=== PATIENT | female | born 1975 | race Two or more races ===

== ENCOUNTER → 2022-09-21 15:51 | Outpatient (BNVA) | payer OTHER, SELFPAY | PROVIDERS: PCP Student in an Organized Health Care Education/Training Program; Visit Provider Physician Assistant ==

== ENCOUNTER 2022-10-07 10:10 | Outpatient (AMB) | payer OTHER, SELFPAY ==
[2022-10-07 17:35] VITALS: BMI 38.4
--- NOTE | 2022-10-07 17:35 | A.OFFVIS_ITS ---
Intake VS Expanded 10/07/22 17:35 Height 4 ft 11 in Weight 190 lb BMI 38.4 Body Fat 78.4 Body Fat Percentage 41.3 Free Fat Mass 111.4 Water Mass 12 BMR 1,543 Intake Visit Reasons: TV SOFTBALL UMPIRE SWL BMI 38.4 Allergies SHELL FISH Allergy (Severe, Uncoded 10/07/22 17:37) Anaphylaxis Medication List - Last Reconciled 10/07/22 by Bal Ricci MD amlodipine 10 mg PO DAILY levothyroxine 50 mcg PO DAILY rosuvastatin 40 mg PO DAILY HPI TV SOFTBALL UMPIRE SWL BMI 38.4 HPI Details Start time: 1pm, End time: 2pm I spent 50 minutes speaking with the patient on the phone plus an additional 10 minutes reviewing and updating records for a total of 60 minutes HPI Comments History of Present Illness Details Previous weight loss efforts: intermittent fasting, OTC medications Wakes up: 7am, Sleeps: 11pm Breakfast: skips Lunch: 12pm (sandwich) Dinner: 7pm (meat and vegetables) Snacks: 11am (chips), 4pm (chips), 10pm (sweets) Exercise: none, has a Gym membership Fluids: Coffees 3-4 cups/day with cream and sugar, tea: none, juice: none, Soda: Regular coke, ETOH: recovering alcoholic, none now PFSH Medical History (Updated 10/07/22 @ 17:42 by Bal Ricci MD) DJD (degenerative joint disease) Hyperlipidemia Hypertension Hypothyroidism Surgical History (Updated 10/07/22 @ 17:42 by Bal Ricci MD) History of cervical discectomy Hx of section Social History (Updated 09/21/22 @ 16:14 by Laura Canela CMA) Alcohol intake: never Tobacco use type: Cigarette Cigarette Packs Per Day: 1 Assessment & Plan Assessment & Plan (1) Obesity: Code(s): E66.9 - Obesity, unspecified Plan: 1. Plan for lap sleeve gastrectomy. If diaphragmatic or ventral hernias are present at time of surgery, these will be repaired laparoscopically as well. Risks and complications were discussed in detail including possible conversion to an open procedure, anastomotic leak, bleeding requiring transfusion, small bowel obstruction, , DVT and pulmonary embolism, cardiac, or pulmonary complications, as terminal block assembler complications such as anastomotic ulcer, insufficient weight loss and vitamin deficiencies. I emphasized the importance of close follow-up, adherence to instructions and good communication. 2. Nutritional counseling. Start with 2 plant-based organic Orgain protein (buy at [employer], [employer], [employer], [employer]) shakes (HALF scoop each in 8oz low fat unsweetened almond milk each) at 8am-10am and 11am-1pm, 1 protein bar (Zone Perfect protein bars, buy at [employer], [employer], [employer], or [employer]) at 2pm-4pm, dinner at 5pm (8 forks of protein and 8 forks of salad/vegetables) and one more protein bar after dinner at 7pm-11pm. If hungry, you may have another HALF Zone Perfect protein bar at 10pm-11pm. Meal to include lean meat (beef, fish, pork, turkey, chicken), or japanese yogurt, or egg whites, or beans with a salad with olive oil and fruits (berries, pears, apples, kiwi). Avoid salt, breads, potatoes, rice, pasta, desserts. 3. Each shake would be drunk slowly, like coffee in a period of 2 hours. 4. Cut each bar in 4 pieces and eat each piece in 30min to make each bar last 2 hours. 5. I emphasized the importance of measuring accurately the food portion and measure it when serving the food in plate 6. The meal portions include 8 full-size forks of meat and 8 full-size forks of salad. You always eat the meat portion but you can replace up to 4 forks for salad/vegetables with rice, potatoes or pasta, or a fruit if you like. The less you do it the better weight loss will be. 7. One full-size fork is what it can be scooped on the fork without falling aside and not what can be bit with the fork. Use regular forks like those you find in a typical restaurant. 8. Please send me weight measurements as soon as possible and then once a week. Always include your diet and exercise plan. 9. Start treadmill with an incline of 2.0 and speed of 3.0. Increase incline by 1 every 3 min to a max incline of 8.0, stay 3min at 8.0 and then return to 2.0 and repeat same steps until calorie goal is met. Goal is to burn 2000 calories per week on exercise, which means either 300 calories daily, or 400 calories 5 days per week, or 500 calories 4 days per week, or 650 calories 3 days per week. 10. Alternatively purchase a stationary bike, elliptical or treadmill at home that can track calories. Let me know if you do so I can give you an exercise plan. 11. It is important of avoiding and for at least 18 months postoperatively and has been discussed at the infosession. 12. Goal is to lose at least 1.5-2lbs per week 13. Goal to lose 10% of your weight before surgery, which is about 19lbs. Ultimate weight goal: 171lbs before surgery 14. Please follow the diet plan exactly without any change. If you don't like something about the plan or you feel hungry you need to communicate with me so I can help you revise the plan. You should not change the plan yourself. (2) BMI 38.0-38.9,adult: Code(s): Z68.38 - Body mass index [BMI] 38.0-38.9, adult (3) Hypertension: Code(s): I10 - Essential (primary) hypertension (4) Hyperlipidemia: Code(s): E78.5 - Hyperlipidemia, unspecified (5) Hypothyroidism: Code(s): E03.9 - Hypothyroidism, unspecified Telehealth Telehealth Location of provider rendering services: practice address Location of patient: address on file Patient Identification confirmed using: Name, : Yes Telehealth method: voice only Patient verbally consented to treatment: Yes Patient verbally consented to billing insurance company: Yes Patient informed of any privacy concerns related to visit: Yes Minutes spent on Phone/Video with Pt.: 60 Coding Level of Care Code Tele New Pt Level 5 (93758) Diagnoses Obesity E66.9 BMI 38.0-38.9,adult Z68.38 Hypertension I10 Hyperlipidemia E78.5 Hypothyroidism E03.9 Time Spent (min) 60
== END 2022-10-07 17:57 | disposition home or self-care (01) ==
LOC: HO.HBS 10:10
PROVIDERS: PCP Student in an Organized Health Care Education/Training Program; Visit Provider Surgery
DX: E66.9 Obesity, unspecified (principal); Z68.38 Body mass index [BMI] 38.0-38.9, adult
CPT/HCPCS: 99443

== ENCOUNTER → 2022-10-07 10:10 | Outpatient (BNVA) | payer OTHER, SELFPAY | PROVIDERS: PCP Student in an Organized Health Care Education/Training Program; Visit Provider Surgery ==

== ENCOUNTER 2022-10-16 10:51 | Outpatient (REF) | payer OTHER, SELFPAY ==
--- NOTE | ~2022-10-16 | XR_ITS ---
EXAMINATION: XR CHEST 2 VIEWS CLINICAL INFORMATION: Obesity. COMPARISON: None. TECHNIQUE: Frontal and lateral views of the chest were obtained. FINDINGS: The heart, great vessels, pulmonary vasculature and mediastinum are normal. The lungs show no focal infiltrate, effusion or pneumothorax. There is no acute osseous abnormality. There is a mild thoracic levoscoliosis. There is multi-level thoracic and upper lumbar spondylosis. XR/XR chest 2V IMPRESSION: No active cardiopulmonary disease.
--- NOTE | 2022-10-16 10:59 | ECG_ITS ---
Test Reason : e66.9 Blood Pressure : / mmHG Vent. Rate : 077 BPM Atrial Rate : 077 BPM P-R Int : 154 ms QRS Dur : 080 ms QT Int : 378 ms P-R-T Axes : 064 017 025 degrees QTc Int : 427 ms Normal sinus rhythm Normal ECG No previous ECGs available Referred By: Bal Ricci Electronically Signed By:SARAH MURCIA
[2022-10-16 11:11] LABS: MANUAL DIFF FLAG NO
[2022-10-16 12:27] LABS: Basophils Percent Auto 0.6 % (0-2); Eosinophils Absolute Auto 0.1 X10*3/uL (0.0-0.4); Eosinophils Percent Auto 0.7 % (0-4); Hematocrit 42.9 % (37.0-47.0); Hemoglobin 14.1 g/dl (12.0-16.0); Imm Gran Abs Auto 0.03 X10*3/uL (0.00-0.03); Imm Gran Pct Auto 0.4 % (0.0-0.4); Lymphocytes Percent Auto 28.4 % (20-40); Mean Corpuscular HGB Conc 32.9 g/dl (31.0-35.0); Mean Corpuscular Hemoglobin 25.7 pg (27.0-33.0); Mean Corpuscular Volume 78.3 fL (80.0-98.0); Mean Platelet Volume 10.1 fL (9.4-12.3); Monocytes Absolute Auto 0.6 X10*3/uL (0.1-1.2); Monocytes Percent Auto 7.6 % (2-11); Neutrophils Absolute Auto 4.5 x10*3/uL (2.0-8.3); Neutrophils Percent Auto 62.3 % (45-73); Platelet Count 423 X10*3/uL (160-400); Red Blood Count 5.48 X10*6/uL (4.20-5.50); White Blood Count 7.2 X10*3/uL (4.8-10.8)
[2022-10-16 12:59] LABS: Estimated Average Glucose 100 mg/dL; Hemoglobin A1c % 5.1 % (<6.0)
[2022-10-16 13:16] LABS: Alanine Aminotransferase 14 U/L (0-31); Albumin Level 3.3 g/dL (3.5-5.0); Alkaline Phosphatase 67 U/L (39-117); Anion Gap 10 (12-20); Aspartate Amino Transferase 12 U/L (5-31); Bilirubin Total 0.3 mg/dL (0.0-1.0); Blood Urea Nitrogen 11 mg/dL (9-16); C Reactive Protein < 0.10 mg/dL (< or = 0.50); Calcium 9.1 mg/dL (8.4-10.2); Carbon Dioxide 27 mmol/L (22-29); Chloride 106 mmol/L (96-108); Cholesterol 361 mg/dL (<200); Estimated Glomerular Filt Rate > 60; Glucose Random 79 mg/dL (60-115); HDL Cholesterol 47 mg/dL (>40); Iron 73 mcg/dL (30-160); LDL Cholesterol Calculated 283 mg/dL (<100); Percent Iron Saturation 33 % (15-50); Potassium 4.1 mmol/L (3.3-5.1); Sodium 139 mmol/L (135-145); Total Iron Binding Capacity 221 mcg/dL (228-428); Total Protein 6.1 g/dL (6.5-8.0); Triglycerides 155 mg/dL (<150); Unsaturated Iron Binding 148 ug/dL
[2022-10-16 13:32] LABS: Ferritin 61 ng/mL (10-250); Insulin 5 uU/mL (2-29); TSH reflex Free T4 3.41 uIU/mL (0.32-4.0); Vitamin D 25-OH Total 13.3 ng/mL (>30)
[2022-10-16 13:44] LABS: Folate 8.9 ng/mL (> or = 4.0); Vitamin B12 582 pg/mL (200-900)
[2022-10-18 12:39] LABS: Calcium (PTHI) 8.7 mg/dL (8.6-10.2); PTHI 28 pg/mL (16-77)
[2022-10-20 12:34] LABS: Zinc 52 mcg/dL (60-130)
[2022-10-21 16:23] LABS: Vitamin B1 14 nmol/L (8-30)
[2022-10-22 02:03] LABS: Vitamin A 35 mcg/dL (38-98)
== END 2022-10-16 10:52 | disposition home or self-care (01) ==
LOC: HO.XRAY 10:51
PROVIDERS: PCP Student in an Organized Health Care Education/Training Program; Visit Provider Surgery
DX: E66.9 Obesity, unspecified (principal); I10 Essential (primary) hypertension; E78.5 Hyperlipidemia, unspecified; E03.9 Hypothyroidism, unspecified; Z68.38 Body mass index [BMI] 38.0-38.9, adult
CPT/HCPCS: 36415; 71046; 80053; 80061; 82306; 82607; 82728; 82746; 83036; 83525; 83540; 83970; 84425; 84443; 84590; 84630; 85025; 86140; 93005

== ENCOUNTER 2022-10-21 10:11 | Outpatient (AMB) | payer OTHER, SELFPAY ==
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
== END 2022-10-21 11:10 | disposition home or self-care (01) ==
LOC: HO.HBST 10:11
PROVIDERS: PCP Student in an Organized Health Care Education/Training Program; Visit Provider Counselor Mental Health
DX: F41.8 Other specified anxiety disorders (principal); F50.9 Eating disorder, unspecified
CPT/HCPCS: 90791

== ENCOUNTER → 2022-10-21 10:11 | Outpatient (BNVA) | payer OTHER, SELFPAY | PROVIDERS: PCP Student in an Organized Health Care Education/Training Program; Visit Provider Counselor Mental Health ==

== ENCOUNTER 2022-10-30 08:03 | Outpatient (AMB) | payer OTHER, SELFPAY ==
--- NOTE | 2022-10-30 11:16 | MHC.OFFVISWM ---
Intake VS Expanded 10/30/22 11:35 Height 4 ft 11 in Weight 189 lb 2 oz BMI 38.2 Body Fat 96.1 Body Fat Percentage 50.8 Free Fat Mass 93 Visceral Mass 20 Water Mass 63.7 BMR 1,262 Intake Visit Reasons: TV Follow Up SWL - 1ST Allergies SHELL FISH Allergy (Severe, Uncoded 10/07/22 17:37) Anaphylaxis HPI TV Follow Up SWL - 1ST HPI Details Start time: 10.11am, End time: 11.41am ?I spent 25 minutes speaking with the patient on the phone plus an additional 5 minutes reviewing and updating records for a total of 30 minutes HPI Comments History of Present Illness Details Overall weight loss: 0.8lbs or 0.42% TBWL Is doing 4 Orgain protein shakes (1/2 scoop in almond milk), 3 Zone Perfect protein bars and one meal (8 forks of protein and 8 forks of salad or vegetables). Misunderstood the plan and had more shakes and bars Exercise: ordered a treadmill [facility] Medical History (Updated 10/26/22 @ 19:47 by Bal Ricci MD) DJD (degenerative joint disease) Hypothyroidism Hyperlipidemia Hypertension Surgical History (Updated 10/07/22 @ 17:42 by Bal Ricci MD) History of cervical discectomy Hx of section Social History (Updated 09/21/22 @ 16:14 by Laura Canela CMA) Alcohol intake: never Tobacco use type: Cigarette Cigarette Packs Per Day: 1 Assessment & Plan Assessment & Plan (1) Obesity: Code(s): E66.9 - Obesity, unspecified Plan: 1. Nutritional counseling. Start with 2 plant-based organic Orgain protein (buy at [employer], [employer], [employer], [facility]) shakes (HALF scoop each in 8oz low fat unsweetened almond milk each) start: 8am and finish: 10am and start: 11am and finish: 1pm, 1 protein bar (Zone Perfect protein bars, buy at [employer], [employer], [facility], or [employer]) at start: 2pm and finish at 4pm, dinner at 5pm (8 forks of protein and 8 forks of salad/vegetables) and one more protein bar after dinner start: 7pm and finish at 11pm. If hungry, you may have another HALF Zone Perfect protein bar start: 10pm and finish: 11pm. Meal to include lean meat (beef, fish, pork, turkey, chicken), or citizen of [place] yogurt, or egg whites, or beans with a salad with olive oil and fruits (berries, pears, apples, kiwi). Avoid salt, breads, potatoes, rice, pasta, desserts. 2. Each shake would be drunk slowly, like coffee in a period of 2 hours. 3. Cut each bar in 4 pieces and eat each piece in 30min to make each bar last 2 hours. 4. I emphasized the importance of measuring accurately the food portion and measure it when serving the food in plate 5. The meal portions include 8 full-size forks of meat and 8 full-size forks of salad. You always eat the meat portion but you can replace up to 4 forks for salad/vegetables with rice, potatoes or pasta, or a fruit if you like. The less you do it the better weight loss will be. 6. One full-size fork is what it can be scooped on the fork without falling aside and not what can be bit with the fork. Use regular forks like those you find in a typical restaurant. 7. Please send me weight measurements as soon as possible and then once a week. Always include your diet and exercise plan. 8. Please let me know if your treadmill inclines. If it does, start treadmill with an incline of 2.0 and speed of 3.0. Increase incline by 1 every 3 min to a max incline of 8.0, stay 3min at 8.0 and then return to 2.0 and repeat same steps until calorie goal is met. Goal is to burn 2000 calories per week on exercise, which means either 300 calories daily, or 400 calories 5 days per week, or 500 calories 4 days per week, or 650 calories 3 days per week. 9. Alternatively purchase a stationary bike, elliptical or treadmill at home that can track calories. Let me know if you do so I can give you an exercise plan. 10. It is important of avoiding and for at least 18 months postoperatively and has been discussed at the infosession. 11. Goal is to lose at least 1.5-2lbs per week 12. Goal to lose 10% of your weight before surgery, which is about 19lbs. Ultimate weight goal: 171lbs before surgery 13. Please follow the diet plan exactly without any change. If you don't like something about the plan or you feel hungry you need to communicate with me so I can help you revise the plan. You should not change the plan yourself. (2) BMI 38.0-38.9,adult: Code(s): Z68.38 - Body mass index [BMI] 38.0-38.9, adult Telehealth Telehealth Location of provider rendering services: practice address Location of patient: address on file Patient Identification confirmed using: Name, : Yes Telehealth method: voice only Patient verbally consented to treatment: Yes Patient verbally consented to billing insurance company: Yes Patient informed of any privacy concerns related to visit: Yes Minutes spent on Phone/Video with Pt.: 30 Coding Level of Care Code Tele Est Pt Level 4 (11199) Diagnoses Obesity E66.9 BMI 38.0-38.9,adult Z68.38 Time Spent (min) 30
[2022-10-30 11:35] VITALS: BMI 38.2
== END 2022-10-30 11:42 | disposition home or self-care (01) ==
LOC: HO.HBS 08:03
PROVIDERS: PCP Student in an Organized Health Care Education/Training Program; Visit Provider Surgery
DX: E66.9 Obesity, unspecified (principal); Z68.38 Body mass index [BMI] 38.0-38.9, adult
CPT/HCPCS: 99443

== ENCOUNTER → 2022-10-30 08:03 | Outpatient (BNVA) | payer OTHER, SELFPAY | PROVIDERS: PCP Student in an Organized Health Care Education/Training Program; Visit Provider Surgery ==

== ENCOUNTER 2022-11-04 13:00 | Outpatient (AMB) | payer OTHER, SELFPAY ==
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
== END 2022-11-04 14:00 | disposition home or self-care (01) ==
LOC: HO.HBST 13:26
PROVIDERS: PCP Student in an Organized Health Care Education/Training Program; Visit Provider Counselor Mental Health
DX: F41.8 Other specified anxiety disorders (principal); F50.9 Eating disorder, unspecified
CPT/HCPCS: 90834

== ENCOUNTER → 2022-11-04 13:00 | Outpatient (BNVA) | payer OTHER, SELFPAY | PROVIDERS: PCP Student in an Organized Health Care Education/Training Program; Visit Provider Counselor Mental Health ==

== ENCOUNTER 2022-11-06 | Outpatient (REF) | payer OTHER, SELFPAY | END 2022-11-06 00:01 | disposition home or self-care (01) | LOC: CF | PROVIDERS: PCP Student in an Organized Health Care Education/Training Program; Visit Provider Dietitian, Registered | DX: E66.9 Obesity, unspecified (principal); I10 Essential (primary) hypertension; E78.5 Hyperlipidemia, unspecified; Z71.3 Dietary counseling and surveillance; Z68.38 Body mass index [BMI] 38.0-38.9, adult | CPT/HCPCS: 97802 ==

== ENCOUNTER 2022-11-20 13:26 | Outpatient (REF) | payer OTHER, SELFPAY | END 2022-11-20 13:27 | disposition home or self-care (01) | LOC: HO.US 13:26 | PROVIDERS: PCP Student in an Organized Health Care Education/Training Program; Visit Provider Surgery | DX: Z13.89 Encounter for screening for other disorder (principal) ==

== ENCOUNTER 2022-12-03 14:04 | Outpatient (REF) | payer OTHER, SELFPAY ==
[2022-12-05 13:22] LABS: H Pylori Breath Test Negative (Negative)
== END 2022-12-03 14:05 | disposition home or self-care (01) ==
LOC: HO.LNP 14:04
PROVIDERS: PCP Student in an Organized Health Care Education/Training Program; Visit Provider Surgery
DX: E66.9 Obesity, unspecified (principal); Z68.38 Body mass index [BMI] 38.0-38.9, adult
CPT/HCPCS: 83013

== ENCOUNTER → 2022-12-04 08:12 | Outpatient (BNVA) | payer OTHER, SELFPAY | PROVIDERS: PCP Student in an Organized Health Care Education/Training Program; Visit Provider Surgery ==

== ENCOUNTER 2022-12-10 08:32 | Outpatient (AMB) | payer OTHER, SELFPAY ==
--- OUTSIDE RECORDS SUMMARY | 2022-12-10 08:34 | XMS_ITS | Continuity of Care Document ---
Author Name Unknown Organization [facility] Address [address] [place] [address]- Care Team Providers Care Mainframe Developer Name Role Phone Jaylon Xiao MD Primary Care Physician Encounter [facility] Date(s): 09/18/21 - 09/18/[address] [address]- Encounter Diagnosis HTN (hypertension)(Final) - 09/18/21 Dyslipidemia, goal LDL below 100(Final) - 09/18/21 Abnormal fasting glucose(Final) - 09/18/21 Heavy tobacco smoker(Final) - 09/18/21 Anterior chest wall pain(Final) - 09/18/21 Discharge Disposition: A-D/C Home Attending Physician: Chance Bishop MD Admitting Physician: Chance Bishop MD Referring Physician: Not on Staff, Referring MD Allergies, Adverse Reactions, Alerts Substance Reaction Severity Status shellfish Active Medications albuterol CFC free 90 mcg/inh inhalation aerosol 1 puffs, Inhalation, 4 times a day, PRN for wheezing, # 25 Gm, 0 Refills, Maintenance, Aerosol Start Date: 12/14/10 Status: Ordered amLODIPine 5 mg oral tablet 1 tablet = 5 mg, By Mouth, Daily in AM, # 30 tablet, 1 Refills, Maintenance, 09/18/21 15:49:00 EDT,Tablet, [facility]/pharmacy #[id number], Partial fill upon patient request if the prescription is for a scheduleII opioid drug., 150, cm, 09/18/21 15:22:00 EDT, He... Start Date: 09/18/21 Stop Date: 11/17/21 Status: Ordered amLODIPine 5 mg oral tablet 5 mg, Tablet, By Mouth, Once, STAT, 09/18/21 14:36:00 EDT, Stop date 09/18/21 14:36:00 EDT Start Date: 09/18/21 Stop Date: 09/18/21 Status: Completed Ativan 0.5 mg oral tablet 1 tablet = 0.5 mg, By Mouth, 3 times a day, PRN for anxiety, # 12 tablet, 0 Refills, Maintenance, Tablet Start Date: 10/13/12 Status: Ordered Bactrim DS Tablet 1, tablet, By Mouth, 2 times a day, Maintenance, 10/06/16 15:55:43 Start Date: 10/06/16 Stop Date: 10/09/16 Status: Ordered Effexor XR 150 mg oral capsule, extended release 1 capsule = 150 mg, By Mouth, Daily, # 30 capsule, 11 Refills, Maintenance, CR Capsule Start Date: 08/04/11 Stop Date: 07/29/12 Status: Ordered Flexeril 10 mg oral tablet 1 tablet = 10 mg, By Mouth, 3 times a day, PRN for spasm, # 30 tablet, 0 Refills, Maintenance, Tablet Start Date: 04/14/12 Status: Ordered Implanon = 68 mg, Subcutaneous Infusion, Once, 0 Refills, Maintenance Start Date: 04/14/12 Status: Ordered rosuvastatin 10 mg oral capsule 1 capsule = 10 mg, By Mouth, Daily at bedtime, # 30 capsule, 1 Refills, Maintenance, 09/18/21 15:49:00 EDT, Capsule, [facility]/pharmacy #[id number], Partial fill upon patient request if the prescription is for aschedule II opioid drug., 150, cm, 09/18/21 15:22:0... Start Date: 09/18/21 Stop Date: 11/17/21 Status: Ordered Zofran 4 mg oral tablet 1 tablet = 4 mg, By Mouth, Every 8 hours, PRN Nausea & Vomiting, # 9 tablet, 0 Refills, Maintenance, 10/26/17 15:49:12 EDT, Tablet Start Date: 10/26/17 Stop Date: 10/29/17 Status: Ordered Problem List Condition Effective Dates Status Health Status Inform ant Obese class II(Confirmed) Active Proteinuria(Confirmed) Active Results Radiology Reports * Exam Date Time Procedure Performing Provider Status 09/18/21 12:37 PM Chest 2 Views Frontal and Lat ForJas holland; Auth (Verified) Notes: (Chest 2 Views Frontal and Lat) Reason For Exam: Chest Pain;Other: RESULT: Chest 2 Views Frontal and Lat Chest 2 Views Frontal and Lat HX OF PRESENT ILLNESS: pt reports HTN at workplace with midsternal intermittent, , non-radiating, reproducible, dull and sharp chest pain x 1 week. Pt reports it happens when I stop smoking. Pt also reports right arm side numbness; Reason: Chest Pain COMPARISON: 12/11/2020 FINDINGS: LINES AND TUBES: None. LUNGS AND PLEURA: Clear lungs. Normal pulmonary vascularity. No pleural effusion. No pneumothorax. HEART, MEDIASTINUM AND KISHAN: Heart is normal in size. Normal mediastinal and hilar contour. BONES AND SOFT TISSUES: No acute abnormality. Prior cervical disc arthroplasty. IMPRESSION: No evidence of acute abnormality. WSN: [id number] Ordering Physician: Chance Bishop Dictated By: Shankar Drew MD Dictated Date/Time: 09/18/21 12:47 p Reviewed By: Shankar Drew MD Signed By: Shankar Drew MD Signed Date/Time: 09/18/21 12:47 pm Transcribed By: ALYSSA Transcribed Date/Time: 09/18/21 12:46 pm Vital Signs Most recent to oldest [Reference Range]: 1 2 3 4 Height 150 cm (09/18/21 3:22 PM) 150 cm (09/18/21 1:30 PM) 150 cm (09/18/21 1:30 PM) Weight 85.4 kg (09/18/21 3:22 PM) 85.4 kg (09/18/21 1:30 PM) 85.4 kg (09/18/21 1:30 PM) Oxygen Saturation [94-100 %] 100 % (09/18/21 3:22 PM) 100 % (09/18/21 1:30 PM) 100 % (09/18/21 12:04 PM) Pulse Rate [55-90 bpm] 86 bpm (09/18/21 3:22 PM) 74 bpm (09/18/21 1:30 PM) 86 bpm (09/18/21 12:04 PM) Body Mass Index [18.5-24.99] 37.96 *>HHI* (09/18/21 3:22 PM) 37.96 *>HHI* (09/18/21 1:30 PM) 37.96 *>HHI* (09/18/21 1:30 PM) Blood Pressure [90-138/55-84 mm Hg] 123/90mm Hg (09/18/21 3:53 PM) 155/95mm Hg *H* (09/18/21 3:22 PM) 153/114mm Hg *H* (09/18/21 1:30 PM) 155/106mm Hg *H* (09/18/21 1:30 PM) Respiratory Rate [16-30 br/min] 18 br/min (09/18/21 3:22 PM) 16 br/min (09/18/21 1:30 PM) 18 br/min (09/18/21 12:04 PM) Temperature [96.8-100.4 DegF] 98 DegF (09/18/21 12:04 PM) Mode of Delivery (Oxygen) Room air (09/18/21 3:22 PM) Room air (09/18/21 1:30 PM) Room air (09/18/21 12:04 PM) Blood pressure sites Arm, right (09/18/21 3:22 PM) Arm, left (09/18/21 1:30 PM) Arm, right (09/18/21 1:30 PM) Dry Weight 85.4 kg (09/18/21 3:22 PM) 85.4 kg (09/18/21 1:30 PM) 85.4 kg (09/18/21 1:30 PM) Social History Social History Type Response Smoking Status Current every day cele amaro entered on: 10/01/16 Sex
--- OUTSIDE RECORDS SUMMARY | 2022-12-10 08:34 | XMS_ITS | Continuity of Care Document ---
Author Name Unknown Organization [facility] ter Address [address] [place] [address]- Care Team Providers Care Cartridge Feeder Name Role Phone Amanuel Curtis MD Primary Care Physician Encounter [facility] [place] Date(s): 12/11/20 - 12/11/[address] [address]- Discharge Disposition: A-D/C Home Attending Physician: Beto Barnhart MD Admitting Physician: Beto Barnhart MD Referring Physician: Not on Staff, Referring MD Allergies, Adverse Reactions, Alerts Substance Reaction Severity Status ibuprofen Active shellfish Active Medications albuterol CFC free 90 mcg/inh inhalation aerosol 1 puffs, Inhalation, 4 times a day, PRN for wheezing, # 25 Gm, 0 Refills, Maintenance, Aerosol Start Date: 12/14/10 Status: Ordered Ativan 0.5 mg oral tablet 1 tablet [...] Refills, Maintenance Start Date: 04/14/12 Status: Ordered Zofran 4 mg oral tablet 1 tablet = 4 mg, By Mouth, Every 8 hours, PRN Nausea & Vomiting, # 9 tablet, 0 Refills, Maintenance, 10/26/17 15:49:12 EDT, Tablet Start Date: 10/26/17 Stop Date: 10/29/17 Status: Ordered Problem List Condition Effective Dates Status Health Status Inform ant Proteinuria(Confirmed) Active Results Radiology Reports * Exam Date Time Procedure Performing Provider Status 12/11/20 9:27 PM Chest 2 Views Frontal and Lat Chance Martinez; Auth (Verified) Notes: (Chest 2 Views Frontal and Lat) Reason For Exam: Chest Pain;Other: RESULT: Chest 2 Views Frontal and Lat Chest 2 Views Frontal and Lat Hx of Present Illness: cp [place] all over worse at back of head; Reason: Other:; Chest Pain; Clinical Question(s): Other: COMPARISON: X-ray 11/23/2013. FINDINGS: LINES AND TUBES: None. LUNGS AND PLEURA: Clear lungs. Normal pulmonary vascularity. No pleural effusion. No pneumothorax. HEART, MEDIASTINUM AND KISHAN: Heart is normal in size. Normal upper mediastinal and hilar contour. BONES AND SOFT TISSUES: No acute abnormality. Lower cervical fusion hardware incidentally noted. IMPRESSION: No acute abnormality. WSN: [id number] Ordering Physician: John Figueroa Dictated By: Shankar Neumann MD Dictated Date/Time: 12/11/20 9:43 pm Reviewed By: Shankar Neumann MD Signed By: Shankar Neumann MD Signed Date/Time: 12/11/20 9:43 pm Transcribed By: LAYSSA Transcribed Date/Time: 12/11/20 9:43 pm Vital Signs Most recent to oldest [Reference Range]: 1 2 3 Height 150 cm (12/11/20 10:41 PM) 150 cm (12/11/20 8:02 PM) 150 cm (12/11/20 7:04 PM) Oxygen Saturation [94-100 %] 99 % (12/11/20 10:41 PM) 98 % (12/11/20 8:02 PM) 100 % (12/11/20 4:27 PM) Pulse Rate [55-90 bpm] 80 bpm (12/11/20 10:41 PM) 76 bpm (12/11/20 8:02 PM) 87 bpm (12/11/20 4:27 PM) Blood Pressure [90-138/55-84 mm Hg] 136/76mm Hg (12/11/20 10:41 PM) 133/84mm Hg (12/11/20 8:02 PM) 162/105mm Hg *H* (12/11/20 4:27 PM) Respiratory Rate [16-30 br/min] 16 br/min (12/11/20 10:41 PM) 18 br/min (12/11/20 8:02 PM) 18 br/min (12/11/20 4:27 PM) Temperature [96.8-100.4 DegF] 98.2 DegF (12/11/20 8:02 PM) 98.5 DegF (12/11/20 4:27 PM) Mode of Delivery (Oxygen) Room air (12/11/20 10:41 PM) Room air (12/11/20 8:02 PM) Room air (12/11/20 4:27 PM) Blood pressure sites Arm, right (12/11/20 10:41 PM) Arm, right (12/11/20 8:02 PM) Arm, right (12/11/20 4:27 PM) Temperature Route Oral (12/11/20 8:02 PM) Oral (12/11/20 4:27 PM) Dry Weight 89 kg (12/11/20 10:41 PM) 89 kg (12/11/20 8:02 PM) 89 kg (12/11/20 7:04 PM) Social History Social History Type Response Smoking Status Current every day cele amaro entered on: 10/01/16 Sex Female
--- OUTSIDE RECORDS SUMMARY | 2022-12-10 08:34 | XMS_ITS | Continuity of Care Document ---
Author Name Unknown Organization [facility] ter Address [address] [place] [address]- Care Team Providers Care Phthalic Acid Purifier Name Role Phone Amanuel Curtis MD Primary Care Physician ( [phone] [place] [facility]09[place] - 06/09/[address] [address]- Discharge Disposition: A-D/C Walkout Attending Physician: Not on Staff, Attending MD Admitting Physician: Not on Staff, Admitting MD Referring Physician: Not on Staff, Referring [...] Status Health Status Inform ant Proteinuria(Confirmed) Active Vital Signs Most recent to oldest [Reference Range]: 1 2 3 Oxygen Saturation [94-100 %] 99 % (06/09/21 9:22 PM) 100 % (06/09/21 7:09 PM) 100 % (06/09/21:22 PM) Pulse Rate [55-90 bpm] 67 bpm (06/09/21 9:22 PM) 76 bpm (06/09/21 7:09 PM) 68 bpm (06/09/21 5:22 PM) Blood Pressure [90-138/55-84 mm Hg] 131/96mm Hg (06/09/21 9:22 PM) 118/73mm Hg (06/09/21 7:09 PM) 135/86mm Hg (06/09/21 5:22 PM) Respiratory Rate [16-30 br/min] 18 br/min (06/09/21 9:22 PM) 18 br/min (06/09/21 7:09 PM) 20 br/min (06/09/21 10:55 AM) Temperature [96.8-100.4 DegF] 99.5 DegF (06/09/21 9:22 PM) 98.1 DegF (06/09/21 7:09 PM) 98.7 DegF (06/09/21:22 PM) Mode of Delivery (Oxygen) Room air (06/09/21 9:22 PM) Room air (06/09/21 5:22 PM) Room air (06/09/21 3:18 PM) Blood pressure sites Arm, right (06/09/21 9:22 PM) Arm, right (06/09/21 7:09 PM) Arm, right (06/09/21 5:22 PM) Temperature Route Oral (06/09/21 9:22 PM) Oral (06/09/21 7:09 PM) Oral (06/09/21 5:22 PM) Dry Weight 84 kg (06/09/21 11:01 AM) 84 kg (06/09/21 10:55 AM) Dry Weight Obtained Via Patient/family s tated (06/09/21 10:55 AM) Social History Social History Type Response Smoking Status Current every day cele amaro entered on: 10/01/16 Sex
--- OUTSIDE RECORDS SUMMARY | 2022-12-10 08:34 | XMS_ITS | Continuity of Care Document ---
Author Name Unknown Organization [facility] ter Address [address] [place] [id number]- Care Team Providers Care Shoe Caser Name Role Phone Amanuel Curtis MD Primary Care Physician Encounter [facility] [place] Date(s): 06/12/20 - 06/12/[address] [address]- Discharge Disposition: A-D/C Home Attending Physician: Sivakumar Tyler DO Admitting Physician: Sivakumar Tyler DO Referring Physician: Not on Staff, Referring MD [...] recent to oldest [Reference Range]: 1 2 Height 150 cm (06/12/20 6:26 PM) Weight 88.5 kg (06/12/20:26 PM) Oxygen Saturation [94-100 %] 98 % (06/12/20 9:30 PM) 98 % (06/12/20:26 PM) Pulse Rate [55-90 bpm] 81 bpm (06/12/20 9:30 PM) 83 bpm (06/12/20:26 PM) Body Mass Index [18.5-24.99] 39.33 *>HHI* (06/12/20 6:26 PM) Blood Pressure [90-138/55-84 mm Hg] 138/ 61mm Hg (06/12/20 9:30 PM) 146/76mm Hg *H* (06/12/20 6:26 PM) Respiratory Rate [16-30 br/min] 16 br/mi n (06/12/20 9:30 PM) 16 br/min (06/12/20 6:26 PM) Temperature [96.8-100.4 DegF] 98 DegF (06/12/20 9:30 PM) 98.4 DegF (06/12/20:26 PM) Mode of Delivery (Oxygen) Room air (06/12/20 9:30 PM) Room air (06/12/20 6:26 PM) Blood pressure sites Arm, right (06/12/20 6:26 PM) Temperature Route Oral (06/12/20 9:30 PM) Oral (06/12/20 6:26 PM) Dry Weight 88.5 kg (06/12/20 6:26 PM) Weight Obtained Via Patient/family state d (06/12/20 6:26 PM) Dry Weight Obtained Via Patient/family s tated (06/12/20 6:26 PM) Social History Social History Type Response Smoking Status Current every day cele amaro entered on: 10/01/16 Sex Female
--- NOTE | 2022-12-10 12:33 | A.OFFVIS_ITS ---
Intake VS Expanded 12/10/22 12:47 Height 4 ft 11 in Weight 180 lb 2 oz BMI 36.4 Body Fat % 48 Body Fat Mass 86.4 Fat Free Mass 93.8 Visceral Fat Rating 19 Body Water % 35.7 Body Water Mass 64.3 Basal Metabolic Rate/Score 1,280 Intake Visit Reasons: TV Follow Up SWL *R/S'D* Allergies SHELL FISH Allergy (Severe, Uncoded 10/07/22 17:37) Anaphylaxis HPI TV Follow Up SWL *R/S'D* HPI Details Start time: 12.25pm, End time: 12.55pm ?I spent 25 minutes speaking with the patient on the phone plus an additional 5 minutes reviewing and updating records for a total of 30 minutes HPI Comments History of Present Illness Details Overall weight loss: 9.8lbs, or 5.16% TBWL Is doing 2 Orgain protein (1/2 scoop in 8oz almond milk) shakes, 2 Zone Perfect protein bars and one meal (8 forks of protein and 8 forks of salad) Exercise: is doing the treadmill for 5 days per week for up to 300 calories (speed: 2.0-2.5 mph) [facility]LY [facility] Medical History (Updated 12/10/22 @ 12:51 by Bal Ricci MD) DJD (degenerative joint disease) Hypothyroidism Hyperlipidemia Hypertension Surgical History (Updated 10/07/22 @ 17:42 by Bal Ricci MD) History of cervical discectomy Hx of section Social History (Updated 09/21/22 @ 16:14 by Laura Canela CMA) Alcohol intake: never Tobacco use type: Cigarette Cigarette Packs Per Day: 1 Assessment & Plan Assessment & Plan (1) Obesity: Code(s): E66.9 - Obesity, unspecified Plan: 1. Continue same nutritional plan of 2 Orgain protein (1/2 scoop in 8oz almond milk) shakes, 2 Zone Perfect protein bars and one meal (8 forks of protein and 8 forks of salad). 2. Please measure accurately the number of forkfuls. It will make a difference for you 3. Exercise: continue the treadmill for either 5 days per week for 400 calories or daily for 300 calories. Increase the speed to 3mph 4. Send measurements weekly on the same day (2) BMI 36.0-36.9,adult: Code(s): Z68.36 - Body mass index [BMI] 36.0-36.9, adult Medications: New docusate sodium (Colace) 100 mg PO DAILY 30 caps 2RF K59.00 - Constipation, unspecified Telehealth Telehealth Location of provider rendering services: practice address Location of patient: address on file Patient Identification confirmed using: Name, : Yes Telehealth method: voice only Patient verbally consented to treatment: Yes Patient verbally consented to billing insurance company: Yes Patient informed of any privacy concerns related to visit: Yes Minutes spent on Phone/Video with Pt.: 30 Coding Level of Care Code Tele Est Pt Level 4 (854[address]) Diagnoses Obesity E66.9 BMI 36.0-36.9,adult Z68.36 Time Spent (min) 30
[2022-12-10 12:47] VITALS: BMI 36.4
== END 2022-12-10 12:56 | disposition home or self-care (01) ==
PROVIDERS: PCP Student in an Organized Health Care Education/Training Program; Visit Provider Surgery
DX: E66.9 Obesity, unspecified (principal); Z68.36 Body mass index [BMI] 36.0-36.9, adult
CPT/HCPCS: 99443

== ENCOUNTER → 2022-12-10 08:32 | Outpatient (BNVA) | payer OTHER, SELFPAY | PROVIDERS: PCP Student in an Organized Health Care Education/Training Program; Visit Provider Surgery ==

== ENCOUNTER 2022-12-18 08:03 | Outpatient (REF) | payer OTHER, SELFPAY ==
--- NOTE | ~2022-12-18 | US_ITS ---
EXAMINATION: US COMPLETE ABDOMEN WITH LIVER ELASTOGRAPHY CLINICAL INFORMATION: Obesity. COMPARISON: None available. TECHNIQUE: Real-time imaging of the abdominal viscera. Noninvasive ultrasound liver fibrosis assessment is performed using Isra ElastPQ point quantification shear wave elastography (2D-SWE) with a C5-2 MHz transducer. Multiple elastography samples are obtained. FINDINGS: PANCREAS: Normal. The visualized pancreatic head and body are normal in appearance. The remainder of the pancreas is obscured from visualization by the overlying bowel gas. ABDOMINAL AORTA: The proximal, middle, and distal aortic segments are normal in caliber. INFERIOR VENA CAVA: Visualized portions are normal. LIVER: The liver demonstrates normal size, contour and increased echogenicity. No focal lesion or intrahepatic biliary duct dilatation. The right lobe measures 14.3 cm in length. The left lobe measures 11.2 cm in length. Portal flow is towards the liver (hepatopetal). Shear wave liver elastography median stiffness is 1.27 m/s (reference: normal median stiffness is 1.3 m/s or less). IQR/median stiffness to assess sampling precision is 0.08 (reference: good quality data set is IQR/median stiffness of 0.15 or less). GALLBLADDER: Normal. The gallbladder is physiologically distended without evidence of stones, sludge, polyps, wall thickening or pericholecystic fluid. COMMON BILE DUCT: Normal in caliber measuring 0.3 cm in diameter. RIGHT KIDNEY: Normal. No hydronephrosis. No renal calculi or focal parenchymal lesions. The kidney measures 11.6 cm in maximum dimension. LEFT KIDNEY: Normal. No hydronephrosis. No renal calculi or focal parenchymal lesions. The kidney measures 13.0 cm in maximum dimension. SPLEEN: Normal. The spleen measures 7.9 cm in maximum dimension. FREE FLUID: None. US/US abdomen comp w elastography IMPRESSION: 1. There is generalized increase in hepatic echotexture, consistent with fatty infiltration or hepatocellular disease. Please correlate clinically. No focal hepatic mass or intrahepatic biliary dilatation is seen. 2. Liver elastography: Measurements are consistent with a high probability of normal liver stiffness. REFERENCE: Society of Radiologists in Ultrasound Liver Stiffness Thresholds (2020): LIVER STIFFNESS THRESHOLDS: *Liver Stiffness equal or less than 1.3 m/s: High probability of being normal. *Liver Stiffness less than 1.7 m/s: In the absence of other known clinical signs, rules out compensated advanced chronic liver disease. *Liver Stiffness 1.7-2.1 m/s: Suggestive of compensated advanced chronic liver disease but need further test for confirmation. *Liver Stiffness over 2.1 m/s: Rules in compensated advanced chronic liver disease. *Liver Stiffness over 2.4 m/s: Suggestive of clinically significant portal hypertension. QUALITY OF DATA SET: *IQR/Median value equal or less than 0.15 implies a quality data set. *IQR/Median value over 0.15 implies a poor quality data set. SIGNIFICANT CHANGE FROM PRIOR EXAM: Significant change if liver stiffness measurement is 10% or greater from prior exam. OTHER CONSIDERATIONS: The stage of liver fibrosis may be overestimated in the setting of acute hepatitis, liver inflammation, elevated liver function tests, hepatic vascular congestion, obstructive cholestasis, non-fasting state, and infiltrative diseases such as amyloidosis and lymphoma. In some patients with NAFLD, the liver stiffness thresholds for compensated advanced chronic liver disease may be lower. In causes other than viral hepatitis and NAFLD, liver stiffness thresholds are not well established.
--- NOTE | ~2022-12-18 | FL_ITS ---
EXAMINATION: XR FLUOROSCOPY UPPER GI WITH AIR CLINICAL INFORMATION: Preop evaluation prior to bariatric surgery COMPARISON: None TECHNIQUE: Fluoroscopic air contrast upper GI examination was performed utilizing standard techniques with thin and thick barium and effervescent granules. Numerous spot images were obtained. FINDINGS: Patient is status post cervical discectomy at C4-C5. Dual and single contrast images of the esophagus demonstrate normal caliber, contour, and mucosal pattern. No evidence of stricture, mass, or ulcerations identified. Esophageal peristalsis was normal. A very small sliding hiatal hernia is present. No significant gastroesophageal reflux was seen during the course of the examination and on reflux views. Dual contrast and single contrast images of the stomach demonstrated normal contour and mucosal pattern without evidence of mass, ulceration, or other abnormality. Contrast freely passed into the gastric antrum and duodenal bulb without delay. Single and air-contrast images of the duodenal bulb demonstrate no abnormality. The duodenal sweep has a normal appearance, course, and mucosal fold appearance. The imaged proximal jejunum has a normal fold pattern and caliber. FLUOROSCOPY TIME: 2 minutes 53 seconds Number of Spot Images: 8 Number of Cine: 7 DOSE AREA PRODUCT: 1650 uGy-m2 (microgray-meter squared) FL/FL upper GI w air IMPRESSION: 1. Small hiatal hernia, otherwise unremarkable exam 2. Status post surgical discectomy at C4-C5 This procedure was performed by Param Bustillo PA-C, and supervised by Dr. Thakkar
== END 2022-12-18 08:04 | disposition home or self-care (01) ==
LOC: HO.US 08:03
PROVIDERS: PCP Student in an Organized Health Care Education/Training Program; Visit Provider Surgery
DX: E66.9 Obesity, unspecified (principal); Z68.38 Body mass index [BMI] 38.0-38.9, adult; E03.9 Hypothyroidism, unspecified; I10 Essential (primary) hypertension; E78.5 Hyperlipidemia, unspecified
CPT/HCPCS: 74246; 76705; 76981

== ENCOUNTER → 2022-12-18 08:05 | Outpatient (BNV) | payer OTHER, SELFPAY | PROVIDERS: PCP Student in an Organized Health Care Education/Training Program; Visit Provider Radiology Diagnostic Radiology | DX: Z01.818 Encounter for other preprocedural examination (principal) | CPT/HCPCS: 74246 ==

== ENCOUNTER 2023-01-04 08:12 | Outpatient (AMB) | payer OTHER, SELFPAY ==
--- NOTE | 2023-01-04 12:10 | MHC.OFFVISWM ---
Intake VS Expanded 01/04/23 12:24 Height 4 ft 11 in Weight 175 lb 2 oz BMI 35.4 Body Fat % 46.4 Body Fat Mass 81.2 Fat Free Mass 93.8 Visceral Fat Rating 18 Body Water % 36.8 Body Water Mass 64.4 Basal Metabolic Rate/Score 1,288 Intake Visit Reasons: TV Follow Up SWL Allergies SHELL FISH Allergy (Severe, Uncoded 10/07/22 17:37) Anaphylaxis HPI TV Follow Up SWL HPI Details Start time: 12.02pm, End time: 12.29pm ?I spent 22 minutes speaking with the patient on the phone plus an additional 5 minutes reviewing and updating records for a total of 27 minutes HPI Comments History of Present Illness Details Overall weight loss: 14.8lbs, or 7.79% TBWL Is doing 2 Orgain protein shakes (1/2 scoop in 8oz almond milk), 2-3 Zone Perfect protein bars and one meal (8 forks of protein and 8 forks of salad or vegetables) Exercise: gym x5/wk doing the elliptical for 60-100 calories and treadmill for 350 calories PFSH Medical History (Updated 01/04/23 @ 12:27 by Bal Ricci MD) DJD (degenerative joint disease) Hypothyroidism Hyperlipidemia Hypertension Surgical History (Updated 10/07/22 @ 17:42 by Bal Ricci MD) History of cervical discectomy Hx of section (Updated 09/21/22 @ 16:14 by Laura Canela CMA) Alcohol intake: never Tobacco use type: Cigarette Cigarette Packs Per Day: 1 Assessment & Plan Assessment & Plan (1) Obesity: Code(s): E66.9 - Obesity, unspecified Plan: 1. Plan for lap sleeve gastrectomy including upper GI endoscopy. All tests has been completed and reviewed and the patient is cleared for the surgery. ?If diaphragmatic or ventral hernias are present at time of surgery, these will be repaired laparoscopically as well. Risks and complications were discussed in detail including possible conversion to an open procedure, anastomotic leak, bleeding requiring transfusion, small bowel obstruction, , DVT and pulmonary embolism, cardiac, or pulmonary complications, as long-term complications such as anastomotic ulcer, insufficient weight loss and vitamin deficiencies. I emphasized the importance of close follow-up, adherence to instructions and good communication. So far she has proven to be an excellent communicator and very compliant with all our directions accomplishing a great weight loss. I believe that she is an excellent candidate and she is ready. 2. Continue same nutritional plan of 2 Orgain protein shakes (1/2 scoop in 8oz almond milk), 2 Zone Perfect protein bars and one meal (8 forks of protein and 8 forks of salad or vegetables) 3. Please avoid the 3rd bar 4. Exercise: continue gym x5/wk doing the elliptical for 60-100 calories and treadmill for 350 calories. 5. Continue to send me weight measurements weekly on Wednesdays (2) BMI 35.0-35.9,adult: Code(s): Z68.35 - Body mass index [BMI] 35.0-35.9, adult Telehealth Telehealth Location of provider rendering services: practice address Location of patient: address on file Patient Identification confirmed using: Name, : Yes Telehealth method: voice only Patient verbally consented to treatment: Yes Patient verbally consented to billing insurance company: Yes Patient informed of any privacy concerns related to visit: Yes Minutes spent on Phone/Video with Pt.: 27 Coding Level of Care Code Tele Est Pt Level 3 (34736) Diagnoses Obesity E66.9 BMI 35.0-35.9,adult Z68.35 Time Spent (min) 27
[2023-01-04 12:24] VITALS: BMI 35.4
== END 2023-01-04 12:29 | disposition home or self-care (01) ==
LOC: HO.HBS 08:12
PROVIDERS: PCP Student in an Organized Health Care Education/Training Program; Visit Provider Surgery
DX: E66.9 Obesity, unspecified (principal); Z68.35 Body mass index [BMI] 35.0-35.9, adult
CPT/HCPCS: 99443

== ENCOUNTER → 2023-01-04 08:12 | Outpatient (BNVA) | payer OTHER, SELFPAY | PROVIDERS: PCP Student in an Organized Health Care Education/Training Program; Visit Provider Surgery ==

== ENCOUNTER 2023-01-07 15:40 | Outpatient (AMB) | payer OTHER, SELFPAY ==
--- NOTE | 2023-01-07 15:35 | MHC.AMNUTRGE ---
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 reviewed is worried about the immediate post op guidelines (hydration, no food) I want to be able to follow the instructions . She does have a lof concerns which were addressed today Previous weight loss methods attempted nutrisystem, atkins - lost and regained went back to old habits, diet pills OTC Dietary counseling reduction Diagnosis Nutrition problem #1 overweight/obesity As related to (etiology) #1 excess energy intake and physical inactivity As evidenced by (sign/symptom) #1 high BMI Monitoring/Goals Nutrition problem monitoring total energy intake, level of knowledge/skill, total PRO intake, total CHO intake, weight and oral fluids Outcome progress progressing Learning/Education Readiness to learn good Stages of change action Educational materials provided Yes Most Recent Diabetes Results: No Data to Display COUNT INCLUDES THE [facility] Medical History (Updated 01/04/23 @ 12:27 by Bal Ricci MD) DJD (degenerative joint disease) Hypothyroidism Hyperlipidemia Hypertension Surgical History (Updated 10/07/22 @ 17:42 by Bal Ricci MD) History of cervical discectomy Hx of section Social History (Updated 09/21/22 @ 16:14 by Laura Canela CMA) Alcohol intake: never Tobacco use type: Cigarette Cigarette Packs Per Day: 1 Assessment & Plan Assessment & Plan (1) Obesity (BMI 30-39.9): Code(s): E66.9 - Obesity, unspecified Plan Patient is cleared from a nutrition standpoint for bariatric surgery. Patient Instructions: All questions/concerns were answered. Patient is cleared from a nutrition standpoint for bariatric surgery. Educational requirements have been completed. Reviewed vitamin supplementation and commitment to protein shake for several months post surgery. Encouraged communication with office as needed Telehealth Telehealth Location of provider rendering services: practice address Location of patient: address on file Patient Identification confirmed using: Name, : Yes Telehealth method: video Patient verbally consented to treatment: Yes Patient verbally consented to billing insurance company: Yes Patient informed of any privacy concerns related to visit: Yes Minutes spent on Phone/Video with Pt.: 30 Coding Level of Care Code Nutr Indiv Subseq ([id number]) Diagnoses Obesity (BMI 30-39.9) E66.9 Time Spent (min) 30
== END 2023-01-07 16:04 | disposition home or self-care (01) ==
LOC: HO.HBS 15:40
PROVIDERS: PCP Student in an Organized Health Care Education/Training Program; Visit Provider Dietitian, Registered
DX: E66.9 Obesity, unspecified (principal)

== ENCOUNTER → 2023-01-07 15:40 | Outpatient (BNVA) | payer OTHER, SELFPAY | PROVIDERS: PCP Student in an Organized Health Care Education/Training Program; Visit Provider Dietitian, Registered | DX: E66.9 Obesity, unspecified (principal) | CPT/HCPCS: 97803 ==

== ENCOUNTER 2023-01-13 12:30 | Outpatient (AMB) | payer OTHER, SELFPAY ==
--- NOTE | 2023-01-13 12:42 | A.OFFWM_ITS ---
Intake Intake Visit Reasons: VIDEO F/U Allergies SHELL FISH Allergy (Severe, Uncoded 10/07/22 17:37) Anaphylaxis PFSH Medical History (Updated 01/04/23 @ 12:27 by Bal Ricci MD) DJD (degenerative joint disease) Hypothyroidism Hyperlipidemia Hypertension Surgical History (Updated 10/07/22 @ 17:42 by Bal Ricci MD) History of cervical discectomy Hx of section Social History (Updated 09/21/22 @ 16:14 by Laura Canela DIRECTOR OF PRECLINICAL RESEARCH) Alcohol intake: never Tobacco use type: Cigarette Cigarette Packs Per Day: 1 Behavioral Health Assessment Weight Management Therapy Therapy Notes Details Pt presents for a f/up for support. Pt reports she has been dealing with mixed feelings about surgery as she has lost weight and is already feeling well. She has fear and wanted to address her feelings today. INTERVENTIONS: -Active listening, processed current fee lings and underlying thoughts and negative self-talk behind these feelings. -Completed a mindfulness exercise and pr ovided with strategies to normalize and cope with feelings. -Provided with strategies for smoke cess ations she continues smoking 4-7 cigarettes at day. RESPONSE: Active, engaged. Pt responded well to interventions. PLAN: Pt will start counseling outside. She doesn't need a f/up with me and she has been already cleared. Presenting Concerns Referral Source [facility] Provider. PT sees Dr. Shelton Reason for referral Completion of behavioral health assessment as part of process for weight-loss surgery. Precipitating Event Medical issues and current challenges due to physical status. PT doesn't feel able to enjoy life as others anymore due to her weight. Assessment & Plan Assessment & Plan (1) Depression with anxiety: Code(s): F41.8 - Other specified anxiety disorders (2) Eating disorder: Code(s): F50.9 - Eating disorder, unspecified Plan Cleared from the standpoint for bariatric surgery. . PT will start her own counseling, advised to maintain communication with providers and use available resources such as workshops, peer support grup, therapy group and facebook support group for post-op. Telehealth Telehealth Location of provider rendering services: other Location of patient: [place] Patient Identification confirmed using: Name, : Yes Telehealth method: video Patient verbally consented to treatment: Yes Patient verbally consented to billing insurance company: Yes Patient informed of any privacy concerns related to visit: No Minutes spent on Phone/Video with Pt.: 45 Coding Level of Care Code Established Pt Tele Psytx 45 mins ([id number]) Patient Type Established Diagnoses Depression with anxiety F41.8 Eating disorder F50.9 Time Spent (min) 45
== END 2023-01-13 13:15 | disposition home or self-care (01) ==
LOC: HO.HBST 13:25
PROVIDERS: PCP Student in an Organized Health Care Education/Training Program; Visit Provider Counselor Mental Health
DX: F41.8 Other specified anxiety disorders (principal); F50.9 Eating disorder, unspecified
CPT/HCPCS: 90834

== ENCOUNTER → 2023-01-13 12:30 | Outpatient (BNVA) | payer OTHER, SELFPAY | PROVIDERS: PCP Student in an Organized Health Care Education/Training Program; Visit Provider Counselor Mental Health ==

== ENCOUNTER 2023-07-27 10:44 | Outpatient (REF) | payer MEDICARE, SELFPAY ==
[2023-07-27 12:00] LABS: Hematocrit 39.2 % (37.0-47.0); Hemoglobin 12.9 g/dl (12.0-16.0); Mean Corpuscular HGB Conc 32.9 g/dl (31.0-35.0); Mean Corpuscular Hemoglobin 26.3 pg (27.0-33.0); Mean Platelet Volume 9.7 fL (9.4-12.3); Platelet Count 379 X10*3/uL (160-400); Red Cell Distribution Width 14.5 % (11.0-16.0); White Blood Count 5.5 X10*3/uL (4.8-10.8)
[2023-07-27 12:39] LABS: Erythrocyte Sedimentation Rate 23 MM/HR (0-20)
[2023-07-27 12:43] LABS: Estimated Average Glucose 105 mg/dL; Hemoglobin A1c % 5.3 % (<6.0)
[2023-07-27 12:52] LABS: Alanine Aminotransferase 13 U/L (0-31); Alkaline Phosphatase 63 U/L (39-117); Anion Gap 9 (12-20); Aspartate Amino Transferase 14 U/L (5-31); Bilirubin Total 0.3 mg/dL (0.0-1.0); Blood Urea Nitrogen 10 mg/dL (9-16); C Reactive Protein < 0.10 mg/dL (< or = 0.50); Calcium 8.3 mg/dL (8.4-10.2); Carbon Dioxide 29 mmol/L (22-29); Chloride 108 mmol/L (96-108); Cholesterol 303 mg/dL (<200); Estimated Glomerular Filt Rate > 60; Glucose Random 78 mg/dL (60-115); HDL Cholesterol 53 mg/dL (>40); LDL Cholesterol Calculated 217 mg/dL (<100); Potassium 4.1 mmol/L (3.3-5.1); Sodium 142 mmol/L (135-145); Total Protein 5.8 g/dL (6.5-8.0); Triglycerides 165 mg/dL (<150)
[2023-07-27 12:54] LABS: Rheumatoid Factor < 13.0 IU/mL (<15.0)
[2023-07-27 12:55] LABS: Syphilis Screen Nonreactive (Nonreactive)
[2023-07-27 13:08] LABS: Free T4 (Free Thyroxine) 0.78 ng/dL (0.71-1.85); Thyroid Stimulating Hormone 4.38 uIU/mL (0.32-4.0)
[2023-07-27 13:29] LABS: CT PCR NOT DETECTED (Not Detect.); NG PCR NOT DETECTED (Not Detect.)
[2023-07-28 04:09] LABS: HBS Num1 21.19 mIU/mL (0-7.99); HBc Num1 0.18 S/CO (0.00-0.79); HBsAGNum1 0.23 S/CO (0.00-0.99); HIV AB/AG Nonreactive (Nonreactive); HIV Num 1 0.08 S/CO (0.00-0.99); Hepatitis B Core Antibody Nonreactive (Nonreactive); Hepatitis B Surface Antigen Negative (Negative); ~HepC Num1 0.07 S/CO (0.00-0.79); ~Hepatitis B Surface Antibody REACTIVE (Nonreactive); ~Hepatitis C Antibody Nonreactive (Nonreactive)
[2023-07-29 15:27] LABS: Cyclic Citrullinated Peptide <16 UNITS
== END 2023-07-27 10:45 | disposition home or self-care (01) ==
LOC: HO.HHCL 10:44
PROVIDERS: Visit Provider Student in an Organized Health Care Education/Training Program
DX: Z00.00 Encounter for general adult medical examination without abnormal findings (principal); M25.50 Pain in unspecified joint; E03.9 Hypothyroidism, unspecified; Z13.1 Encounter for screening for diabetes mellitus
CPT/HCPCS: 0353U; 36415; 80053; 80061; 82306; 83036; 84439; 84443; 85027; 85652; 86140; 86200; 86431; 86704; 86706; 86780; 86803; 87340; 87389

== ENCOUNTER 2023-08-05 11:39 | Outpatient (REF) | payer MEDICARE, SELFPAY ==
--- NOTE | ~2023-08-05 | XR_ITS ---
EXAMINATION: XR CHEST 2 VIEW CLINICAL INFORMATION: Precordial chest pain COMPARISON: 10/16/2022 TECHNIQUE: PA and lateral views of the chest obtained. FINDINGS: The lungs are clear. There are no pleural effusions. The cardiomediastinal silhouette is normal. XR/XR chest 2V IMPRESSION: No acute cardiopulmonary disease.
== END 2023-08-05 11:40 | disposition home or self-care (01) ==
LOC: HO.HHCX 11:39
PROVIDERS: Visit Provider Internal Medicine
DX: Z13.89 Encounter for screening for other disorder (principal)
CPT/HCPCS: 71046

== ENCOUNTER 2023-08-05 12:07 | Outpatient (REF) | payer MEDICARE, SELFPAY ==
[2023-08-05 13:35] LABS: MANUAL DIFF FLAG NO
[2023-08-05 14:15] LABS: Basophils Percent Auto 0.7 % (0-2); Eosinophils Percent Auto 0.7 % (0-4); Hemoglobin 13.7 g/dl (12.0-16.0); Imm Gran Abs Auto 0.04 X10*3/uL (0.00-0.03); Imm Gran Pct Auto 0.7 % (0.0-0.4); Lymphocytes Absolute Auto 2.3 X10*3/uL (1.2-4.9); Lymphocytes Percent Auto 38.9 % (20-40); Mean Corpuscular HGB Conc 33.4 g/dl (31.0-35.0); Mean Corpuscular Hemoglobin 26.7 pg (27.0-33.0); Mean Corpuscular Volume 79.9 fL (80.0-98.0); Mean Platelet Volume 9.8 fL (9.4-12.3); Monocytes Absolute Auto 0.4 X10*3/uL (0.1-1.2); Monocytes Percent Auto 6.9 % (2-11); Neutrophils Percent Auto 52.1 % (45-73); Platelet Count 388 X10*3/uL (160-400); Red Blood Count 5.13 X10*6/uL (4.20-5.50); Red Cell Distribution Width 14.5 % (11.0-16.0); White Blood Count 5.8 X10*3/uL (4.8-10.8)
[2023-08-05 14:45] LABS: Free T4 (Free Thyroxine) 0.82 ng/dL (0.71-1.85); TSH reflex Free T4 6.35 uIU/mL (0.32-4.0)
[2023-08-05 14:46] LABS: Erythrocyte Sedimentation Rate 19 MM/HR (0-20)
[2023-08-06 11:13] LABS: Thyroglobulin Antibodies <1 IU/mL (< or = 1)
[2023-08-06 13:43] LABS: Triiodothyronine T3 Total 129 ng/dL (76-181)
== END 2023-08-05 12:08 | disposition home or self-care (01) ==
LOC: HO.HHCL 12:07
PROVIDERS: Visit Provider Internal Medicine
DX: R07.2 Precordial pain (principal); R79.89 Other specified abnormal findings of blood chemistry
CPT/HCPCS: 36415; 71046; 84439; 84443; 84480; 85025; 85652; 86800

== ENCOUNTER 2023-08-17 08:56 | Outpatient (REF) | payer OTHER, SELFPAY ==
--- NOTE | ~2023-08-17 | MM_ITS ---
EXAMINATION: MM SCREENING DIGITAL BREAST TOMOSYNTHESIS, BILATERAL CLINICAL INFORMATION: Screening. Asymptomatic. COMPARISON: Mammography: This study is compared with prior exams dating back to 2019. TECHNIQUE: Digital breast tomosynthesis is performed in both the craniocaudal and mediolateral oblique views along with computer-aided detection (CAD). Synthesized 2D images are generated from the tomosynthesis. FINDINGS: There are scattered areas of fibroglandular density (ACR BI-RADS breast composition Category b). There are no significant masses, abnormal calcifications, or other abnormalities. Benign calcifications are present in the superior aspect of right breast. These been evaluated in the past magnification. MM/MM tomosynthesis screening BI IMPRESSION: No mammographic evidence of malignancy. ASSESSMENT: BI-RADS BI-RADS 2 - Benign Findings RECOMMENDATION: Routine annual mammography screening. 1 year F/U This examination should not preclude the clinical evaluation of a suspicious palpable abnormality. This patient's information was entered into a reminder system with a target due date for their next mammogram.
[2023-08-17 17:27] LABS: Creatinine Urine 94.35 mg/dL; Microalbumin Urine > 2000.0 mg/L
== END 2023-08-17 08:57 | disposition home or self-care (01) ==
LOC: HO.MAMMO 08:56
PROVIDERS: PCP Student in an Organized Health Care Education/Training Program; Visit Provider Student in an Organized Health Care Education/Training Program
DX: Z12.31 Encounter for screening mammogram for malignant neoplasm of breast (principal); Z00.00 Encounter for general adult medical examination without abnormal findings
CPT/HCPCS: 77063; 77067; 82043; 82570

== ENCOUNTER → 2023-08-17 09:00 | Outpatient (BNV) | payer OTHER, SELFPAY | PROVIDERS: PCP Student in an Organized Health Care Education/Training Program; Visit Provider Radiology Diagnostic Radiology | DX: Z12.31 Encounter for screening mammogram for malignant neoplasm of breast (principal) | CPT/HCPCS: 77063; 77067 ==

== ENCOUNTER 2023-08-25 12:49 | Outpatient (REF) | payer OTHER, SELFPAY ==
--- NOTE | ~2023-08-25 | US_ITS ---
EXAMINATION: US PELVIS COMPLETE CLINICAL INFORMATION: Leiomyoma following COMPARISON: None TECHNIQUE: Transabdominal and transvaginal imaging was performed. FINDINGS: The uterus is mildly enlarged measuring 11.2 x 3.8 x 5.8 cm. Uterus is retroflexed. A regular homogeneous endometrium is identified measuring 0.3 cm. A 2.9 x 2.2 x 3.3 cm transmural myoma in the fundus of the uterus. Nabothian cysts in the cervix. Ovaries were not identified sonographically. No adnexal masses. There is no pelvic free fluid. US/US pelvic and transvaginal IMPRESSION: 1. A 3.3 cm transmural myoma in the fundus of the uterus. 2. Ovaries were not identified sonographically. No adnexal mass.
== END 2023-08-25 12:50 | disposition home or self-care (01) ==
LOC: HO.US 12:49
PROVIDERS: PCP Student in an Organized Health Care Education/Training Program; Visit Provider Student in an Organized Health Care Education/Training Program
DX: D21.9 Benign neoplasm of connective and other soft tissue, unspecified (principal)
CPT/HCPCS: 76830; 76856

== ENCOUNTER 2023-10-05 18:00 | Outpatient (REF) | payer OTHER, SELFPAY ==
--- NOTE | ~2023-10-05 | MR_ITS ---
MRI OF THE BRAIN WITHOUT IV CONTRAST INDICATION: Numbness, tingling, and weakness in the right side of the body. COMPARISON: None available. TECHNIQUE: Multiplanar multisequence MR imaging of the brain was obtained without IV contrast. FINDINGS: There is no hydrocephalus, extra-axial surface collection, or herniation. T2 signal changes scattered throughout the supratentorial white matter, likely mild chronic microangiopathy. 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 Major flow voids at the skull base are preserved. There is no acute infarct on diffusion-weighted imaging. There is no intracranial hemorrhage on the gradient recalled echo acquisition. The midline structures are normal. The cerebellar tonsils are normally positioned. The cerebellum and brainstem are normal. The craniocervical junction is normal. Osseous marrow signal intensity is homogenous. The visualized soft tissues are unremarkable. Partially imaged surgical hardware at C4. Small left mastoid effusion. There are MR/MR head/brain wo con IMPRESSION: - No acute intracranial findings. No acute infarcts. - T2 signal changes scattered throughout the supratentorial white matter, likely mild chronic microangiopathy. Sequela of demyelinating disease felt to be less likely based on the distribution. - There is a chronic-appearing cortical/subcortical infarct within the left frontal lobe. Electronically signed by: Oscar Jordan MD 10/22/2023 04:11 PM EDT
== END 2023-10-05 18:01 | disposition home or self-care (01) ==
LOC: HO.MRI 18:00
PROVIDERS: PCP Student in an Organized Health Care Education/Training Program; Visit Provider Student in an Organized Health Care Education/Training Program
DX: R20.0 Anesthesia of skin (principal); R20.2 Paresthesia of skin
CPT/HCPCS: 70551

== ENCOUNTER 2023-11-01 11:04 | Outpatient (REF) | payer OTHER, SELFPAY ==
[2023-11-01 13:38] LABS: Appearance Urine Clear; Color Urine Yellow; Glucose Urine UA Negative (Negative); Leukocyte Esterase Urine Negative (Negative); Nitrite Urine Negative (Negative); UMIC TRIGGER UACC YES; Urine Blood Negative (Negative); Urine Ketones Negative (Negative); Urine Protein 100 (2+) mg/dL (Neg-Trace)
[2023-11-01 13:40] LABS: Bacteria Urine None Seen (None Seen); Hyaline Casts Urine 0-2 /LPF (0-2); RBC Urine 0-2 /HPF (0-2); Squamous Epithelial Cell Urine 0-2 /HPF (0-2); WBC Urine 0-5 /HPF (0-5)
[2023-11-01 14:08] LABS: Alanine Aminotransferase 19 U/L (0-31); Albumin Level 3.2 g/dL (3.5-5.0); Alkaline Phosphatase 63 U/L (39-117); Anion Gap 8 (12-20); Aspartate Amino Transferase 14 U/L (5-31); Bilirubin Total 0.4 mg/dL (0.0-1.0); Blood Urea Nitrogen 10 mg/dL (9-16); Calcium 8.9 mg/dL (8.4-10.2); Carbon Dioxide 29 mmol/L (22-29); Chloride 109 mmol/L (96-108); Cholesterol 266 mg/dL (<200); Estimated Glomerular Filt Rate > 60; Glucose Random 89 mg/dL (60-115); HDL Cholesterol 49 mg/dL (>40); LDL Cholesterol Calculated 195 mg/dL (<100); Potassium 4.2 mmol/L (3.3-5.1); Sodium 142 mmol/L (135-145); Total Protein 6.1 g/dL (6.5-8.0); Triglycerides 114 mg/dL (<150)
[2023-11-01 14:21] LABS: Creatinine Urine 31.53 mg/dL; Protein/Creatinine Ratio, Ur 3.36 (<0.2); Total Protein Urine Random 106 mg/dL (<12)
[2023-11-01 14:28] LABS: Free T4 (Free Thyroxine) 0.81 ng/dL (0.71-1.85); Thyroid Stimulating Hormone 4.93 uIU/mL (0.32-4.0)
== END 2023-11-01 11:05 | disposition home or self-care (01) ==
LOC: HO.HHCL 11:04
PROVIDERS: Visit Provider Student in an Organized Health Care Education/Training Program
DX: Z00.00 Encounter for general adult medical examination without abnormal findings (principal); R80.9 Proteinuria, unspecified
CPT/HCPCS: 36415; 80053; 80061; 81001; 82570; 84156; 84439; 84443

== ENCOUNTER → 2023-11-04 10:03 | Outpatient (AMB) | payer OTHER, SELFPAY ==
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
== END ==
LOC: HO.HOP 10:03
PROVIDERS: PCP Student in an Organized Health Care Education/Training Program; Visit Provider Counselor Mental Health
DX: F43.10 Post-traumatic stress disorder, unspecified (principal); F19.21 Other psychoactive substance dependence, in remission
CPT/HCPCS: 90791

== ENCOUNTER → 2023-11-04 10:03 | Outpatient (BNVA) | payer OTHER, SELFPAY | PROVIDERS: PCP Student in an Organized Health Care Education/Training Program; Visit Provider Counselor Mental Health ==

== ENCOUNTER 2023-11-18 12:37 | Outpatient (REF) | payer OTHER, SELFPAY ==
--- NOTE | 2023-11-18 | EMG_ITS ---
Chief complaint: Right arm pain/numbness/pain for the last 2 years Reason for referral: Evaluate for radiculopathy Referred by: Dr. Kourtney Epstein Procedure done: Right upper extremity NCS/EMG Precautions and/or limitations: None The limb temperature was monitored continuously and remained between 32-36 degrees C during the performance of the NCS. Nerve Conduction Studies Anti Sensory Summary Table ?Stim Site NR Onset (ms) Norm Onset (ms) Peak (ms) Norm Peak (ms) O-P Amp (?V) Norm O-P Amp Site1 Site2 Delta-0 (ms) Dist (cm) Gilles (m/s) Norm Gilles (m/s) Right Median Anti Sensory (2nd Digit) Wrist ? 2.1 2.9 <3.6 18.5 >10 Wrist 2nd Digit 2.1 14.0 67 Right Radial Anti Sensory (Thumb) Forearm ? 1.4 2.0 <3.1 22.8 Forearm Thumb 1.4 0.0 Right Ulnar Anti Sensory (5th Digit) Wrist ? 0.9 2.9 <3.7 18.1 >15.0 Wrist 5th Digit 0.9 14.0 156 Motor Summary Table ?Stim Site NR Onset (ms) Norm Onset (ms) O-P Amp (mV) Norm O-P Amp iAmp (mV) Amp (1st) (%) Site1 Site2 Delta-0 (ms) Dist (cm) Gilles (m/s) Norm Gilles (m/s) Right Median Motor (Abd Poll Brev) Wrist ? 2.7 <3.9 10.3 >4.5 11.3 100.0 Elbow Wrist 3.1 16.0 52 >45 Elbow ? 5.8 11.1 12.5 107.8 Right Ulnar Motor (Abd Dig Minimi) Wrist ? 2.4 <3.0 7.6 >5 8.4 100.0 B Elbow Wrist 2.7 17.5 65 >45 B Elbow ? 5.1 6.7 7.5 88.2 A Elbow B Elbow 1.5 10.0 67 >45 A Elbow ? 6.6 6.7 7.6 88.2 EMG ?Side Muscle Nerve Root Ins Act Fibs Psw Amp Dur Poly Recrt Int Pat Comment Right 1stDorInt Ulnar C8-T1 Nml Nml Nml Nml Nml 0 Nml Complete Right FlexCarRad Median C6-7 Nml Nml Nml Nml Nml 0 Nml Complete Right Biceps Musculocut C5-6 Nml Nml Nml Nml Nml 0 Nml Complete Right Triceps Radial C6-7-8 Nml Nml Nml Nml Nml 0 Nml Complete Right Deltoid Axillary C5-6 Nml Nml Nml Nml Nml 0 Nml Complete FINDINGS: All motor and sensory nerves tested showed normal latencies, amplitudes and conduction velocities. Concentric needle EMG was performed in selected muscles of the right upper extremity. Study did not reveal signs of electric abnormalities as shown in the table above. IMPRESSION: 1. This is a normal study. 2. There is no electrodiagnostic evidence for median neuropathy, ulnar neuropathy, brachial plexopathy, or cervical radiculopathy. Thank you for your kind referral. Pauline Pang MD, BRITTANY Board Certified, [place] Board of Physical Medicine and Rehabilitation (ABPMR) Board Certified, [place] Board of Electrodiagnostic Medicine (ABEM) [facility] [id number] [facility]
== END 2023-11-18 12:38 | disposition home or self-care (01) ==
LOC: HO.NEURO 12:37
PROVIDERS: PCP Student in an Organized Health Care Education/Training Program; Visit Provider Student in an Organized Health Care Education/Training Program
DX: R20.0 Anesthesia of skin (principal)
CPT/HCPCS: 95886; 95909

== ENCOUNTER → 2023-11-18 12:54 | Outpatient (BNV) | payer OTHER, SELFPAY | PROVIDERS: PCP Student in an Organized Health Care Education/Training Program; Visit Provider Physical Medicine & Rehabilitation | DX: R20.0 Anesthesia of skin (principal); M79.601 Pain in right arm | CPT/HCPCS: 95886; 95909 ==

== ENCOUNTER 2023-11-29 12:47 | Outpatient (REF) | payer OTHER, SELFPAY ==
[2023-11-29 14:44] LABS: INTERNATIONAL NORM RATIO 0.9 (0.9-1.1); Prothrombin Time 10.8 SEC (10.9-12.4)
[2023-11-29 14:46] LABS: Appearance Urine Clear; Color Urine Yellow; Glucose Urine UA Negative (Negative); Leukocyte Esterase Urine Negative (Negative); Nitrite Urine Negative (Negative); UMIC TRIGGER UA YES; Urine Blood Negative (Negative); Urine Ketones Negative (Negative); Urine Protein 300 (3+) mg/dL (Neg-Trace)
[2023-11-29 14:47] LABS: Partial Thromboplastin Time 29.3 SEC (26.0-36.8)
[2023-11-29 14:49] LABS: Bacteria Urine 1+ (None Seen); Hyaline Casts Urine 0-2 /LPF (0-2); RBC Urine 0-2 /HPF (0-2); WBC Urine 0-5 /HPF (0-5)
[2023-11-29 16:12] LABS: Creatinine Urine 81.34 mg/dL; Total Protein Urine Random 226 mg/dL (<12)
[2023-11-30 10:38] LABS: Complement C3 159 mg/dL (83-193); Triiodothyronine T3 Free 3.5 pg/mL (2.3-4.2)
[2023-11-30 21:03] LABS: Anti DNA DS Antibody <1 IU/mL; Myeloperoxidase Antibody <1.0 AI; Proteinase 3 PR3 Antibodies <1.0 AI
[2023-12-01 11:28] LABS: Anti Nuclear Antibody Screen NEGATIVE (NEGATIVE)
[2023-12-01 14:23] LABS: Neutrophil Cyto Ab Screen NEGATIVE (NEGATIVE)
[2023-12-02 05:50] LABS: Prot Elec - Albumin 2.9 g/dL (3.8-4.8); Prot Elec - Alpha1 0.2 g/dL (0.2-0.3); Prot Elec - Alpha2 0.7 g/dL (0.5-0.9); Prot Elec - Beta 1 0.3 g/dL (0.4-0.6); Prot Elec - Beta 2 0.4 g/dL (0.2-0.5); Prot Elec - Gamma 0.6 g/dL (0.8-1.7); Prot Elec - Total Protein 5.2 g/dL (6.1-8.1)
[2023-12-02 19:03] LABS: IgA 215 mg/dL (47-310); IgG 700 mg/dL (600-1640); IgM 147 mg/dL (50-300)
[2023-12-07 21:15] LABS: Phospholipase A2 IgG ELISA <4 RU/mL; Phospholipase A2 IgG IFA NEGATIVE (NEGATIVE)
== END 2023-11-29 12:48 | disposition home or self-care (01) ==
LOC: HO.LAB 12:47
PROVIDERS: Internal Medicine; PCP Student in an Organized Health Care Education/Training Program; Visit Provider Internal Medicine Hypertension Specialist
DX: I10 Essential (primary) hypertension (principal); N04.9 Nephrotic syndrome with unspecified morphologic changes; R07.2 Precordial pain; R79.89 Other specified abnormal findings of blood chemistry
CPT/HCPCS: 36415; 81001; 82570; 82784; 83520; 84156; 84165; 84481; 85610; 85730; 86021; 86036; 86038; 86160; 86225; 86255; 86334

== ENCOUNTER 2023-11-29 12:47 | Outpatient (AMB) | payer OTHER, SELFPAY ==
[2023-11-29 13:06] VITALS: BP 110/62; PULSE 78; O2SAT 98; BMI 34.9
--- NOTE | 2023-11-29 13:06 | HO.NEPHOV_ITS ---
Vital Signs 11/29/23 13:06 Height 4 ft 11 in Weight 173 lb BMI 34.9 BP 110/62 Blood Pressure Location Lt brachial Position Sitting Pulse 78 Pulse Source Pulse Oximeter Pulse Oximetry (%) 98 Oxygen Delivery Method Room Air Intake Visit Reasons: Primary Hypertension/ LVM Roll Icer Required: No Accompanied by: Self / Same As Patient Allergies SHELL FISH Allergy (Severe, Uncoded 07/08/23 15:39) Anaphylaxis Medication List - Last Reconciled 11/29/23 by Gutierrez Lozano MD aspirin 81 mg PO QAM clonidine HCl 0.1 mg PO DAILY PRN epinephrine 0.3 mg IM Q10M PRN ergocalciferol (vitamin D2) 1,250 mcg PO QWEEK levothyroxine 37.5 mcg PO DAILY losartan 25 mg PO DAILY rosuvastatin 20 mg PO BEDTIME varenicline 0.5 mg PO DAILY HPI Comments Details: Madison is a pleasant 48-year-old woman who has been 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 She has a history of dyslipidemia and she is on statins. She also complains of leg edema. He is not on any diuretics. No history of hypertension. She is on losartan 25 mg due to the proteinuria. Madison is a history of CVA exact etiology was not known. She is on aspirin. Madison tells me that she had a kidney biopsy when she was a teenager and she was told that she had Nil disease. She did not undergo any specific treatment. 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 She has a history of chronic alcohol abuse and currently she has been sober. 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 FOR[facility]LY [facility] Medical History (Updated 11/29/23 @ 13:27 by Gutierrez Lozano MD) Nicotine dependence, cigarettes, uncomplicated DJD (degenerative joint disease) Hypothyroidism Hyperlipidemia Hypertension Surgical History History of History of cervical discectomy Social History Alcohol intake: never Tobacco use type: Cigarette Cigarette Packs Per Day: 1 Review of Systems Const Denies fever(s) and Denies weight loss Card Denies chest pain Resp Denies cough and Denies hemoptysis GI Denies abdominal pain, Denies diarrhea and Denies nausea Musc Denies back pain Neuro Denies focal weakness Physical Exam Vital Signs: Last Vital Signs Pulse 78 11/29/23 13:06 BP 110/62 11/29/23 13:06 Pulse Ox 98 11/29/23 13:06 Oxygen Delivery Method Room Air 11/29/23 13:06 BMI result Body Mass Index 34.9 Const General: comfortable; No acute distress Orientation/consciousness: patient oriented x3 Eyes General: appearance normal, both eyes and all related structures Visual Felix: normal visual felix by confrontation Neck Neck: Yes supple and Yes no JVD Resp Effort & Inspection: normal respiratory effort and respiratory effort not decreased Auscultation: rhonchi Cardio Palpation: no palpable S3 and no palpable S4 Heart sounds: no rubs GI Inspection: Yes normal to inspection Palpation (GI): Soft to palpation Percussion: Yes normal to percussion Auscultation: normal bowel sounds General: Yes no CVA tenderness Back/Spine/Pelvis Back: no CVA tenderness Skin General skin exam: no petechiae and no purpura Neuro General: patient oriented x3 and no focal motor deficits Extrem General: No clubbing and Yes edema (1+) Results Reviewed Nephrology Results: Hgb 13.7 g/dl (12.0-16.0) 08/05/23 WBC 5.8 X10*3/uL (4.8-10.8) 08/05/23 Plt Count 388 X10*3/uL (160-400) 08/05/23 Sodium 142 mmol/L (135-145) 11/01/23 Potassium 4.2 mmol/L (3.3-5.1) 11/01/23 Chloride 109 mmol/L (96-108) H 11/01/23 Carbon Dioxide 29 mmol/L (22-29) 11/01/23 BUN 10 mg/dL (9-16) 11/01/23 Creatinine 0.52 mg/dL (0.5-1.4) 11/01/23 Calcium 8.9 mg/dL (8.4-10.2) 11/01/23 Urine Protein 100 (2+) mg/dL (Neg-Trace) H 11/01/23 Urine Creatinine 31.53 mg/dL 11/01/23 Protein/Creatinin Ratio 3.36 (<0.2) H 11/01/23 Assessment & Plan Assessment & Plan (1) Nephrotic syndrome: Code(s): N04.9 - Nephrotic syndrome with unspecified morphologic changes Category: Medical (2) Hypertension: Code(s): I10 - Essential (primary) hypertension Category: Medical (3) Hyperlipidemia: Code(s): E78.5 - Hyperlipidemia, unspecified Category: Medical (4) Hypothyroidism: Code(s): E03.9 - Hypothyroidism, unspecified Category: Medical Plan Madison has nephrotic syndrome. She has more than 3 g of proteinuria, hypoalbuminemia, edema and dyslipidemia. She has a history of heroin use in the past. History of kidney biopsy in her teens and she probably had minimal change disease Differential diagnosis at this point would certainly include minimal change disease, FSGS, membranous nephropathy versus others. Renal function is normal at this time. She needs extensive serological workup followed by a kidney biopsy for a definitive diagnosis. I have discussed this with her and she is in agreement wi th the plan. Workup as outlined below I will arrange with a kidney biopsy and she returned to the office in the next few weeks. In the meantime encouraged her to stay on low-sodium diet Continue with losartan for renal protection. Continue to avoid nephrotoxic agents. After the biopsy she would require anticoagulation especially given the history of CVA. Orders: Orders Anti DNA DS Antibody Today I10 - Essential (primary) hypertension, N04.9 - Nephrotic syndrome with unspecified morphologic changes Neutrophil Cytoplasma Ab Today I10 - Essential (primary) hypertension, N04.9 - Nephrotic syndrome with unspecified morphologic changes Myeloperoxidase Antibody Today I10 - Essential (primary) hypertension, N04.9 - Nephrotic syndrome with unspecified morphologic changes Complement C4 Today I10 - Essential (primary) hypertension, N04.9 - Nephrotic syndrome with unspecified morphologic changes Immunofixation Pnl, Serum Today I10 - Essential (primary) hypertension, N04.9 - Nephrotic syndrome with unspecified morphologic changes Creatinine Urine Today I10 - Essential (primary) hypertension, N04.9 - Nephrotic syndrome with unspecified morphologic changes Total Protein Urine Random Today I10 - Essential (primary) hypertension, N04.9 - Nephrotic syndrome with unspecified morphologic changes UA and rflx microscopic Today I10 - Essential (primary) hypertension, N04.9 - Nephrotic syndrome with unspecified morphologic changes US renal BI Today I10 - Essential (primary) hypertension, N04.9 - Nephrotic syndrome with unspecified morphologic changes GROVER Reflex Titer and Pattern Today I10 - Essential (primary) hypertension, N04.9 - Nephrotic syndrome with unspecified morphologic changes Proteinase 3 PR3 Antibodies Today I10 - Essential (primary) hypertension, N04.9 - Nephrotic syndrome with unspecified morphologic changes Complement C3 Today I10 - Essential (primary) hypertension, N04.9 - Nephrotic syndrome with unspecified morphologic changes Protein Electrophoresis, Serum Today I10 - Essential (primary) hypertension, N04.9 - Nephrotic syndrome with unspecified morphologic changes Phospholipase A2 Receptor Pnl Today I10 - Essential (primary) hypertension, N04.9 - Nephrotic syndrome with unspecified morphologic changes Prothrombin Time INR Today I10 - Essential (primary) hypertension, N04.9 - Nephrotic syndrome with unspecified morphologic changes Partial Thromboplastin Time Today I10 - Essential (primary) hypertension, N04.9 - Nephrotic syndrome with unspecified morphologic changes CT biopsy renal RT Today I10 - Essential (primary) hypertension, N04.9 - Nephrotic syndrome with unspecified morphologic changes Coding Level of Care Code New Pt Level 5 (11732) Diagnoses Nephrotic syndrome N04.9 Hypertension I10 Hyperlipidemia E78.5 Hypothyroidism E03.9
== END 2023-11-29 13:34 | disposition home or self-care (01) ==
PROVIDERS: PCP Student in an Organized Health Care Education/Training Program; Visit Provider Internal Medicine Hypertension Specialist
DX: N04.9 Nephrotic syndrome with unspecified morphologic changes (principal); I10 Essential (primary) hypertension; E78.5 Hyperlipidemia, unspecified; E03.9 Hypothyroidism, unspecified
CPT/HCPCS: 99205

== ENCOUNTER 2023-12-01 15:24 | Outpatient (REF) | payer OTHER, SELFPAY ==
--- NOTE | ~2023-12-01 | US_ITS ---
EXAMINATION: US RETROPERITONEAL LIMITED (RENAL ONLY) CLINICAL INFORMATION: Hypertension, nephrotic syndrome. COMPARISON: Abdominal ultrasound 12/18/2022. TECHNIQUE: Real-time imaging of the kidneys. FINDINGS: RIGHT KIDNEY: 11.7 x 5.9 x 5.3 cm (SAG x AP x TRV). The kidney is normal in size, contour, and echogenicity. Renal cortical thickness is normal. No calculi or focal parenchymal lesions. No hydronephrosis. Triangular echogenic defect in the lateral cortex of the upper to mid pole, most suggestive of a normal anatomic variant of a junctional parenchymal defect, for which no imaging follow-up is recommended. LEFT KIDNEY: 12.7 x 5.6 x 5.4 cm (SAG x AP x TRV). The kidney is normal in size, contour, and echogenicity. Renal cortical thickness is normal. No renal calculi or hydronephrosis. Benign appearing cyst in the midpole measuring 1.3 cm, for which no imaging follow-up is recommended. US/US renal BI IMPRESSION: No acute sonographic abnormalities. Electronically signed by: Dominique Price MD 12/01/2023 07:22 PM EDT
== END 2023-12-01 15:25 | disposition home or self-care (01) ==
LOC: HO.US 15:24
PROVIDERS: PCP Student in an Organized Health Care Education/Training Program; Visit Provider Internal Medicine Hypertension Specialist
DX: N04.9 Nephrotic syndrome with unspecified morphologic changes (principal); I10 Essential (primary) hypertension
CPT/HCPCS: 76775

== ENCOUNTER → 2023-12-08 09:55 | Outpatient (REF) | payer OTHER, SELFPAY ==
--- NOTE | 2023-12-08 09:58 | CA_ITS ---
Transthoracic Echocardiogram Patient (Last, First, Middle): Madison Navarro A Gender: Female Date of : 1975 Age: 48 Procedure Date: 12/08/2023 Procedure Type: Transthoracic Echocardiogram Location: OP Height: 149.86 cm Weight: 79.38 kg BSA: 1.74 m2 Heart Rate: bpm BP: 126 / 80 mmHg Entry Level Lab Technician: ATUL Referring MD: Kourtney Epstein MD Symptoms: ABNORMAL BRAIN MRI CHRONIC INFARCTION Study Quality: Adequate ECG Rhythm: Sinus Conclusions: - The left ventricular systolic function is normal. The calculated ejection fraction is 59% by biplane method. - Possible basal inferior akinesis. - There is mild calcification of the aortic valve. - There is mild mitral annular calcification. - There is no evidence of interatrial shunt by agitated saline. Findings Left Ventricle Normal left ventricular cavity size. There is normal left ventricular wall thickness. The left ventricular systolic function is normal. The calculated ejection fraction is 59% by biplane method. There is no evidence of regional wall motion abnormalities. Diastolic function is normal for age. Possible basal inferior akinesis. LV peak GLS -18.3%; within limits. Right Ventricle Normal right ventricular cavity size and systolic function. Atria The left atrium is mildly dilated. There is no evidence of interatrial shunt by agitated saline. The right atrium is normal in size. (rest and valsalva). Aortic Valve There is mild calcification of the aortic valve. There is no aortic valve stenosis. There is no aortic valve regurgitation. Mitral Valve There is mild mitral annular calcification. There is no mitral valve regurgitation. There is no mitral valve stenosis. Pulmonic Valve The pulmonic valve is likely normal. Tricuspid Valve Normal tricuspid valve structure. There is no tricuspid valve regurgitation. There is no evidence of pulmonary hypertension. Great Vessels The asc aorta is normal in size. Venous The inferior vena cava is normal in size and collapses greater than 50% with inspiration. Pericardium/Pleural Trivial to small pericardial effusion noted. Prior Study Comparison No prior study available for comparison. Measurements 2D Linear Measurements IVSd: 0.92 0.6-0.9/0.6-1.0 cm LVIDd: 4.26 3.9-5.3/4.2-5.9 cm LVIDd Index: 2.45 2.4-3.2/2.2-3.1 cm/m2 LVIDs: 2.82 2.0-3.6 cm LVPWd: 0.71 0.7-1.1 cm LA Diam: 3.20 2.7-3.8/3.0-4.0 cm LAIDs Index: 1.84 1.5-2.3 cm/m2 LV Mass: 131.57 67-162/88-224 g LV Mass Index: 75.61 43-95/49-115 g/m2 LVOT Diam: 1.90 3.0+(-)1.3 cm 2D Systolic Function EF 4C: 60.60 >55% EF 2C: 56.50 >55% EF BiP: 58.90 >55% Mitral Valve MV Pk E: 1.18 MV PK A: 0.96 MV Decel Time: 159.00 E/A: 1.20 E'Lateral: 12.50 E'Medial: 8.38 E/E' Med: 14.10 E/E' Lat: 9.40 PHT: 47.00 MVA PHT: 4.68 Decel Calvert: 7.42 Aortic Valve AoV Pk Gilles: 1.73 AoV Mn Gilles: 1.22 AoV VTI: 0.39 AoV Pk Grad: 12.00 Aov Mn Grad: 7.00 ASHLY Cont.VTI: 1.86 LVOT LVOT Pk Gilles: 1.06 LVOT Mn Gilles: 0.73 LVOT VTI: 0.25 LVOT Pk Grad: 4.00 LVOT Mn Grad: 3.00 LVOT Diam: 1.90 LVOT Area: 2.84 Diastolic Function MV Pk E: 1.18 MV Pk A: 0.96 E/A: 1.20 E'Medial: 8.38 E/E' Med: 14.10 E' Laterial: 12.50 E/E' Lat: 9.40 Right Ventricle TAPSE (mm): 21.30 TVS' Gilles: 12.40 Tricuspid Valve RA Press: 3.00 Great Vessels Aorta Sinus of Valsalva: 2.75 2.0-3.[address] Ridge: 1.90 1.7-3.4 cm Ao Asc: 3.10 2.1-3.4 cm Updated in Other Vendor System with Status of Final Tarik Handy MD electronically signed on 12/09/2023 12:12:25 PM with status of Final
== END ==
LOC: HO.CARD 09:55
PROVIDERS: PCP Student in an Organized Health Care Education/Training Program; Visit Provider Student in an Organized Health Care Education/Training Program
DX: R90.89 Other abnormal findings on diagnostic imaging of central nervous system (principal)
CPT/HCPCS: 93306; 93356

== ENCOUNTER → 2023-12-08 09:58 | Outpatient (BNV) | payer OTHER, SELFPAY | PROVIDERS: PCP Student in an Organized Health Care Education/Training Program; Visit Provider Internal Medicine | DX: I35.8 Other nonrheumatic aortic valve disorders (principal); I34.81 Nonrheumatic mitral (valve) annulus calcification | CPT/HCPCS: 93306 ==

== ENCOUNTER 2023-12-09 12:18 | Outpatient (AMB) | payer OTHER, SELFPAY ==
--- NOTE | 2023-12-09 12:00 | A.OFFWM_ITS ---
Intake Intake Visit Reasons: VIDEO OP Therapy Allergies SHELL FISH Allergy (Severe, Uncoded 07/08/23 15:39) Anaphylaxis PFSH Medical History (Updated 12/10/23 @ 10:19 by Stacy Mays PA-C) Nephrotic syndrome History of CVA (cerebrovascular accident) Nicotine dependence, cigarettes, uncomplicated DJD (degenerative joint disease) Hypothyroidism Hyperlipidemia Hypertension Surgical History (Updated 12/10/23 @ 10:22 by Stacy Mays PA-C) History of History of cervical discectomy Family History (Updated 12/10/23 @ 10:20 by Stacy Mays PA-C) Mother Lung cancer, Onset Age: 67 Social History (Updated 12/10/23 @ 10:29 by Stacy Mays PA-C) Alcohol intake: never Tobacco use type: Cigarette Years Smoked: (onset 25yo, 1ppd x 23yrs, now 1/2-3/4ppd - 20+PYH) Behavioral Health Assessment Weight Management Therapy Therapy Notes Details Subjective: PT reports she has been dealing with multiple health issues. Now new concerns involve renal issues and numbness/tingling sensation in arm, swelling in leg. Doing well at work and with school, some challenges at home and tension w/ . Objective: PT presents for a F/up visit via Telehealth. Discussed functioning and processed ongoing worries due to new medical issues she's dealing with. We completed annual Tx plan. Providd feeback re: Sx management and addressing concerns with partner. Assessment/Response: * Mental status: stressed but functioning well. Active, open, cooperative, alert, oriented X3. * Risk reported/identified: None Treatment Plan Date: 12/09/2023 Prescribed Frequency of Treatment: Every 2-4 Weeks. Modality: Individual Therapy Problem 1: Recovery from Substance Abuse The client is seeking support to maintain sobriety after 7 years of recovery from substance abuse and wishes to quit smoking. Treatment Goal 1 Maintain sobriety and receive support in quitting smoking. Objective: Strengthen coping mechanisms to resist cravings and triggers for substance us while Developing a structured plan for smoking cessation Treatment Strategy / Interventions: * Utilize Mindfulness-Based Stress Reduction for Substance Use Disorders (MBSR- VIK) to enhance awareness of triggers and develop mindfulness strategies to manage cravings. * Engage in Strengths-Based Cognitive Behavioral Therapy (SB-CBT) to identify personal strengths that can be leveraged to maintain sobriety and resist substance use. * Apply Solution-Focused Brief Therapy (SFBT) techniques to set clear, achievab le targets for reducing and eventually quitting smoking. * Incorporate Supportive Therapy (SpTh2) to provide ongoing encouragement and reinforcement for progress towards smoking cessation. Problem 2: Managing Symptoms of PTSD The client experiences sleeping disturbances and struggles with managing triggers related to PTSD. Treatment Goal 2 Improve the quality of sleep and effectively manage PTSD triggers. Objective: Enhance skills to calm the mind before sleep and respond adaptively to PTSD triggers. Treatment Strategy / Interventions: * Implement Mindfulness-Based Cognitive Therapy (MBCT) to practice mindfulness techniques aimed at calming the mind and preparing for restful sleep. * Use Cognitive Behavioral Therapy (CBT) to reframe and challenge unhelpful thoughts associated with PTSD triggers, reducing their impact. Problem 3: Stress management due to ongoing medical issues, finances and family dynamics. The patient reports increased stress and anxiety the past months after son had legal issues, financial issues were higher leading her to get a second job, and now due to ongoing medical issues. Treatment Goal 3 Learn and implement different strategies to manage stress effectively, resolve reported issues and improve overall functioning. Objective: Build resilience and develop effective strategies to manage sources of stress and better resolve problems. Treatment Strategy / Interventions: * Implement Solution-Focused Brief Therapy (SFBT) to identify and enhance existing coping strategies that work well for managing stress. * Utilize Strengths-Based Cognitive Behavioral Therapy (SB-CBT) to reinforce the client?s strengths in dealing with adversity and stressful situations. * Integrate Mindfulness-Based Cognitive Therapy (MBCT) to cultivate mindfulness practices that help maintain focus and effectiveness at work during stressful times.; Each of these interventions is designed to leverage the therapeutic modalities familiar to the client, aiming to provide comprehensive support and effective strategies for dealing with their specific challenges. This structured approach will help ensure that the client can achieve measurable progress towards their goals. I declare that these services are medically necessary and appropriate to the recipient's diagnosis and needs. Assessment & Plan Assessment & Plan (1) Post-traumatic stress disorder, unspecified: Code(s): F43.10 - Post-traumatic stress disorder, unspecified (2) Drug addiction in remission: Code(s): F19.21 - Other psychoactive substance dependence, in remission Plan Next jaylen in 4 weeks per client's request/ Next jaylen: 01/04/24 at 12pm, Telehealth. Coding Level of Care Code Established Pt Tele Psytx >53 mins (94182) Patient Type Established Diagnoses Post-traumatic stress disorder, unspecified F43.10 Drug addiction in remission F19.21 Time Spent (min) 60
== END 2023-12-09 13:00 | disposition home or self-care (01) ==
LOC: HO.HOP 12:18
PROVIDERS: PCP Student in an Organized Health Care Education/Training Program; Visit Provider Counselor Mental Health
DX: F43.10 Post-traumatic stress disorder, unspecified (principal); F19.21 Other psychoactive substance dependence, in remission
CPT/HCPCS: 90837

== ENCOUNTER → 2023-12-09 12:18 | Outpatient (BNVA) | payer OTHER, SELFPAY | PROVIDERS: PCP Student in an Organized Health Care Education/Training Program; Visit Provider Counselor Mental Health ==

== ENCOUNTER 2023-12-10 09:57 | Outpatient (REF) | payer OTHER, SELFPAY | END 2023-12-10 09:58 | disposition home or self-care (01) | LOC: HO.CT 09:57 | PROVIDERS: PCP Student in an Organized Health Care Education/Training Program; Visit Provider Physician Assistant Medical | DX: Z12.2 Encounter for screening for malignant neoplasm of respiratory organs (principal); F17.210 Nicotine dependence, cigarettes, uncomplicated | CPT/HCPCS: 71271; G0296 ==

== ENCOUNTER 2023-12-10 10:06 | Outpatient (AMB) | payer OTHER, SELFPAY ==
--- NOTE | 2023-12-10 08:00 | A.OFFVIS_ITS ---
Intake Visit Reasons: Current Smoker Allergies SHELL FISH Allergy (Severe, Uncoded 07/08/23 15:39) Anaphylaxis HPI HPI Current Smoker: Details: Initial visit for this 48yo smoker with a 20+PYH. Patient started smoking at age 25 for 23 years at 1ppd. currently at 1/2-3/4ppd. . Denies marijuana use. Denies second hand smoke exposure. Denies exposure to chemicals or substances like asbestos. . Reports family history of lung cancer. Mom at age 67. Denies personal history of cancers. Denies chest CT in last year. . Denies recent travel outside the [place]. Denies recent respiratory illness or recent hospitalization for respiratory issues. Denies testing positive for COVID. Admits receiving COVID Vaccine. x4. . Reports being worked up by nephrology currently - scheduled for kidney biopsy next week. Denies fever, chills, new/worsening cough, hemoptysis, hoarseness or dysphagia. Denies significant chest pain, significant dyspnea or unintentional weight loss. Patient Lung Cancer Screening Questionnaire reviewed with patient by provider. . Shared Decision Making Completed. Patient meets criteria. Discussed in detail with patient, the risk vs benefit of LDCT screening. Patient consents to proceed with scan. Discussed smoking cessation. FORMERLY [facility] Medical History (Updated 12/10/23 @ 10:19 by Stacy Mays PA-C) Nephrotic syndrome History of CVA (cerebrovascular accident) Nicotine dependence, cigarettes, uncomplicated DJD (degenerative joint disease) Hypothyroidism Hyperlipidemia Hypertension Surgical History (Updated 12/10/23 @ 10:22 by Stacy Mays PA-C) History of History of cervical discectomy Family History (Updated 12/10/23 @ 10:20 by Stacy Mays PA-C) Mother Lung cancer, Onset Age: 67 Social History (Updated 12/10/23 @ 10:29 by Stacy Mays PA-C) Alcohol intake: never Tobacco use type: Cigarette Years Smoked: (onset 25yo, 1ppd x 23yrs, now 1/2-3/4ppd - 20+PYH) Assessment & Plan Assessment & Plan (1) Nicotine dependence, cigarettes, uncomplicated: Comment: (onset 25yo, 1ppd x 23yrs, now 1/2-3/4ppd - 20+PYH) Code(s): F17.210 - Nicotine dependence, cigarettes, uncomplicated Category: Medical Plan: - SDM visit completed today in office. - Patient meets criteria for LDCT for lung cancer screening purposes and is asymptomatic. - Smoking cessation counseling offered. Patients can always call [phone]. - Will arrange for a LDCT scan of the chest for screening purposes at [facility]. - Risks, benefits, and alternatives were discussed in detail and the patient agrees to proceed. - Risks discussed include but are not limited to: radiation exposure, anxiety during testing and while awaiting results, false negatives, false positives and possibility of additional intervention such as further imaging or surgical procedures for benign disease. - Benefits are obviously detection of lung cancer at an early stage which can lead to improved outcomes. - Discussed the importance of screening program compliance with adherence to yearly LDCT scan as scheduled - or sooner interval scans for personalized screening regimen. - Discussed follow up plan. Our office will send a letter discussing results and if needed set up phone call and office visit based on CT findings. - Patient educated on results categorization and the management decisions for suspicious findings potentially found on the screening LDCT scan. Any patient with a Lung RADS score of 3 or 4 will be reviewed by a multidisciplinary team at [facility] to form a plan of action in regards to scan findings. - If further work up is warranted for a suspicious lung finding this will be followed by the Lung Cancer Screening program in conjunction with the Thoracic Surgery Department at [facility]. - A copy of the office note and LDCT will be sent to the patient's PCP - as well as documentation on any associated further plans of care. - Incidental findings on LDCT are the PCP's responsibility. These findings are indicated with an S finding on the LDCT Assessment. A note discussing the findings will be sent to the PCP who is then responsible for further management. - All questions answered.? Coding Level of Care Code Lung Cancer Screening [id number] Diagnoses Nicotine dependence, cigarettes, uncomplicated F17.210
== END 2023-12-10 11:22 | disposition home or self-care (01) ==
LOC: HO.HPS 10:07
PROVIDERS: PCP Student in an Organized Health Care Education/Training Program; Visit Provider Physician Assistant Medical
DX: F17.210 Nicotine dependence, cigarettes, uncomplicated (principal)
CPT/HCPCS: G0296

== ENCOUNTER 2023-12-14 09:10 | Day surgery (SDC) | payer OTHER, SELFPAY ==
[2023-12-14] VITALS (9 sets, daily range): BP systolic 113–138; BP diastolic 73–86; PULSE 67–76; RESP 14–20; TEMP 36.2–36.4; O2SAT 99–100; BMI 34.9
--- NOTE | ~2023-12-14 | CT_ITS ---
Nephrotic range proteinuria. PROCEDURES: 1. Limited preprocedure CT of the abdomen. Permanent images saved in PACS. 2. CT-guided nontargeted biopsy of the left kidney. 3. Limited postprocedure CT of the abdomen. Permanent images saved in PACS. CLINICIANS: Param Bustillo PA-C MEDICATIONS: -Versed 1.5 mg, Fentanyl 75 mcg, and lidocaine 1% 10 mL SQ -Antibiotics: None -For additional details, please see nursing flowsheet. COMPLICATIONS: None ESTIMATED BLOOD LOSS: < 5 ml CONTRAST: None SPECIMENS: 3 x 18 g cores were placed in saline MODERATE SEDATION TIME: 25 min PROCEDURE NOTE: The procedure, risks, benefits, and alternatives were carefully explained to the patient and written informed consent was obtained. The patient was placed prone on the CT table. A timeout was performed. A limited CT of the abdomen was performed to localize the left kidney and choose appropriate needle entry and trajectory. The patient was prepped and draped in usual sterile fashion. The skin and deeper soft tissues were anesthetized with lidocaine. Under CT guidance, a 17 gauge trocar needle was advanced to the left kidney. An 18 gauge biopsy device was inserted through the trocar needle advanced into the left lower pole of the kidney. A total of 3, 18 gauge cores were performed. The specimens were placed in saline. A Gelfoam slurry was then administered through the trocar needle and into the left perinephric space. The needle was removed. A dry dressing was applied and secured with Tegaderm. There were no immediate complications. The patient was stable after the procedure and was transferred to the post anesthesia care unit. The procedure was done under moderate sedation with a dedicated nurse for monitoring of vital signs. CT/CT biopsy renal RT Impression: CT-guided nontargeted left renal biopsy This procedure was performed by Param Bustillo PA-C and supervised by Dr. Silver. Electronically signed by: Chente Domniguez MD 12/28/2023 04:08 PM [facility]
--- NOTE | 2023-12-14 10:45 | MHC.SHP ---
Pre-Procedural Eval Section A - 24 Hr Update-Section A only Date of Service: 12/14/23 Section B - Complete if H&P > 30 days Chief Complaint: RT RENAL, Hypertension Nephrotic syndrome Details of Present Illness: 48 y/o female with nephrotic range proteinuria. Relevant Family History (Specify if Yes): No Relevant Social History: Tobacco Use Present Medications: see Short Stay Collaborative assessment Medical History: Significant History History of Previous Operations: Relevant previous surgery/procedure and date(s) Allergies: Allergies Allergy/AdvReac Type Severity Reaction Status Date / Time SHELL FISH Allergy Severe Anaphylaxis Uncoded 07/08/23 15:39 Review of Systems Sugical H&P ROS: Negative: Constitution, Cardiovascular, Respiratory, Gastrointestinal and Integumentary Exam Surgical H&P Exam: Normal: Heart, Normal: Lungs, Normal: Skin and Normal: Neurological Plan 48 y/o female with nephrotic range proteinuria. Renal biopsy Time Spent With Patient Time: Total time managing care of this patient today ____ minutes.
[2023-12-14 10:56] LABS: MANUAL DIFF FLAG NO
[2023-12-14 11:02] LABS: Basophils Percent Auto 0.6 % (0-2); Eosinophils Absolute Auto 0.1 X10*3/uL (0.0-0.4); Eosinophils Percent Auto 0.9 % (0-4); Hematocrit 40.4 % (37.0-47.0); Hemoglobin 13.1 g/dl (12.0-16.0); Imm Gran Abs Auto 0.02 X10*3/uL (0.00-0.03); Imm Gran Pct Auto 0.3 % (0.0-0.4); Lymphocytes Absolute Auto 1.8 X10*3/uL (1.2-4.9); Lymphocytes Percent Auto 27.7 % (20-40); Mean Corpuscular HGB Conc 32.4 g/dl (31.0-35.0); Mean Corpuscular Hemoglobin 25.7 pg (27.0-33.0); Mean Corpuscular Volume 79.4 fL (80.0-98.0); Mean Platelet Volume 9.4 fL (9.4-12.3); Monocytes Absolute Auto 0.5 X10*3/uL (0.1-1.2); Monocytes Percent Auto 7.8 % (2-11); Neutrophils Percent Auto 62.7 % (45-73); Platelet Count 378 X10*3/uL (160-400); Red Blood Count 5.09 X10*6/uL (4.20-5.50); Red Cell Distribution Width 14.6 % (11.0-16.0); White Blood Count 6.4 X10*3/uL (4.8-10.8)
== END 2023-12-14 14:40 | disposition home or self-care (01) ==
PROVIDERS: Physician Assistant Surgical; Radiology Vascular & Interventional Radiology; PCP Student in an Organized Health Care Education/Training Program; Visit Provider Internal Medicine Hypertension Specialist
DX: N04.9 Nephrotic syndrome with unspecified morphologic changes (principal); I10 Essential (primary) hypertension; R60.0 Localized edema; E78.5 Hyperlipidemia, unspecified; E03.9 Hypothyroidism, unspecified; M19.90 Unspecified osteoarthritis, unspecified site; Z86.73 Personal history of transient ischemic attack (TIA), and cerebral infarction without residual deficits; F10.21 Alcohol dependence, in remission; F11.11 Opioid abuse, in remission; Z79.82 Long term (current) use of aspirin; Z79.899 Other long term (current) drug therapy; F17.210 Nicotine dependence, cigarettes, uncomplicated; Z98.890 Other specified postprocedural states
CPT/HCPCS: 36415; 50200; 77012; 85025; 86850; 86900; 86901; 88300; 88305; 88313; 88346; 88348; 88350; 99152; 99153; J2003; J2250; J2310; J3010

== ENCOUNTER → 2023-12-14 10:18 | Outpatient (BNV) | payer OTHER, SELFPAY | PROVIDERS: PCP Student in an Organized Health Care Education/Training Program; Visit Provider Physician Assistant Surgical | DX: N04.9 Nephrotic syndrome with unspecified morphologic changes (principal) | CPT/HCPCS: 50200; 77012 ==

== ENCOUNTER 2024-01-03 15:39 | Outpatient (AMB) | payer OTHER, SELFPAY ==
[2024-01-03 15:40] VITALS: BP 146/82; PULSE 88; O2SAT 98; BMI 36.4
--- NOTE | 2024-01-03 15:40 | HO.NEPHOV ---
Vital Signs 01/03/24 15:40 01/03/24 15:58 Height 4 ft 11 in Weight 180 lb BMI 36.4 BP 146/82 H 122/70 Blood Pressure Location Lt brachial Lt brachial Position Sitting Sitting Pulse 88 Pulse Source Pulse Oximeter Pulse Oximetry (%) 98 Oxygen Delivery Method Room Air Intake Visit Reasons: Primary Hypertension/ Conf Latex Ribbon Machine Operator Required: No Accompanied by: Spouse Allergies SHELL FISH Allergy (Severe, Uncoded 07/08/23 15:39) Anaphylaxis Medication List - Last Reconciled 01/03/24 by Gutierrez Lozano MD aspirin 81 mg PO QAM clonidine HCl 0.1 mg PO DAILY PRN epinephrine 0.3 mg IM Q10M PRN ergocalciferol (vitamin D2) 1,250 mcg PO QWEEK levothyroxine 37.5 mcg PO DAILY losartan 25 mg PO DAILY rosuvastatin 20 mg PO BEDTIME varenicline 0.5 mg PO DAILY HPI Comments Details: Madison is a pleasant 48-year-old woman who has been 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 She has a history of dyslipidemia and she is on statins. She also complains of leg edema. He is not on any diuretics. No history of hypertension. She is on losartan 25 mg due to the proteinuria. Madison is a history of CVA exact etiology was not known. She is on aspirin. Madison tells me that she had a kidney biopsy when she was a teenager and she was told that she had Nil disease. She did not undergo any specific treatment. 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 She has a history of chronic alcohol abuse and currently she has been sober. 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 01/03/2024. She underwent kidney biopsy. Tolerated procedure well. No complications. No specific complaints. Accompanied by . [facility] Medical History (Updated 01/03/24 @ 16:30 by Gutierrez Lozano MD) Nephrotic syndrome History of CVA (cerebrovascular accident) Nicotine dependence, cigarettes, uncomplicated DJD (degenerative joint disease) Hypothyroidism Hyperlipidemia Hypertension Surgical History History of History of cervical discectomy Family History Mother Lung cancer, Onset Age: 67 Social History Alcohol intake: never Tobacco use type: Cigarette Years Smoked: (onset 25yo, 1ppd x 23yrs, now 1/2-3/4ppd - 20+PYH) Physical Exam Vital Signs: Last Vital Signs Pulse 88 01/03/24 15:40 BP 122/70 01/03/24 15:58 Pulse Ox 98 01/03/24 15:40 Oxygen Delivery Method Room Air 01/03/24 15:40 BMI result Body Mass Index 36.4 Comfortable Neck supple no JVD. Lungs entry equal no rales. Heart S1-S2 heard no gallop or rub. Abdomen soft nontender. Neuro alert awake oriented. No asterixis. Extremities 1+ edema. 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 Discussed the pros and cons of steroid therapy. We will start with a prednisone 60 mg daily. Add omeprazole 20 mg q.d.. She is currently on aspirin. Recheck urine protein excretion next 4 weeks along with a renal panel. Orders: Orders Lipid Panel 4 Weeks N04.9 - Nephrotic syndrome with unspecified morphologic changes UA and rflx microscopic 4 Weeks N04.9 - Nephrotic syndrome with unspecified morphologic changes Creatinine Urine 4 Weeks N04.9 - Nephrotic syndrome with unspecified morphologic changes Basic Metabolic Panel 4 Weeks N04.9 - Nephrotic syndrome with unspecified morphologic changes Total Protein Urine Random 4 Weeks N04.9 - Nephrotic syndrome with unspecified morphologic changes Complete Blood Count no Diff 4 Weeks N04.9 - Nephrotic syndrome with unspecified morphologic changes Medications: New omeprazole 20 mg PO DAILY 90 caps 1RF prednisone 60 mg (3 x 20 mg) PO DAILY 270 tabs 1RF Nephrotic syndrome Coding Level of Care Code Est Pt Level 4 (39750) Complex EM visit Add On G2211 Diagnoses Nephrotic syndrome N04.9
[2024-01-03 15:58] VITALS: BP 122/70
== END 2024-01-03 16:06 | disposition home or self-care (01) ==
PROVIDERS: PCP Student in an Organized Health Care Education/Training Program; Visit Provider Internal Medicine Hypertension Specialist
DX: N04.9 Nephrotic syndrome with unspecified morphologic changes (principal)
CPT/HCPCS: 99214

== ENCOUNTER → 2024-01-03 15:39 | Outpatient (BNVA) | payer OTHER, SELFPAY | PROVIDERS: PCP Student in an Organized Health Care Education/Training Program; Visit Provider Internal Medicine Hypertension Specialist ==

== ENCOUNTER 2024-01-11 09:45 | Outpatient (REF) | payer OTHER, SELFPAY ==
[2024-01-11 11:17] LABS: Appearance Urine Clear; Color Urine Yellow; Glucose Urine UA Negative (Negative); Leukocyte Esterase Urine Negative (Negative); Nitrite Urine Negative (Negative); Specific Gravity - Urine >= 1.030 (1.005-1.025); UMIC TRIGGER UA YES; Urine Blood Negative (Negative); Urine Ketones Negative (Negative); Urine Protein 300 (3+) mg/dL (Neg-Trace)
[2024-01-11 11:34] LABS: Hematocrit 38.4 % (37.0-47.0); Hemoglobin 12.6 g/dl (12.0-16.0); Mean Corpuscular HGB Conc 32.8 g/dl (31.0-35.0); Mean Corpuscular Hemoglobin 26.4 pg (27.0-33.0); Mean Corpuscular Volume 80.5 fL (80.0-98.0); Mean Platelet Volume 9.6 fL (9.4-12.3); Platelet Count 379 X10*3/uL (160-400); Red Blood Count 4.77 X10*6/uL (4.20-5.50); Red Cell Distribution Width 15.5 % (11.0-16.0); White Blood Count 11.3 X10*3/uL (4.8-10.8)
[2024-01-11 11:46] LABS: Bacteria Urine 1+ (None Seen); Hyaline Casts Urine 0-2 /LPF (0-2); RBC Urine 0-2 /HPF (0-2); WBC Urine 0-5 /HPF (0-5)
[2024-01-11 11:54] LABS: Creatinine Urine 180.87 mg/dL
[2024-01-11 12:08] LABS: Total Protein Urine Random 416 mg/dL (<12)
[2024-01-11 12:09] LABS: Alanine Aminotransferase 30 U/L (0-31); Albumin Level 3.1 g/dL (3.5-5.0); Alkaline Phosphatase 59 U/L (39-117); Anion Gap 11 (12-20); Aspartate Amino Transferase 20 U/L (5-31); Bilirubin Total 0.2 mg/dL (0.0-1.0); Blood Urea Nitrogen 12 mg/dL (9-16); Calcium 8.5 mg/dL (8.4-10.2); Carbon Dioxide 27 mmol/L (22-29); Chloride 107 mmol/L (96-108); Cholesterol 246 mg/dL (<200); Estimated Glomerular Filt Rate > 60; Glucose Random 103 mg/dL (60-115); HDL Cholesterol 72 mg/dL (>40); LDL Cholesterol Calculated 148 mg/dL (<100); Potassium 3.5 mmol/L (3.3-5.1); Sodium 141 mmol/L (135-145); Total Protein 5.8 g/dL (6.5-8.0); Triglycerides 133 mg/dL (<150)
[2024-01-11 12:17] LABS: Thyroid Stimulating Hormone 8.21 uIU/mL (0.32-4.0)
== END 2024-01-11 09:46 | disposition home or self-care (01) ==
LOC: HO.HHCL 09:45
PROVIDERS: Internal Medicine Hypertension Specialist; Visit Provider Student in an Organized Health Care Education/Training Program
DX: N04.9 Nephrotic syndrome with unspecified morphologic changes (principal); E03.8 Other specified hypothyroidism; E78.5 Hyperlipidemia, unspecified
CPT/HCPCS: 36415; 80053; 80061; 81001; 82570; 84156; 84443; 85027

== ENCOUNTER 2024-01-24 17:25 | Outpatient (REF) | payer OTHER, SELFPAY | END 2024-01-24 17:26 | disposition home or self-care (01) | LOC: HO.HHCLNP 17:25 | PROVIDERS: Visit Provider Emergency Medicine | DX: R10.9 Unspecified abdominal pain (principal) | CPT/HCPCS: 87086 ==

== ENCOUNTER 2024-02-01 09:51 | Outpatient (AMB) | payer OTHER, SELFPAY ==
--- NOTE | 2024-02-01 09:54 | HO.NEPHOV_ITS ---
Vital Signs 02/01/24 09:55 Height 4 ft 11 in Weight 185 lb BMI 37.4 BP 120/72 Blood Pressure Location Rt brachial Position Sitting Pulse 81 Pulse Source Pulse Oximeter Pulse Oximetry (%) 99 Oxygen Delivery Method Room Air Intake Visit Reasons: Nephrotic syndrome/ CONF Automation Operator Required: No Accompanied by: Spouse Allergies SHELL FISH Allergy (Severe, Uncoded 07/08/23 15:39) Anaphylaxis Medication List - Last Reconciled 02/01/24 by Gutierrez Lozano MD aspirin 81 mg PO QAM epinephrine 0.3 mg IM Q10M PRN ergocalciferol (vitamin D2) 1,250 mcg PO QWEEK levothyroxine 50 mcg PO DAILY losartan 25 mg PO DAILY omeprazole 20 mg PO DAILY prednisone 60 mg (3 x 20 mg) PO DAILY rosuvastatin 40 mg PO DAILY varenicline 0.5 mg PO DAILY HPI Comments Details: Madison is a pleasant 48-year-old woman who has been 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 She has a history of dyslipidemia and she is on statins. She also complains of leg edema. He is not on any diuretics. No history of hypertension. She is on losartan 25 mg due to the proteinuria. Madison is a history of CVA exact etiology was not known. She is on aspirin. Madison tells me that she had a kidney biopsy when she was a teenager and she was told that she had Nil disease. She did not undergo any specific treatment. 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 She has a history of chronic alcohol abuse and currently she has been sober. 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 01/03/2024. She underwent kidney biopsy. Tolerated procedure well. No complications. No specific complaints. Accompanied by . 02/01/2024. She has been on prednisone 60 mg a day for the last 4 weeks. She has gained 5 lb. Complains of mild swelling in the legs. Occasional cramping. [facility] Medical History (Updated 01/03/24 @ 16:30 by Gutierrez Lozano MD) Nephrotic syndrome History of CVA (cerebrovascular accident) Nicotine dependence, cigarettes, uncomplicated DJD (degenerative joint disease) Hypothyroidism Hyperlipidemia Hypertension Surgical History History of History of cervical discectomy Family History Mother Lung cancer, Onset Age: 67 Social History Alcohol intake: never Tobacco use type: Cigarette Years Smoked: (onset 25yo, 1ppd x 23yrs, now 1/2-3/4ppd - 20+PYH) Physical Exam Vital Signs: Last Vital Signs Pulse 81 02/01/24 09:55 BP 120/72 02/01/24 09:55 Pulse Ox 99 02/01/24 09:55 Oxygen Delivery Method Room Air 02/01/24 09:55 BMI result Body Mass Index 37.4 Comfortable Neck supple no JVD. Lungs entry equal no rales. Heart S1-S2 heard no gallop or rub. Abdomen soft nontender. Neuro alert awake oriented. No asterixis. Extremities trace edema. Results Reviewed Results Reviewed: Urine protein creatinine ratio was 2.7 which has decreased to 2.3 Nephrology Results: Hgb 12.6 g/dl (12.0-16.0) 01/11/24 WBC 11.3 X10*3/uL (4.8-10.8) H 01/11/24 Plt Count 379 X10*3/uL (160-400) 01/11/24 Sodium 141 mmol/L (135-145) 01/11/24 Potassium 3.5 mmol/L (3.3-5.1) 01/11/24 Chloride 107 mmol/L (96-108) 01/11/24 Carbon Dioxide 27 mmol/L (22-29) 01/11/24 BUN 12 mg/dL (9-16) 01/11/24 Creatinine 0.64 mg/dL (0.5-1.4) 01/11/24 Calcium 8.5 mg/dL (8.4-10.2) 01/11/24 Urine Protein 300 (3+) mg/dL (Neg-Trace) H 01/11/24 Urine Creatinine 180.87 mg/dL 01/11/24 Assessment & Plan Assessment & Plan (1) Nephrotic syndrome: Comment: Due to primary FSGS Code(s): N04.9 - Nephrotic syndrome with unspecified morphologic changes Category: Medical Plan: Based on the kidney biopsy: Start treatment with prednisone. Discussed the pros and cons of steroid therapy. Keep prednisone 60 mg daily. And omeprazole 20 mg q.d.. She is currently on aspirin. Minimal decrease in urinary protein excretion. Renal function stable. Increase losartan from 20 mg up to 50 mg a day. Add Lasix 20 mg a day in view of the edema encouraged to stay on low-sodium diet if needed she can drop it down to 10 mg a day or even skip a dose based on the edema. Add magnesium oxide 200 mg a day Recheck urine protein excretion next 2 weeks along with a renal panel. Orders: Orders Basic Metabolic Panel 2 Weeks N04.9 - Nephrotic syndrome with unspecified morphologic changes Total Protein Urine Random 2 Weeks N04.9 - Nephrotic syndrome with unspecified morphologic changes UA and rflx microscopic 2 Weeks N04.9 - Nephrotic syndrome with unspecified morphologic changes Creatinine Urine 2 Weeks N04.9 - Nephrotic syndrome with unspecified morphologic changes Medications: New furosemide (Lasix) 20 mg PO DAILY 30 tabs 1RF magnesium oxide 200 mg PO DAILY 90 tabs 0RF Changed From losartan 25 mg PO DAILY To losartan 50 mg PO DAILY Coding Level of Care Code Est Pt Level 4 (22927) Diagnoses Nephrotic syndrome N04.9
[2024-02-01 09:55] VITALS: BP 120/72; PULSE 81; O2SAT 99; BMI 37.4
== END 2024-02-01 10:17 | disposition home or self-care (01) ==
PROVIDERS: PCP Student in an Organized Health Care Education/Training Program; Visit Provider Internal Medicine Hypertension Specialist
DX: N04.9 Nephrotic syndrome with unspecified morphologic changes (principal)
CPT/HCPCS: 99214

== ENCOUNTER 2024-02-11 09:55 | Outpatient (REF) | payer OTHER, SELFPAY ==
[2024-02-11 11:13] LABS: Appearance Urine Clear; Color Urine Dark Yellow; Glucose Urine UA Negative (Negative); Leukocyte Esterase Urine Negative (Negative); Nitrite Urine Negative (Negative); PH 5.5 (5.0-9.0); Specific Gravity - Urine >= 1.030 (1.005-1.025); Urine Blood Negative (Negative); Urine Ketones Negative (Negative); Urine Protein >=1000 (4+) mg/dL (Neg-Trace)
[2024-02-11 11:49] LABS: Anion Gap 11 (12-20); Blood Urea Nitrogen 16 mg/dL (9-16); Calcium 8.5 mg/dL (8.4-10.2); Carbon Dioxide 28 mmol/L (22-29); Chloride 111 mmol/L (96-108); Estimated Glomerular Filt Rate > 60; Glucose Random 120 mg/dL (60-115); Potassium 3.9 mmol/L (3.3-5.1); Sodium 146 mmol/L (135-145)
[2024-02-11 11:57] LABS: Creatinine Urine 208.98 mg/dL
[2024-02-11 13:03] LABS: Total Protein Urine Random 817 mg/dL (<12)
== END 2024-02-11 09:56 | disposition home or self-care (01) ==
LOC: HO.HHCL 09:55
PROVIDERS: Visit Provider Internal Medicine Hypertension Specialist
DX: N04.9 Nephrotic syndrome with unspecified morphologic changes (principal)
CPT/HCPCS: 36415; 80048; 81003; 82570; 84156

== ENCOUNTER 2024-02-14 10:47 | Outpatient (AMB) | payer OTHER, SELFPAY ==
[2024-02-14 10:55] VITALS: BP 132/78; PULSE 89; O2SAT 99; BMI 38.2
--- NOTE | 2024-02-14 10:55 | HO.NEPHOV_ITS ---
Vital Signs 02/14/24 10:55 Height 4 ft 11 in Weight 189 lb BMI 38.2 BP 132/78 Blood Pressure Location Rt brachial Position Sitting Pulse 89 Pulse Source Pulse Oximeter Pulse Oximetry (%) 99 Oxygen Delivery Method Room Air Intake Visit Reasons: Nephrotic syndrome/CONF Inspector Canned Food Reconditioning Required: No Accompanied by: Self / Same As Patient Allergies SHELL FISH Allergy (Severe, Uncoded 07/08/23 15:39) Anaphylaxis Medication List - Last Reconciled 02/14/24 by Gutierrez Lozano MD aspirin 81 mg PO QAM epinephrine 0.3 mg IM Q10M PRN ergocalciferol (vitamin D2) 1,250 mcg PO QWEEK hydrochlorothiazide 25 mg PO DAILY levothyroxine 50 mcg PO DAILY losartan 50 mg PO DAILY magnesium oxide 200 mg PO DAILY omeprazole 20 mg PO DAILY prednisone 60 mg (3 x 20 mg) PO DAILY rosuvastatin 40 mg PO DAILY varenicline 0.5 mg PO DAILY HPI Comments Details: Madison is a pleasant 48-year-old woman who has been 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 She has a history of dyslipidemia and she is on statins. She also complains of leg edema. He is not on any diuretics. No history of hypertension. She is on losartan 25 mg due to the proteinuria. Madison is a history of CVA exact etiology was not known. She is on aspirin. Madison tells me that she had a kidney biopsy when she was a teenager and she was told that she had Nil disease. She did not undergo any specific treatment. 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 She has a history of chronic alcohol abuse and currently she has been sober. 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 01/03/2024. She underwent kidney biopsy. Tolerated procedure well. No complications. No specific complaints. Accompanied by . 02/01/2024. She has been on prednisone 60 mg a day for the last 4 weeks. She has gained 5 lb. Complains of mild swelling in the legs. Occasional cramping. 02/14/24 c/o right flank pain No urinary symptoms PFSH Medical History (Updated 01/03/24 @ 16:30 by Gutierrez Lozano MD) Nephrotic syndrome History of CVA (cerebrovascular accident) Nicotine dependence, cigarettes, uncomplicated DJD (degenerative joint disease) Hypothyroidism Hyperlipidemia Hypertension Surgical History History of History of cervical discectomy Family History Mother Lung cancer, Onset Age: 67 Social History Alcohol intake: never Tobacco use type: Cigarette Years Smoked: (onset 25yo, 1ppd x 23yrs, now 1/2-3/4ppd - 20+PYH) Physical Exam Vital Signs: Last Vital Signs Pulse 89 02/14/24 10:55 BP 132/78 02/14/24 10:55 Pulse Ox 99 02/14/24 10:55 Oxygen Delivery Method Room Air 02/14/24 10:55 BMI result Body Mass Index 38.2 Comfortable Neck supple no JVD. Lungs entry equal no rales. Heart S1-S2 heard no gallop or rub. Abdomen soft nontender. Neuro alert awake oriented. No asterixis. Extremities trace edema. 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 Discussed the pros and cons of steroid therapy. Keep prednisone 60 mg daily. And omeprazole 20 mg q.d.. She is currently on aspirin. urinary protein excretion still remains elevated at 3.9. Renal function stable. Change Lasix to HCTZ 25 mg QD due to mild hypernatremia Recheck urine protein excretion next 4 weeks May need to add a second agent Renal USG for flank pain Orders: Orders Creatinine Urine 3 Months N04.9 - Nephrotic syndrome with unspecified morphologic changes US renal BI Today I10 - Essential (primary) hypertension Total Protein Urine Random 3 Months N04.9 - Nephrotic syndrome with unspecified morphologic changes Medications: New hydrochlorothiazide 25 mg PO DAILY 30 tabs 1RF Discontinued furosemide (Lasix) Discontinued Reason: Doctor's Order 20 mg PO DAILY 30 tabs 1RF Coding Level of Care Code Est Pt Level 4 (08766) Diagnoses Nephrotic syndrome N04.9
== END 2024-02-14 11:16 | disposition home or self-care (01) ==
PROVIDERS: PCP Student in an Organized Health Care Education/Training Program; Visit Provider Internal Medicine Hypertension Specialist
DX: N04.9 Nephrotic syndrome with unspecified morphologic changes (principal)
CPT/HCPCS: 99214

== ENCOUNTER 2024-02-17 10:48 | Outpatient (REF) | payer OTHER, SELFPAY ==
--- NOTE | ~2024-02-17 | US_ITS ---
EXAMINATION: US KIDNEY BILATERAL HISTORY: I10 - flank pain per Doctor's notes TECHNIQUE: Real-time grayscale ultrasound imaging of the kidneys was performed and images were reviewed. COMPARISON: Comparison is made with the prior examination dated 12/01/2023. FINDINGS: Right kidney: The right kidney measures 13.3 x 5.6 x 5.5 cm. There is a probable hypertrophied column of Pradeep as well as a junctional parenchymal defect at the upper pole. Renal cortical thickness is otherwise normal. There are no masses. There is no hydronephrosis or renal calculi. Left Kidney: The left kidney measures 13.1 x 5.6 x 4.6 cm. Renal parenchymal echotexture and thickness are normal. There is a 1.2 x 1.8 x 1.1 cm cyst in the interpolar region. There is no hydronephrosis or renal calculi. US/US renal BI IMPRESSION: 1.2 x 1.8 x 1.1 cm left renal cyst. No hydronephrosis. Electronically signed by: Kendall Wise MD 02/17/2024 11:41 AM [facility]
== END 2024-02-17 10:49 | disposition home or self-care (01) ==
LOC: HO.US 10:48
PROVIDERS: PCP Student in an Organized Health Care Education/Training Program; Visit Provider Internal Medicine Hypertension Specialist
DX: I10 Essential (primary) hypertension (principal)
CPT/HCPCS: 76775

== ENCOUNTER → 2024-02-17 10:50 | Outpatient (BNV) | payer OTHER, SELFPAY | PROVIDERS: PCP Student in an Organized Health Care Education/Training Program; Visit Provider Radiology Diagnostic Radiology | DX: R10.9 Unspecified abdominal pain (principal); I10 Essential (primary) hypertension | CPT/HCPCS: 76775 ==

== ENCOUNTER 2024-03-01 09:48 | Outpatient (REF) | payer OTHER, SELFPAY ==
[2024-03-01 12:14] LABS: Appearance Urine Clear; Color Urine Yellow; Glucose Urine UA Negative (Negative); Leukocyte Esterase Urine Negative (Negative); Nitrite Urine Negative (Negative); PH 6.5 (5.0-9.0); Specific Gravity - Urine 1.015 (1.005-1.025); UMIC TRIGGER UA YES; Urine Blood Negative (Negative); Urine Ketones Negative (Negative); Urine Protein 300 (3+) mg/dL (Neg-Trace)
[2024-03-01 12:17] LABS: Anion Gap 12 (12-20); Blood Urea Nitrogen 19 mg/dL (9-16); Calcium 8.5 mg/dL (8.4-10.2); Carbon Dioxide 28 mmol/L (22-29); Chloride 106 mmol/L (96-108); Estimated Glomerular Filt Rate > 60; Glucose Random 98 mg/dL (60-115); Potassium 3.7 mmol/L (3.3-5.1); Sodium 142 mmol/L (135-145)
[2024-03-01 12:18] LABS: Bacteria Urine None Seen (None Seen); Hyaline Casts Urine 0-2 /LPF (0-2); RBC Urine 0-2 /HPF (0-2); Squamous Epithelial Cell Urine 0-2 /HPF (0-2); WBC Urine 0-5 /HPF (0-5)
[2024-03-01 12:46] LABS: Creatinine Urine 40.92 mg/dL
[2024-03-01 12:57] LABS: Total Protein Urine Random 272 mg/dL (<12)
== END 2024-03-01 09:49 | disposition home or self-care (01) ==
LOC: HO.HHCL 09:48
PROVIDERS: Visit Provider Internal Medicine Hypertension Specialist
DX: N04.9 Nephrotic syndrome with unspecified morphologic changes (principal)
CPT/HCPCS: 36415; 80048; 81001; 81003; 82570; 84156

== ENCOUNTER 2024-03-06 12:48 | Outpatient (AMB) | payer OTHER, MEDICAID, SELFPAY ==
[2024-03-06 13:01] VITALS: BP 114/68; PULSE 92; O2SAT 98; BMI 39.4
--- NOTE | 2024-03-06 13:01 | HO.NEPHOV_ITS ---
Vital Signs 03/06/24 13:01 Height 4 ft 11 in Weight 195 lb BMI 39.4 BP 114/68 Blood Pressure Location Lt brachial Position Sitting Pulse 92 Pulse Source Pulse Oximeter Pulse Oximetry (%) 98 Oxygen Delivery Method Room Air Intake Visit Reasons: 3-4 weeks/ Conf Quality Compliance Manager Required: No Accompanied by: Spouse Allergies SHELL FISH Allergy (Severe, Uncoded 07/08/23 15:39) Anaphylaxis Medication List - Last Reconciled 03/06/24 by Gutierrez Lozano MD aspirin 81 mg PO QAM epinephrine 0.3 mg IM Q10M PRN ergocalciferol (vitamin D2) 1,250 mcg PO QWEEK levothyroxine 50 mcg PO DAILY losartan 50 mg PO DAILY magnesium oxide 200 mg PO DAILY omeprazole 20 mg PO DAILY prednisone 20 mg PO DAILY rosuvastatin 40 mg PO DAILY varenicline 0.5 mg PO DAILY HPI Comments Details: Madison is a pleasant 48-year-old woman who has been 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 She has a history of dyslipidemia and she is on statins. She also complains of leg edema. He is not on any diuretics. No history of hypertension. She is on losartan 25 mg due to the proteinuria. Madison is a history of CVA exact etiology was not known. She is on aspirin. Madison tells me that she had a kidney biopsy when she was a teenager and she was told that she had Nil disease. She did not undergo any specific treatment. 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 She has a history of chronic alcohol abuse and currently she has been sober. 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 01/03/2024. She underwent kidney biopsy. Tolerated procedure well. No complications. No specific complaints. Accompanied by . 02/01/2024. She has been on prednisone 60 mg a day for the last 4 weeks. She has gained 5 lb. Complains of mild swelling in the legs. Occasional cramping. 02/14/24 c/o right flank pain No urinary symptoms 03/06/2024. Still has generalized body swelling. She is not on low-salt diet. No gross hematuria [facility] Medical History (Updated 01/03/24 @ 16:30 by Gutierrez Lozano MD) Nephrotic syndrome History of CVA (cerebrovascular accident) Nicotine dependence, cigarettes, uncomplicated DJD (degenerative joint disease) Hypothyroidism Hyperlipidemia Hypertension Surgical History History of History of cervical discectomy Family History Mother Lung cancer, Onset Age: 67 Social History Alcohol intake: never Tobacco use type: Cigarette Years Smoked: (onset 25yo, 1ppd x 23yrs, now 1/2-3/4ppd - 20+PYH) Physical Exam Vital Signs: Last Vital Signs Pulse 92 03/06/24 13:01 BP 114/68 03/06/24 13:01 Pulse Ox 98 03/06/24 13:01 Oxygen Delivery Method Room Air 03/06/24 13:01 BMI result Body Mass Index 39.4 Comfortable Neck supple no JVD. Lungs entry equal no rales. Heart S1-S2 heard no gallop or rub. Abdomen soft nontender. Neuro alert awake oriented. No asterixis. Extremities trace edema. Results Reviewed Results Reviewed: Feb Right kidney: The right kidney measures 13.3 x 5.6 x 5.5 cm. There is a probable hypertrophied column of Pradeep as well as a junctional parenchymal defect at the upper pole. Renal cortical thickness is otherwise normal. There are no masses. There is no hydronephrosis or renal calculi. Left Kidney: The left kidney measures 13.1 x 5.6 x 4.6 cm. Renal parenchymal echotexture and thickness are normal. There is a 1.2 x 1.8 x 1.1 cm cyst in the interpolar region. There is no hydronephrosis or renal calculi. US/US renal BI IMPRESSION: 1.2 x 1.8 x 1.1 cm left renal cyst. No hydronephrosis. Nephrology Results: Hgb 12.6 g/dl (12.0-16.0) 01/11/24 WBC 11.3 X10*3/uL (4.8-10.8) H 01/11/24 Plt Count 379 X10*3/uL (160-400) 01/11/24 Sodium 142 mmol/L (135-145) 03/01/24 Potassium 3.7 mmol/L (3.3-5.1) 03/01/24 Chloride 106 mmol/L (96-108) 03/01/24 Carbon Dioxide 28 mmol/L (22-29) 03/01/24 BUN 19 mg/dL (9-16) H 03/01/24 Creatinine 0.68 mg/dL (0.5-1.4) 03/01/24 Calcium 8.5 mg/dL (8.4-10.2) 03/01/24 Urine Protein 300 (3+) mg/dL (Neg-Trace) H 03/01/24 Urine Creatinine 40.92 mg/dL 03/01/24 Renal US 02/17/24 Assessment & Plan Assessment & Plan (1) Nephrotic syndrome: Comment: Due to primary FSGS Code(s): N04.9 - Nephrotic syndrome with unspecified morphologic changes Category: Medical Plan: Based on the kidney biopsy: Started treatment with prednisone. Discussed the pros and cons of steroid therapy. She was on prednisone 60 mg daily for 8 weeks since 01/03/2024. And omeprazole 20 mg q.d.. She is currently on aspirin. urinary protein excretion still remains elevated at 7.0 Renal function stable. She did not respond to prednisone. I will taper prednisone down to 20 mg over the next several days. Start cyclosporine 100 mg b.i.d. and titrate the dose. Check levels in 1 week. Side effects of cyclosporine was discussed. Due to serious interactions rosuvastatin has been placed on hold Encouraged her to stay on a low-sodium diet. It has been discontinue hydrochlorothiazide and restart Lasix 20 mg a day. Orders: Orders Cyclosporine 1 Week N04.9 - Nephrotic syndrome with unspecified morphologic changes Basic Metabolic Panel 4 Weeks N04.9 - Nephrotic syndrome with unspecified morphologic changes Total Protein Urine Random 4 Weeks N04.9 - Nephrotic syndrome with unspecified morphologic changes UA and rflx microscopic 4 Weeks N04.9 - Nephrotic syndrome with unspecified morphologic changes Creatinine Urine 4 Weeks N04.9 - Nephrotic syndrome with unspecified m orphologic changes Medications: New furosemide 20 mg PO DAILY 30 tabs 1RF cyclosporine 100 mg PO BID 60 caps 1RF Changed From prednisone 60 mg (3 x 20 mg) PO DAILY 270 tabs 1RF Nephrotic syndrome To prednisone 20 mg PO DAILY Coding Level of Care Code Est Pt Level 4 (59794) Diagnoses Nephrotic syndrome N04.9
--- OUTSIDE RECORDS SUMMARY | 2024-03-06 17:30 | XMS_ITS | Clinical Summary ---
Author Organization [facility] Address [address] [place] [address] 7 [place] [address] Care Team Providers [employer] Name Role Phone Kourtney Saxena MD Primary Care Pro vider Allergies Active Allergy Reactions Criticality Noted Date Comments Shellfish-Derived Products Anaphylaxis High 03/24/19 23 Medications EPINEPHrine (Epipen) 0.3 MG/0.3ML injection syringe Inject 0.3 mL (0.3 mg) as directed 1 (one) time if needed for anaphylaxis for up to 2 doses. Inject into upper leg. Call 911 after use. 1 each 1 07/02/19 24 Active cloNIDine (Catapres) 0.1 MG tablet TAKE 1 TABLET BY MOUTH EVERY DAY NEEDED FOR ANXIETY 30 tablet 2 09/23/19 24 Active rosuvastatin (Crestor) 40 MG tablet Take 1 tablet (40 mg) by mouth Once per day. 90 tablet 01/11/20 24 025 Active levothyroxine (Synthroid) 50 MCG tablet Take 1 tablet (50 mcg) by mouth before breakfast. Please stop 37.5 mcg dose and start 50 mcg daily dose 90 tablet 01/11/20 24 025 Active varenicline (Chantix) 1 MG tablet TAKE 1/2 TABLET BY MOUTH EVERY DAY FOR 3 DAYS THEN INCREASE TO TWICE DAILY FOR 4 DAYS THEN TAKE 1 TABLET BY MOUTH TWICE DAILY 60 tablet 2 01/20/20 24 Active acetaminophen (Tylenol) 500 MG tablet Take 2 tablets (1,000 mg) by mouth every 6 (six) hours if needed for moderate pain or fever. 30 tablet 01/24/20 24 Active Aspirin Low Dose 81 MG EC tablet TAKE 1 TABLET BY MOUTH EVERY MORNING 90 tablet 01/28/20 24 Active ergocalciferol (Vitamin D2) 1.25 MG (44476 UT) capsule TAKE 1 CAPSULE BY MOUTH ONCE WEEKLY ON WEDNESDAY MORNING 4 capsule 2 02/14/19 25 Active losartan (Cozaar) 25 MG tablet TAKE 1 TABLET BY MOUTH EVERY MORNING 90 tablet 02/28/19 25 Active ergocalciferol (Vitamin D2) 1.25 MG (72491 UT) capsuleIndicat ions:Vitamin D Deficiency Take 1 capsule (1.25 mg) by mouth 1 (one) time per week. 4 capsule 5 08/17/19 24 025 Discontinued losartan (Cozaar) 25 MG tablet Take 1 tablet (25 mg) by mouth Once per day. 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 Tobacco use disorder 07/03/2023 Polyarthralgia 07/03/2023 Intramural leiomyoma of uterus 07/03/2023 Abnormal brain MRI 07/03/2023 Other specified hypothyroidism 07/02/2023 Hyperlipidemia 07/02/2023 Depression with anxiety 07/02/2023 Polysubstance use disorder 07/02/2023 Primary osteoarthritis of right knee 12/24/2022 Overview (09/23/2023): Last Assessment & Plan: intra-articular steroid injection today as detailed in procedure note Class 2 obesity 01/29/2022 Cervical radiculopathy 07/12/2020 Overview (09/23/2023): 01/23/19 underwent C4-C5 anterior cervical discectomy, decompression of spinal cord, placement of C4-C5 Mobi C artificial disc microscopic decompression Paresthesia of hand, bilateral 02/28/2019 Overview (09/23/2023): underwent C4-C5 anterior cervical discectomy, decompression of spinal cord, placement of C4-C5 Mobi C artificial disc microscopic decompression. Lymphedema of both lower extremities 09/08/2018 Simple cyst of kidney 06/29/2017 Overview (09/23/2023): Abdominal ultrasound 06/29/17 Asthma 08/15/2012 Resolved Problems Problem Noted Date Diagnosed Date Resolved Date Precordial pain 08/05/2023 08/17/2023 Assessment & Plan (08/05/2023 12:43 PM EDT): Has atypical CP that could be related to anxiety (triggered by chiantix?) or GERD. However given recent abn TSH, I will repeat labs, CXR to ro thyroiditis. Breathing techniques discussed with patient. Order labs today, if normal, she may need to hold chiantix. Hypertension 07/02/2023 07/03/2023 Encounters Date Type Department Care Team Description 02/24/2024 Refill [facility] MED & PEDS [address] [place], [place] [phone] Kourtney Saxena MD 02/17/2024 Orders Only [facility] External Provider, [facility] 02/15/2024 Refill [facility] MEDICINE [address] [place] [phone] Kourtney Saxena MD 02/07/2024 Travel 01/28/2024 Refill [facility] MED[facility] [address] [place] [address] Kourtney Saxena MD 01/25/2024 Telephone [facility] [address] [place] [address] [phone] Kitty Jackson, RN NTTS 01/24/2024 10:00 AM EST Office Visit [facility] [address] [place] [address] [phone] Jaylon Martin MD Postmenopausal bleeding (Primary Dx); Flank pain; Hypertension, unspecified type 01/19/2024 Refill [facility] [address] [place] [address] Kourtney Saxena MD 01/11/2024 Orders Only [facility] [place] [address] Kourtney Saxena MD Hypothyroidism, unspecified type (Primary Dx); Hyperlipidemia, unspecified hyperlipidemia type 01/11/2024 Orders Only GENER[facility] EXTERNAL DATA DEPARTMENT Provider, Generic External Data 01/04/2024 10:30 AM EST Clinical Support [facility] [address] [place] [address] Ange Izaguirre RN Hypertension, unspecified type 01/04/2024 Travel 12/28/2023 Travel 12/16/2023 Telephone [facility] [place] [address] Kourtney Saxena MD Appointment Request 12/14/2023 Orders Only GENERIC EXTERNAL DATA DEPARTMENT Provider, Generic External Data 12/10/2023 Orders Only [facility] External Provider, [facility] from Last 3 Months Immunizations Name Administration Dates Next Due Influenza Injectable Quadriv alant Preservative Free IIV4 MDCK 12/08/2018 Influenza, IIV3, injectable 11/16/2013 Influenza, seasonal, injectable, preservative fr ee 10/21/2023 Moderna Covid-19 Vaccine 6+ Bivalent 01/26/2022 Pfizer Covid-19 Vaccine 12+ 11/01/2023, Pneumococcal Conjugate PCV 20 07/02/2023 Pneumococcal Polysaccharide PPSV23 04/27/2014 Tdap 11/24/2022,09/20/2012 Zoster, Recombinant 09/23/2023 Family History Medical History Relation Name Comments Pancreatic cancer Maternal Grandfather Glaucoma Maternal Grandmother Osteoporosis Maternal Grandmother Lung cancer Mother Relation Name Status Comments Father Maternal Grandfather Maternal Grandmother Mother Social History Tobacco Use Types Packs/Day Years Used Date Smoking Tobacco: Every Day Cigarettes 1 24.1 Started: 2000 Smokeless Tobacco: Current Tobacco Cessation:Ready to Q uit: Not Asked; Counseling Given: Not Answered Alcohol Use Standard Drinks/Week Comments Not Asked 0 (1 standard drink = 0.6 oz pur e alcohol) heavy ETOH drinking 02/2016 Depression Answer Date Recorded Patient Health Questionnaire-9 Score 4 07/02/2023 Patient Health Questionnaire-9 Score 4 07/02/2023 Last PHQ-9: Questionnaire Data Not on file 0 07/02/2023 Housing Stability Answer Date Recorded What is your housing situation today? I have pankaj brantley 08/17/[address] you li ve. Do you have problems with any of the following? None of the above 08/17/2023 Food Insecurity Answer Date Recorded Within the past 12 months, y ou worried that your food would run out before you got money to buy more: Never True 08/17/2023 Within the past 12 months,th e food you bought just didn't last and you didn't have enough money to get more: Never True 10/2023 Transportation Answer Date Recorded In the past 12 months, has l ack of transportation kept you from medical appts, meetings, work or from getting things needed for daily living? No 08/17/2023 Utilities Answer Date Recorded In the past 12 months, has t he electric, gas, oil or water company threatened to shut off services in your home? No 08/17/2023 Depression Answer Date Recorded Patient Health Questionnaire-2 Score 0 07/02/2023 Internet Access Answer Date Recorded Internet Access Q1 Yes 10/11/2023 Internet Access Q2 Not on file 10/11/2023 Comments Unknown Sex and Gender Information Value Date Recorded Sex Assigned at Female 12/08/2021 10:37 AM EDT Legal Sex Female 10:37 AM EDT Gender Identity Female 12/08/2021 10:37 AM EDT Sexual Orientation Straight 12/08/2021 10 :37 AM EDT Last Filed Vital Signs Vital Sign Reading Time Taken Comments Blood Pressure 160/98 01/24/2024 10:06 AM EST Pulse 82 01/24/2024 10:06 AM EST Temperature 35.7 ??C (96.2 ??F) 01/24/2024 1 0:06 AM EST Respiratory Rate 17 01/24/2024 10:0 6 AM EST Oxygen Saturation 100% 01/24/2024 10: 06 AM EST Inhaled Oxygen Concentration - - Weight 84.7 kg (186 lb 12.8 oz) 024 10:06 AM EST Height 150.1 cm (4' 11.11 ) 11/01/2023 1:47 PM E DT Body Mass Index 37.59 11/01/2023 1:47 PM EDT Plan of Treatment Upcoming Encounters Date Type Department Care Team (Late st Contact Info) Description 03/15/2024 11:00 AM EST Office Visit [facility] [address] [facility] [place] [address] Hattie Gomez Health Maintenance Due Date Last Done Comments CT Colonography 1973 Colonoscopy 1973 Colorectal Cancer Screening 1973 Dental Prophylaxis 1973 FIT DNA/Cologuard 1973 FIT 1973 FOBT 1973 Sigmoidoscopy 1973 Alcohol/Substance Use Screening 1985 Family Planning (PISQ) 1988 Hepatitis B Vaccines (1 of 3 - 19+ 3-dose series) 1992 Pap Smear 1994 Cervical Cancer Screening 07/20/2003 HPV/Cotest 07/20/2003 Dental Oral Exam 08/20/2022 02/19/2022 Zoster Vaccines (2 of 2) 11/18/2023 09/23/2023 Depression Screening 07/01/2024 07/02/2023, 07/02/19 SDOH Screening 08/16/2024 08/17/2023 Dental X-Ray: Bitewings 11/15/2024 11/15/2023, 02/19 Lung Cancer Screening 12/09/2024 12/10/2023 Tobacco Screening 01/23/2025 01/24/2024 Dental X-Ray: Full Mouth 02/20/2025 02/19/2022 Mammogram 08/16/2025 08/17/2023 Lipid Panel 01/10/2029 01/11/2024, 10/10, 07/27/2023 DTaP/Tdap/Td Vaccines (3 - Td or Tdap) 11/24/2032 11/24/2022, 09/20/2012 RSV Patients and Patients Aged 60 years or older (1 - 1-dose 75+ series) 2048 Pneumococcal Vaccine: Pediatrics (0 to 5 Years) and At-Risk Patients (6 to 64 Years) Completed 07/02/2023, 04/27/2014 HIV Screening Completed 07/27/2023 Hepatitis C Screening Completed 07/27/2023 Influenza Vaccine Completed 10/21/2023, , 11/16/2013 COVID-19 Vaccine Completed 11/01/2023, , 01/26/2022, Additional history exists HIB Vaccines Aged Out No longer eligi ble based on patient's age to complete this topic HPV Vaccines Aged Out No longer eligi ble based on patient's age to complete this topic Hepatitis A Vaccines Aged Out No long er eligible based on patient's age to complete this topic IPV Vaccines Aged Out No longer eligi ble based on patient's age to complete this topic Meningococcal Vaccine Aged Out No maribeth lorri eligible based on patient's age to complete this topic RSV under 20 months Aged Out No longe r eligible based on patient's age to complete this topic Rotavirus Vaccines Aged Out No longer eligible based on patient's age to complete this topic Procedures Procedure Name Priority Date/Time Associated Diagnosis Comments US RENAL BI Routine 02/17/2024 11:16 AM EST POCT , URINE Routine 01/24/2024 10:54 AM EST Flank pain POCT URINALYSIS DIPSTICK Routine 01/24/2024 10:54 AM EST Flank pain CULTURE, URINE, ROUTINE Routine 01/24/2024 10:54 AM EST Flank pain LIPID PANEL, STANDARD Routine 01/11/2024 9:50 AM EST URINE PROTEIN, TOTAL, RANDOM (W/O CREATININE) Routine 01/11/2024 9:50 AM EST CREATININE, RANDOM URINE Routine 01/11/2024 9:50 AM EST URINALYSIS, COMPLETE Routine 01/11/2024 9:50 AM EST CBC Routine 01/11/2024 9:50 AM EST URINALYSIS WITH REFLEX TO MICROSCOPIC Routine 01/11/2024 9:50 AM EST COMPREHENSIVE METABOLIC PANEL Routine 01/11/2024 9:50 AM EST Hyperlipidemia, unspecified hyperlipidemia type TSH Routine 01/11/2024 9:50 AM EST Other specified hypothyroidism OTHER REF TEST - MISC Routine 12/14/2023 11:25 AM EST GROSS EXAM WITHOUT SLIDES Routine 12/14/2023 11:25 AM EST TYPE AND SCREEN Routine 12/14/2023 10:35 AM EST CBC WITH AUTO DIFFERENTIAL Routine 12/14/2023 10:[address] GUIDED PERCUTANEOUS BIOPSY RENAL RIGHT Routine 12/14/2023 10:35 AM EST LDCT LUNG SCREENING Routine 12/10/2023 1 0:40 AM EDT BITEWINGS - 4 RADIOGRAPHIC IMAGES Routine 11/15/2023 11:00 AM EDT BI MAMMOGRAM SCREENING TOMOSYNTHESIS BILATERAL Routine 08/17/2023 9:18 AM EDT Breast cancer screening by mammogram HEPATITIS C AB W/REFL TO HCV RNA, QN, PCR Routine 07/27/2023 10:47 AM EDT Annual physical exam HIV 1/2 ANTIGEN/ANTIBODY, FOURTH GENERATION W/RFL Routine 07/27/2023 10:47 AM EDT Annual physical exam DIAGNOSTIC - DIAGNOSTIC IMAGING - INTRAORAL - COMPREHENSIVE SERIES OF RADIOGRAPHIC IMAGES Routine 02/19/2022 11:00 AM EST Chronic periodontitis Encounter for dental examination COMPREHENSIVE ORAL EVALUATION - NEW OR ESTABLISHED PATIENT Routine 02/19/2022 11:00 AM EST Chronic periodontitis Encounter for dental examination from Last 3 Months or Most Recently Relevant to Health Maintenance Results * US RENAL BI (02/17/2024 11:16 AM EST) Anatomical Region Laterality Modality Abdomen Ultrasound 02/17/2024 11:1 6 AM EST Narrative 02/17/2024 11:44 AM EST ? [facility] ?[address] ?[place] [address] ? Ultrasound Report ? Signed ? Patient: Nadeem Karch,[place] A ?MR# ?? : [id number] ? : 1975 ?Acct:[id number] ? Age/Sex: 48 / F ?ADM Date: 02/17/24 ? Loc: HO.US ? Attending Dr: Gutierrez Lozano MD ? Ordering Physician: Gutierrez Lozano MD ?? Date of Service: 02/17/24 ?? Procedure(s): US renal BI ?? Accession Number(s): [id number] ? cc: Gutierrez Lozano MD; Kourtney Saxena MD ? EXAMINATION: ??US KIDNEY BILATERAL ? HISTORY: I10 - flank pain per Doctor's notes ? TECHNIQUE: Real-time grayscale ultrasound imaging of the kidneys was ?? performed and images were reviewed. ? COMPARISON: Comparison is made with the prior examination dated ?? 12/01/2023. ? FINDINGS: ? Right kidney: ??The right kidney measures 13.3 x 5.6 x 5.5 cm. ??There is ?? a probable hypertrophied column of Pradeep as well as a junctional ?? parenchymal defect at the upper pole. Renal cortical thickness is ?? otherwise normal. ??There are no masses. ??There is no hydronephrosis or ?? renal calculi. ? Left Kidney: ??The left kidney measures 13.1 x 5.6 x 4.6 cm. ??Renal ?? parenchymal echotexture and thickness are normal. ??There is a 1.2 x 1.8 ?? x 1.1 cm cyst in the interpolar region. ??There is no hydronephrosis or ?? renal calculi. ? US/US renal BI ?? IMPRESSION: ? 1.2 x 1.8 x 1.1 cm left renal cyst. No hydronephrosis. ? Electronically signed by: ??Kendall Wise MD ??02/17/2024 11:41 AM EST ?? RP ? Dictated By: ?Kendall Wise MD ? Signed By: ?<Electronically signed by Kendall Wise MD in OV> ?02/17/24 1141 ? DD/ 1116 ? TD/TT: 02/17/24 1123 ? Oyster Cultivator: ? Procedure Note Donhaoter, Image - 02/17/[address] [address] Ultrasound Report Signed Patient: [place] Navarro AMR# : [id number] : 1975Acct:[id number] Age/Sex: 48 / FADM Date: 02/17/24 Loc: HO.US Attending Dr: Gutierrez Lozano MD Ordering Physician: Gutierrez Lozano MD Date of Service: 02/17/24 Procedure(s): US renal BI Accession Number(s): [id number] cc: Gutierrez Lozano MD; Kourtney Saxena MD EXAMINATION: US KIDNEY BILATERAL HISTORY: I10 - flank pain per Doctor's notes TECHNIQUE: Real-time grayscale ultrasound imaging of the kidneys was performed and images were reviewed. COMPARISON: Comparison is made with the prior examination dated 12/01/2023. FINDINGS: Right kidney: The right kidney measures 13.3 x 5.6 x 5.5 cm. There is a probable hypertrophied column of Pradeep as well as a junctional parenchymal defect at the upper pole. Renal cortical thickness is otherwise normal. There are no masses. There is no hydronephrosis or renal calculi. Left Kidney: The left kidney measures 13.1 x 5.6 x 4.6 cm. Renal parenchymal echotexture and thickness are normal. There is a 1.2 x 1.8 x 1.1 cm cyst in the interpolar region. There is no hydronephrosis or renal calculi. US/US renal BI IMPRESSION: 1.2 x 1.8 x 1.1 cm left renal cyst. No hydronephrosis. Electronically signed by: Kendall Wise MD 02/17/2024 11:41 AM EST Dictated By: Kendall Wise MD Signed By: <Electronically signed by Kendall Wise MD in OV> 02/17/24 1141 DD/ 1116 TD/TT: 02/17/24 1123 Oyster Cultivator: [facility] External Provider IMG US PROCEDURES Final Result * POCT , urine manually resulted (01/24/2024 10:54 AM EST) Preg Test, Ur Negative Negative, Indeterminate, None Detected, Invalid, Specimen unsatisfactory for evaluation, Weakly Positive Urine 01/24/2024 10:5 4 AM EST us Jaylon [place] MD POINT OF CARE TEST ENTER/EDIT OR DERABLES Final Result * (ABNORMAL) POCT urinalysis dipstick manually resulted (01/24/2024 10:54 AM EST) Color, UA Yellow Clarity, UA Clear Glucose, UA Negative Bilirubin, UA Few 15 Comment:Small Ketones, UA Negative Spec Grav, UA 1.030 Comment:>= 1.030 Blood, UA Positive(A) Negative, None Detected Comment:Moderate pH, UA 6.5 Protein, UA Few 15 Comment:>-300 mg/dL Urobilinogen, UA 1.0 Leukocytes, UA Negative Negative, Rare, Trace Nitrite, UA Negative Negative, None Detected Urine 01/24/2024 10:5 4 AM EST us Jaylon [place] MD POINT OF CARE TEST ENTER/EDIT OR DERABLES Final Result * Culture, Urine, Routine (01/24/2024 10:54 AM EST) Urine Urine specimen obtained by clean catch procedure / Unknown 01/24/2024 10:54 AM EST 01/24/2024 6:32 PM EST Comment:[facility] Narrative [facility] - 01/26/2024 7:47 AM EST Urine Culture Report Result Urine Culture 10,000 to 50,000 cfu/ml Urine Culture Mixed bacterial summer characteristic of Urine Culture urogenital contamination. Specimen Source: Urine clean catch us Jaylon [place] MD LAB MICROBIOLOGY - GENERAL ORDER ANGÉLICA Final Result Performing Organization Address [facility] Co de Phone Number [facility] [address] [place] [phone] * (ABNORMAL) Urinalysis with Reflex to Microscopic (01/11/2024 9:50 AM EST) Color Urine Yellow [facility] Appearance Urine Clear [facility] PH 6.0 5.0 - 9.0 [facility] Glucose Urine UA Negative Negative mg/dL [facility] Urine Blood Negative Negative [facility] Specific [place] - Urine >=1.030(H) 1.005 - 1.025 [facility] Urine Protein 300 (3+)(A) Neg-Trace mg/dL [facility] Urine Ketones Negative Negative mg/dL [facility] Nitrite Urine Negative Negative [facility] Leukocyte Esterase Urine Negative Negative [facility] 01/11/2024 9:50 AM EST 01/11/2024 11:03 AM EST us Generic External Data Provider LAB URINE ORDERAB LES Final Result Performing Organization Address [facility] de Phone Number [facility] [address] [place] [phone] * (ABNORMAL) Urine Protein, Total, Random without Creatinine (01/11/2024 9:50 AM EST) [facility] Signature Protein, Total, Random Urine 416(H) <12 mg/dL [facility] 01/11/2024 9:50 AM EST 01/11/2024 11:03 AM EST us Generic External Data Provider LAB URINE ORDERAB LES Final Result Performing Organization Address [facility] Co de Phone Number [facility] [address] [place] [phone] * Creatinine, Random Urine (01/11/2024 9:50 AM EST) Creatinine, Urine 180.87 mg/dL [facility] 01/11/2024 9:50 AM EST 01/11/2024 11:03 AM EST Generic External Data Provider LAB URINE ORDERAB LES Final Result Performing Organization Address [facility] Co de Phone Number [facility] [address] [place] [phone] * (ABNORMAL) Urinalysis Complete (01/11/2024 9:50 AM EST) Pathologist [facility] Color Urine Yellow [facility] Appearance Urine Clear [facility] PH 6.0 5.0 - 9.0 [facility] Glucose Urine UA Negative Negative mg/dL [facility] Urine Blood Negative Negative [facility] Specific [place] - Urine >=1.030(H) 1.005 - 1.025 [facility] Urine Protein 300 (3+)(A) Neg-Trace mg/dL [facility] Urine Ketones Negative Negative mg/dL [facility] Nitrite Urine Negative Negative [facility] Leukocyte Esterase Urine Negative Negative [facility] RBC Urine 0-2 0 - 2 /HPF [facility] Urine WBC 0-5 0 - 5 /HPF [facility] Urine Squamous Epithelial Cell 6-10 0 - 2 /HPF [facility] Urine Bacteria 1+ None Seen [facility] Hyaline Casts, Urine 0-2 0 - 2 /LPF [facility] 01/11/2024 9:50 AM EST 01/11/2024 11:03 AM EST us Generic External Data Provider LAB URINE ORDERAB LES Final Result Performing Organization Address [facility] Co de Phone Number [facility] [address] [place] [phone] * (ABNORMAL) CBC (01/11/2024 9:50 AM EST) White Blood Count 11.3(H) 4.8 - 10.8 X10*3/uL [facility] Red Blood Count 4.77 4.20 - 5.50 X10*6/uL [facility] Hemoglobin 12.6 12.0 - 16.0 g/dl [facility] Hematocrit 38.4 37.0 - 47.0 % [facility] Mean Corpuscular Volume 80.5 80.0 - 98.0 fL [facility] Mean Corpuscular Hemoglobin 26.4(L) 27.0 - 33.0 pg [facility] Mean Corpuscular HGB Conc 32.8 31.0 - 35.0 g/dl [facility] Red Cell Distribution Width 15.5 11.0 - 16.0 % [facility] Platelet Count 379 160 - 400 X10*3/uL [facility] Mean Platelet Volume 9.6 9.4 - 12.3 fL [facility] NRBC Pct Auto 0.0 0.0 - 0.2 /100WBC [facility] NRBC Abs Auto 0.000 0.0 - 0.012 X10*3/uL [facility] 01/11/2024 9:50 AM EST 01/11/2024 11:28 AM EST us Generic External Data Provider LAB BLOOD ORDERAB LES Final Result Performing Organization Address City/State/[facility] Co de Phone Number [facility] [address] [place] [phone] * (ABNORMAL) TSH (01/11/2024 9:50 AM EST) Thyroid Stimulating Hormone 8.21(H) 0.32 - 4.0 uIU/mL [facility] Comment:Note: A sustained TS H level above 2.5 uIU/mL may warrant further investigation. TSH 3rd Generation ([facility]) Blood Venous blood specimen / Unknown 01/11/2024 9:50 AM EST 01/11/2024 11:31 AM EST us Kourtney Epstein MD LAB BLOOD ORDERAB LES Final Result Performing Organization Address City/[facility]/ZIP Co de Phone Number [facility] [address] [place] [phone] * (ABNORMAL) Lipid Panel, Standard (01/11/2024 9:50 AM EST) Triglycerides 133 <150 mg/dL [facility] Comment:Desirable Triglyceri de: less than 150 mg/dLBorderline High Triglyceride 150-199 mg/dLHigh Triglyceride: 200-499 mg/dLVery High Triglyceride: greater than or equal to 5OO mg/dL Cholesterol 246(H) <200 mg/dL [facility] Comment:Desirable Cholestero l: less than 200 mg/dLBorderline High Cholesterol: 200-239 mg/dLHigh Cholesterol: greater than 239 mg/dL LDL Cholesterol Calculated 148(H) <100 mg/dL [facility] Comment:Desirable LDL: less than 100 mg/dLNear Optimal/Above Optimal LDL: 110- 129 mg/dLBorderline High LDL: 130-159 mg/dLHigh LDL: 160-189 mg/dLVery High LDL: greater than or equal to 190 mg/dL HDL Cholesterol 72 >40 mg/dL [facility] Comment:Desirable HDL: great er than 40 mg/dL Note: This HDL assay may give artificially low results in patients with liver disease. 01/11/2024 9:50 AM EST 01/11/2024 11:31 AM EST us Generic External Data Provider LAB BLOOD ORDERAB LES Final Result Performing Organization Address City/[facility]/ZIP Co de Phone Number [facility] [address] [place] [address] [phone] * (ABNORMAL) Comprehensive Metabolic Panel (01/11/2024 9:50 AM EST) Sodium 141 135 - 145 mmol/L [facility] Potassium 3.5 3.3 - 5.1 mmol/L [facility] Chloride 107 96 - 108 mmol/L [facility] Carbon Dioxide 27 22 - 29 mmol/L [facility] Anion Gap 11(L) 12 - 20 [facility] Urea Nitrogen (BUN) 12 9 - 16 mg/dL [facility] Creatinine, Serum 0.64 0.5 - 1.4 mg/dL [facility] Estimated Glomerular Filt Rate >60 [facility] Comment:Chronic Kidney Disea se: Estimated GFR < 60 mL/min/1.47k4Lofrnu Kidney Disease: Estimated GFR < 15 mL/min/1.73m2 Glucose 103 60 - 115 mg/dL [facility] Calcium 8.5 8.4 - 10.2 mg/dL [facility] Bilirubin, Total 0.2 0.0 - 1.0 mg/dL [facility] Aspartate Amino Transferase 20 5 - 31 U/L [facility] Alanine Aminotransferase 30 0 - 31 U/L [facility] Total Protein 5.8(L) 6.5 - 8.0 g/dL [facility] Albumin Level 3.1(L) 3.5 - 5.0 g/dL [facility] Alkaline Phosphatase 59 39 - 117 U/L [facility] Blood Venous blood specimen / Unknown 01/11/2024 9:50 AM EST 01/11/2024 11:31 AM EST us Kourtney Epstein MD LAB BLOOD ORDERAB LES Final Result Performing Organization Address City/State/[facility] Co de Phone Number [facility] [address] [place] [phone] * Gross Exam without slides (12/14/2023 11:25 AM EST) 12/14/2023 11:2 5 AM EST 12/14/2023 11:38 AM EST Narrative [facility] - 12/30/2023 8:53 AM EST ----- ------- Name: Nadeem JerelMadison gusman ? Age/Sex: 48/F ? : 1975 Unit#: [id number] ?? Attend Dr: Gutierrez Lozano MD ?Re12/14/23 ?Status: DEP SDC ? Location: HO.SSS ?Disch: ? ----- ------- SPEC : [id number] ? RECD: 12/14/23 ? STATUS: ??SOUT ? REQ NUM: [id number] ? YAMINI: 12/14/23 ? SUBM DR: Param Bustillo ? ENTERED: ??12/14/23 ?SP TYPE: Surgical ? OTHR DR: Gutierrez Lozano MD ?Kourtney Saxena MD ORDERED: ??GO, EM1, Immunofl., Add. 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 - Low-level mesangial IgA deposition; no active proliferative or crescentic lesions are noted at this time. - Thin glomerular basement membranes. - Mild chronic changes. See report in its entirety in the EMR - Reports/Pathology section as a scanned report (camera icon). ??If appropriate, a copy has also been sent to the ordering provider's office. Addendum Signed (signature on file) Jerome Live MD 12/30/23852 ? ----- ------- ? Diagnosis ?? Left kidney, biopsy: ??Specimen forwarded to [facility] Dept. of Pathology for processing and ?? interpretation; results to follow. ?Clinical History Nephrotic range proteinuria ? Material Received ?? Left kidney ??- 3 x 18 g cores ? Gross Description Received on saline soaked Telfa labeled ?left renal core? are 3 thin and delicate green-pink cylindrical threads of tissue ranging from 1.2-1.5 cm in length and each measuring less than 0.1 cm in diameter, forwarded to [facility] for further testing. ??Gross description only. CEDS ? CONTINUED ON NEXT PAGE ----- ------- Name: Madison Navarro ? Age/Sex: 48/F ? : 1975 Unit#: [id number] ?? Attend Dr: Gutierrez Lozano MD ?Re12/14/23 ?Status: DEP SDC ? Location: HO.SSS ?Disch: ? ----- ------- SPEC : [id number] ? RECD: 12/14/23 ? STATUS: ??SOUT ? REQ NUM: [id number] ? YAMINI: 12/14/23-1125 ? SUBM DR: Param Bustillo ? ENTERED: ??12/14/23-0 ?SP TYPE: Surgical ? OTHR DR: Gutierrez Lozano MD ?Kourtney Saxena MD ORDERED: ??GO, EM1, Immunofl., Add. immunofl., [id number] Ref Lab T, [id number] Ref Lab T ? Copies To: ?? Gutierrez Lozano MD ?? [facility] ?? [address] ?? [place] [address] ?? [phone] ?? [email or web address] ?? Kourtney Saxena MD ?? [address] ?? [place] [address] ?? [phone] ?? Param Bustillo ?? [address] ?? [place] [address] ?? [phone] ?? [email or web address] ----- ------- Signed (signature on file) Jerome Live MD 12/15/23 0552 ? ----- ------- ? END OF REPORT ? us Generic External Data Provider LAB BLOOD ORDERAB LES Final Result Performing Organization Address [facility] de Phone Number [facility] [address], [place] [phone] * Other Reference Test - Misc (12/14/2023 11:25 AM EST) 12/14/2023 11:2 5 AM EST 12/14/2023 11:38 AM EST Narrative [facility] - 12/21/2023 9:34 AM EST Kidney b[facility] [id number] [facility] Generic External Data Provider LAB BLOOD ORDERAB LES Final Result Performing Organization Address [facility] de Phone Number [facility] [address] [place] [address] [phone] * CT Guided Percutaneous Biopsy renal Right (12/14/2023 10:35 AM EST) Anatomical Region Laterality Modality Kidney Right Computed Tomogra phy 12/14/2023 10:3 5 AM EST Narrative 12/28/2023 4:11 PM EST ? [facility] ?[address] ?[place] [address] ? CT Scan Report ? Signed ? Patient: Madison Navarro ?MR# ?? : [id number] ? : 1975 ?Acct:[id number] ? Age/Sex: 48 / F ?ADM Date: 11/05/24 ? Loc: HO.SSS ? Attending Dr: Gutierrez Lozano MD ? Ordering Physician: Gutierrez Lozano MD ?? Date of Service: 12/14/23 ?? Procedure(s): CT biopsy renal RT ?? Accession Number(s): [id number] ? cc: Gutierrez Lozano MD; Kourtney Saxena MD ? Nephrotic range proteinuria. ? PROCEDURES: ?? 1. Limited preprocedure CT of the abdomen. Permanent images saved in ?? PACS. ?? 2. CT-guided nontargeted biopsy of the left kidney. ?? 3. Limited postprocedure CT of the abdomen. Permanent images saved in ?? PACS. ? CLINICIANS: ?? Param Bustillo PA-C ? MEDICATIONS: ?? -Versed 1.5 mg, Fentanyl 75 mcg, and lidocaine 1% 10 mL SQ ?? -Antibiotics: None ?? -For additional details, please see nursing flowsheet. ? COMPLICATIONS: None ?? ESTIMATED BLOOD LOSS: < 5 ml ?? CONTRAST: None ?? SPECIMENS: 3 x 18 g cores were placed in saline ?? MODERATE SEDATION TIME: 25 min ? PROCEDURE NOTE: ?? The procedure, risks, benefits, and alternatives were carefully ?? explained to the patient and written informed consent was obtained. The ?? patient was placed prone on the CT table. A timeout was performed. A ?? limited CT of the abdomen was performed to localize the left kidney and ?? choose appropriate needle entry and trajectory. The patient was prepped ?? and draped in usual sterile fashion. ? The skin and deeper soft tissues were anesthetized with lidocaine. ?? Under CT guidance, a 17 gauge trocar needle was advanced to the left ?? kidney. An 18 gauge biopsy device was inserted through the trocar ?? needle advanced into the left lower pole of the kidney. A total of 3, ?? 18 gauge cores were performed. The specimens were placed in saline. A ?? Gelfoam slurry was then administered through the trocar needle and into ?? the left perinephric space. The needle was removed. A dry dressing was ?? applied and secured with Tegaderm. There were no immediate ?? complications. ? The patient was stable after the procedure and was transferred to the ?? post anesthesia care unit. ? The procedure was done under moderate sedation with a dedicated nurse ?? for monitoring of vital signs. ? CT/CT biopsy renal RT ?? Impression: ?? CT-guided nontargeted left renal biopsy ? This procedure was performed by Param Bustillo PA-C and supervised by ?? Nadeem. ? Electronically signed by: ??Chente Dominguez MD ??12/28/2023 04:08 PM EST RP ? Dictated By: ?Param Bustillo ? Signed By: ?<Electronically signed by Param Bustillo in OV> ? 12/28/23 1608 ?<Electronically signed by Chente Dominguez MD in OV> ?12/28/23 1611 ? DD/ 1035 ? TD/TT: 12/14/23 1120 ? Oyster Cultivator: ? Procedure Note Dontaurus, Image - 12/28/[address] [place] [address] [address] Scan Report Signed Patient: Madison Navarro AMR# : [id number] : 1975Acct:[id number] Age/Sex: 48 / FADM Date: 12/14/23 Loc: [facility] Attending Dr: Gutierrez Lozano MD Ordering Physician: Gutierrez Lozano MD Date of Service: 12/14/23 Procedure(s): CT biopsy renal RT Accession Number(s): [id number] cc: Gutierrez Lozano MD; Kourtney Saxena MD Nephrotic range proteinuria. PROCEDURES: 1. Limited preprocedure CT of the abdomen. Permanent images saved in PACS. 2. CT-guided nontargeted biopsy of the left kidney. 3. Limited postprocedure CT of the abdomen. Permanent images saved in PACS. CLINICIANS: Param Bustillo PA-C MEDICATIONS: -Versed 1.5 mg, Fentanyl 75 mcg, and lidocaine 1% 10 mL SQ -Antibiotics: None -For additional details, please see nursing flowsheet. COMPLICATIONS: None ESTIMATED BLOOD LOSS: < 5 ml CONTRAST: None SPECIMENS: 3 x 18 g cores were placed in saline MODERATE SEDATION TIME: 25 min PROCEDURE NOTE: The procedure, risks, benefits, and alternatives were carefully explained to the patient and written informed consent was obtained. The patient was placed prone on the CT table. A timeout was performed. A limited CT of the abdomen was performed to localize the left kidney and choose appropriate needle entry and trajectory. The patient was prepped and draped in usual sterile fashion. The skin and deeper soft tissues were anesthetized with lidocaine. Under CT guidance, a 17 gauge trocar needle was advanced to the left kidney. An 18 gauge biopsy device was inserted through the trocar needle advanced into the left lower pole of the kidney. A total of 3, 18 gauge cores were performed. The specimens were placed in saline. A Gelfoam slurry was then administered through the trocar needle and into the left perinephric space. The needle was removed. A dry dressing was applied and secured with Tegaderm. There were no immediate complications. The patient was stable after the procedure and was transferred to the post anesthesia care unit. The procedure was done under moderate sedation with a dedicated nurse for monitoring of vital signs. CT/CT biopsy renal RT Impression: CT-guided nontargeted left renal biopsy This procedure was performed by Param Bustillo PA-C and supervised by Dr. Silver. Electronically signed by: Chente Dominguez MD 12/28/2023 04:08 PM EST Dictated By: Param Bustillo Signed By: <Electronically signed by Param Bustillo in OV> 12/28/23 1608 <Electronically signed by Chente Dominguez MD in OV> 12/28/23 1611 DD/ 1035 TD/TT: 12/14/23 1120 Oyster Cultivator: [facility] External Provider IMG CT PROCEDURES Final Result * (ABNORMAL) CBC auto differential (12/14/2023 10:35 AM EST) White Blood Count 6.4 4.8 - 10.8 X10*3/uL [facility] Red Blood Count 5.09 4.20 - 5.50 X10*6/uL [facility] Hemoglobin 13.1 12.0 - 16.0 g/dl [facility] Hematocrit 40.4 37.0 - 47.0 % [facility] Mean Corpuscular Volume 79.4(L) 80.0 - 98.0 fL [facility] Mean Corpuscular Hemoglobin 25.7(L) 27.0 - 33.0 pg [facility] Mean Corpuscular HGB Conc 32.4 31.0 - 35.0 g/dl [facility] Red Cell Distribution Width 14.6 11.0 - 16.0 % [facility] Platelet Count 378 160 - 400 X10*3/uL [facility] Mean Platelet Volume 9.4 9.4 - 12.3 fL [facility] Neutrophils Percent Auto 62.7 45 - 73 % [facility] Imm Gran Pct Auto 0.3 0.0 - 0.4 % [facility] Lymphocytes Percent Auto 27.7 20 - 40 % [facility] Monocytes Percent Auto 7.8 2 - 11 % [facility] Eosinophils Percent Auto 0.9 0 - 4 % [facility] Basophils Percent Auto 0.6 0 - 2 % [facility] NRBC Pct Auto 0.0 0.0 - 0.2 /100WBC [facility] Neutrophils Absolute Auto 4.0 2.0 - 8.3 x10*3/uL [facility] Imm Gran Abs Auto 0.02 0.00 - 0.03 X10*3/uL [facility] Lymphocytes Absolute Auto 1.8 1.2 - 4.9 X10*3/uL [facility] Monocytes Absolute Auto 0.5 0.1 - 1.2 X10*3/uL [facility] Eosinophils Absolute Auto 0.1 0.0 - 0.4 X10*3/uL [facility] Basophils Absolute Auto 0.0 0.0 - 0.2 X10*3/uL [facility] NRBC Abs Auto 0.000 0.0 - 0.012 X10*3/uL [facility] 12/14/2023 10:3 5 AM EST 12/14/2023 10:55 AM EST us Generic External Data Provider LAB BLOOD ORDERAB LES Final Result [facility] [address] [place] [address] [phone] * Type and screen (12/14/2023 10:35 AM EST) Blood Type AP [facility] Antibody Screen NEGATIVE [facility] 12/14/2023 10:3 5 AM EST 12/14/2023 10:53 AM EST us Generic External Data Provider LAB BLOOD BANK TE ST ORDERABLES Final Result [facility] [address] [place] [address] [phone] * CT Lung Screening Low dose (12/10/2023 10:40 AM EDT) Anatomical Region Laterality Modality Lung Computed Tomogra phy 12/10/2023 10:4 0 AM EDT Narrative 01/26/2024 11:47 PM EST ? [facility] ?[address] ?[place] [address] ? CT Scan Report ? Signed ? Patient: Madison Navarro ?MR# ?? : [id number] ? : 1975 ?Acct:[id number] ? Age/Sex: 48 / F ?ADM Date: 12/10/23 ? Loc: HO.CT ? Attending Dr: Stacy Mays PA-C ? Ordering Physician: Stacy Mays PA-C ?? Date of Service: 12/10/23 ?? Procedure(s): CT lung screening ?? Accession Number(s): [id number] ? cc: Stacy Mays PA-C; Kourtney Saxena MD ? EXAMINATION: ?? CT LOW-DOSE SCREENING CHEST WITHOUT CONTRAST ? CLINICAL INFORMATION: ?? Nicotine dependence, cigarettes, uncomplicated. The patient is a ?? current smoker with a 23 pack-year history of smoking. ? COMPARISON: ?? X-ray chest August 05, 2023 ?? Renal ultrasound 12/01/2023 ? TECHNIQUE: ?? Multidetector volumetric CT imaging of the chest is performed on a ?? Siemens SOMATOM Definition scanner without contrast using low dose ?? technique. Additional 2D coronal and sagittal reformatted images and ?? axial 3D maximum intensity projection (MIP) images are generated on the ?? CT workstation. ? This CT examination was performed using dose optimization techniques as ?? appropriate, variously including the following: ?? *Automated exposure control ?? *Adjustment of mA and/or kV according to patient size (this includes ?? techniques or standardized protocols for targeted exams where dose is ?? matched to indication/reason for exam; i.e. extremities or head) ?? *Use of iterative reconstruction technique ? TOTAL EXAM DLP: ?? 42 mGy-cm. ? CTDIvol: ?? 1.40 mGy. ? FINDINGS: ? PULMONARY NODULES: Multiple small punctate nodules are seen about half ?? of which are calcified. None are larger than 2 mm (see saved choi ?? images). ??No suspicious pulmonary nodules. ? LUNGS: Lungs bilaterally symmetrically expanded. There is mild ?? emphysema and bronchial thickening without bronchiectasis.. No effusion ?? or pneumothorax. Central airways patent. ? MEDIASTINUM: No mediastinal, hilar or axillary adenopathy or free fluid ?? collection. ? CORONARY ARTERY CALCIFICATION: None visualized on this study. ? THYROID GLAND: Unremarkable to the extent seen. ? CARDIOVASCULAR STRUCTURES: Aortic and heart size normal. There is trace ?? pericardial fluid. ? CHEST WALL/AXILLA: Unremarkable. ? UPPER ABDOMEN: Included portions of the solid organs in the upper ?? abdomen unremarkable on noncontrast imaging. A benign left mid renal ?? 1.4 cm Bosniak class I renal cyst is noted which requires no additional ?? imaging or follow up. Similar findings seen on recent ultrasound. No ?? solid renal masses are seen. ? OSSEOUS STRUCTURES: No suspicious focal findings. ? CT/CT lung screening ?? IMPRESSION: ?? Unremarkable examination. ? ASSESSMENT: ?? 1. Lung-RADS Category ? 2. Lung-RADS Category S: ? RECOMMENDATION: ? Electronically signed by: ??Kuldeep Roca MD ??01/26/2024 11:44 PM EST ?? RP ? Dictated By: ?Kuldeep Roca MD ? Signed By: ?<Electronically signed by Kuldeep Roca MD in OV> ? 01/26/24 2344 ? DD/ ? TD/TT: 12/10/235 ? Oyster Cultivator: SS ? Procedure Note Donotuseinterpreter, Image - 01/26/[address] [address] [address] Scan Report Signed Patient: Madison Navarro AMR# : [id number] : 1975Acct:[id number] Age/Sex: 48 / FADM Date: 12/10/23 Loc: HO.CT Attending Dr: Stacy Mays PA-C Ordering Physician: Stacy Mays PA-C Date of Service: 12/10/23 Procedure(s): CT lung screening Accession Number(s): [id number] cc: Stacy Mays PA-C; Kourtney Saxena MD EXAMINATION: CT LOW-DOSE SCREENING CHEST WITHOUT CONTRAST CLINICAL INFORMATION: Nicotine dependence, cigarettes, uncomplicated. The patient is a current smoker with a 23 pack-year history of smoking. COMPARISON: X-ray chest August 05, 2023 Renal ultrasound 12/01/2023 TECHNIQUE: Multidetector volumetric CT imaging of the chest is performed on a Siemens SOMATOM Definition scanner without contrast using low dose technique. Additional 2D coronal and sagittal reformatted images and axial 3D maximum intensity projection (MIP) images are generated on the CT workstation. This CT examination was performed using dose optimization techniques as appropriate, variously including the following: *Automated exposure control *Adjustment of mA and/or kV according to patient size (this includes techniques or standardized protocols for targeted exams where dose is matched to indication/reason for exam; i.e. extremities or head) *Use of iterative reconstruction technique TOTAL EXAM DLP: 42 mGy-cm. CTDIvol: 1.40 mGy. FINDINGS: PULMONARY NODULES: Multiple small punctate nodules are seen about half of which are calcified. None are larger than 2 mm (see saved choi images). No suspicious pulmonary nodules. LUNGS: Lungs bilaterally symmetrically expanded. There is mild emphysema and bronchial thickening without bronchiectasis.. No effusion or pneumothorax. Central airways patent. MEDIASTINUM: No mediastinal, hilar or axillary adenopathy or free fluid collection. CORONARY ARTERY CALCIFICATION: None visualized on this study. THYROID GLAND: Unremarkable to the extent seen. CARDIOVASCULAR STRUCTURES: Aortic and heart size normal. There is trace pericardial fluid. CHEST WALL/AXILLA: Unremarkable. UPPER ABDOMEN: Included portions of the solid organs in the upper abdomen unremarkable on noncontrast imaging. A benign left mid renal 1.4 cm Bosniak class I renal cyst is noted which requires no additional imaging or follow up. Similar findings seen on recent ultrasound. No solid renal masses are seen. OSSEOUS STRUCTURES: No suspicious focal findings. CT/CT lung screening IMPRESSION: Unremarkable examination. ASSESSMENT: 1. Lung-RADS Category 2. Lung-RADS Category S: RECOMMENDATION: Electronically signed by: Kuldeep Roca MD 01/26/2024 11:44 PM [facility] Dictated By: Kuldeep Roca MD Signed By: <Electronically signed by Kuldeep Roca MD in OV> 01/26/24 2344 DD/ 1040 TD/TT: 12/10/23 1045 Oyster Cultivator: [facility] External Provider IMG CT PROCEDURES Edited Result - Final * BI Mammogram Screening Tomosynthesis Bilateral (08/17/2023 9:18 AM EDT) Anatomical Region Laterality Modality Breast Bilateral Mammography 08/17/2023 9:18 AM EDT Narrative 09/12/2023 3:49 PM EDT ? [facility] ? [address] ?[place] [address] ? Mammography Report ? Signed ? Patient: Nadeem Barney,Madison A ?MR# ?? : [id number] ? : 1975 ?Acct:[id number] ? Age/Sex: 48 / F ?ADM Date: 07/09/24 ? Loc: HO.MAMMO ? Attending Dr: Kourtney Epstein MD ? Ordering Physician: Kourtney Saxena MD ?Re ?? sults: 2Benign Findings ? Date of Service: 08/17/23 ?Follow Up: 1 Year From Orig ?? inal Mammogram ? Procedure(s): MM tomosynthesis screening BI ?? Accession Number(s): [id number] ? cc: Kourtney Saxena MD ? EXAMINATION: ?? MM SCREENING DIGITAL BREAST TOMOSYNTHESIS, BILATERAL ? CLINICAL INFORMATION: ? Screening. Asymptomatic. ? COMPARISON: ?? Mammography: This study is compared with prior exams dating back to ?? 2018. ? TECHNIQUE: ?? Digital breast tomosynthesis is performed in both the craniocaudal and ?? mediolateral oblique views along with computer-aided detection (CAD). ?? Synthesized 2D images are generated from the tomosynthesis. ? FINDINGS: ?? There are scattered areas of fibroglandular density (ACR BI-RADS breast ?? composition Category b). ? There are no significant masses, abnormal calcifications, or other ?? abnormalities. ?? Benign calcifications are present in the superior aspect of right ?? breast. These been evaluated in the past magnification. ? MM/MM tomosynthesis screening BI ?? IMPRESSION: ?? No mammographic evidence of malignancy. ? ASSESSMENT: ? BI-RADS BI-RADS 2 - Benign Findings ? RECOMMENDATION: ?? Routine annual mammography screening. ? 1 year F/U ? This examination should not preclude the clinical evaluation of a ?? suspicious palpable abnormality. ? This patient's information was entered into a reminder system with a ?? target due date for their next mammogram. ? Dictated By: ?Marnie Faulkner MD ? Signed By: ?<Electronically signed by Marnie Faulkner MD in OV> ? 09/12/23 1546 ? DD/ 7 ? TD/TT: ? Oyster Cultivator: ? Procedure Note Donotuseinterpreter, [facility] - [facility] [address] [place] [address] Mammography Report Signed Patient: Madison Navarro AMR# : [id number] : 1975Acct:[id number] Age/Sex: 48 / FADM Date: 08/17/23 Loc: HO.MAMMO Attending Dr: Kourtney Epstein MD Ordering Physician: Kourtney Saxena sults: 2Benign Findings Date of Service: 08/17/23Follow Up: 1 Year From Orig inal Mammogram Procedure(s): MM tomosynthesis screening BI Accession Number(s): [id number] cc: Kourtney Saxena MD EXAMINATION: MM SCREENING DIGITAL BREAST TOMOSYNTHESIS, BILATERAL CLINICAL INFORMATION: Screening. Asymptomatic. COMPARISON: Mammography: This study is compared with prior exams dating back to 2019. TECHNIQUE: Digital breast tomosynthesis is performed in both the craniocaudal and mediolateral oblique views along with computer-aided detection (CAD). Synthesized 2D images are generated from the tomosynthesis. FINDINGS: There are scattered areas of fibroglandular density (ACR BI-RADS breast composition Category b). There are no significant masses, abnormal calcifications, or other abnormalities. Benign calcifications are present in the superior aspect of right breast. These been evaluated in the past magnification. MM/MM tomosynthesis screening BI IMPRESSION: No mammographic evidence of malignancy. ASSESSMENT: BI-RADS BI-RADS 2 - Benign Findings RECOMMENDATION: Routine annual mammography screening. 1 year F/U This examination should not preclude the clinical evaluation of a suspicious palpable abnormality. This patient's information was entered into a reminder system with a target due date for their next mammogram. Dictated By: Marnie Faulkner MD Signed By: <Electronically signed by Marnie Faulkner MD in OV> 09/12/23 1546 DD/ 0918 TD/TT: Oyster Cultivator: Kourtney Epstein MD IMG BI PROCEDURES Final Result * Hepatitis C Antibody with Reflex to HCV, RNA, Quantitative, Real-Time PCR (07/27/2023 10:47 AM EDT) Hepatitis C Antibody Nonreactive Nonreactive [facility] Comment:Antibodies to HCV no t detected; does not exclude early acuteHCV infection. Blood Venous blood specimen / Unknown 07/27/2023 10:47 AM EDT 07/27/2023 11:28 AM EDT Kourtney Epstein MD LAB BLOOD ORDERAB LES Final Result [facility] [address] [place] [phone] * HIV-1/2 Antigen and Antibodies, Fourth Generation, with Reflexes (07/27/2023 10:47 AM EDT) HIV AB/AG Nonreactive Nonreactive [facility] Comment:HIV-1 p24 Ag and/or HIV-1/HIV-2 Ab not detected.A test result that is nonreactive does not exclude thepossibility of exposure to or infection with HIV-1 and/orHIV-2. Nonreactive results in this assay for individualswith prior exposure to HIV-1 and/or HIV-2 may be due toantigen and antibody levels that are below the limit ofdetection of this assay.[employer] HIV Ag/Ab Combo assay result andsupplemental assay results should be interpreted inconjunction with the patient's clinical presentation,history and other laboratory results. If the results areinconsistent with clinical evidence, additional testing issuggested to confirm the result. Blood Venous blood specimen / Unknown 07/27/2023 10:47 AM EDT 07/27/2023 11:28 AM EDT us Kourtney Epstein MD LAB BLOOD ORDERAB LES Final Result [facility] [address] [place] [phone] [phone] from Last 3 Months or Most Recently Relevant to Health Maintenance Insurance [facility] , [facility] [address] [place] [address] [facility] Care Teams [employer] Relationship Specialty Start Date End Date Kourtney Saxena MD [address] [place] [phone] PCP - General Internal Medicine 04/23/23
--- OUTSIDE RECORDS SUMMARY | 2024-03-06 17:30 | XMS_ITS | Encounter Summary ---
Author Organization [facility] [facility] Address [address] [place] [address] Care Team Providers Care Actuarial Mathematician Name Role Phone Kourtney Saxena MD Primary Care Pro vider Reason for Visit * Reason Comments Med Refill Encounter Details Date Type Department Care Team (Late st Contact Info) Description 12/14/2022 Refill [facility] [address] [place] [address] Love Quintanilla MD [address] [place] [address] Social History Tobacco Use Types Packs/Day Years Used Date Smoking Tobacco: Every Day Cigarettes Smokeless Tobacco: Current Comments Unknown Sex and Gender Information Value Date Recorded Sex Assigned at Female 12/08/2021 10:37 AM EDT Legal Sex Female 10:37 AM EDT Gender Identity Female 12/08/2021 10:37 AM EDT Sexual Orientation Straight 12/08/2021 10 :37 AM EDT documented as of this encounter Plan of Treatment Upcoming Encounters Date Type Department Care Team (Late st Contact Info) Description 03/15/2024 11:00 AM EST Office Visit [facility] [address] [place], [place] [phone] Hattie Gomez documented as of this encounter Visit Diagnoses Not on filedocumented in this encounter Care Teams Actuarial Mathematician Relationship Specialty Start Date End Date Kourtney Saxena MD [address] [place] [address] [phone] PCP - General Internal Medicine 04/23/23 documented as of this encounter
--- OUTSIDE RECORDS SUMMARY | 2024-03-06 17:30 | XMS_ITS | Clinical Summary ---
Author Organization [facility] it Address [address] [place] [address] Care Team Providers Care Senior Android Developer Name Role Phone Vero Archuleta DO Primary Care Provider [phone] Surgical History Surgery Date Site/Laterality Comments SECTION PROCEDURE: HISTORICAL DELIVERY Medical History Medical History Date Comments History of drug dependence/a buse ([facility]) 08/03/2013 DX:History of drug dependenc e/abuse ([facility]); COMMENT: Marijuana, cocaine, crack, heroin - clean since 02/28/16 (relapse 01/22) PTSD (post-traumatic stress disorder) 10/17/2013 DX:PTSD (post-traumatic stress disorder) Anxiety 10/17/2013 DX:Anxiety Alcohol abuse 08/15/2012 DX:Alcohol abuse ; COMMENT: Quit May 2012 Was hospitalized [facility] previous pcp , clean Dec 2015 Asthma 08/15/2012 DX:Asthma Depression 08/15/2012 DX:Depression 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[facility]) Family History Medical History Relation Name Comments Heart attack Grandparent Prostate cancer Maternal Grandfather Blindness Maternal Grandmother Glaucoma Maternal Grandmother Lung cancer Mother Other: deceded Mother Glaucoma Other cousin Breast cancer Neg Hx Cataracts Neg Hx Macular degeneration Neg Hx Strabismus Neg Hx Relation Name Status Comments Brother Alive 2,healthy Father overdose Grandparent Maternal Grandfather Maternal Grandmother Mother (Age 67) rheumatoid arth Other Sister Alive 1,healthy Social History Tobacco Use Types Packs/Day Years Used Date Smoking Tobacco: Every Day Cigarettes Smokeless Tobacco: Never Alcohol Use Standard Drinks/Week Comments No 0 (1 standard drink = 0.6 oz pur e alcohol) Sex and Gender Information Value Date Recorded Sex Assigned at Not on file Gender Identity Not on file Sexual Orientation Not on file Obstetrics History Last Filed Vital Signs Vital Sign Reading Time Taken Comments Blood Pressure 112/76 01/08/2023 10:59 AM EST R Arm Pulse 77 01/08/2023 10:59 AM EST Temperature - - Respiratory Rate - - Oxygen Saturation - - Inhaled Oxygen Concentration - - Weight 80.6 kg (177 lb 9.6 oz) 01/08/2023 10:59 AM EST Height 149.9 cm (4' 11 ) 01/08/2023 10:59 AM EST Body Mass Index 35.87 01/08/2023 10:59 AM EST Plan of Treatment Health Maintenance Due Date Last Done Comments Hepatitis A Vaccines (1 of 2 - Risk 2-dose series) 1992 Hepatitis B Vaccines (1 of 3 - 19+ 3-dose series) 1992 Cervical Cancer Screening: Pap Smear 1994 Pneumococcal Vaccine: Pediatrics (0 to 5 Years) and At-Risk Patients (6 to 64 Years) (2 of 2 - PCV) 04/28/2015 04/27/2014 Cholesterol Screening (Lipid Panel) 01/17/2022 Colorectal Cancer Screening: Colonoscopy 01/17/2022 Depression Screening 01/17/2022 HIV Screening 01/17/2022 Hepatitis C Screening 01/17/2022 Social Influencers of Health Screening 01/17/2022 DTaP,Tdap,and Td Vaccines (2 - Td or Tdap) 09/20/2022 09/20/2012 Breast Cancer Screening 10/01/2022 10/02/19 21, 09/26/2019, 09/16/2018, Additional history exists Hypertension/CHF/CAD Annual BMP Blood Test 03/09/2023 Zoster Vaccines (1 of 2) 07/20/2023 COVID-19 Vaccine ( season) 2023 12/20/2020, 03/05/2020, 02/06/2020 Influenza Vaccine (#1) 2023 12/08/2018, 2013 HIB Vaccines Aged Out No longer eligi ble based on patient's age to complete this topic HPV Vaccines Aged Out No longer eligi ble based on patient's age to complete this topic IPV Vaccines Aged Out No longer eligi ble based on patient's age to complete this topic MMR Vaccines Aged Out No longer eligi ble based on patient's age to complete this topic Meningococcal ACWY Vaccine Aged Out N o longer eligible based on patient's age to complete this topic RSV Immunization Patients Under 20 months Aged Out No longer eligible based on patient's age to complete this topic Varicella Vaccines Aged Out No longer eligible based on patient's age to complete this topic Procedures Procedure Name Priority Date/Time Associated Diagnosis Comments DIAGNOSTIC MAMMOGRAPHY INCLUDING CAD BILATERAL Routine 10/01/2020 4:12 PM EDT Mammographic microcalcification found on diagnostic imaging of breast from Last 3 Months or Most Recently Relevant to Health Maintenance Results * DIAGNOSTIC MAMMOGRAPHY INCLUDING CAD BILATERAL (10/01/2020 4:12 PM EDT) Anatomical Region Laterality Modality Mammography 09/26/2019 4:29 PM EDT Narrative 10/01/2020 4:16 PM EDT This is a summary report. The complete report is available in the patient's medical record. If you cannot access the medical record, please contact the sending organization for a detailed fax or copy. BILATERAL 2D and 3D DIGITAL DIAGNOSTIC MAMMOGRAM History: Follow-up for right breast upper outer calcifications. ??No current breast complaints. Comparison: Multiple priors dating back to 09/15/2016 Technique: Bilateral full-field digital 2D and 3D mammography was performed using standard CC and MLO projections, right breast CC, MLO and ML magnification views CAD was used to evaluate this mammogram. Findings: Density: ??There are scattered areas of fibroglandular density-B RIGHT: No suspicious masses, groups of microcalcification or areas of architectural distortion identified. ??Morphologically stable right upper outer calcifications. LEFT: No suspicious masses, groups of microcalcifications or areas of architectural distortion identified. Stable typically benign parenchymal asymmetries IMPRESSION: : 1. ??No mammographic evidence of malignancy. BI-RADS Category 2 benign findings Recommendation: Routine annual screening mammography is recommended Procedure Note Leo Mancia MD - 01/27/2022 This is a summary report. The complete report is available in thepatient's medical record. If you cannot access the medical record, pleasecontact the sending organization for a detailed fax or copy. BILATERAL 2D and 3D DIGITAL DIAGNOSTIC MAMMOGRAM History: Follow-up for right breast upper outer calcifications. Nocurrent breast complaints. Comparison: Multiple priors dating back to 09/15/2016 Technique: Bilateral full-field digital 2D and 3D mammography wasperformed using standard CC and MLO projections, right breast CC, MLO andML magnification views CAD was used to evaluate this mammogram. Findings: Density: There are scattered areas of fibroglandular density-B RIGHT: No suspicious masses, groups of microcalcification or areas ofarchitectural distortion identified. Morphologically stable right upperouter calcifications. LEFT: No suspicious masses, groups of microcalcifications or areas ofarchitectural distortion identified. Stable typically benign parenchymalasymmetries IMPRESSION: : 1. No mammographic evidence of malignancy. BI-RADS Category 2 benign findings Recommendation: Routine annual screening mammography is recommended Amanuel Curtis MD IMG BI PROCEDURES from Last 3 Months or Most Recently Relevant to Health Maintenance Care Teams Senior Android Developer Relationship Specialty Start Date End Date Vreo Archuleta DO PCP - General Internal Medicine 10/07/21
--- OUTSIDE RECORDS SUMMARY | 2024-03-06 17:30 | XMS_ITS | Encounter Summary ---
Author Organization [employer] Address [address] [place] [address] [place] [address] Care Team Providers Care Refrigeration Lead Name Role Phone Kourtney Saxena MD Primary Care Pro vider Reason for Visit * Reason Comments Med Refill Encounter Details Date Type Department Care Team (Late st Contact Info) Description 12/07/2022 Refill [facility] [address] [place] [phone] Jaylon Martin MD [address] [place] [phone] Social History Tobacco Use Types Packs/Day Years [...] Description 03/15/2024 11:00 AM EST Office Visit [facility] [address] [place] [phone] Hattie Gomez documented as of this encounter Visit Diagnoses Not on filedocumented in this encounter Care Teams Refrigeration Lead Relationship Specialty Start Date End Date Kourtney Sxaena MD [address] [place] [address] [phone] PCP - General Internal Medicine 04/23/23 documented as of this encounter
--- OUTSIDE RECORDS SUMMARY | 2024-03-06 17:30 | XMS_ITS | Encounter Summary ---
Author Organization [employer] Address [address] [place] [address] [address] [place] [address] Care Team Providers Care Apparatus Operator Name Role Phone Kourtney Saxena MD Primary Care Pro vider Encounter Details Date Type Department Care Team (Late st Contact Info) Description 05/04/2023 Orders Only [facility] [address] [place], [place] [phone] Love Quintanilla MD [address] [place] [address] Social History Tobacco Use Types Packs/Day Years [...] [facility] [address] [place], [place] [phone] Hattie Gomez documented as of this encounter Procedures Procedure Name Priority Date/Time Associated Diagnosis Comments URINALYSIS, COMPLETE, WITH REFLEX TO CULTURE Routine 11/01/2023 11:36 AM EDT ALBUMIN, RANDOM URINE W/CREATININE Routine 08/17/2023 2:30 PM EDT documented in this encounter Results * (ABNORMAL) Urinalysis, Complete, with Reflex to Culture (11/01/2023 11:36 AM EDT) Color Urine Yellow [facility] Appearance Urine Clear [facility] PH 7.0 5.0 - 9.0 [facility] Glucose Urine UA Negative Negative mg/dL [facility] Urine Blood Negative Negative [facility] Specific [place] - Urine 1.010 1.005 - 1.025 [facility] Urine Protein 100 (2+)(A) Neg-Trace mg/dL [facility] Urine Ketones Negative Negative mg/dL [facility] Nitrite Urine Negative Negative [facility] Leukocyte Esterase Urine Negative Negative [facility] RBC Urine 0-2 0 - 2 /HPF [facility] Urine WBC 0-5 0 - 5 /HPF [facility] Urine Squamous Epithelial Cell 0-2 0 - 2 /HPF [facility] Urine Bacteria None Seen None Seen [facility] Hyaline Casts, Urine 0-2 0 - 2 /LPF [facility] 11/01/2023 11:3 6 AM EDT 11/01/2023 1:21 PM EDT Narrative [facility] - 11/01/2023 1:41 PM EDT Urine, Clean Catch us Kourtney Epstein MD LAB URINE ORDERAB LES Final Result [facility] [address] [place] [phone] * (ABNORMAL) Albumin, Random Urine W/Creatinine (08/17/2023 2:30 PM EDT) Creatinine, Urine 94.35 mg/dL [facility] Microalbumin Urine >2,000.0 mg/L H [facility] Microalbum Creatinine Ratio Ur 2,119.7(H ) <30 ug/mg cr [facility] Comment:Albumin/Creatinine R atio Reference Ranges: Normal: < 30 ug/mg creatinine Microalbuminuria: 30 - 300 ug/mg creatinineClinical Albuminuria: > 300 ug/mg creatinine 08/17/2023 2:30 PM EDT 08/17/2023 4:14 PM EDT us Kourtney Epstein MD LAB URINE ORDERAB LES Final Result Performing Organization Address City/State/[facility] Co de Phone Number [facility] [address] [place] [phone] [phone] documented in this encounter Visit Diagnoses Not on filedocumented in this encounter Care Teams Apparatus Operator Relationship Specialty Start Date End Date Kourtney Saxena MD [address] [place] [address] PCP - General Internal Medicine 04/23/23 documented as of this encounter
--- OUTSIDE RECORDS SUMMARY | 2024-03-06 17:30 | XMS_ITS | Encounter Summary ---
Author Organization [employer] Address [address] [place] [address] [address] [place] [address] Care Team Providers Care Electrical Engineering Professor Name Role Phone Kourtney Saxena MD Primary Care Pro vider Reason for Visit * Reason Comments Med Refill Encounter Details Date Type Department Care Team (Late st Contact Info) Description 02/15/2024 Refill [facility] [address] [place], [place] [phone] Kourtney Saxena MD [address] [place] [address] Social History Tobacco Use Types Packs/Day Years Used Date Smoking Tobacco: Every Day Cigarettes 1 .1 Started: 2000 Smokeless Tobacco: Current Alcohol Use Standard Drinks/Week Comments Not Asked 0 (1 standard drink = 0.6 oz pur e alcohol) heavy ETOH drinking 02/2016 Depression Answer Date Recorded Patient Health Questionnaire-9 Score 4 07/02/2023 Patient Health Questionnaire-9 Score 4 07/02/2023 Last PHQ-9: Questionnaire Data Not on file 0 07/02/2023 Housing Stability Answer Date Recorded What is your housing situation today? I have pankaj sing 08/17/[address] you li [...] Description 03/15/2024 11:00 AM EST Office Visit [facility] [address] [place] [address] Hattie Gomez documented as of this encounter Visit Diagnoses Not on filedocumented in this encounter Additional Health Concerns Assessment Noted Time PHQ-9 Depression Total Score: 4 07/02/19 10:41 AM EDT documented as of this encounter Care Teams Electrical Engineering Professor Relationship Specialty Start Date End Date Kourtney Saxena MD [address] [place] [address] PCP - General Internal Medicine 04/23/23 documented as of this encounter
--- OUTSIDE RECORDS SUMMARY | 2024-03-06 17:30 | XMS_ITS | Encounter Summary ---
Author Organization [employer] Address [address] [place] [address] [address] [place] [address] Care Team Providers Care Ship Ceiler Name Role Phone Kourtney Saxena MD Primary Care Pro vider Reason for Visit * Reason Comments Med Refill Encounter Details Date Type Department Care Team ([facility] st Contact Info) Description 02/24/2024 Refill [facility] [address] [place] [address] Kourtney Saxena MD [address] [place] [address] Social History Tobacco Use Types Packs/Day Years [...] is your housing situation today? I have pankajmera brantley 08/17/[address] you [...] Description 03/15/2024 11:00 AM EST Office Visit [facility] [address] [place] [address] Hattie Gomez documented as of this encounter Visit Diagnoses Not on filedocumented in this encounter Additional Health Concerns Assessment Noted Time PHQ-9 Depression Total Score: 4 07/02/19 10:41 AM EDT documented as of this encounter Care Teams Ship Ceiler Relationship Specialty Start Date End Date Kourtney Saxena MD [address] [place] [address] PCP - General Internal Medicine 04/23/23 documented as of this encounter
--- OUTSIDE RECORDS SUMMARY | 2024-03-06 17:30 | XMS_ITS | Encounter Summary ---
Author Organization [employer] Address [address] [facility] [address] [place] [address] Care Team Providers Care Animal Shelter Supervisor Name Role Phone Kourtney Saxena MD Primary Care Pro vider Encounter Details Date Type Department Care Team (Latest Contact Info) Description 02/07/2024 Travel Social History Tobacco Use Types Packs/Day Years [...] the past 12 months, has t he [employer], gas, oil or water company threatened to [...] Description 03/15/2024 11:00 AM EST Office Visit [facility] [address] [place] [address] Hattie Gomez documented as of this encounter Visit Diagnoses Not on filedocumented in this encounter Additional Health Concerns Assessment Noted Time PHQ-9 Depression Total Score: 4 07/02/19 10:41 AM EDT documented as of this encounter Care Teams Animal Shelter Supervisor Relationship Specialty Start Date End Date Kourtney Saxena MD [address] [place] [address] PCP - General Internal Medicine 04/23/23 documented as of this encounter
--- OUTSIDE RECORDS SUMMARY | 2024-03-06 17:30 | XMS_ITS | Encounter Summary ---
Author Organization [email or web address] Address [address] [place] [address] [address] [place] [address] Care Team Providers Care Lump Room Supervisor Name Role Phone Kourtney Saxena MD Primary Care Pro vider Encounter Details Date Type Department Care Team (Late st Contact Info) Description 02/17/2024 Orders Only [facility] External Provider, [facility] Social History Tobacco Use Types Packs/Day Years Used Date Smoking Tobacco: Every Day Cigarettes 03 03.1 Started: 2000 Smokeless Tobacco: Current Alcohol Use [...] Description 03/15/2024 11:00 AM EST Office Visit [facility] [address] [place] [address] Hattie Gomez documented as of this encounter Procedures Procedure Name Priority Date/Time Associated Diagnosis Comments US RENAL BI Routine 02/17/2024 11:16 AM EST documented in this encounter Results * US RENAL BI (02/17/2024 11:16 AM EST) Anatomical Region Laterality Modality Abdomen Ultrasound 02/17/2024 11:1 6 AM EST Narrative 02/17/2024 11:44 AM EST ? [facility] ?[address] ?[place] [address] ? Ultrasound Report ? Signed ? Patient: Madison Navarro ?MR# ?? : [id number] ? : 1975 ?Acct:[id number] ? Age/Sex: 48 / F ?ADM Date: 02/16/ ? Loc: HO.US ? Attending Dr: Gutierrez Lozano MD ? Ordering Physician: Gutierrez Lozano MD ?? Date of Service: 02/17/24 ?? Procedure(s): US renal BI ?? Accession Number(s): [id number] ? cc: Gutierrez Lozano MD; Kourtney Saxena [...] ??Kendall Wise MD ??02/17/2024 11:41 AM EST ? Dictated By: ?Kendall Wise MD ? Signed By: ?<Electronically signed by Kendall Wise MD in OV> ?02/17/24 1141 ? DD/ 1116 ? TD/TT: 02/17/24 1123 ? Utilization Management Manager: ? Procedure Note Katelin Fuller - 02/17/[address] [address] Ultrasound Report Signed Patient: Madison Navarro AMR# : [id number] : 1975Acct:[id number] Age/Sex: 48 / FADM Date: 02/17/24 Loc: HO.US Attending Dr: Gutierrez Lozano MD Ordering Physician: Gutierrez Lozano MD Date of Service: 02/17/24 Procedure(s): US renal BI Accession Number(s): [id number] cc: Gutierrez Lozano MD; Kourtney Saxena MD [...] by: Kendall Wise MD 02/17/2024 11:41 AM [facility] Dictated By: Kendall Wise MD Signed By: <Electronically signed by Kendall Wise MD in OV> 02/17/24 1141 DD/ 1116 TD/TT: 02/17/24 1123 Utilization Management Manager: [facility] External Provider IMG US PROCEDURES Final Result documented in this encounter Visit Diagnoses Not on filedocumented in this encounter Additional Health Concerns Assessment Noted Time PHQ-9 Depression Total Score: 4 07/02/19 24 10:41 AM EDT documented as of this encounter Care Teams Lump Room Supervisor Relationship Specialty Start Date End Date Kourtney Saxena MD [address] [place] [phone] PCP - General Internal Medicine 04/23/23 documented as of this encounter
== END 2024-03-06 13:24 | disposition home or self-care (01) ==
PROVIDERS: PCP Student in an Organized Health Care Education/Training Program; Visit Provider Internal Medicine Hypertension Specialist
DX: N04.9 Nephrotic syndrome with unspecified morphologic changes (principal)
CPT/HCPCS: 99214

== ENCOUNTER 2024-03-22 13:05 | Outpatient (AMB) | payer OTHER, MEDICAID, SELFPAY ==
--- NOTE | 2024-03-22 13:05 | MHC.OFFVIS ---
Intake Visit Reasons: pre colonoscopy Intake Note: Madison presents in the office as a pre colonoscopy. CC: There are times where she has had accidents due to severely loose stools. She states at times she get some pains in the stomach but it is not often. There has been times where she has had a sharp pain with sweats and everything. Engraver Apprentice Decorative Required: No Allergies SHELL FISH Allergy (Severe, Uncoded 06/01/24 14:04) Anaphylaxis HPI Comments Details: 48 y.o F with PMH of hypothyroidism, hx of CVA who is here for diarrhea. Reports for almost 4-5 years has been experiencing intermittent episodes of diarrhea with fecal incontinence. No blood. No night time sx. Occurs at least once every other month. Accompanied with abd cramping on the R lower side. No fam hx of CRC or IBD. Pt smokes 0.5 PPD x 20 years. No etOH use. Never had a colo. Patient also reports intermittent difficulty swallowing, especially to solids. This is not progressive. Has not been losing weight. [facility] Medical History Nephrotic syndrome History of CVA (cerebrovascular accident) Nicotine dependence, cigarettes, uncomplicated DJD (degenerative joint disease) Hypothyroidism Hyperlipidemia Hypertension Surgical History History of History of cervical discectomy Family History Mother Lung cancer, Onset Age: 67 Social History Alcohol intake: never Tobacco use type: Cigarette Years Smoked: (onset 25yo, 1ppd x 23yrs, now 1/2-3/4ppd - 20+PYH) Review of Systems Const All systems reviewed & are unremarkable except as noted in HPI and below Physical Exam Vital Signs: No apparent distress Nonicteric Abdomen soft, nondistended Alert and oriented x3, normal gait Telehealth Telehealth [facility] Location of provider rendering services: practice address Location of patient: address on file Patient Identification confirmed using: Name, : Yes Telehealth method: video Patient verbally consented to treatment: Yes Patient verbally consented to billing insurance company: Yes Patient informed of any privacy concerns related to visit: Yes Minutes spent on Phone/Video with Pt.: 20 Assessment & Plan Assessment & Plan (1) Change in bowel habit: Code(s): R19.4 - Change in bowel habit Category: Medical (2) Chronic diarrhea: Code(s): K52.9 - Noninfective gastroenteritis and colitis, unspecified (3) Fecal incontinence: Code(s): R15.9 - Full incontinence of feces (4) Dysphagia: Code(s): R13.10 - Dysphagia, unspecified Plan Chronic diarrhea Differentials include malabsorption, IBD, celiac disease, hyperthyroidism, IBS Plan: -labs as below -EGD/colonoscopy to be scheduled -PEG prep prescribed with the patient and instructions reviewed Dysphagia This is nonprogressive, without any alarm symptoms. However needs a bidirectional endoscopy any ways for diarrhea workup. Plan: -EGD as above Follow-up after procedures Orders: Orders Complete Blood Count no Diff 03/23/24 R19.4 - Change in bowel habit Transglutaminase IgA 03/23/24 R19.4 - Change in bowel habit TSH reflex Free T4 03/23/24 R19.4 - Change in bowel habit Immunoglobulin A 03/23/24 R19.4 - Change in bowel habit Calprotectin, Fecal 03/22/24 R19.4 - Change in bowel habit Medications: New peg 3350-electrolytes 236-22.74-6.74 -5.86 gram (Golytely) as per split prep instructions, until fecal effluent is clear 240 mL PO Q10M 4,000 mL 0RF colonoscopy Coding Level of Care Code New Pt Level 4 (42637) Diagnoses Change in bowel habit R19.4 Chronic diarrhea K52.9 Fecal incontinence R15.9 Dysphagia R13.10
--- OUTSIDE RECORDS SUMMARY | 2024-03-22 14:28 | XMS_ITS | Encounter Summary ---
Author Organization [employer] Address [address] [facility] [address] [place] [address] Care Team Providers Care Hand Candy Dipper Name Role Phone Kourtney Saxena MD Primary Care Pro vider Reason for Visit * Reason Onset Date Comments wood recall 03/13/2024 Encounter Details Date Type Department Care Team ([facility] st Contact Info) Description 03/13/2024 Telephone [facility] MEDICINE [address] [place] [address] Alex CarmenRead[place], [place] may recall Social History Tobacco Use Types Packs/Day Years Used Date Smoking Tobacco: Every Day Cigarettes 1 24.1 Started: 2000 Smokeless Tobacco: Current Alcohol Use [...] AM EDT documented as of this encounter Miscellaneous Notes * Telephone Encounter - Skylar Carmen [place] - 03/13/2024 1:47 PM EST T/C- [place] Worker Left Voice Mail to return call to schedule an appointment. Recall letter sent. Appointment: Office Visit Note: consults, BP Month: May With: Tae Please schedule appointment if Patient calls Back. documented in this encounter Plan of Treatment Not on file documented as of this encounter Visit Diagnoses Not on filedocumented in this encounter Additional Health Concerns Assessment Noted Time PHQ-9 Depression Total Score: 4 07/02/19 10:41 AM EDT documented as of this encounter Care Teams Hand Candy Dipper Relationship Specialty Start Date End Date Kourtney Saxena MD [address] [place] [id number] PCP - General Internal Medicine 04/23/23 documented as of this encounter
--- OUTSIDE RECORDS SUMMARY | 2024-03-22 14:28 | XMS_ITS | Clinical Summary ---
Author Organization [facility] it[facility] Address [address] [place] [address] Care Team Providers Care Communication Lecturer Name Role Phone Vero Archuleta DO Primary Care Provider [phone] Surgical History Surgery Date Site/Laterality Comments SECTION PROCEDURE: HISTORICAL DELIVERY Medical History Medical History Date Comments History of drug dependence/a buse ([facility]/HCC) 08/03/2013 DX:History of drug dependenc e/abuse ([facility]); COMMENT: Marijuana, cocaine, crack, heroin - clean since 02/28/16 (relapse 01/22) PTSD (post-traumatic stress disorder) 10/17/2013 DX:PTSD (post-traumatic stress disorder) Anxiety 10/17/2013 DX:Anxiety Alcohol abuse 08/15/2012 DX:Alcohol abuse ; COMMENT: Quit May 2012 Was hospitalized [facility] previous pcp , clean Dec 2015 Asthma 08/15/2012 DX:Asthma Depression 08/15/2012 DX:Depression 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[facility]) Family History Medical History Relation Name Comments [...] drink = 0.6 oz pur e alcohol) Comments Unknown Sex and Gender Information Value Date Recorded Sex Assigned at Not on file Legal Sex Female 5:37 AM EST Gender Identity Not on file Sexual Orientation [...] 1992 Cervical Cancer Screening: Pap Smear 1994 Colorectal Cancer Screening: Colonoscopy 01/17/2022 Social Influencers of Health Screening 01/17/2022 Breast Cancer Screening 10/01/2022 10/02/19 19, 09/26/2019, 09/16/2018, Additional history exists Zoster Vaccines (2 of 2) 11/18/2023 09/23/2023 Depression Screening 07/01/2024 07/02/2023 Lung Cancer Screening (Low Dose CT) 12/09/2024 12/10/2023 Hypertension/CHF/CAD Annual BMP Blood Test 01/10/2025 01/11/2024 Cholesterol Screening (Lipid Panel) 01/10/2029 01/11/2024 DTaP,Tdap,and Td Vaccines (3 - Td or Tdap) 11/24/2032 11/24/2022, 09/20/2012 Pneumococcal Vaccine: 50+ Years Completed 07/02/2023, 04/27/2014 Pneumococcal Vaccine: Pediatrics (0 to 5 Years) [...] patient's age to complete this topic Meningococcal B Vacine Aged Out No lo nger eligible based on patient's age to complete [...] Recommendation: Routine annual screening mammography is recommended us Amanuel Curtis MD IMG BI PROCEDURES Final R esult from Last 3 Months or Most Recently Relevant to Health Maintenance Care Teams Communication Lecturer Relationship Specialty Start Date End Date Vreo Archuleta DO PCP - General Internal Medicine 10/07/21
--- OUTSIDE RECORDS SUMMARY | 2024-03-22 14:28 | XMS_ITS | Encounter Summary ---
Author Organization [employer] Address [address] [place] [address] [address] [address] Care Team Providers Care Retail Salesworker Name Role Phone Kourtney Saxena MD Primary Care Pro vider Reason for Visit * Reason Comments Med Refill Encounter Details Date Type Department Care Team (Late st Contact Info) Description 03/18/2024 Refill [facility] MEDICINE [address] [place], [place] [phone] Kourtney Saxena MD [address] [place] [address] Social History Tobacco Use Types Packs/Day Years [...] as of this encounter Plan of Treatment Not on file documented as of this encounter Visit Diagnoses Not on filedocumented in this encounter Additional Health Concerns Assessment Noted Time PHQ-9 Depression Total Score: 4 07/02/19 10:41 AM EDT documented as of this encounter Care Teams Retail Salesworker Relationship Specialty Start Date End Date Kourtney Saxena MD [address] [place] [phone] PCP - General Internal Medicine 04/23/23 documented as of this encounter
--- OUTSIDE RECORDS SUMMARY | 2024-03-22 14:28 | XMS_ITS | Encounter Summary ---
Author Organization [employer] Address [address] [place] [address] [address] [place] [address] Care Team Providers Care Cathode Washer Name Role Phone Kourtney Saxena MD Primary Care Pro vider Reason for Visit * Reason Comments Med Refill Encounter Details Date Type Department Care Team ([facility] st Contact Info) Description 02/24/2024 Refill [facility] [address] [place] [address] Kourtney Saxena MD [address] [place] [address] Social History Tobacco Use Types Packs/Day Years [...] documented as of this encounter Care Teams Cathode Washer Relationship Specialty Start Date End Date Kourtney Saxena MD [address] [place] [phone] PCP - General Internal Medicine 04/23/23 documented as of this encounter
--- OUTSIDE RECORDS SUMMARY | 2024-03-22 14:28 | XMS_ITS | Encounter Summary ---
Author Organization [employer] Address [address] [place] [address] [address] [place] [address] Care Team Providers Care Machine Shop Instructor Name Role Phone Kourtney Saxena MD Primary Care Pro vider Encounter Details Date Type Department Care Team (Late st Contact Info) Description 05/04/2023 Orders Only [facility] MEDICINE [address] [place], [place] [phone] Love Quintanilla MD [address] [place] [address] Social History Tobacco Use Types Packs/Day Years [...] on file documented as of this encounter Procedures Procedure Name Priority Date/Time Associated Diagnosis Comments URINALYSIS, COMPLETE, WITH REFLEX TO CULTURE Routine 11/01/2023 11:36 AM EDT ALBUMIN, RANDOM URINE W/CREATININE Routine 08/17/2023 2:30 PM EDT documented in this encounter Results * (ABNORMAL) Urinalysis, Complete, with Reflex to Culture (11/01/2023 11:36 AM EDT) [facility] Appearance Urine Clear [facility] PH 7.0 5.0 - 9.0 [facility] Glucose Urine UA Negative Negative mg/dL [facility] Urine Blood Negative Negative [facility] Specific [place] - Urine 1.010 1.005 - 1.025 [facility] Urine Protein 100 (2+)(A) Neg-Trace mg/dL [facility] Urine Ketones Negative Negative mg/dL [facility] Nitrite Urine Negative Negative [facility] Leukocyte Esterase Urine Negative Negative [facility] RBC Urine 0-2 0 - 2 /HPF [facility] Urine WBC 0-5 0 - 5 /HPF [facility] Urine Squamous Epithelial Cell 0-2 0 - 2 /HPF [facility] Urine Bacteria None Seen None Seen [facility] Hyaline Casts, Urine 0-2 0 - 2 /LPF [facility] 11/01/2023 11:3 6 AM EDT 11/01/2023 1:21 PM EDT Narrative [facility] - 11/01/2023 1:41 PM EDT Urine, Clean Catch us Kourtney Epstein MD LAB URINE ORDERAB LES Final Result [facility] [address] [place] [address] [phone] * (ABNORMAL) Albumin, Random Urine W/Creatinine (08/17/2023 2:30 PM EDT) Creatinine, Urine 94.35 mg/dL [facility] Microalbumin Urine >2,000.0 mg/L H [facility] Microalbum Creatinine Ratio Ur 2,119.7(H ) <30 ug/mg cr [facility] Comment:Albumin/Creatinine R atio Reference Ranges: Normal: < 30 ug/mg creatinine Microalbuminuria: 30 - 300 ug/mg creatinineClinical Albuminuria: > 300 ug/mg creatinine 08/17/2023 2:30 PM EDT 08/17/2023 4:14 PM EDT us Kourtney Epstein MD LAB URINE ORDERAB LES Final Result [facility] [address] [place] [phone] [phone] documented in this encounter Visit Diagnoses Not on filedocumented in this encounter Care Teams Machine Shop Instructor Relationship Specialty Start Date End Date Kourtney Saxena MD [address] [place] [phone] PCP - General Internal Medicine 04/23/23 documented as of this encounter
--- OUTSIDE RECORDS SUMMARY | 2024-03-22 14:29 | XMS_ITS | Encounter Summary ---
Author Organization [employer] Address [address] [place] [id number] Care Team Providers Care [employer]ship Name Role Phone Kourtney Saxena MD Primary Care Pro vider Reason for Visit * Reason Comments Med Refill Encounter Details Date Type Department Care Team (Late st Contact Info) Description 12/14/2022 Refill [facility] MEDICINE [address] [place] [address] Love Quintanilla MD [address] [place] [address] Social History Tobacco Use Types Packs/Day Years [...] on filedocumented in this encounter Care Teams [employer] Relationship Specialty Start Date End Date Kourtney Saxena MD [address] [place], [place] [phone] PCP - General Internal Medicine 04/23/23 documented as of this encounter
--- OUTSIDE RECORDS SUMMARY | 2024-03-22 14:29 | XMS_ITS | Clinical Summary ---
Author Organization [employer] Address [address] [place] [address] 7 [place] [address] Care Team Providers Care Rnp Name Role Phone Kourtney Saxena MD Primary [...] use. 1 each 1 07/02/19 24 Active rosuvastatin (Crestor) 40 MG tablet [...] 24 Active ergocalciferol (Vitamin D2) 1.25 MG (46277 UT) capsule TAKE 1 CAPSULE BY MOUTH ONCE WEEKLY ON WEDNESDAY MORNING 4 capsule 2 02/14/19 25 Active losartan (Cozaar) 25 MG tablet TAKE 1 TABLET BY MOUTH EVERY MORNING 90 tablet 02/28/19 25 Active cloNIDine (Catapres) 0.1 MG tablet TAKE 1 TABLET BY MOUTH EVERY DAY NEEDED FOR ANXIETY 30 tablet 2 03/20/19 25 Active cloNIDine (Catapres) 0.1 MG tablet TAKE 1 TABLET BY MOUTH EVERY DAY NEEDED FOR ANXIETY 30 tablet 2 09/23/19 24 025 Discontinued losartan (Cozaar) 25 MG [...] Encounters Date Type Department Care Team Description 03/18/2024 Refill [facility] MEDICINE [address] [place] [address] Kourtney Saxena MD 03/13/2024 Telephone [facility] MEDICINE [address] [place] [address] Skylar Carmen MA wood recall 02/24/2024 Refill [facility] CHC MED & PEDS [address] [place] [address] Kourtney Saxena MD 02/17/2024 Orders Only [facility] External Provider, [facility] 02/15/2024 Refill [facility] MEDICINE [address] [place] [address] Kourtney Saxena MD 02/07/2024 Travel 01/28/2024 Refill [facility] MEDICINE [address] [place] [address] Kourtney Saxena MD 01/25/2024 Telephone [facility] MEDICINE [address] [place] [address] Kitty Jackson, RN NTTS 01/24/2024 10:00 AM EST Office Visit [facility] WALK-IN CENTER [address] [place] [address] Jaylon Martin MD Postmenopausal bleeding (Primary Dx); Flank pain; Hypertension, unspecified type 01/19/2024 Refill [facility] MEDICINE [address] [place] [address] Kourtney Saxena MD 01/11/2024 Orders Only [facility] MEDICINE [address] [place] [address] Kourtney Saxena MD Hypothyroidism, unspecified type (Primary Dx); Hyperlipidemia, unspecified hyperlipidemia type 01/11/2024 Orders Only GENERIC EXTERNAL DATA DEPARTMENT Provider, Generic External Data 01/04/2024 10:30 AM EST Clinical Support [facility] MEDICINE [address] [place] [address] Ange Izaguirre RN Hypertension, unspecified type 01/04/2024 Travel 12/28/2023 Travel from Last 3 Months Immunizations Name Administration [...] 11/01/2023 1:47 PM EDT Plan of Treatment Health Maintenance Due Date [...] - 1-dose 75+ series) 2048 Pneumococcal Vaccine: 50+ Years Completed 07/02/2023, 04/27/2014 HIV Screening Completed 07/27/2023 [...] 01/11/2024 9:50 AM EST Other specified hypothyroidism LDCT LUNG SCREENING Routine 12/10/2023 1 0:40 [...] EST Narrative 02/17/2024 11:44 AM EST ? [facility] ?[address] ?[place] [address] ? Ultrasound Report ? Signed ? Patient: Madison Navarro ?MR# ?? : [id number] ? : 1975 ?Acct:[id number] ? Age/Sex: 48 / F ?ADM Date: 02/17/24 ? Loc: HO.US ? Attending Dr: Gutierrez Lozano MD ? Ordering Physician: Gutierrez Lozano MD ?? Date of Service: 02/17/24 ?? Procedure(s): US renal BI ?? Accession Number(s): [id number] ? cc: Gutierrez Lozano MD; Kourtney Saxena [...] DD/ 1116 ? TD/TT: 02/17/24 1123 ? Shovel Mechanic: ? Procedure Note Alina, Image - 02/17/2024 [place] [address] Ultrasound Report Signed Patient: Madison Navarro AMR# : [id number] : 1975Acct:[id number] Age/Sex: 48 / FADM Date: 02/17/24 Loc: HO.US Attending Dr: Gutierrez Lozano MD Ordering Physician: Gutierrez Lozano MD Date of Service: 02/17/24 Procedure(s): US renal BI Accession Number(s): [id number] cc: Gutierrez Lozano MD; Kourtney Saxena MD [...] 02/17/24 1141 DD/ 1116 TD/TT: 02/17/24 1123 Shovel Mechanic: [facility] External Provider IMG US PROCEDURES Final Result * POCT , urine manually resulted (01/24/2024 10:54 AM EST) Pathologist [facility] Preg Test, Ur Negative Negative, Indeterminate, None Detected, Invalid, Specimen unsatisfactory for evaluation, Weakly Positive Urine 01/24/2024 10:5 4 AM EST Jaylon Martin MD POINT OF CARE TEST [...] 10:54 AM EST 01/24/2024 6:32 PM EST Comment:UACC Narrative [facility] - 01/26/2024 7:47 AM EST Urine Culture Report Result Urine Culture 10,000 to 50,000 cfu/ml Urine Culture Mixed bacterial summer characteristic of Urine Culture urogenital contamination. Specimen Source: Urine clean catch us Jaylon Martin MD LAB MICROBIOLOGY - GENERAL ORDER ANGÉLICA Final Result [facility] [address] [place] [address] [phone] * (ABNORMAL) Urinalysis with Reflex to Microscopic (01/11/2024 9:50 AM EST) Color Urine Yellow [facility] Appearance Urine Clear [facility] PH 6.0 5.0 - 9.0 [facility] Glucose Urine UA Negative Negative mg/dL [facility] Urine Blood Negative Negative [facility] Specific [place] - Urine >=1.030(H) 1.005 - 1.025 [facility] Urine Protein 300 (3+)(A) Neg-Trace mg/dL [facility] Urine Ketones Negative Negative mg/dL [facility] Nitrite Urine Negative Negative [facility] Leukocyte Esterase Urine Negative Negative [facility] 01/11/2024 9:50 AM EST 01/11/2024 11:03 AM EST us Generic External Data Provider LAB URINE ORDERAB LES Final Result Performing Organization Address [facility] de Phone Number [facility] [address] [place] [phone] * (ABNORMAL) Urine Protein, Total, Random without Creatinine (01/11/2024 9:50 AM EST) Protein, Total, Random Urine 416(H) <12 mg/dL [facility] 01/11/2024 9:50 AM EST 01/11/2024 11:03 AM EST Generic External Data Provider LAB URINE ORDERAB LES Final Result Performing Organization Address [facility] de Phone Number [facility] [address] [place] [address] [phone] * Creatinine, Random Urine (01/11/2024 9:50 AM EST) Creatinine, Urine 180.87 mg/dL [facility] 01/11/2024 9:50 AM EST 01/11/2024 11:03 AM EST Generic External Data Provider LAB URINE ORDERAB LES Final Result Performing Organization Address [facility] de Phone Number [facility] [address] [place] [phone] * (ABNORMAL) Urinalysis Complete (01/11/2024 9:50 AM EST) Color Urine Yellow [facility] Appearance Urine Clear [facility] PH 6.0 5.0 - 9.0 [facility] Glucose Urine UA Negative Negative mg/dL [facility] Urine Blood Negative Negative [facility] Specific [place] - Urine >=1.030(H) 1.005 - 1.025 [facility] Urine Protein 300 (3+)(A) Neg-Trace mg/dL [facility] Urine Ketones Negative Negative mg/dL [facility] Nitrite Urine Negative Negative [facility] Leukocyte Esterase Urine Negative Negative [facility] RBC Urine 0-2 0 - 2 /HPF [facility] Urine WBC 0-5 0 - 5 /HPF [facility] Urine Squamous Epithelial Cell 6-10 0 - 2 /HPF [facility] Urine Bacteria 1+ None Seen [facility] Hyaline Casts, Urine 0-2 0 - 2 /LPF [facility] 01/11/2024 9:50 AM EST 01/11/2024 11:03 AM EST us Generic External Data Provider LAB URINE ORDERAB LES Final Result [facility] [address] [place] [phone] * (ABNORMAL) CBC (01/11/2024 9:50 AM EST) White Blood Count 11.3(H) 4.8 - 10.8 X10*3/uL [facility] Red Blood Count 4.77 4.20 - 5.50 X10*6/uL [facility] Hemoglobin 12.6 12.0 - 16.0 g/dl [facility] Hematocrit 38.4 37.0 - 47.0 % [facility] Mean Corpuscular Volume 80.5 80.0 - 98.0 fL [facility] Mean Corpuscular Hemoglobin 26.4(L) 27.0 - 33.0 pg [facility] Mean Corpuscular HGB Conc 32.8 31.0 - 35.0 g/dl [facility] Red Cell Distribution Width 15.5 11.0 - 16.0 % [facility] Platelet Count 379 160 - 400 X10*3/uL [facility] Mean Platelet Volume 9.6 9.4 - 12.3 fL [facility] NRBC Pct Auto 0.0 0.0 - 0.2 /100WBC [facility] NRBC Abs Auto 0.000 0.0 - 0.012 X10*3/uL [facility] 01/11/2024 9:50 AM EST 01/11/2024 11:28 AM EST us Generic External Data Provider LAB BLOOD ORDERAB LES Final Result Performing Organization Address [facility]/ZIP Co de Phone Number [facility] [address] [place] [phone] * (ABNORMAL) TSH (01/11/2024 9:50 AM EST) Thyroid Stimulating Hormone 8.21(H) 0.32 - 4.0 uIU/mL [facility] Comment:Note: A sustained TS H level above 2.5 uIU/mL may warrant further investigation. TSH 3rd Generation ([facility]) Blood Venous blood specimen / Unknown 01/11/2024 9:50 AM EST 01/11/2024 11:31 AM EST us Kourtney Epstein MD LAB BLOOD ORDERAB LES Final Result Performing Organization Address [facility]/ZIP Co de Phone Number [facility] [address] [place] [phone] * (ABNORMAL) Lipid Panel, Standard (01/11/2024 9:50 AM EST) Triglycerides 133 <150 mg/dL [facility] Comment:Desirable Triglyceri de: less than 150 mg/dLBorderline High Triglyceride 150-199 mg/dLHigh Triglyceride: 200-499 mg/dLVery High Triglyceride: greater than or equal to 5OO mg/dL Cholesterol 246(H) <200 mg/dL [facility] Comment:Desirable Cholestero l: less than 200 mg/dLBorderline High Cholesterol: 200-239 mg/dLHigh Cholesterol: greater than 239 mg/dL LDL Cholesterol Calculated 148(H) <100 mg/dL [facility] Comment:Desirable LDL: less than 100 mg/dLNear Optimal/Above Optimal LDL: 110- 129 mg/dLBorderline High LDL: 130-159 mg/dLHigh LDL: 160-189 mg/dLVery High LDL: greater than or equal to 190 mg/dL HDL Cholesterol 72 >40 mg/dL [facility] Comment:Desirable HDL: great er than 40 mg/dL Note: This HDL assay may give artificially low results in patients with liver disease. 01/11/2024 9:50 AM EST 01/11/2024 11:31 AM EST us Generic External Data Provider LAB BLOOD ORDERAB LES Final Result [facility] [address] [place] [phone] * (ABNORMAL) Comprehensive Metabolic Panel (01/11/2024 9:50 AM EST) Sodium 141 135 - 145 mmol/L [facility] Potassium 3.5 3.3 - 5.1 mmol/L [facility] Chloride 107 96 - 108 mmol/L [facility] Carbon Dioxide 27 22 - 29 mmol/L [facility] Anion Gap 11(L) 12 - 20 [facility] Urea Nitrogen (BUN) 12 9 - 16 mg/dL [facility] Creatinine, Serum 0.64 0.5 - 1.4 mg/dL [facility] Estimated Glomerular Filt Rate >60 [facility] Comment:Chronic Kidney Disea se: Estimated GFR < 60 mL/min/1.76r2Siijhy Kidney Disease: Estimated GFR < 15 mL/min/1.73m2 Glucose 103 60 - 115 mg/dL [facility] Calcium 8.5 8.4 - 10.2 mg/dL [facility] Bilirubin, Total 0.2 0.0 - 1.0 mg/dL [facility] Aspartate Amino Transferase 20 5 - 31 U/L [facility] Alanine Aminotransferase 30 0 - 31 U/L [facility] Total Protein 5.8(L) 6.5 - 8.0 g/dL [facility] Albumin Level 3.1(L) 3.5 - 5.0 g/dL [facility] Alkaline Phosphatase 59 39 - 117 U/L [facility] Blood Venous blood specimen / Unknown 01/11/2024 9:50 AM EST 01/11/2024 11:31 AM EST Kourtney Epstein MD LAB BLOOD ORDERAB LES Final Result [facility] [address] [place] [phone] * CT Lung Screening Low dose (12/10/2023 10:40 AM EDT) Anatomical Region Laterality Modality Lung Computed Tomogra phy 12/10/2023 10:4 0 AM EDT Narrative 01/26/2024 11:47 PM EST ? [facility] ?[address] ?[place] [address] ? CT Scan Report ? Signed ? Patient: Madison Navarro ?MR# ?? : [id number] ? : 1975 ?Acct:[id number] ? Age/Sex: 48 / F ?ADM Date: 12/10/23 ? Loc: HO.CT ? Attending Dr: Stacy Mays PA-C ? Ordering Physician: Stacy Mays PA-C ?? Date of Service: 12/10/23 ?? Procedure(s): CT lung screening ?? Accession Number(s): [id number] ? cc: Stacy Mays PA-C; Kourtney Saxena [...] in OV> ? 01/26/24 2344 ? DD/ 1040 ? TD/TT: 12/10/23 1045 ? Shovel Mechanic: SS ? Procedure Note Donotuseinterpreter, Image - 01/26/[address] [address] [address] Scan Report Signed Patient: Madison Navarro AMR# : [id number] : 1975Acct:[id number] Age/Sex: 48 / FADM Date: 12/10/23 Loc: HO.CT Attending Dr: Stacy Mays PA-C Ordering Physician: Stacy Mays PA-C Date of Service: 12/10/23 Procedure(s): CT lung screening Accession Number(s): [id number] cc: Stacy Mays PA-C; Kourtney Saxena MD [...] by: Kuldeep Roca MD 01/26/2024 11:44 PM [facility] Dictated By: Kuldeep Roca MD Signed By: <Electronically signed by Kuldeep Roca MD in OV> 01/26/24 2344 DD/ 1040 TD/TT: 12/10/23 1045 Shovel Mechanic: SS [facility] External Provider IMG CT PROCEDURES Edited Result - Final * BI Mammogram Screening Tomosynthesis Bilateral (08/17/2023 9:18 AM EDT) Anatomical Region Laterality Modality Breast Bilateral Mammography 08/17/2023 9:18 AM EDT Narrative 09/12/2023 3:49 PM EDT ? [facility] [address] ?[place] [address] ? Mammography Report ? Signed ? Patient: Nadeem Barney,Madison A ?MR# ?? : [id number] ? : 1975 ?Acct:[id number] ? Age/Sex: 48 / F ?ADM Date: 07/09/24 ? Loc: HO.MAMMO ? Attending Dr: Kourtney Epstein MD ? Ordering Physician: Kourtney Saxena MD ?Re ?? sults: 2Benign Findings ? Date of Service: 08/17/23 ?Follow Up: 1 Year From Orig ?? inal Mammogram ? Procedure(s): MM tomosynthesis screening BI ?? Accession Number(s): [id number] ? cc: Kourtney Saxena MD ? EXAMINATION: [...] 1546 ? DD/ 7 ? TD/TT: ? Shovel Mechanic: ? Procedure Note Donotuseinterpreter, Image - [facility]/12/[facility] [address] [place] [address] Mammography Report Signed Patient: Madison Navarro AMR# : [id number] : 1975Acct:[id number] Age/Sex: 48 / FADM Date: 08/17/23 Loc: HO.MAMMO Attending Dr: Kourtney Epstein MD Ordering Physician: Kourtney Saxena sults: 2Benign Findings Date of Service: 08/17/23Follow Up: 1 Year From Orig inal Mammogram Procedure(s): MM tomosynthesis screening BI Accession Number(s): [id number] cc: Kourtney Saxena MD EXAMINATION: MM SCREENING [...] in OV> 09/12/23 1546 DD/ 0918 TD/TT: Shovel Mechanic: Kourtney Epstein MD IMG BI PROCEDURES Final Result * Hepatitis C Antibody with Reflex to HCV, RNA, Quantitative, Real-Time PCR (07/27/2023 10:47 AM EDT) Hepatitis C Antibody Nonreactive Nonreactive [facility] Comment:Antibodies to HCV no t detected; does not exclude early acuteHCV infection. Blood Venous blood specimen / Unknown 07/27/2023 10:47 AM EDT 07/27/2023 11:28 AM EDT Kourtney Epstein MD LAB BLOOD ORDERAB LES Final Result [facility] [address] [place] [phone] * HIV-1/2 Antigen and Antibodies, Fourth Generation, with Reflexes (07/27/2023 10:47 AM EDT) HIV AB/AG Nonreactive Nonreactive [facility] Comment:HIV-1 p24 Ag and/or HIV-1/HIV-2 Ab not detected.A test result that is nonreactive does not exclude thepossibility of exposure to or infection with HIV-1 and/orHIV-2. Nonreactive results in this assay for individualswith prior exposure to HIV-1 and/or HIV-2 may be due toantigen and antibody levels that are below the limit ofdetection of this assay.The [employer] HIV Ag/Ab Combo assay result andsupplemental assay results should be interpreted inconjunction with the patient's clinical presentation,history and other laboratory results. If the results areinconsistent with clinical evidence, additional testing issuggested to confirm the result. Blood Venous blood specimen / Unknown 07/27/2023 10:47 AM EDT 07/27/2023 11:28 AM EDT Kourtney Epstein MD LAB BLOOD ORDERAB LES Final Result [facility] [address] [place] [phone] from Last 3 Months or Most Recently Relevant to Health Maintenance Insurance [facility] , [facility] [address] [place] [address] [facility] Care Teams Rnp Relationship Specialty Start Date End Date Kourtney Saxena MD [address] [place] [phone] PCP - General Internal Medicine 04/23/23
--- OUTSIDE RECORDS SUMMARY | 2024-03-22 14:29 | XMS_ITS | Encounter Summary ---
Author Organization [employer] Address [address] [place] [address] [address] [place] [address] Care Team Providers Care Flue Dust Laborer Name Role Phone Kourtney Saxena MD Primary Care Pro vider Reason for Visit * Reason Comments Med Refill Encounter Details Date Type Department Care Team ([facility] st Contact Info) Description 12/07/2022 Refill [facility] [address] [place] [phone] Jaylon Martin MD [address] [place] [phone] Social History Tobacco Use Types Packs/Day Years [...] on filedocumented in this encounter Care Teams Flue Dust Laborer Relationship Specialty Start Date End Date Kourtney Saxena MD [address] [place] [phone] PCP - General Internal Medicine 04/23/23 documented as of this encounter
== END 2024-03-22 16:22 | disposition home or self-care (01) ==
LOC: HO.HGI 13:05
PROVIDERS: PCP Student in an Organized Health Care Education/Training Program; Visit Provider Internal Medicine
DX: R19.4 Change in bowel habit (principal); K52.9 Noninfective gastroenteritis and colitis, unspecified; R15.9 Full incontinence of feces; R13.10 Dysphagia, unspecified
CPT/HCPCS: 99499

== ENCOUNTER → 2024-03-22 13:05 | Outpatient (BNVA) | payer OTHER, MEDICAID, SELFPAY | PROVIDERS: PCP Student in an Organized Health Care Education/Training Program; Visit Provider Internal Medicine ==

== ENCOUNTER 2024-03-23 15:15 | Outpatient (REF) | payer OTHER, MEDICAID, SELFPAY ==
--- OUTSIDE RECORDS SUMMARY | 2024-03-23 15:19 | XMS_ITS | Clinical Summary ---
Author Organization [employer] Address [address] [place] [address] 7 [place] [address] Care Team Providers Care Wire Coating Operator Metal Name Role Phone Kourtney Saxena MD Primary [...] 24 Active ergocalciferol (Vitamin D2) 1.25 MG (02485 UT) capsule TAKE 1 CAPSULE BY MOUTH [...] Type Department Care Team Description 03/18/2024 Refill [facility] MEDICINE [address] [place] [address] Kourtney Saxena MD 03/13/2024 Telephone [facility] MEDICINE [address] [place] [address] Skylar Carmen MA wood recall 02/24/2024 Refill [facility] CHC MED & PEDS [address] [place] [address] Kourtney Saxena MD 02/17/2024 Orders Only [facility] External Provider, [facility] 02/15/2024 Refill [facility] MEDICINE [address] [place] [address] Kourtney Saxena MD 02/07/2024 Travel 01/28/2024 Refill [facility] MEDICINE [address] [place] [address] Kourtney Saxena MD 01/25/2024 Telephone [facility] MEDICINE [address] [place] [address] Kitty Jackson, RN NTTS 01/24/2024 10:00 AM EST Office Visit [facility]ALK[facility] [address] [place] [address] Jaylon Martin MD Postmenopausal bleeding (Primary Dx); Flank pain; Hypertension, unspecified type 01/19/2024 Refill [facility] MEDICINE [address] [place] [address] Kourtney Saxena MD 01/11/2024 Orders Only [facility] MEDICINE [address] [place] [address] Kourtney Saxena MD Hypothyroidism, unspecified type (Primary Dx); Hyperlipidemia, unspecified hyperlipidemia type 01/11/2024 Orders Only GENERIC EXTERNAL DATA DEPARTMENT Provider, Generic External Data 01/04/2024 10:30 AM EST Clinical Support [facility] MEDICINE [address] [place] [address] Ange Izaguirre RN Hypertension, unspecified type 01/04/2024 [...] 07/27/2023 10:47 AM EDT Annual physical exam INTRAORAL - COMPLETE SERIES OF RADIOGRAPHIC IMAGES Routine 02/19/2022 11:00 [...] EST Narrative 02/17/2024 11:44 AM EST ? [facility] ?[address] ?[place] [address] ? Ultrasound Report ? Signed ? Patient: Madison Navarro ?MR# ?? : [id number] ? : 1975 ?Acct:[id number] ? Age/Sex: 48 / F ?ADM Date: 02/17/24 ? Loc: HO.US ? Attending Dr: Gutierrez Lozano MD ? Ordering Physician: Gutierrez Lozano MD ?? Date of Service: 02/17/24 ?? Procedure(s): US renal BI ?? Accession Number(s): [id number] ? cc: Gutierrez Lozano MD; Kourtney Saxena [...] DD/ 1116 ? TD/TT: 02/17/24 1123 ? Food And Beverage Checker: ? Procedure Note Alina, Image - 02/17/2024 [place] [address] Ultrasound Report Signed Patient: Madison Navarro AMR# : [id number] : 1975Acct:[id number] Age/Sex: 48 / FADM Date: 02/17/24 Loc: HO.US Attending Dr: Gutierrez Lozano MD Ordering Physician: Gutierrez Lozano MD Date of Service: 02/17/24 Procedure(s): US renal BI Accession Number(s): [id number] cc: Gutierrez Lozano MD; Kourtney Saxena MD [...] 02/17/24 1141 DD/ 1116 TD/TT: 02/17/24 1123 Food And Beverage Checker: [facility] External Provider IMG US PROCEDURES Final [...] EST 01/24/2024 6:32 PM EST Comment:UACC Narrative [facility] - 01/26/2024 7:47 AM EST Urine Culture Report Result Urine Culture 10,000 to 50,000 cfu/ml Urine Culture Mixed bacterial summer characteristic of Urine Culture urogenital contamination. Specimen Source: Urine clean catch us Jaylon Martin MD LAB MICROBIOLOGY - GENERAL ORDER ANGÉLICA Final Result [facility] [address] [place] [address] [phone] * (ABNORMAL) Urinalysis with Reflex to Microscopic (01/11/2024 9:50 AM EST) Color Urine Yellow [facility] Appearance Urine Clear [facility] PH 6.0 5.0 - 9.0 [facility] Glucose Urine UA Negative Negative mg/dL [facility] Urine Blood Negative Negative [facility] Specific [place] - Urine >=1.030(H) 1.005 - 1.025 [facility] Urine Protein 300 (3+)(A) Neg-Trace mg/dL [facility] Urine Ketones Negative Negative mg/dL [facility] Nitrite Urine Negative Negative [facility] Leukocyte Esterase Urine Negative Negative [facility] 01/11/2024 9:50 AM EST 01/11/2024 11:03 AM EST us Generic External Data Provider LAB URINE ORDERAB LES Final Result Performing Organization Address [facility] de Phone Number [facility] [address] [place] [phone] * (ABNORMAL) Urine Protein, Total, Random without Creatinine (01/11/2024 9:50 AM EST) Protein, Total, Random Urine 416(H) <12 mg/dL [facility] 01/11/2024 9:50 AM EST 01/11/2024 11:03 AM EST Generic External Data Provider LAB URINE ORDERAB LES Final Result Performing Organization Address [facility] de Phone Number [facility] [address] [place] [phone] * Creatinine, Random Urine (01/11/2024 9:50 AM EST) Creatinine, Urine 180.87 mg/dL [facility] 01/11/2024 9:50 AM EST 01/11/2024 11:03 AM EST Generic External Data Provider LAB URINE ORDERAB LES Final Result Performing Organization Address [facility] de Phone Number [facility] [address] [place] [phone] * (ABNORMAL) Urinalysis Complete (01/11/2024 9:50 AM EST) Color Urine Yellow [facility] Appearance Urine Clear [facility] PH 6.0 5.0 - 9.0 [facility] Glucose Urine UA Negative Negative mg/dL [facility] Urine Blood Negative Negative [facility] Specific [place] - Urine >=1.030(H) 1.005 - 1.025 [facility] Urine Protein 300 (3+)(A) Neg-Trace mg/dL [facility] Urine Ketones Negative Negative mg/dL [facility] Nitrite Urine Negative Negative [facility] Leukocyte Esterase Urine Negative Negative [facility] RBC Urine 0-2 0 - 2 /HPF [facility] Urine WBC 0-5 0 - 5 /HPF [facility] Urine Squamous Epithelial Cell 6-10 0 - 2 /HPF [facility] Urine Bacteria 1+ None Seen [facility] Hyaline Casts, Urine 0-2 0 - 2 /LPF [facility] 01/11/2024 9:50 AM EST 01/11/2024 11:03 AM EST us Generic External Data Provider LAB URINE ORDERAB LES Final Result [facility] [address] [place] [address] [phone] * (ABNORMAL) CBC (01/11/2024 9:50 AM EST) White Blood Count 11.3(H) 4.8 - 10.8 X10*3/uL [facility] Red Blood Count 4.77 4.20 - 5.50 X10*6/uL [facility] Hemoglobin 12.6 12.0 - 16.0 g/dl [facility] Hematocrit 38.4 37.0 - 47.0 % [facility] Mean Corpuscular Volume 80.5 80.0 - 98.0 fL [facility] Mean Corpuscular Hemoglobin 26.4(L) 27.0 - 33.0 pg [facility] Mean Corpuscular HGB Conc 32.8 31.0 - 35.0 g/dl [facility] Red Cell Distribution Width 15.5 11.0 - 16.0 % [facility] Platelet Count 379 160 - 400 X10*3/uL [facility] Mean Platelet Volume 9.6 9.4 - 12.3 fL [facility] NRBC Pct Auto 0.0 0.0 - 0.2 /100WBC [facility] NRBC Abs Auto 0.000 0.0 - 0.012 X10*3/uL [facility] 01/11/2024 9:50 AM EST 01/11/2024 11:28 AM EST us Generic External Data Provider LAB BLOOD ORDERAB LES Final Result Performing Organization Address [facility]/ZIP Co de Phone Number [facility] [address] [place] [phone] * (ABNORMAL) TSH (01/11/2024 9:50 AM EST) Thyroid Stimulating Hormone 8.21(H) 0.32 - 4.0 uIU/mL [facility] Comment:Note: A sustained TS H level above 2.5 uIU/mL may warrant further investigation. TSH 3rd Generation ([facility]) Blood Venous blood specimen / Unknown 01/11/2024 9:50 AM EST 01/11/2024 11:31 AM EST us Kourtney Epstein MD LAB BLOOD ORDERAB LES Final Result Performing Organization Address [facility]/ZIP Co de Phone Number [facility] [address] [place] [phone] * (ABNORMAL) Lipid Panel, Standard (01/11/2024 9:50 AM EST) Triglycerides 133 <150 mg/dL [facility] Comment:Desirable Triglyceri de: less than 150 mg/dLBorderline High Triglyceride 150-199 mg/dLHigh Triglyceride: 200-499 mg/dLVery High Triglyceride: greater than or equal to 5OO mg/dL Cholesterol 246(H) <200 mg/dL [facility] Comment:Desirable Cholestero l: less than 200 mg/dLBorderline High Cholesterol: 200-239 mg/dLHigh Cholesterol: greater than 239 mg/dL LDL Cholesterol Calculated 148(H) <100 mg/dL [facility] Comment:Desirable LDL: less than 100 mg/dLNear Optimal/Above Optimal LDL: 110- 129 mg/dLBorderline High LDL: 130-159 mg/dLHigh LDL: 160-189 mg/dLVery High LDL: greater than or equal to 190 mg/dL HDL Cholesterol 72 >40 mg/dL [facility] Comment:Desirable HDL: great er than 40 mg/dL Note: This HDL assay may give artificially low results in patients with liver disease. 01/11/2024 9:50 AM EST 01/11/2024 11:31 AM EST us Generic External Data Provider LAB BLOOD ORDERAB LES Final Result [facility] [address] [place] [phone] [phone] * (ABNORMAL) Comprehensive Metabolic Panel (01/11/2024 9:50 AM EST) Sodium 141 135 - 145 mmol/L [facility] Potassium 3.5 3.3 - 5.1 mmol/L [facility] Chloride 107 96 - 108 mmol/L [facility] Carbon Dioxide 27 22 - 29 mmol/L [facility] Anion Gap 11(L) 12 - 20 [facility] Urea Nitrogen (BUN) 12 9 - 16 mg/dL [facility] Creatinine, Serum 0.64 0.5 - 1.4 mg/dL [facility] Estimated Glomerular Filt Rate >60 [facility] Comment:Chronic Kidney Disea se: Estimated GFR < 60 mL/min/1.12s6Bencsd Kidney Disease: Estimated GFR < 15 mL/min/1.73m2 Glucose 103 60 - 115 mg/dL [facility] Calcium 8.5 8.4 - 10.2 mg/dL [facility] Bilirubin, Total 0.2 0.0 - 1.0 mg/dL [facility] Aspartate Amino Transferase 20 5 - 31 U/L [facility] Alanine Aminotransferase 30 0 - 31 U/L [facility] Total Protein 5.8(L) 6.5 - 8.0 g/dL [facility] Albumin Level 3.1(L) 3.5 - 5.0 g/dL [facility] Alkaline Phosphatase 59 39 - 117 U/L [facility] Blood Venous blood specimen / Unknown 01/11/2024 9:50 AM EST 01/11/2024 11:31 AM EST Kourtney Epstein MD LAB BLOOD ORDERAB LES Final Result [facility] [address] [place] [address] [phone] * CT Lung Screening Low dose (12/10/2023 10:40 AM EDT) Anatomical Region Laterality Modality Lung Computed Tomogra phy 12/10/2023 10:4 0 AM EDT Narrative 01/26/2024 11:47 PM EST ? [facility] ?[address] ?[place] [address] ? CT Scan Report ? Signed ? Patient: Madison Navarro ?MR# ?? : [id number] ? : 1975 ?Acct:[id number] ? Age/Sex: 48 / F ?ADM Date: 12/10/23 ? Loc: HO.CT ? Attending Dr: Stacy Mays PA-C ? Ordering Physician: Stacy Mays PA-C ?? Date of Service: 12/10/23 ?? Procedure(s): CT lung screening ?? Accession Number(s): [id number] ? cc: Stacy Mays PA-C; Kourtney Saxena [...] by Kuldeep Roca MD in OV> ? 01/26/244 ? DD/ ? TD/TT: 12/10/235 ? Food And Beverage Checker: SS ? Procedure Note Donotconnorter, Image - 01/26/[address] [address] [address] Scan Report Signed Patient: Madison Navarro AMR# : [id number] : 1975Acct:[id number] Age/Sex: 48 / FADM Date: 12/10/23 Loc: HO.CT Attending Dr: Stacy Mays PA-C Ordering Physician: Stacy Mays PA-C Date of Service: 12/10/23 Procedure(s): CT lung screening Accession Number(s): [id number] cc: Stacy Mays PA-C; Kourtney Saxena MD [...] by: Kuldeep Roca MD 01/26/2024 11:44 PM [facility] Dictated By: Kuldeep Roca MD Signed By: <Electronically signed by Kuldeep Roca MD in OV> 01/26/24 2344 DD/ 1040 TD/TT: 12/10/23 1045 Food And Beverage Checker: BRIAN [facility] External Provider IMG CT PROCEDURES Edited Result - Final * BI Mammogram Screening Tomosynthesis Bilateral (08/17/2023 9:18 AM EDT) Anatomical Region Laterality Modality Breast Bilateral Mammography 08/17/2023 9:18 AM EDT Narrative 09/12/2023 3:49 PM EDT ? [facility] [place] ? [address] ?[place] [address] ? Mammography Report ? Signed ? Patient: Madison Navarro ?MR# ?? : [id number] ? : 1975 ?Acct:[id number] ? Age/Sex: 48 / F ?ADM Date: 07/09/24 ? Loc: HO.MAMMO ? Attending Dr: Kourtney Epstein MD ? Ordering Physician: Kourtney Saxena MD ?Re ?? sults: 2Benign Findings ? Date of Service: 08/17/23 ?Follow Up: 1 Year From Orig ?? inal Mammogram ? Procedure(s): MM tomosynthesis screening BI ?? Accession Number(s): [id number] ? cc: Kourtney Saxena MD ? EXAMINATION: [...] 1546 ? DD/ 7 ? TD/TT: ? Food And Beverage Checker: ? Procedure Note Donhaoter, Image - [facility] [address] [place] [address] Mammography Report Signed Patient: Madison Navarro AMR# : [id number] : 1975Acct:[id number] Age/Sex: 48 / FADM Date: 08/17/23 Loc: HO.MAMMO Attending Dr: Kourtney Epstein MD Ordering Physician: Kourtney Saxena sults: 2Benign Findings Date of Service: 08/17/23Follow Up: 1 Year From Orig inal Mammogram Procedure(s): MM tomosynthesis screening BI Accession Number(s): [id number] cc: Kourtney Saxena MD EXAMINATION: MM SCREENING [...] in OV> 09/12/23 1546 DD/ 0918 TD/TT: Food And Beverage Checker: Result [facility] Kourtney Epstein MD IMG BI PROCEDURES Final Result * Hepatitis C Antibody with Reflex to HCV, RNA, Quantitative, Real-Time PCR (07/27/2023 10:47 AM EDT) Hepatitis C Antibody Nonreactive Nonreactive [facility] Comment:Antibodies to HCV no t detected; does not exclude early acuteHCV infection. Blood Venous blood specimen / Unknown 07/27/2023 10:47 AM EDT 07/27/2023 11:28 AM EDT Result [facility] Kourtney Epstein MD LAB BLOOD ORDERAB LES Final Result [facility] [address] [place] [phone] * HIV-1/2 Antigen and Antibodies, Fourth Generation, with Reflexes (07/27/2023 10:47 AM EDT) HIV AB/AG Nonreactive Nonreactive [facility] Comment:HIV-1 p24 Ag and/or HIV-1/HIV-2 Ab not detected.A test result that is nonreactive does not exclude thepossibility of exposure to or infection with HIV-1 and/orHIV-2. Nonreactive results in this assay for individualswith prior exposure to HIV-1 and/or HIV-2 may be due toantigen and antibody levels that are below the limit ofdetection of this assay.The [employer] HIV Ag/Ab Combo assay result andsupplemental assay results should be interpreted inconjunction with the patient's clinical presentation,history and other laboratory results. If the results areinconsistent with clinical evidence, additional testing issuggested to confirm the result. Blood Venous blood specimen / Unknown 07/27/2023 10:47 AM EDT 07/27/2023 11:28 AM EDT Result [facility] Kourtney Epstein MD LAB BLOOD ORDERAB LES Final Result [facility] [address] [place] [address] [phone] from Last 3 Months or Most Recently Relevant to Health Maintenance Insurance [facility] [address] [place] [address] [facility] Care Teams Wire Coating Operator Metal Relationship Specialty Start Date End Date Kourtney Saxena MD [address] [place] [phone] PCP - General Internal Medicine 04/23/23
--- OUTSIDE RECORDS SUMMARY | 2024-03-23 15:19 | XMS_ITS | Encounter Summary ---
Author Organization [employer] Address [address] [place] [address] [address] [place] [address] Care Team Providers Care Photographic Double Name Role Phone Kourtney Saxena MD Primary Care Pro vider Reason for Visit * Reason Comments Med Refill Encounter Details Date Type Department Care Team ([facility] st Contact Info) Description 12/07/2022 Refill [facility] [address] [place] [address] [phone] Jaylon Martin MD [address] [place] [phone] Social History Tobacco Use Types Packs/Day Years [...] on filedocumented in this encounter Care Teams Photographic Double Relationship Specialty Start Date End Date Kourtney Saxena MD [address] [place] [phone] PCP - General Internal Medicine 04/23/23 documented as of this encounter
--- OUTSIDE RECORDS SUMMARY | 2024-03-23 15:19 | XMS_ITS | Clinical Summary ---
Author Organization [facility] Address [address] [place] [address] Care Team Providers Care Office Machine Inspector Name Role Phone Vero Archuleta DO Primary Care Provider [phone] Surgical History Surgery Date Site/Laterality Comments SECTION PROCEDURE: HISTORICAL DELIVERY Medical History Medical History Date Comments History of drug dependence/a buse ([facility]/HCC) 08/03/2013 DX:History of drug dependenc e/abuse (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) Family History Medical History Relation Name Comments [...] Recently Relevant to Health Maintenance Care Teams Office Machine Inspector Relationship Specialty Start Date End Date Vero Archuleta DO PCP - General Internal Medicine 10/07/21
--- OUTSIDE RECORDS SUMMARY | 2024-03-23 15:19 | XMS_ITS | Encounter Summary ---
Author Organization [employer] Address [address] [place] [address] [place], [place] [address] Care Team Providers Care Welfare Director Name Role Phone Kourtney Saxena MD Primary Care Pro vider Reason for Visit * Reason Comments Med Refill Encounter Details Date Type Department Care Team (Late st Contact Info) Description 03/18/2024 Refill [facility] [address] [place], [place] [phone] Kourtney Saxena MD [address] [place] [address] Social History Tobacco Use Types Packs/Day Years [...] documented as of this encounter Care Teams Welfare Director Relationship Specialty Start Date End Date Kourtney Saxena MD [address] [place] [phone] PCP - General Internal Medicine 04/23/23 documented as of this encounter
--- OUTSIDE RECORDS SUMMARY | 2024-03-23 15:19 | XMS_ITS | Encounter Summary ---
Author Organization [employer] Address [address] [place] [address] Care Team Providers Care Chef Passenger Vessel Name Role Phone Kourtney Saxena MD Primary Care Pro vider Reason for Visit * Reason Comments Med Refill Encounter Details Date Type Department Care Team (Late st Contact Info) Description 12/14/2022 Refill [facility] [address] [place] [address] Love Quintanilla MD [address] [place] [address] Social History Tobacco Use Types Packs/Day Years [...] on filedocumented in this encounter Care Teams Chef Passenger Vessel Relationship Specialty Start Date End Date Kourtney Saxena MD [address] [place], [place] [phone] PCP - General Internal Medicine 04/23/23 documented as of this encounter
--- OUTSIDE RECORDS SUMMARY | 2024-03-23 15:19 | XMS_ITS | Encounter Summary ---
Author Organization [employer] Address [address] [place] [address] [address] [place] [address] Care Team Providers Care Head Of History Name Role Phone Kourtney Saxena MD Primary Care Pro vider Encounter Details Date Type Department Care Team (Late st Contact Info) Description 05/04/2023 Orders Only [facility] [address] [place], [place] [phone] Love Quintanilla MD [address] [place] [address] Social History Tobacco Use Types Packs/Day Years [...] Reflex to Culture (11/01/2023 11:36 AM EDT) [facility] Appearance Urine Clear [facility] PH 7.0 5.0 - 9.0 [facility] Glucose Urine UA Negative Negative mg/dL [facility] Urine Blood Negative Negative [facility] Specific [place] - Urine 1.010 1.005 - 1.025 [facility] Urine Protein 100 (2+)(A) Neg-Trace mg/dL [facility] Urine Ketones Negative Negative mg/dL [facility] Nitrite Urine Negative Negative [facility] Leukocyte Esterase Urine Negative Negative [facility] RBC Urine 0-2 0 - 2 /HPF [facility] Urine WBC 0-5 0 - 5 /HPF [facility] Urine Squamous Epithelial Cell 0-2 0 - 2 /HPF [facility] Urine Bacteria None Seen None Seen [facility] Hyaline Casts, Urine 0-2 0 - 2 /LPF [facility] 11/01/2023 11:3 6 AM EDT 11/01/2023 1:21 PM EDT Narrative [facility] - 11/01/2023 1:41 PM EDT Urine, Clean Catch us Kourtney Epstein MD LAB URINE ORDERAB LES Final Result [facility] [address] [place] [phone] [phone] * (ABNORMAL) Albumin, Random Urine W/Creatinine (08/17/2023 2:30 PM EDT) Creatinine, Urine 94.35 mg/dL [facility] Microalbumin Urine >2,000.0 mg/L [facility] Microalbum Creatinine Ratio Ur 2,119.7(H ) <30 ug/mg cr [facility] Comment:Albumin/Creatinine R atio Reference Ranges: Normal: < 30 ug/mg creatinine Microalbuminuria: 30 - 300 ug/mg creatinineClinical Albuminuria: > 300 ug/mg creatinine 08/17/2023 2:30 PM EDT 08/17/2023 4:14 PM EDT us Kourtney Epstein MD LAB URINE ORDERAB LES Final Result [facility] [address] [place] [phone] [phone] documented in this encounter Visit Diagnoses Not on filedocumented in this encounter Care Teams Head Of History Relationship Specialty Start Date End Date Kourtney Saxena MD [address] [place] [phone] PCP - General Internal Medicine 04/23/23 documented as of this encounter
--- OUTSIDE RECORDS SUMMARY | 2024-03-23 15:19 | XMS_ITS | Encounter Summary ---
Author Organization [employer] Address [address] [facility] [address] [place] [address] Care Team Providers Care Dental Service Technician Name Role Phone Kourtney Saxena MD Primary Care Pro vider Reason for Visit * Reason Onset Date Comments wood recall 03/13/2024 Encounter Details Date Type Department Care Team ([facility] st Contact Info) Description 03/13/2024 Telephone [facility] [address] [place] [address] [place] may recall Social History Tobacco Use [...] [place] - 03/13/2024 1:47 PM EST T/C- Gas System Operator Left Voice Mail to return call to [...] documented as of this encounter Care Teams Dental Service Technician Relationship Specialty Start Date End Date Kourtney Saxena MD [address] [place] [phone] PCP - General Internal Medicine 04/23/23 documented as of this encounter
--- OUTSIDE RECORDS SUMMARY | 2024-03-23 15:19 | XMS_ITS | Encounter Summary ---
Author Organization [employer] Address [address] [place] [address] 7 [place] [address] Care Team Providers Care Urogynecology Physician Name Role Phone Kourtney Saxena MD Primary Care Pro vider Reason for Visit * Reason Comments Med Refill Encounter Details Date Type Department Care Team ([facility] st Contact Info) Description 02/24/2024 Refill [facility] [address] [place] [address] Kourtney Saxena MD [address] [place] [address] Social History Tobacco Use Types Packs/Day Years [...] documented as of this encounter Care Teams Urogynecology Physician Relationship Specialty Start Date End Date Kourtney Saxena MD [address] [place] [phone] PCP - General Internal Medicine 04/23/23 documented as of this encounter
[2024-03-23 16:12] LABS: Appearance Urine Clear; Color Urine Yellow; Glucose Urine UA Negative (Negative); Leukocyte Esterase Urine Negative (Negative); Nitrite Urine Negative (Negative); PH >= 9.0 (5.0-9.0); Specific Gravity - Urine 1.015 (1.005-1.025); UMIC TRIGGER UA YES; Urine Blood Negative (Negative); Urine Ketones Negative (Negative); Urine Protein 300 (3+) mg/dL (Neg-Trace)
[2024-03-23 16:14] LABS: Hematocrit 46.3 % (37.0-47.0); Hemoglobin 15.1 g/dl (12.0-16.0); Mean Corpuscular HGB Conc 32.6 g/dl (31.0-35.0); Mean Corpuscular Hemoglobin 26.2 pg (27.0-33.0); Mean Corpuscular Volume 80.2 fL (80.0-98.0); Mean Platelet Volume 9.7 fL (9.4-12.3); Platelet Count 436 X10*3/uL (160-400); Red Blood Count 5.77 X10*6/uL (4.20-5.50); Red Cell Distribution Width 15.3 % (11.0-16.0); White Blood Count 11.2 X10*3/uL (4.8-10.8)
[2024-03-23 16:15] LABS: Bacteria Urine None Seen (None Seen); Hyaline Casts Urine 0-2 /LPF (0-2); RBC Urine 0-2 /HPF (0-2); Squamous Epithelial Cell Urine 0-2 /HPF (0-2); WBC Urine 0-5 /HPF (0-5)
[2024-03-23 16:35] LABS: Alanine Aminotransferase 31 U/L (0-31); Albumin Level 3.2 g/dL (3.5-5.0); Alkaline Phosphatase 54 U/L (39-117); Anion Gap 10 (12-20); Aspartate Amino Transferase 24 U/L (5-31); Bilirubin Total 0.2 mg/dL (0.0-1.0); Blood Urea Nitrogen 19 mg/dL (9-16); Calcium 9.2 mg/dL (8.4-10.2); Carbon Dioxide 30 mmol/L (22-29); Chloride 102 mmol/L (96-108); Estimated Glomerular Filt Rate > 60; Glucose Random 124 mg/dL (60-115); Potassium 4.3 mmol/L (3.3-5.1); Sodium 138 mmol/L (135-145); Total Protein 6.3 g/dL (6.5-8.0)
[2024-03-23 16:47] LABS: Free T4 (Free Thyroxine) 1.06 ng/dL (0.71-1.85)
[2024-03-23 16:52] LABS: Thyroid Stimulating Hormone 1.06 uIU/mL (0.32-4.0)
[2024-03-23 17:59] LABS: Creatinine Urine 37.91 mg/dL
[2024-03-23 18:16] LABS: TSH reflex Free T4 1.07 uIU/mL (0.32-4.0)
[2024-03-23 18:38] LABS: Total Protein Urine Random 273 mg/dL (<12)
[2024-03-24 17:08] LABS: Immunoglobulin A 196 mg/dL (47-310)
[2024-03-24 20:28] LABS: Transglutaminase IgA <1.0 U/mL
[2024-03-26 23:38] LABS: Cyclosporine <25 mcg/L (100-300)
== END 2024-03-23 15:16 | disposition home or self-care (01) ==
LOC: HO.HHCL 15:15
PROVIDERS: Internal Medicine; Student in an Organized Health Care Education/Training Program; Visit Provider Internal Medicine Hypertension Specialist
DX: N04.9 Nephrotic syndrome with unspecified morphologic changes (principal); E03.9 Hypothyroidism, unspecified; R19.4 Change in bowel habit; E78.5 Hyperlipidemia, unspecified; Z79.899 Other long term (current) drug therapy
CPT/HCPCS: 36415; 80053; 80158; 81001; 81003; 82570; 82784; 84156; 84439; 84443; 85027; 86364

== ENCOUNTER 2024-03-28 09:15 | Outpatient (REF) | payer OTHER, MEDICAID, SELFPAY ==
--- OUTSIDE RECORDS SUMMARY | 2024-03-28 11:09 | XMS_ITS | Clinical Summary ---
Author Organization [facility] ity Address [address] [place] [address] Care Team Providers Care Correctional Officer Name Role Phone Vero Archuleta DO Primary Care Provider Surgical History Surgery Date Site/Laterality Comments SECTION PROCEDURE: HISTORICAL DELIVERY Medical History Medical History Date Comments History of drug dependence/a buse ([facility]/HCC) 08/03/2013 DX:History of drug dependenc e/abuse ([facility]); COMMENT: Marijuana, cocaine, crack, heroin - clean since 02/28/16 (relapse 01/22) PTSD (post-traumatic stress disorder) 10/17/2013 DX:PTSD (post-traumatic stress disorder) Anxiety 10/17/2013 DX:Anxiety Alcohol abuse 08/15/2012 DX:Alcohol abuse ; COMMENT: Quit May 2012 Was hospitalized [facility] previous pcp , clean Dec 2015 Asthma 08/15/2012 DX:Asthma Depression 08/15/2012 DX:Depression 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
--- OUTSIDE RECORDS SUMMARY | 2024-03-28 11:09 | XMS_ITS | Encounter Summary ---
Author Organization [employer] Address [address] [place] [address] [address] [place] [address] Care Team Providers Care Clinical Education Manager Name Role Phone Kourtney Saxena MD Primary Care Pro vider Encounter Details Date Type Department Care Team (Late st Contact Info) Description 05/04/2023 Orders Only [facility] [address] [place], [place] [phone] Love Quintanilla MD [address] [place] [address] Social History Tobacco Use Types Packs/Day Years [...] Reflex to Culture (11/01/2023 11:36 AM EDT) [facility] Appearance Urine Clear [facility] PH 7.0 5.0 - 9.0 [facility] Glucose Urine UA Negative Negative mg/dL [facility] Urine Blood Negative Negative [facility] Specific [place] - Urine 1.010 1.005 - 1.025 [facility] Urine Protein 100 (2+)(A) Neg-Trace mg/dL [facility] Urine Ketones Negative Negative mg/dL [facility] Nitrite Urine Negative Negative [facility] Leukocyte Esterase Urine Negative Negative [facility] RBC Urine 0-2 0 - 2 /HPF [facility] Urine WBC 0-5 0 - 5 /HPF [facility] Urine Squamous Epithelial Cell 0-2 0 - 2 /HPF [facility] Urine Bacteria None Seen None Seen [facility] Hyaline Casts, Urine 0-2 0 - 2 /LPF [facility] 11/01/2023 11:3 6 AM EDT 11/01/2023 1:21 PM EDT Narrative [facility] - 11/01/2023 1:41 PM EDT Urine, Clean Catch us Kourtney Epstein MD LAB URINE ORDERAB LES Final Result [facility] [address] [place] [phone] * (ABNORMAL) Albumin, Random Urine W/Creatinine (08/17/2023 2:30 PM EDT) Creatinine, Urine 94.35 mg/dL [facility] Microalbumin Urine >2,000.0 mg/L [facility] Microalbum Creatinine Ratio Ur 2,119.7(H ) <30 ug/mg cr [facility] Comment:Albumin/Creatinine R atio Reference Ranges: Normal: < 30 ug/mg creatinine Microalbuminuria: 30 - 300 ug/mg creatinineClinical Albuminuria: > 300 ug/mg creatinine 08/17/2023 2:30 PM EDT 08/17/2023 4:14 PM EDT us Kourtney Epstein MD LAB URINE ORDERAB LES Final Result [facility] [address] [place] [phone] documented in this encounter Visit Diagnoses Not on filedocumented in this encounter Care Teams Clinical Education Manager Relationship Specialty Start Date End Date Kourtney Saxena MD [address] [place] [phone] PCP - General Internal Medicine 04/23/23 documented as of this encounter
--- OUTSIDE RECORDS SUMMARY | 2024-03-28 11:09 | XMS_ITS | Encounter Summary ---
Author Organization [employer] Address [address] [place] [address] [address] [place] [address] Care Team Providers Care Hair Or Beauty Salon Manager Name Role Phone Kourtney Saxena MD Primary Care Pro vider Reason for Visit * Reason Comments Med Refill Encounter Details Date Type Department Care Team ([facility] st Contact Info) Description 02/24/2024 Refill [facility] [address] [place] [address] Kourtney Saxena MD [address] [place] [address] Social History Tobacco Use Types Packs/Day Years [...] documented as of this encounter Care Teams Hair Or Beauty Salon Manager Relationship Specialty Start Date End Date Kourtney Saxena MD [address] [place] [phone] PCP - General Internal Medicine 04/23/23 documented as of this encounter
--- OUTSIDE RECORDS SUMMARY | 2024-03-28 11:09 | XMS_ITS | Encounter Summary ---
Author Organization [employer] Address [address] [facility] [address] [place] [address] Care Team Providers Care Counselor Dormitory Name Role Phone Kourtney Saxena MD Primary Care Pro vider Reason for Visit * Reason Onset Date Comments wood recall 03/13/2024 Encounter Details Date Type Department Care Team ([facility] st Contact Info) Description 03/13/2024 Telephone [facility] MED[facility] [address] [place] [address] [place] may recall Social History Tobacco Use [...] [place] - 03/13/2024 1:47 PM EST T/C- Padder Cushion Left Voice Mail to return call to [...] documented as of this encounter Care Teams Counselor Dormitory Relationship Specialty Start Date End Date Kourtney Saxena MD [address] [place] [phone] PCP - General Internal Medicine 04/23/23 documented as of this encounter
--- OUTSIDE RECORDS SUMMARY | 2024-03-28 11:09 | XMS_ITS | Encounter Summary ---
Author Organization [employer] Address [address] [facility] [address] [place] [address] Care Team Providers Care Filling Layer Up Name Role Phone Kourtney Saxena MD Primary Care Pro vider Reason for Visit * Reason Onset Date Comments Results 03/25/2024 Encounter Details Date Type Department Care Team ([facility] Contact Info) Description 03/25/2024 Telephone [facility] MEDICINE [address] [place], [place] [phone] Kitty Jackson, RN [address] [place], [place] [phone] Results Social History Tobacco Use Types Packs/Day [...] documented as of this encounter Care Teams Filling Layer Up Relationship Specialty Start Date End Date Kourtney Saxena MD [address] [place] [phone] PCP - General Internal Medicine 04/23/23 documented as of this encounter
--- OUTSIDE RECORDS SUMMARY | 2024-03-28 11:09 | XMS_ITS | Encounter Summary ---
Author Organization [employer] Address [address] [place] [address] [address] [address] Care Team Providers Care Ops Analyst Name Role Phone Kourtney Saxena MD Primary Care Pro vider Reason for Visit * Reason Comments Med Refill Encounter Details Date Type Department Care Team (Late st Contact Info) Description 03/18/2024 Refill [facility] [address] [place], [place] [phone] Kourtney Saxena MD [address] [place] [address] Social History Tobacco Use Types Packs/Day Years [...] documented as of this encounter Care Teams Ops Analyst Relationship Specialty Start Date End Date Kourtney Saxena MD [address] [place] [phone] PCP - General Internal Medicine 04/23/23 documented as of this encounter
--- OUTSIDE RECORDS SUMMARY | 2024-03-28 11:09 | XMS_ITS | Encounter Summary ---
Author Organization [employer] Address [address] [facility] 7 [place] [address] Care Team Providers Care Head Neck Surgeon Name Role Phone Kourtney Saxena MD Primary [...] t he electric, gas, oil or water [employer] threatened to shut off services in your [...] Protein, Total, Random Urine 273(H) <12 mg/dL [facility] 03/23/2024 3:19 PM EST 03/23/2024 3:56 PM EST us Generic External Data Provider LAB URINE ORDERAB LES Final Result [facility] [address] [place] [phone] * Creatinine, Random Urine (03/23/2024 3:19 PM EST) Creatinine, Urine 37.91 mg/dL [facility] 03/23/2024 3:19 PM EST 03/23/2024 3:56 PM EST Generic External Data Provider LAB URINE ORDERAB LES Final Result Performing Organization Address [facility] Co de Phone Number [facility] [address] [place] [phone] * (ABNORMAL) Urinalysis Complete (03/23/2024 3:19 PM EST) Color Urine Yellow [facility] Appearance Urine Clear [facility] PH >=9.0 5.0 - 9.0 [facility] Glucose Urine UA Negative Negative mg/dL [facility] Urine Blood Negative Negative [facility] Specific [place] - Urine 1.015 1.005 - 1.025 [facility] Urine Protein 300 (3+)(A) Neg-Trace mg/dL [facility] Urine Ketones Negative Negative mg/dL [facility] Nitrite Urine Negative Negative [facility] Leukocyte Esterase Urine Negative Negative [facility] RBC Urine 0-2 0 - 2 /HPF [facility] Urine WBC 0-5 0 - 5 /HPF [facility] Urine Squamous Epithelial Cell 0-2 0 - 2 /HPF [facility] Urine Bacteria None Seen None Seen [facility] Hyaline Casts, Urine 0-2 0 - 2 /LPF [facility] 03/23/2024 3:19 PM EST 03/23/2024 3:56 PM EST us Generic External Data Provider LAB URINE ORDERAB LES Final Result Performing Organization Address [facility] Co de Phone Number [facility] [address] [place] [address] [phone] * (ABNORMAL) Cyclosporine level (03/23/2024 1:56 PM EST) Cyclosporine A Trough <25(A) 100 - 300 mcg/L [facility] Comment:No definitive therap eutic or toxic ranges have beenestablished. Optimal blood drug levels are influencedby type of transplant, patient response, time post-transplant, co-administration of other drugs, and drugformulation. The following trough ranges are suggestedguidelines:Kidney Transplantation: 100-200 mcg/LOther Organ Transplant: 200-300 mcg/LThis test was developed and its analytical performancecharacteristics have been determined by [employer] [place], [place]. It hasnot been cleared or approved by the U.S. Food and DrugAdministration. This assay has been validated pursuantto the CLIA regulations and is used for clinicalpurposes.THIS TEST WAS PERFORMED AT:[id number] [place] [address]WWLBFUMSIMON CRAMER MD,PHD 03/23/2024 1:56 PM EST 03/23/2024 3:58 PM EST us Generic External Data Provider LAB BLOOD ORDERAB LES Final Result [facility] [address] [place] [phone] documented in this encounter Visit Diagnoses Not on filedocumented in this encounter Additional Health Concerns Assessment Noted Time PHQ-9 Depression Total Score: 4 07/02/19 10:41 AM EDT documented as of this encounter Care Teams Head Neck Surgeon Relationship Specialty Start Date End Date Kourtney Saxena MD [address] [place] [phone] PCP - General Internal Medicine 04/23/23 documented as of this encounter
--- OUTSIDE RECORDS SUMMARY | 2024-03-28 11:10 | XMS_ITS | Encounter Summary ---
Author Organization [employer] Address [address] [place] [address] [address] [place] [address] Care Team Providers Care Gym Attendant Name Role Phone Kourtney Saxena MD Primary Care Pro vider Reason for Visit * Reason Comments Med Refill Encounter Details Date Type Department Care Team ([facility] st Contact Info) Description 12/07/2022 Refill [facility] [address] [place] [address] [phone] Jaylon Martin MD [address] [place] [phone] Social History Tobacco Use Types Packs/Day Years [...] on filedocumented in this encounter Care Teams Gym Attendant Relationship Specialty Start Date End Date Kourtney Saxena MD [address] [place] [phone] PCP - General Internal Medicine 04/23/23 documented as of this encounter
--- OUTSIDE RECORDS SUMMARY | 2024-03-28 11:10 | XMS_ITS | Clinical Summary ---
Author Organization [employer] Address [address] [place] [address] 7 [place] [address] Care Team Providers Care Tax Compliance Manager Name Role Phone Kourtnye Saxena MD Primary Care Pro vider Allergies [...] 24 Active ergocalciferol (Vitamin D2) 1.25 MG (63793 UT) capsule TAKE 1 CAPSULE BY MOUTH [...] Type Department Care Team Description 03/25/2024 Telephone [facility] MEDICINE [address] [place] [address] Kitty Jackson, RN Results 03/23/2024 Orders Only GENERIC EXTERNAL DATA DEPARTMENT Provider, Generic External Data 03/18/2024 Refill [facility] MEDICINE [address] [place] [address] Kourtney Saxena MD 03/13/2024 Telephone [facility] MEDICINE [address] [place] [address] Skylar Carmen MA may recall 02/24/2024 Refill [facility] MED & PEDS [address] [place] [address] Kourtney Saxena MD 02/17/2024 Orders Only [facility] External Provider, [facility] 02/15/2024 Refill [facility] MEDICINE [address] [place] [address] Kourtney Saxena MD 02/07/2024 Travel 01/28/2024 Refill [facility] MEDICINE [address] [place] [address] Kourtney Saxena MD 01/25/2024 Telephone [facility] MEDICINE [address] [place] [phone] Kitty Jackson, RN NTTS 01/24/2024 10:00 AM EST Office Visit [facility] [address] [place] [phone] Jaylon Martin MD Postmenopausal bleeding (Primary Dx); Flank pain; Hypertension, unspecified type 01/19/2024 Refill [facility] MEDICINE [address] [place] [address] Kourtney Saxena MD 01/11/2024 Orders Only [facility] MEDICINE [address] [place] [phone] Kourtney Saxena MD Hypothyroidism, unspecified type (Primary Dx); Hyperlipidemia, unspecified hyperlipidemia type 01/11/2024 Orders Only GENERIC EXTERNAL DATA DEPARTMENT Provider, Generic External Data 01/04/2024 10:30 AM EST Clinical Support [facility] [address] [place] [address] Ange Izaguirre RN Hypertension, unspecified type 01/04/2024 [...] Protein, Total, Random Urine 273(H) <12 mg/dL [facility] 03/23/2024 3:19 PM EST 03/23/2024 3:56 PM EST Generic External Data Provider LAB URINE ORDERAB LES Final Result Performing Organization Address [facility] Co de Phone Number [facility] [address] [place] [phone] * Creatinine, Random Urine (03/23/2024 3:19 PM EST) Only the most recent of2 resultswithin the time period is included. Creatinine, Urine 37.91 mg/dL [facility] 03/23/2024 3:19 PM EST 03/23/2024 3:56 PM EST [employer] External Data Provider LAB URINE ORDERAB LES Final Result Performing Organization Address [facility] Phone Number [facility] [address] [place] [phone] * (ABNORMAL) Urinalysis Complete (03/23/2024 3:19 PM EST) Only the most recent of2 resultswithin the time period is included. Color Urine Yellow [facility] Appearance Urine Clear [facility] PH >=9.0 5.0 - 9.0 [facility] Glucose Urine UA Negative Negative mg/dL [facility] Urine Blood Negative Negative [facility] Specific [place] - Urine 1.015 1.005 - 1.025 [facility] Urine Protein 300 (3+)(A) Neg-Trace mg/dL [facility] Urine Ketones Negative Negative mg/dL [facility] Nitrite Urine Negative Negative [facility] Leukocyte Esterase Urine Negative Negative [facility] RBC Urine 0-2 0 - 2 /HPF [facility] Urine WBC 0-5 0 - 5 /HPF [facility] Urine Squamous Epithelial Cell 0-2 0 - 2 /HPF [facility] Urine Bacteria None Seen None Seen [facility] Hyaline Casts, Urine 0-2 0 - 2 /LPF [facility] 03/23/2024 3:19 PM EST 03/23/2024 3:56 PM EST us Generic External Data Provider LAB URINE ORDERAB LES Final Result Performing Organization Address [facility]/ZIP Co de Phone Number [facility] [address] [place] [phone] * TSH (03/23/2024 3:19 PM EST) Only the most recent of2 resultswithin the time period is included. Thyroid Stimulating Hormone 1.06 0.32 - 4.0 uIU/mL [facility] Comment:TSH 3rd Generation ( [facility]) Blood Venous blood specimen / Unknown 03/23/2024 3:19 PM EST 03/23/2024 3:58 PM EST us Kourtney Epstein MD LAB BLOOD ORDERAB LES Final Result Performing Organization Address [facility] Co de Phone Number [facility] [address] [place] [phone] * T4, Free (03/23/2024 3:19 PM EST) Free T4 (Free Thyroxine) 1.06 0.71 - 1.85 ng/dL [facility] Blood Venous blood specimen / Unknown 03/23/2024 3:19 PM EST 03/23/2024 3:58 PM EST us Kourtney Epstein MD LAB BLOOD ORDERAB LES Final Result Performing Organization Address City/[facility]/ZIP Co de Phone Number [facility] [address] [place] [address] [place] [phone] * (ABNORMAL) Comprehensive Metabolic Panel (03/23/2024 3:19 PM EST) Only the most recent of2 resultswithin the time period is included. Sodium 138 135 - 145 mmol/L [facility] Potassium 4.3 3.3 - 5.1 mmol/L [facility] Chloride 102 96 - 108 mmol/L [facility] Carbon Dioxide 30(H) 22 - 29 mmol/L [facility] Anion Gap 10(L) 12 - 20 [facility] Urea Nitrogen (BUN) 19(H) 9 - 16 mg/dL [facility] Creatinine, Serum 0.64 0.5 - 1.4 mg/dL [facility] Estimated Glomerular Filt Rate >60 [facility] Comment:Chronic Kidney Disea se: Estimated GFR < 60 mL/min/1.66y8Fknaks Kidney Disease: Estimated GFR < 15 mL/min/1.73m2 Glucose 124(H) 60 - 115 mg/dL [facility] Calcium 9.2 8.4 - 10.2 mg/dL [facility] Bilirubin, Total 0.2 0.0 - 1.0 mg/dL [facility] Aspartate Amino Transferase 24 5 - 31 U/L [facility] Alanine Aminotransferase 31 0 - 31 U/L [facility] Total Protein 6.3(L) 6.5 - 8.0 g/dL [facility] Albumin Level 3.2(L) 3.5 - 5.0 g/dL [facility] Alkaline Phosphatase 54 39 - 117 U/L [facility] Blood Venous blood specimen / Unknown 03/23/2024 3:19 PM EST 03/23/2024 3:58 PM EST us Kourtney Epstein MD LAB BLOOD ORDERAB LES Final Result [facility] [address] [place] [phone] * (ABNORMAL) Cyclosporine level (03/23/2024 1:56 PM EST) Cyclosporine A Trough <25(A) 100 - 300 mcg/L [facility] Comment:No definitive therap eutic or toxic ranges have beenestablished. Optimal blood drug levels are influencedby type of transplant, patient response, time post-transplant, co-administration of other drugs, and drugformulation. The following trough ranges are suggestedguidelines:Kidney Transplantation: 100-200 mcg/LOther Organ Transplant: 200-300 mcg/LThis test was developed and its analytical performancecharacteristics have been determined by [employer] [place], [place]. It hasnot been cleared or approved by the U.S. Food and DrugAdministration. This assay has been validated pursuantto the CLIA regulations and is used for clinicalpurposes.THIS TEST WAS PERFORMED AT:[employer] [place] [address]WEASGJUSIMON CRAMER MD,PHD 03/23/2024 1:56 PM EST 03/23/2024 3:58 PM EST us Generic External Data Provider LAB BLOOD ORDERAB LES Final Result Performing Organization Address City/State/[facility] Co de Phone Number [facility] [address] [place] [phone] * US RENAL BI (02/17/2024 11:16 AM EST) Anatomical Region Laterality Modality Abdomen Ultrasound 02/17/2024 11:1 6 AM EST Narrative 02/17/2024 11:44 AM EST ? [facility] ?[address] [place] [address] ?[place] [address] ? Ultrasound Report ? Signed ? Patient: Nadeem Karch,Madison A ?MR# ?? : [id number] ? : 1975 ?Acct:[id number] ? Age/Sex: 48 / F ?ADM Date: 01/09/25 ? Loc: HO.US ? Attending Dr: Gutierrez Lozano MD ? Ordering Physician: Gutierrez Lozano MD ?? Date of Service: 02/17/24 ?? Procedure(s): US renal BI ?? Accession Number(s): [id number] ? cc: Gutierrez Lozano MD; Kourtney Saxena [...] DD/ 1116 ? TD/TT: 02/17/24 1123 ? Aircraft Loadmaster Superintendent: ? Procedure Note Katelin Fuller - 02/17/[address] [address] Ultrasound Report Signed Patient: Madison Navarro AMR# : [id number] : 1975Acct:[id number] Age/Sex: 48 / FADM Date: 02/17/24 Loc: HO.US Attending Dr: Gutierrez Lozano MD Ordering Physician: Gutierrez Lozano MD Date of Service: 02/17/24 Procedure(s): US renal BI Accession Number(s): [id number] cc: Gutierrez Lozano MD; Kourtney Saxena MD [...] 02/17/24 1141 DD/ 1116 TD/TT: 02/17/24 1123 Aircraft Load[employer] Superintendent: [facility] External Provider IMG US PROCEDURES Final [...] EST 01/24/2024 6:32 PM EST Comment:UACC Narrative [facility] - 01/26/2024 7:47 AM EST Urine Culture Report Result Urine Culture 10,000 to 50,000 cfu/ml Urine Culture Mixed bacterial summer characteristic of Urine Culture urogenital contamination. Specimen Source: Urine clean catch us Jaylon Martin MD LAB MICROBIOLOGY - GENERAL ORDER ANGÉLICA Final Result [facility] [address] [place] [phone] * (ABNORMAL) Urinalysis with Reflex to Microscopic (01/11/2024 9:50 AM EST) Color Urine Yellow [facility] Appearance Urine Clear [facility] PH 6.0 5.0 - 9.0 [facility] Glucose Urine UA Negative Negative mg/dL [facility] Urine Blood Negative Negative [facility] Specific [place] - Urine >=1.030(H) 1.005 - 1.025 [facility] Urine Protein 300 (3+)(A) Neg-Trace mg/dL [facility] Urine Ketones Negative Negative mg/dL [facility] Nitrite Urine Negative Negative [facility] Leukocyte Esterase Urine Negative Negative [facility] 01/11/2024 9:50 AM EST 01/11/2024 11:03 AM EST us Generic External Data Provider LAB URINE ORDERAB LES Final Result Performing Organization Address City/State/[facility] Co de Phone Number [facility] [address] [place] [phone] * (ABNORMAL) CBC (01/11/2024 9:50 AM EST) White Blood Count 11.3(H) 4.8 - 10.8 X10*3/uL [facility] Red Blood Count 4.77 4.20 - 5.50 X10*6/uL [facility] Hemoglobin 12.6 12.0 - 16.0 g/dl [facility] Hematocrit 38.4 37.0 - 47.0 % [facility] Mean Corpuscular Volume 80.5 80.0 - 98.0 fL [facility] Mean Corpuscular Hemoglobin 26.4(L) 27.0 - 33.0 pg [facility] Mean Corpuscular HGB Conc 32.8 31.0 - 35.0 g/dl [facility] Red Cell Distribution Width 15.5 11.0 - 16.0 % [facility] Platelet Count 379 160 - 400 X10*3/uL [facility] Mean Platelet Volume 9.6 9.4 - 12.3 fL [facility] NRBC Pct Auto 0.0 0.0 - 0.2 /100WBC [facility] NRBC Abs Auto 0.000 0.0 - 0.012 X10*3/uL [facility] 01/11/2024 9:50 AM EST 01/11/2024 11:28 AM EST us Generic External Data Provider LAB BLOOD ORDERAB LES Final Result Performing Organization Address City/[facility]/ZIP Co de Phone Number [facility] [address] [place] [phone] * (ABNORMAL) Lipid Panel, Standard (01/11/2024 9:50 AM EST) Triglycerides 133 <150 mg/dL [facility] Comment:Desirable Triglyceri de: less than 150 mg/dLBorderline High Triglyceride 150-199 mg/dLHigh Triglyceride: 200-499 mg/dLVery High Triglyceride: greater than or equal to 5OO mg/dL Cholesterol 246(H) <200 mg/dL [facility] Comment:Desirable Cholestero l: less than 200 mg/dLBorderline High Cholesterol: 200-239 mg/dLHigh Cholesterol: greater than 239 mg/dL LDL Cholesterol Calculated 148(H) <100 mg/dL [facility] Comment:Desirable LDL: less than 100 mg/dLNear Optimal/Above Optimal LDL: 110- 129 mg/dLBorderline High LDL: 130-159 mg/dLHigh LDL: 160-189 mg/dLVery High LDL: greater than or equal to 190 mg/dL HDL Cholesterol 72 >40 mg/dL [facility] Comment:Desirable HDL: great er than 40 mg/dL Note: This HDL assay may give artificially low results in patients with liver disease. 01/11/2024 9:50 AM EST 01/11/2024 11:31 AM EST us Generic External Data Provider LAB BLOOD ORDERAB LES Final Result Performing Organization Address City/[facility]/ZIP Co de Phone Number [facility] [address] [place] [phone] * CT Lung Screening Low dose (12/10/2023 10:40 AM EDT) Anatomical Region Laterality Modality Lung Computed Tomogra phy 12/10/2023 10:4 0 AM EDT Narrative 01/26/2024 11:47 PM EST ? [facility] ?[address] ?[place], [place] [address] ? CT Scan Report ? Signed ? Patient: Madison Navarro ?MR# ?? : [id number] ? : 1975 ?Acct:[id number] ? Age/Sex: 48 / F ?ADM Date: 12/10/23 ? Loc: HO.CT ? Attending Dr: Stacy Mays PA-C ? Ordering Physician: Stacy Mays PA-C ?? Date of Service: 12/10/23 ?? Procedure(s): CT lung screening ?? Accession Number(s): [id number] ? cc: Stacy Mays PA-C; Kourtney Saxena [...] DD/ 1040 ? TD/TT: 12/10/23 1045 ? Aircraft Loadmaster Superintendent: SS ? Procedure Note Katelin Fuller - 01/26/[address] [address] [address] Scan Report Signed Patient: Madison Navarro [facility]# : [id number] : 1975Acct:[id number] Age/Sex: 48 / FADM Date: 12/10/23 Loc: HO.CT Attending Dr: Stacy Mays PA-C Ordering Physician: Stacy Mays PA-C Date of Service: 12/10/23 Procedure(s): CT lung screening Accession Number(s): [id number] cc: Stacy Mays PA-C; Kourtney Saxena MD [...] by: Kuldeep Roca MD 01/26/2024 11:44 PM [facility] Dictated By: Kuldeep Roca MD Signed By: <Electronically signed by Kuldeep Roca MD in OV> 01/26/24 2344 DD/ 1040 TD/TT: 12/10/23 1045 Aircraft Loadmaster Superintendent: BRIAN [facility] External Provider IMG CT PROCEDURES Edited Result - Final * BI Mammogram Screening Tomosynthesis Bilateral (08/17/2023 9:18 AM EDT) Anatomical Region Laterality Modality Breast Bilateral Mammography 08/17/2023 9:18 AM EDT Narrative 09/12/2023 3:49 PM EDT ? [facility] ? [address] ?[place] [address] ? Mammography Report ? Signed ? Patient: Beth Navarrofer Marlene ?MR# ?? : [id number] ? : 1975 ?Acct:[id number] ? Age/Sex: 48 / F ?ADM Date: 08/17/23 ? Loc: HO.MAMMO ? Attending Dr: Kourtney Epstein MD ? Ordering Physician: Kourtney Saxena MD ?Re ?? sults: 2Benign Findings ? Date of Service: 08/17/23 ?Follow Up: 1 Year From Orig ?? inal Mammogram ? Procedure(s): MM tomosynthesis screening BI ?? Accession Number(s): [id number] ? cc: Kourtney Saxena MD ? EXAMINATION: [...] 1546 ? DD/ 0918 ? TD/TT: ? Aircraft Loadmaster Superintendent: ? Procedure Note Alina, Image - 09/12/2023 [facility] [address] [place] [address] [place], [place] [address] Mammography Report Signed Patient: Madison Navarro AMR# : [id number] : 1975Acct:[id number] Age/Sex: 48 / FADM Date: 08/17/23 Loc: AI Attending Dr: Kourtney Epstein MD Ordering Physician: Kourtney Saxena sults: 2Benign Findings Date of Service: 08/17/23Follow Up: 1 Year From [facility] ina Mammogram Procedure(s): MM tomosynthesis screening BI Accession Number(s): [id number] cc: Kourtney Saxena MD EXAMINATION: MM SCREENING [...] in OV> 09/12/23 1546 DD/ 0918 TD/TT: Aircraft Loadmaster Superintendent: Kourtney Epstein MD IMG BI PROCEDURES Final Result * Hepatitis C Antibody with Reflex to HCV, RNA, Quantitative, Real-Time PCR (07/27/2023 10:47 AM EDT) Hepatitis C Antibody Nonreactive Nonreactive [facility] Comment:Antibodies to HCV no t detected; does not exclude early acuteHCV infection. Blood Venous blood specimen / Unknown 07/27/2023 10:47 AM EDT 07/27/2023 11:28 AM EDT us Kourtney Epstein MD LAB BLOOD ORDERAB LES Final Result Performing Organization Address [facility]/ZIP Co de Phone Number [facility] [address] [place] [phone] * HIV-1/2 Antigen and Antibodies, Fourth Generation, with Reflexes (07/27/2023 10:47 AM EDT) [facility] HIV AB/AG Nonreactive Nonreactive [facility] Comment:HIV-1 p24 Ag and/or HIV-1/HIV-2 Ab not detected.A test result that is nonreactive does not exclude thepossibility of exposure to or infection with HIV-1 and/orHIV-2. Nonreactive results in this assay for individualswith prior exposure to HIV-1 and/or HIV-2 may be due toantigen and antibody levels that are below the limit ofdetection of this assay.The [employer] HIV Ag/Ab Combo assay result andsupplemental assay results should be interpreted inconjunction with the patient's clinical presentation,history and other laboratory results. If the results areinconsistent with clinical evidence, additional testing issuggested to confirm the result. Blood Venous blood specimen / Unknown 07/27/2023 10:47 AM EDT 07/27/2023 11:28 AM EDT us Kourtney Epstein MD LAB BLOOD ORDERAB LES Final Result Performing Organization Address [facility]/ZIP Co de Phone Number [facility] [address] [place] [address] [phone] from Last 3 Months or Most Recently Relevant to Health Maintenance Insurance [address] [place] [address] [facility] [address] [place] [id number] [address] [place] [phone] Care Teams Tax Compliance Manager Relationship Specialty Start Date End Date Kourtney Saxena MD [address] [place] [phone] PCP - General Internal Medicine 04/23/23
--- OUTSIDE RECORDS SUMMARY | 2024-03-28 11:10 | XMS_ITS | Encounter Summary ---
Author Organization [employer] Address [address] [place] [address] Care Team Providers Care Senior Graduate Advisor Name Role Phone Kourtney Saxena MD Primary Care Pro vider Reason for Visit * Reason Comments Med Refill Encounter Details Date Type Department Care Team (Late st Contact Info) Description 12/14/2022 Refill [facility] [address] [place] [address] Love Quintanilla MD [address] [place] [address] Social History Tobacco Use Types Packs/Day Years [...] on filedocumented in this encounter Care Teams Senior Graduate Advisor Relationship Specialty Start Date End Date Kourtney Saxena MD [address] [place], [place] [phone] PCP - General Internal Medicine 04/23/23 documented as of this encounter
[2024-04-03 15:03] LABS: HPV Genotype 16 Negative (Negative); HPV Genotype 18 Negative (Negative); HPV High Risk Negative (Negative)
== END 2024-03-28 09:16 | disposition home or self-care (01) ==
LOC: HO.LNP 09:15
PROVIDERS: PCP Student in an Organized Health Care Education/Training Program; Visit Provider Obstetrics & Gynecology
DX: N95.0 Postmenopausal bleeding (principal)
CPT/HCPCS: 87626; 88175

== ENCOUNTER 2024-03-28 09:15 | Outpatient (AMB) | payer OTHER, MEDICAID, SELFPAY ==
[2024-03-28 09:49] VITALS: BP 126/78; BMI 39.4
--- NOTE | 2024-03-28 09:49 | A.OFFVIS_ITS ---
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 years ago Last mammogram was BI-RADS 2 in 08/31 [facility] Medical History Nephrotic syndrome History of CVA (cerebrovascular accident) Nicotine dependence, cigarettes, uncomplicated DJD (degenerative joint disease) Hypothyroidism Hyperlipidemia Hypertension Surgical History History of History of cervical discectomy Family History Mother Lung cancer, Onset Age: 67 Social History Alcohol intake: never Tobacco use type: Cigarette Years Smoked: (onset 25yo, 1ppd x 23yrs, now 1/2-3/4ppd - 20+PYH) Review of Systems Const All systems reviewed & are unremarkable except as noted in HPI and below Card Reports as per HPI Resp Reports as per HPI GI Reports as per HPI and Reports no additional complaints Reports as per HPI Physical Exam Vital Signs: Last Vital Signs BP 126/78 03/28/24 09:49 BMI result Body Mass Index 39.4 Const General: cooperative, healthy appearing and comfortable Resp Effort & Inspection: normal respiratory effort Auscultation: clear to auscultation bilaterally Percussion: percussion normal Cardio Palpation: normal PMI Rate: regular rate Rhythm: regular rhythm Heart sounds: no murmurs and no rubs Peripheral pulses: Peripheral pulses 2+ throughout GI Inspection: Yes normal to inspection Palpation (GI): Soft to palpation, nontender, no guarding, not rigid and No hepatosplenomegaly present Percussion: Yes normal to percussion Auscultation: normal bowel sounds Rectal Exam - Female: deferred Other: Suboptimal exam because of body habitus, cervix difficult to visualize General: Yes bladder normal to palpation External Female Exam: No lesion Speculum Exam - Vagina: normal appearance of the vagina, normal palpation, normal vaginal discharge and not erythematous Speculum Exam - Cervix: Other cervical findings present (Cervix suboptimally visualized because of retroflexed uterus & body habitus) Bimanual exam- vagina & uterus: normal bimanual exam, normal palpation, uterine size normal, bladder normal to palpation and consistency normal Bimanual Exam- Adnexa, other: normal adnexae, no masses and no tenderness Assessment & Plan Assessment & Plan (1) Postmenopausal bleeding: Code(s): N95.0 - Postmenopausal bleeding Category: Medical Plan: Discussed with the patient the differential diagnosis of post menopausal bleeding including but not limited to, endometrial hyperplasia, cancer, polyps and other causes; co testing done, recommended ultrasound to measure the endometrial stripe; discussed with the patient that if the endometrial thickness is 4 mm or less the negative predictive value of endometrial pathology is 99%, otherwise If endometrial thickness is more than 4 mm will proceed with endometrial sampling versus hysteroscopy D&C polypectomy depending on the ultrasound findings. Instructed the patient to schedule an ultrasound with a follow-up appointment in 2 weeks. All questions answered, the patient verbalized understanding and agreed with the plan. This note was generated with a voice recognition program. Some errors may have been overlooked during the review of this note. Sometimes these errors may affect the content or meaning of a given sentence. Orders: Orders US pelvic and transvaginal Today N95.0 - Postmenopausal bleeding Coding Level of Care Code New Pt Level 3 (12642) Diagnoses Postmenopausal bleeding N95.0
--- OUTSIDE RECORDS SUMMARY | 2024-03-28 09:54 | XMS_ITS | Encounter Summary ---
Author Organization [employer] Address [address] [facility] 7 [place] [address] Care Team Providers Care Machine Splitter Name Role Phone Kourtney Saxena MD Primary Care Pro vider Encounter Details Date Type Department Care Team (Late st Contact Info) Description 03/23/2024 Orders Only GENERIC EXTERNAL DATA DEPARTMENT Provider, Generic External Data Social History Tobacco Use Types Packs/Day Years Used Date Smoking Tobacco: Every Day Cigarettes 03 03. Started: 2000 Smokeless Tobacco: Current Alcohol Use [...] your housing situation today? I have pankaj karon 08/17/[address] you li [...] t he electric, gas, oil or water [employer] threatened to shut off services in your [...] Procedure Name Priority Date/Time Associated Diagnosis Comments URINE PROTEIN, TOTAL, RANDOM (W/O CREATININE) Routine 03/23/2024 3:19 PM EST CREATININE, RANDOM URINE Routine 03/23/2024 3:19 PM EST URINALYSIS, COMPLETE Routine 03/23/2024 3:19 PM EST CYCLOSPORINE LEVEL Routine 03/23/2024 1: 56 PM EST documented in this encounter Results * (ABNORMAL) Urine Protein, Total, Random without Creatinine (03/23/2024 3:19 PM EST) Protein, Total, Random Urine 273(H) <12 mg/dL [facility] 03/23/2024 3:19 PM EST 03/23/2024 3:56 PM EST us Generic External Data Provider LAB URINE ORDERAB LES Final Result [facility] [address] [place] [phone] * Creatinine, Random Urine (03/23/2024 3:19 PM EST) Creatinine, Urine 37.91 mg/dL [facility] 03/23/2024 3:19 PM EST 03/23/2024 3:56 PM EST Generic External Data Provider LAB URINE ORDERAB LES Final Result Performing Organization Address [facility] Co de Phone Number [facility] [address] [place] [phone] * (ABNORMAL) Urinalysis Complete (03/23/2024 3:19 PM EST) Color Urine Yellow [facility] Appearance Urine Clear [facility] PH >=9.0 5.0 - 9.0 [facility] Glucose Urine UA Negative Negative mg/dL [facility] Urine Blood Negative Negative [facility] Specific [place] - Urine 1.015 1.005 - 1.025 [facility] Urine Protein 300 (3+)(A) Neg-Trace mg/dL [facility] Urine Ketones Negative Negative mg/dL [facility] Nitrite Urine Negative Negative [facility] Leukocyte Esterase Urine Negative Negative [facility] RBC Urine 0-2 0 - 2 /HPF [facility] Urine WBC 0-5 0 - 5 /HPF [facility] Urine Squamous Epithelial Cell 0-2 0 - 2 /HPF [facility] Urine Bacteria None Seen None Seen [facility] Hyaline Casts, Urine 0-2 0 - 2 /LPF [facility] 03/23/2024 3:19 PM EST 03/23/2024 3:56 PM EST us Generic External Data Provider LAB URINE ORDERAB LES Final Result Performing Organization Address [facility] Co de Phone Number [facility] [address] [place] [address] [phone] * (ABNORMAL) Cyclosporine level (03/23/2024 1:56 PM EST) Cyclosporine A Trough <25(A) 100 - 300 mcg/L [facility] Comment:No definitive therap eutic or toxic ranges have beenestablished. Optimal blood drug levels are influencedby type of transplant, patient response, time post-transplant, co-administration of other drugs, and drugformulation. The following trough ranges are suggestedguidelines:Kidney Transplantation: 100-200 mcg/LOther Organ Transplant: 200-300 mcg/LThis test was developed and its analytical performancecharacteristics have been determined by [employer] [place], [place]. It hasnot been cleared or approved by the U.S. Food and DrugAdministration. This assay has been validated pursuantto the CLIA regulations and is used for clinicalpurposes.THIS TEST WAS PERFORMED AT:[facility] [place] [id number] CRAMER MD,PHD 03/23/2024 1:56 PM EST 03/23/2024 3:58 PM EST us Generic External Data Provider LAB BLOOD ORDERAB LES Final Result [facility] [address] [place] [address] [phone] documented in this encounter Visit Diagnoses Not on filedocumented in this encounter Additional Health Concerns Assessment Noted Time PHQ-9 Depression Total Score: 4 07/02/19 10:41 AM EDT documented as of this encounter Care Teams Machine Splitter Relationship Specialty Start Date End Date Kourtney Saxena MD [address] [place] [phone] PCP - General Internal Medicine 04/23/23 documented as of this encounter
--- OUTSIDE RECORDS SUMMARY | 2024-03-28 09:54 | XMS_ITS | Clinical Summary ---
Author Organization [facility] Address [address] [place] [address] Care Team Providers Care Toe Puncher Name Role Phone Vero Archuleta DO Primary Care Provider [phone] Surgical History Surgery Date Site/Laterality Comments SECTION PROCEDURE: HISTORICAL DELIVERY Medical History Medical History Date Comments History of drug dependence/a buse ([facility]/HCC) 08/03/2013 DX:History of drug dependenc e/abuse ([facility]); COMMENT: Marijuana, cocaine, crack, heroin - clean since 02/28/16 (relapse 01/22) PTSD (post-traumatic stress disorder) 10/17/2013 DX:PTSD (post-traumatic stress disorder) Anxiety 10/17/2013 DX:Anxiety Alcohol abuse 08/15/2012 DX:Alcohol abuse ; COMMENT: Quit May 2012 Was hospitalized [facility] previous pcp , clean Dec 2015 Asthma 08/15/2012 DX:Asthma Depression 08/15/2012 DX:Depression 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
--- OUTSIDE RECORDS SUMMARY | 2024-03-28 09:54 | XMS_ITS | Encounter Summary ---
Author Organization [employer] Address [address] [facility] 7t [place] [address] Care Team Providers Care Manager Of Marketing Name Role Phone Kourtney Saxena MD Primary Care Pro vider Reason for Visit * Reason Onset Date Comments wood recall 03/13/2024 Encounter Details Date Type Department Care Team ([facility] st Contact Info) Description 03/13/2024 Telephone [facility] [address] [place] [address] Alex CarmenMatthews, [place] may recall Social History Tobacco Use [...] [place] - 03/13/2024 1:47 PM EST T/C- Nib Inspector Left Voice Mail to return call to [...] documented as of this encounter Care Teams Manager Of Marketing Relationship Specialty Start Date End Date Kourtney Saxena MD [address] [place] [phone] PCP - General Internal Medicine 04/23/23 documented as of this encounter
--- OUTSIDE RECORDS SUMMARY | 2024-03-28 09:54 | XMS_ITS | Encounter Summary ---
Author Organization [employer] Address [address] [place] [address] [address] [address] Care Team Providers Care Safe And Vault Installer Name Role Phone Kourtney Saxena MD Primary Care Pro vider Reason for Visit * Reason Comments Med Refill Encounter Details Date Type Department Care Team (Late st Contact Info) Description 03/18/2024 Refill [facility] [address] [place], [place] [phone] Kourtney Saxena MD [address] [place] [address] Social History Tobacco Use Types Packs/Day Years [...] documented as of this encounter Care Teams Safe And Vault Installer Relationship Specialty Start Date End Date Kourtney Saxena MD [address] [place] [phone] PCP - General Internal Medicine 04/23/23 documented as of this encounter
--- OUTSIDE RECORDS SUMMARY | 2024-03-28 09:54 | XMS_ITS | Encounter Summary ---
Author Organization [employer] Address [address] [place] [address] [address] [place] [address] Care Team Providers Care Local Government Legislator Name Role Phone Kourtney Saxena MD Primary Care Pro vider Reason for Visit * Reason Comments Med Refill Encounter Details Date Type Department Care Team ([facility] st Contact Info) Description 02/24/2024 Refill [facility] [address] [place] [address] Kourtney Saxena MD [address] [place] [address] Social History Tobacco Use Types Packs/Day Years [...] documented as of this encounter Care Teams Local Government Legislator Relationship Specialty Start Date End Date Kourtney Saxena MD [address] [place] [phone] PCP - General Internal Medicine 04/23/23 documented as of this encounter
--- OUTSIDE RECORDS SUMMARY | 2024-03-28 09:54 | XMS_ITS | Encounter Summary ---
Author Organization [employer] Address [address] [facility] [address] [place] [address] Care Team Providers Care Distribution Field Technician Name Role Phone Kourtney Saxena MD Primary Care Pro vider Reason for Visit * Reason Onset Date Comments Results 03/25/2024 Encounter Details Date Type Department Care Team ([facility] Contact Info) Description 03/25/2024 Telephone [facility] MED[facility]INE [address] [place], [place] [phone] Kitty Jackson, RN [address] [place], [place] [phone] Results Social History Tobacco Use Types Packs/Day Years [...] encounter Miscellaneous Notes * Telephone Encounter - Kitty Jackson RN - 03/25/2024 9:03 AM EST T/C placed to pt re below lab results and POC. Informed labs stable. Pt reports labs were done fasting. Informed BG was a little high for fasting. Pt reports that she is on prednisone which she believes is raising her BG. Reports currently being weaned off. Was on 60mg, now on 20mg. Advised to callif any signs of hyperglycemia (increased thirst, increased urination, unintentional weight loss). Advised to cut down on sugary foods and drinks and try to increase exercise. Pt verbalized understanding and denied having any further questions or concerns at this time. * Telephone Encounter - Kitty Jackson RN - 03/25/2024 9:01 AM EST ----- Message from Alivia Washington sent at 03/24/2024 5:11 PM EST ----- Please let patient know, labs stable however blood sugar was a little bit elevated on most recent labs. Recommend decrease sugar/simple carbs and increase exercise. Let us know if having increased thirst, unintentional weight loss or frequent urination. Thyroid testing was normal. documented in this encounter Plan of Treatment Not on file documented as of this encounter Visit Diagnoses Not on filedocumented in this encounter Additional Health Concerns Assessment Noted Time PHQ-9 Depression Total Score: 4 07/02/19 10:41 AM EDT documented as of this encounter Care Teams Distribution Field Technician Relationship Specialty Start Date End Date Kourtney Saxena MD [address] [place] [phone] PCP - General Internal Medicine 04/23/23 documented as of this encounter
--- OUTSIDE RECORDS SUMMARY | 2024-03-28 09:55 | XMS_ITS | Clinical Summary ---
Author Organization [employer] Address [address] [place] [address] 7 [place] [address] Care Team Providers Care Software Engineer Sales Name Role Phone Kourtney Saxena MD Primary [...] 24 Active ergocalciferol (Vitamin D2) 1.25 MG (01087 UT) capsule TAKE 1 CAPSULE BY MOUTH [...] Encounters Date Type Department Care Team Description 03/25/2024 Telephone [facility] [address] [place] [phone] Kitty Jackson, RN Results 03/23/2024 Orders Only GENERIC EXTERNAL DATA DEPARTMENT Provider, Generic External Data 03/18/2024 Refill [facility] [address] [place] [address] Kourtney Saxena MD 03/13/2024 Telephone [facility] [address] [place] [address] Skylar Carmen [place] may recall 02/24/2024 Refill [facility] [address] [place] [address] Kourtney Saxena MD 02/17/2024 Orders Only [facility] External Provider, [facility] 02/15/2024 Refill [facility] [address] [place] [address] Kourtney Saxena MD 02/07/2024 Travel 01/28/2024 Refill [facility] [address] [place] [address] Kourtney Saxena MD 01/25/2024 Telephone [facility] [address] [place] [phone] Kitty Jackson, RN NTTS 01/24/2024 10:00 AM EST Office Visit [facility] [address] [place] [phone] Jaylon Martin MD Postmenopausal bleeding (Primary Dx); Flank pain; Hypertension, unspecified type 01/19/2024 Refill [facility] [address] [place] [phone] Kourtney Saxena MD 01/11/2024 Orders Only [facility] [address] [place] [phone] Kourtney Saxena MD Hypothyroidism, unspecified type (Primary Dx); Hyperlipidemia, unspecified hyperlipidemia type 01/11/2024 Orders Only GENERIC EXTERNAL DATA DEPARTMENT Provider, Generic External Data 01/04/2024 10:30 AM EST Clinical Support [facility] [address] [place] [phone] Ange Izaguirre RN Hypertension, unspecified type 01/04/2024 [...] URINALYSIS, COMPLETE Routine 03/23/2024 3:19 PM EST COMPREHENSIVE METABOLIC PANEL Routine 03/23/2024 3:19 PM EST Hyperlipidemia, unspecified hyperlipidemia type T4, FREE Routine 03/23/2024 3:19 PM EST Hypothyroidism, unspecified type TSH Routine 03/23/2024 3:19 PM EST Hypothyroidism, unspecified type CYCLOSPORINE LEVEL Routine 03/23/2024 1: 56 PM EST US RENAL BI Routine 02/17/2024 11:16 AM [...] Recently Relevant to Health Maintenance Results * (ABNORMAL) Urine Protein, Total, Random without Creatinine (03/23/2024 3:19 PM EST) Only the most recent of2 resultswithin the time period is included. Protein, Total, Random Urine 273(H) <12 mg/dL [facility] 03/23/2024 3:19 PM EST 03/23/2024 3:56 PM EST Generic External Data Provider LAB URINE ORDERAB LES Final Result Performing Organization Address [facility] Co de Phone Number [facility] [address] [place] [phone] * Creatinine, Random Urine (03/23/2024 3:19 PM EST) Only the most recent of2 resultswithin the time period is included. Creatinine, Urine 37.91 mg/dL [facility] 03/23/2024 3:19 PM EST 03/23/2024 3:56 PM EST Magin External Data Provider LAB URINE ORDERAB LES Final Result Performing Organization Address [facility] Phone Number [facility] [address] [place] [phone] * (ABNORMAL) Urinalysis Complete (03/23/2024 3:19 PM EST) Only the most recent of2 resultswithin the time period is included. Color Urine Yellow [facility] Appearance Urine Clear [facility] PH >=9.0 5.0 - 9.0 [facility] Glucose Urine UA Negative Negative mg/dL [facility] Urine Blood Negative Negative [facility] Specific [place] - Urine 1.015 1.005 - 1.025 [facility] Urine Protein 300 (3+)(A) Neg-Trace mg/dL [facility] Urine Ketones Negative Negative mg/dL [facility] Nitrite Urine Negative Negative [facility] Leukocyte Esterase Urine Negative Negative [facility] RBC Urine 0-2 0 - 2 /HPF [facility] Urine WBC 0-5 0 - 5 /HPF [facility] Urine Squamous Epithelial Cell 0-2 0 - 2 /HPF [facility] Urine Bacteria None Seen None Seen [facility] Hyaline Casts, Urine 0-2 0 - 2 /LPF [facility] 03/23/2024 3:19 PM EST 03/23/2024 3:56 PM EST us Generic External Data Provider LAB URINE ORDERAB LES Final Result Performing Organization Address [facility]/ZIP Co de Phone Number [facility] [address] [place] [phone] * TSH (03/23/2024 3:19 PM EST) Only the most recent of2 resultswithin the time period is included. Thyroid Stimulating Hormone 1.06 0.32 - 4.0 uIU/mL [facility] Comment:TSH 3rd Generation ( [facility]) Blood Venous blood specimen / Unknown 03/23/2024 3:19 PM EST 03/23/2024 3:58 PM EST us Kourtney Epstein MD LAB BLOOD ORDERAB LES Final Result Performing Organization Address [facility] Co de Phone Number [facility] [address] [place] [phone] * T4, Free (03/23/2024 3:19 PM EST) Free T4 (Free Thyroxine) 1.06 0.71 - 1.85 ng/dL [facility] Blood Venous blood specimen / Unknown 03/23/2024 3:19 PM EST 03/23/2024 3:58 PM EST us Kourtney Epstein MD LAB BLOOD ORDERAB LES Final Result Performing Organization Address City/[facility]/ZIP Co de Phone Number [facility] [address] [place] [address] [place] [phone] * (ABNORMAL) Comprehensive Metabolic Panel (03/23/2024 3:19 PM EST) Only the most recent of2 resultswithin the time period is included. Sodium 138 135 - 145 mmol/L [facility] Potassium 4.3 3.3 - 5.1 mmol/L [facility] Chloride 102 96 - 108 mmol/L [facility] Carbon Dioxide 30(H) 22 - 29 mmol/L [facility] Anion Gap 10(L) 12 - 20 [facility] Urea Nitrogen (BUN) 19(H) 9 - 16 mg/dL [facility] Creatinine, Serum 0.64 0.5 - 1.4 mg/dL [facility] Estimated Glomerular Filt Rate >60 [facility] Comment:Chronic Kidney Disea se: Estimated GFR < 60 mL/min/1.28d6Kgocik Kidney Disease: Estimated GFR < 15 mL/min/1.73m2 Glucose 124(H) 60 - 115 mg/dL [facility] Calcium 9.2 8.4 - 10.2 mg/dL [facility] Bilirubin, Total 0.2 0.0 - 1.0 mg/dL [facility] Aspartate Amino Transferase 24 5 - 31 U/L [facility] Alanine Aminotransferase 31 0 - 31 U/L [facility] Total Protein 6.3(L) 6.5 - 8.0 g/dL [facility] Albumin Level 3.2(L) 3.5 - 5.0 g/dL [facility] Alkaline Phosphatase 54 39 - 117 U/L [facility] Blood Venous blood specimen / Unknown 03/23/2024 3:19 PM EST 03/23/2024 3:58 PM EST us Kourtney Epstein MD LAB BLOOD ORDERAB LES Final Result [facility] [address] [place] [phone] [phone] * (ABNORMAL) Cyclosporine level (03/23/2024 1:56 PM EST) Cyclosporine A Trough <25(A) 100 - 300 mcg/L [facility] Comment:No definitive therap eutic or toxic ranges have beenestablished. Optimal blood drug levels are influencedby type of transplant, patient response, time post-transplant, co-administration of other drugs, and drugformulation. The following trough ranges are suggestedguidelines:Kidney Transplantation: 100-200 mcg/LOther Organ Transplant: 200-300 mcg/LThis test was developed and its analytical performancecharacteristics have been determined by [employer] [place], [place]. It hasnot been cleared or approved by the U.S. Food and DrugAdministration. This assay has been validated pursuantto the CLIA regulations and is used for clinicalpurposes.THIS TEST WAS PERFORMED AT:[employer] [place] [address]NUMETBBSIMON CRAMER MD,PHD 03/23/2024 1:56 PM EST 03/23/2024 3:58 PM EST us Generic External Data Provider LAB BLOOD ORDERAB LES Final Result Performing Organization Address City/State/[facility] Co de Phone Number [facility] [address] [place] [phone] * US RENAL BI (02/17/2024 11:16 AM EST) Anatomical Region Laterality Modality Abdomen Ultrasound 02/17/2024 11:1 6 AM EST Narrative 02/17/2024 11:44 AM EST ? [facility] ?[address] [place] [address] ?[place] [address] ? Ultrasound Report ? Signed ? Patient: Nadeem Karch,Madison A ?MR# ?? : [id number] ? : 1975 ?Acct:[id number] ? Age/Sex: 48 / F ?ADM Date: 01/09/25 ? Loc: HO.US ? Attending Dr: Gutierrez Lozano MD ? Ordering Physician: Gutierrez Lozano MD ?? Date of Service: 02/17/24 ?? Procedure(s): US renal BI ?? Accession Number(s): [id number] ? cc: Gutierrez Lozano MD; Kourtney Saxena [...] DD/ 1116 ? TD/TT: 02/17/24 1123 ? Nurse Discharge Planner: ? Procedure Note Katelin Fuller - 02/17/[address] [address] Ultrasound Report Signed Patient: Madison Navarro AMR# : [id number] : 1975Acct:[id number] Age/Sex: 48 / FADM Date: 02/17/24 Loc: HO.US Attending Dr: Gutierrez Lozano MD Ordering Physician: Gutierrez Lozano MD Date of Service: 02/17/24 Procedure(s): US renal BI Accession Number(s): [id number] cc: Gutierrez Lozano MD; Kourtney Saxena MD [...] 02/17/24 1141 DD/ 1116 TD/TT: 02/17/24 1123 Nurse Discharge Planner: [facility] External Provider IMG US PROCEDURES Final [...] EST 01/24/2024 6:32 PM EST Comment:UACC Narrative [facility] - 01/26/2024 7:47 AM EST Urine Culture Report Result Urine Culture 10,000 to 50,000 cfu/ml Urine Culture Mixed bacterial summer characteristic of Urine Culture urogenital contamination. Specimen Source: Urine clean catch us Jaylon Martin MD LAB MICROBIOLOGY - GENERAL ORDER ANGÉLICA Final Result [facility] [address] [place] [phone] * (ABNORMAL) Urinalysis with Reflex to Microscopic (01/11/2024 9:50 AM EST) Color Urine Yellow [facility] Appearance Urine Clear [facility] PH 6.0 5.0 - 9.0 [facility] Glucose Urine UA Negative Negative mg/dL [facility] Urine Blood Negative Negative [facility] Specific [place] - Urine >=1.030(H) 1.005 - 1.025 [facility] Urine Protein 300 (3+)(A) Neg-Trace mg/dL [facility] Urine Ketones Negative Negative mg/dL [facility] Nitrite Urine Negative Negative [facility] Leukocyte Esterase Urine Negative Negative [facility] 01/11/2024 9:50 AM EST 01/11/2024 11:03 AM EST us Generic External Data Provider LAB URINE ORDERAB LES Final Result Performing Organization Address City/State/[facility] Co de Phone Number [facility] [address] [place] [phone] * (ABNORMAL) CBC (01/11/2024 9:50 AM EST) White Blood Count 11.3(H) 4.8 - 10.8 X10*3/uL [facility] Red Blood Count 4.77 4.20 - 5.50 X10*6/uL [facility] Hemoglobin 12.6 12.0 - 16.0 g/dl [facility] Hematocrit 38.4 37.0 - 47.0 % [facility] Mean Corpuscular Volume 80.5 80.0 - 98.0 fL [facility] Mean Corpuscular Hemoglobin 26.4(L) 27.0 - 33.0 pg [facility] Mean Corpuscular HGB Conc 32.8 31.0 - 35.0 g/dl [facility] Red Cell Distribution Width 15.5 11.0 - 16.0 % [facility] Platelet Count 379 160 - 400 X10*3/uL [facility] Mean Platelet Volume 9.6 9.4 - 12.3 fL [facility] NRBC Pct Auto 0.0 0.0 - 0.2 /100WBC [facility] NRBC Abs Auto 0.000 0.0 - 0.012 X10*3/uL [facility] 01/11/2024 9:50 AM EST 01/11/2024 11:28 AM EST us Generic External Data Provider LAB BLOOD ORDERAB LES Final Result Performing Organization Address City/[facility]/ZIP Co de Phone Number [facility] [address] [place] [phone] * (ABNORMAL) Lipid Panel, Standard (01/11/2024 9:50 AM EST) Triglycerides 133 <150 mg/dL [facility] Comment:Desirable Triglyceri de: less than 150 mg/dLBorderline High Triglyceride 150-199 mg/dLHigh Triglyceride: 200-499 mg/dLVery High Triglyceride: greater than or equal to 5OO mg/dL Cholesterol 246(H) <200 mg/dL [facility] Comment:Desirable Cholestero l: less than 200 mg/dLBorderline High Cholesterol: 200-239 mg/dLHigh Cholesterol: greater than 239 mg/dL LDL Cholesterol Calculated 148(H) <100 mg/dL [facility] Comment:Desirable LDL: less than 100 mg/dLNear Optimal/Above Optimal LDL: 110- 129 mg/dLBorderline High LDL: 130-159 mg/dLHigh LDL: 160-189 mg/dLVery High LDL: greater than or equal to 190 mg/dL HDL Cholesterol 72 >40 mg/dL [facility] Comment:Desirable HDL: great er than 40 mg/dL Note: This HDL assay may give artificially low results in patients with liver disease. 01/11/2024 9:50 AM EST 01/11/2024 11:31 AM EST us Generic External Data Provider LAB BLOOD ORDERAB LES Final Result Performing Organization Address City/[facility]/ZIP Co de Phone Number [facility] [address] [place] [phone] * CT Lung Screening Low dose (12/10/2023 10:40 AM EDT) Anatomical Region Laterality Modality Lung Computed Tomogra phy 12/10/2023 10:4 0 AM EDT Narrative 01/26/2024 11:47 PM EST ? [facility] ?[address] ?[place], [place] [address] ? CT Scan Report ? Signed ? Patient: Madison Navarro ?MR# ?? : [id number] ? : 1975 ?Acct:[id number] ? Age/Sex: 48 / F ?ADM Date: 12/10/23 ? Loc: HO.CT ? Attending Dr: Stacy Mays PA-C ? Ordering Physician: Stacy Mays PA-C ?? Date of Service: 12/10/23 ?? Procedure(s): CT lung screening ?? Accession Number(s): [id number] ? cc: Stacy Mays PA-C; Kourtney Saxena [...] DD/ 1040 ? TD/TT: 12/10/23 1045 ? Nurse Discharge Planner: SS ? Procedure Note Katelin Fuller - 01/26/[address] [address] [address] Scan Report Signed Patient: Madison Navarro [facility]# : [id number] : 1975Acct:[id number] Age/Sex: 48 / FADM Date: 12/10/23 Loc: HO.CT Attending Dr: Stacy Mays PA-C Ordering Physician: Stacy Mays PA-C Date of Service: 12/10/23 Procedure(s): CT lung screening Accession Number(s): [id number] cc: Stacy Mays PA-C; Kourtney Saxena MD [...] by: Kuldeep Roca MD 01/26/2024 11:44 PM [facility] Dictated By: Kuldeep Roca MD Signed By: <Electronically signed by Kuldeep Roca MD in OV> 01/26/24 2344 DD/ 1040 TD/TT: 12/10/23 1045 Nurse Discharge Planner: BRIAN [facility] External Provider IMG CT PROCEDURES Edited Result - Final * BI Mammogram Screening Tomosynthesis Bilateral (08/17/2023 9:18 AM EDT) Anatomical Region Laterality Modality Breast Bilateral Mammography 08/17/2023 9:18 AM EDT Narrative 09/12/2023 3:49 PM EDT ? [facility] ? [address] ?[place] [address] ? Mammography Report ? Signed ? Patient: Beth Navarrofer Marlene ?MR# ?? : [id number] ? : 1975 ?Acct:[id number] ? Age/Sex: 48 / F ?ADM Date: 08/17/23 ? Loc: HO.MAMMO ? Attending Dr: Kourtney Epstein MD ? Ordering Physician: Kourtney Saxena MD ?Re ?? sults: 2Benign Findings ? Date of Service: 08/17/23 ?Follow Up: 1 Year From Orig ?? inal Mammogram ? Procedure(s): MM tomosynthesis screening BI ?? Accession Number(s): [id number] ? cc: Kourtney Saxena MD ? EXAMINATION: ?? MM SCREENING DIGITAL BREAST TOMOSYNTHESIS, BILATERAL ? CLINICAL INFORMATION: ? Screening. Asymptomatic. ? COMPARISON: ?? Mammography: This study is compared with prior exams dating back to ?? 2019. ? TECHNIQUE: ?? Digital breast tomosynthesis is [...] in OV> ? 09/12/23 1546 ? DD/ 0918 ? TD/TT: ? Nurse Discharge Planner: ? Procedure Note Alina, Image - 09/12/2023 [facility] [address] [place] [address] [place], [place] [address] Mammography Report Signed Patient: Madison Navarro AMR# : [id number] : 1975Acct:[id number] Age/Sex: 48 / FADM Date: 08/17/23 Loc: AI Attending Dr: Kourtney Epstein MD Ordering Physician: Kourtney Saxena sults: 2Benign Findings Date of Service: 08/17/23Follow Up: 1 Year From [facility] ina Mammogram Procedure(s): MM tomosynthesis screening BI Accession Number(s): [id number] cc: Kourtney Saxena MD EXAMINATION: MM SCREENING [...] in OV> 09/12/23 1546 DD/ 0918 TD/TT: Nurse Discharge Planner: Kourtney Epstein MD IMG BI PROCEDURES Final Result * Hepatitis C Antibody with Reflex to HCV, RNA, Quantitative, Real-Time PCR (07/27/2023 10:47 AM EDT) Hepatitis C Antibody Nonreactive Nonreactive [facility] Comment:Antibodies to HCV no t detected; does not exclude early acuteHCV infection. Blood Venous blood specimen / Unknown 07/27/2023 10:47 AM EDT 07/27/2023 11:28 AM EDT us Kourtney Epstein MD LAB BLOOD ORDERAB LES Final Result Performing Organization Address [facility]/ZIP Co de Phone Number [facility] [address] [place] [phone] * HIV-1/2 Antigen and Antibodies, Fourth Generation, with Reflexes (07/27/2023 10:47 AM EDT) [facility] HIV AB/AG Nonreactive Nonreactive [facility] Comment:HIV-1 p24 Ag and/or HIV-1/HIV-2 Ab not detected.A test result that is nonreactive does not exclude thepossibility of exposure to or infection with HIV-1 and/orHIV-2. Nonreactive results in this assay for individualswith prior exposure to HIV-1 and/or HIV-2 may be due toantigen and antibody levels that are below the limit ofdetection of this assay.[employer] HIV Ag/Ab Combo assay result andsupplemental assay results should be interpreted inconjunction with the patient's clinical presentation,history and other laboratory results. If the results areinconsistent with clinical evidence, additional testing issuggested to confirm the result. Blood Venous blood specimen / Unknown 07/27/2023 10:47 AM EDT 07/27/2023 11:28 AM EDT us Kourtney Epstein MD LAB BLOOD ORDERAB LES Final Result Performing Organization Address [facility]/ZIP Co de Phone Number [facility] [address] [place] [address] [phone] from Last 3 Months or Most Recently Relevant to Health Maintenance Insurance [address] [place] [address] [facility] [address] [place] [address] [address] [place] [phone] Care Teams Software Engineer Sales Relationship Specialty Start Date End Date Kourtney Saxena MD [address] [place] [phone] PCP - General Internal Medicine 04/23/23
--- OUTSIDE RECORDS SUMMARY | 2024-03-28 09:55 | XMS_ITS | Encounter Summary ---
Author Organization [employer] Address [address] [place] [address] [address] [place] [address] Care Team Providers Care Reprographics Technician Name Role Phone Kourtney Saxena MD Primary Care Pro vider Reason for Visit * Reason Comments Med Refill Encounter Details Date Type Department Care Team ([facility] st Contact Info) Description 12/07/2022 Refill [facility] [address] [place] [address] [phone] Jaylon Martin MD [address] [place] [phone] Social History Tobacco Use Types Packs/Day Years [...] on filedocumented in this encounter Care Teams Reprographics Technician Relationship Specialty Start Date End Date Kourtney Saxena MD [address] [place] [phone] PCP - General Internal Medicine 04/23/23 documented as of this encounter
--- OUTSIDE RECORDS SUMMARY | 2024-03-28 09:55 | XMS_ITS | Encounter Summary ---
Author Organization [employer] Address [address] [place] [address] [address] [place] [address] Care Team Providers Care Research Statistician Name Role Phone Kourtney Saxena MD Primary Care Pro vider Encounter Details Date Type Department Care Team (Late st Contact Info) Description 05/04/2023 Orders Only [facility] [address] [place], [place] [phone] Love Quintanilla MD [address] [place] [address] Social History Tobacco Use Types Packs/Day Years [...] Reflex to Culture (11/01/2023 11:36 AM EDT) [facility] Appearance Urine Clear [facility] PH 7.0 5.0 - 9.0 [facility] Glucose Urine UA Negative Negative mg/dL [facility] Urine Blood Negative Negative [facility] Specific [place] - Urine 1.010 1.005 - 1.025 [facility] Urine Protein 100 (2+)(A) Neg-Trace mg/dL [facility] Urine Ketones Negative Negative mg/dL [facility] Nitrite Urine Negative Negative [facility] Leukocyte Esterase Urine Negative Negative [facility] RBC Urine 0-2 0 - 2 /HPF [facility] Urine WBC 0-5 0 - 5 /HPF [facility] Urine Squamous Epithelial Cell 0-2 0 - 2 /HPF [facility] Urine Bacteria None Seen None Seen [facility] Hyaline Casts, Urine 0-2 0 - 2 /LPF [facility] 11/01/2023 11:3 6 AM EDT 11/01/2023 1:21 PM EDT Narrative [facility] - 11/01/2023 1:41 PM EDT Urine, Clean Catch us Kourtney Epstein MD LAB URINE ORDERAB LES Final Result [facility] [address] [place] [phone] * (ABNORMAL) Albumin, Random Urine W/Creatinine (08/17/2023 2:30 PM EDT) Creatinine, Urine 94.35 mg/dL [facility] Microalbumin Urine >2,000.0 mg/L [facility] Microalbum Creatinine Ratio Ur 2,119.7(H ) <30 ug/mg cr [facility] Comment:Albumin/Creatinine R atio Reference Ranges: Normal: < 30 ug/mg creatinine Microalbuminuria: 30 - 300 ug/mg creatinineClinical Albuminuria: > 300 ug/mg creatinine 08/17/2023 2:30 PM EDT 08/17/2023 4:14 PM EDT us Kourtney Epstein MD LAB URINE ORDERAB LES Final Result [facility] [address] [place] [phone] documented in this encounter Visit Diagnoses Not on filedocumented in this encounter Care Teams Research Statistician Relationship Specialty Start Date End Date Kourtney Saxena MD [address] [place] [phone] PCP - General Internal Medicine 04/23/23 documented as of this encounter
--- OUTSIDE RECORDS SUMMARY | 2024-03-28 09:55 | XMS_ITS | Encounter Summary ---
Author Organization [employer] Address [address] [place] [phone] Care Team Providers Care Log Clerk Name Role Phone Kourtney Saxena MD Primary Care Pro vider Reason for Visit * Reason Comments Med Refill Encounter Details Date Type Department Care Team (Late st Contact Info) Description 12/14/2022 Refill [facility] [address] [place] [address] Love Quintanilla MD [address] [place] [address] Social History Tobacco Use Types Packs/Day Years [...] on filedocumented in this encounter Care Teams Log Clerk Relationship Specialty Start Date End Date Kourtney Saxena MD [address] [place], [place] [phone] PCP - General Internal Medicine 04/23/23 documented as of this encounter
== END 2024-03-28 10:14 | disposition home or self-care (01) ==
PROVIDERS: PCP Student in an Organized Health Care Education/Training Program; Visit Provider Obstetrics & Gynecology
DX: N95.0 Postmenopausal bleeding (principal)
CPT/HCPCS: 99203

== ENCOUNTER 2024-04-06 10:17 | Outpatient (AMB) | payer OTHER, MEDICAID, SELFPAY ==
[2024-04-06 10:31] VITALS: BP 104/64; PULSE 87; O2SAT 98; BMI 39.0
--- NOTE | 2024-04-06 10:31 | HO.NEPHOV_ITS ---
Vital Signs 04/06/24 10:31 Height 4 ft 11 in Weight 193 lb BMI 39.0 BP 104/64 Blood Pressure Location Rt brachial Position Sitting Pulse 87 Pulse Source Pulse Oximeter Pulse Oximetry (%) 98 Oxygen Delivery Method Room Air Intake Visit Reasons: Nephrotic syndrome/ CONF Proof Machine Operator Supervisor Required: No Accompanied by: Self / Same As Patient Allergies SHELL FISH Allergy (Severe, Uncoded 03/28/24 09:56) Anaphylaxis Medication List - Last Reconciled 04/06/24 by Gutierrez Lozano MD aspirin 81 mg PO QAM epinephrine 0.3 mg IM Q10M PRN ergocalciferol (vitamin D2) 1,250 mcg PO QWEEK hydrochlorothiazide 25 mg PO DAILY 90 days levothyroxine 50 mcg PO DAILY losartan 50 mg PO DAILY magnesium oxide 200 mg PO DAILY omeprazole 20 mg PO DAILY ondansetron 4 mg PO DAILY PRN peg 3350-electrolytes 236-22.74-6.74 -5.86 gram (Golytely) 240 mL PO Q10M prednisone 20 mg PO DAILY rosuvastatin 40 mg PO DAILY HPI Comments Details: Madison is a pleasant 48-year-old woman who has been 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 She has a history of dyslipidemia and she is on statins. She also complains of leg edema. He is not on any diuretics. No history of hypertension. She is on losartan 25 mg due to the proteinuria. Madison is a history of CVA exact etiology was not known. She is on aspirin. Madison tells me that she had a kidney biopsy when she was a teenager and she was told that she had Nil disease. She did not undergo any specific treatment. 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 She has a history of chronic alcohol abuse and currently she has been sober. 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 01/03/2024. She underwent kidney biopsy. Tolerated procedure well. No complications. No specific complaints. Accompanied by . 02/01/2024. She has been on prednisone 60 mg a day for the last 4 weeks. She has gained 5 lb. Complains of mild swelling in the legs. Occasional cramping. 02/14/24 c/o right flank pain No urinary symptoms 03/06/2024. Still has generalized body swelling. She is not on low-salt diet. No gross hematuria 04/06/2024. She was given cyclosporine but she did not tolerate. This discontinued due to side effects [facility] Medical History Nephrotic syndrome History of CVA (cerebrovascular accident) Nicotine dependence, cigarettes, uncomplicated DJD (degenerative joint disease) Hypothyroidism Hyperlipidemia Hypertension Surgical History History of History of cervical discectomy Family History Mother Lung cancer, Onset Age: 67 Social History Alcohol intake: never Tobacco use type: Cigarette Years Smoked: (onset 25yo, 1ppd x 23yrs, now 1/2-3/4ppd - 20+PYH) Physical Exam Vital Signs: Last Vital Signs Pulse 87 04/06/24 10:31 BP 104/64 04/06/24 10:31 Pulse Ox 98 04/06/24 10:31 Oxygen Delivery Method Room Air 04/06/24 10:31 BMI result Body Mass Index 39.0 Comfortable Neck supple no JVD. Lungs entry equal no rales. Heart S1-S2 heard no gallop or rub. Abdomen soft nontender. Neuro alert awake oriented. No asterixis. Extremities trace edema. 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 Discussed the pros and cons of steroid therapy. She was on prednisone 60 mg daily for 8 weeks since 01/03/2024. And omeprazole 20 mg q.d.. She is currently on aspirin. urinary protein excretion still remains elevated at 7.0 Renal function stable. She did not respond to prednisone. Keep prednisone at 20 mg a day. Unable to tolerate cyclosporine. We will try tacrolimus. Start with 1 mg b.i.d. and adjust dose based on levels. Side effects of tacrolimus discussed and gave a printout Due to serious interactions rosuvastatin has been placed on hold Encouraged her to stay on a low-sodium diet. Orders: Orders Basic Metabolic Panel 2 Weeks N04.9 - Nephrotic syndrome with unspecified morphologic changes Tacrolimus Prograf 2 Weeks N04.9 - Nephrotic syndrome with unspecified morphologic changes Medications: New tacrolimus 1 mg PO Q12H 60 caps 1RF Refilled omeprazole 20 mg PO DAILY 90 caps 1RF Coding Level of Care Code Est Pt Level 4 (06371) Diagnoses Nephrotic syndrome N04.9
--- OUTSIDE RECORDS SUMMARY | 2024-04-06 11:56 | XMS_ITS | Encounter Summary ---
Author Organization [employer] Address [address] [place] [address] [address] [place] [address] Care Team Providers Care Hearing Instrument Specialist Name Role Phone Kourtney Saxena MD Primary Care Pro vider Reason for Visit * Reason Onset Date Comments Results 03/25/2024 Encounter Details Date Type Department Care Team ([facility] Contact Info) Description 03/25/2024 Telephone [facility] [address] [place], [place] [phone] Kitty Jackson, RN [address] [place], [place] [phone] Results Social History Tobacco Use Types Packs/Day Years Used Date Smoking Tobacco: Every Day Cigarettes 1 .2 Started: 2000 Smokeless Tobacco: Current Alcohol Use [...] documented as of this encounter Care Teams Hearing Instrument Specialist Relationship Specialty Start Date End Date Kourtney Saxena MD [address] [place] [phone] PCP - General Internal Medicine 04/23/23 documented as of this encounter
--- OUTSIDE RECORDS SUMMARY | 2024-04-06 11:56 | XMS_ITS | Encounter Summary ---
Author Organization [employer] Address [address] [place] [address] 7 [place] [address] Care Team Providers Care Mowing Machine Operator Name Role Phone Kourtney Saxena MD Primary Care Pro vider Encounter Details Date Type Department Care Team (Late st Contact Info) Description 03/23/2024 Orders Only GENERIC EXTERNAL DATA DEPARTMENT Provider, Generic External Data Social History Tobacco Use Types Packs/Day Years Used Date Smoking Tobacco: Every Day Cigarettes 03 03.2 Started: 2000 Smokeless Tobacco: Current Alcohol Use [...] t he electric, gas, oil or water [employer] threatened to shut off services in your [...] Protein, Total, Random Urine 273(H) <12 mg/dL [facility] 03/23/2024 3:19 PM EST 03/23/2024 3:56 PM EST us Generic External Data Provider LAB URINE ORDERAB LES Final Result [facility] [address] [place] [phone] * Creatinine, Random Urine (03/23/2024 3:19 PM EST) Creatinine, Urine 37.91 mg/dL [facility] 03/23/2024 3:19 PM EST 03/23/2024 3:56 PM EST Generic External Data Provider LAB URINE ORDERAB LES Final Result Performing Organization Address [facility] Co de Phone Number [facility] [address] [place] [phone] * (ABNORMAL) Urinalysis Complete (03/23/2024 3:19 PM EST) Color Urine Yellow [facility] Appearance Urine Clear [facility] PH >=9.0 5.0 - 9.0 [facility] Glucose Urine UA Negative Negative mg/dL [facility] Urine Blood Negative Negative [facility] Specific [place] - Urine 1.015 1.005 - 1.025 [facility] Urine Protein 300 (3+)(A) Neg-Trace mg/dL [facility] Urine Ketones Negative Negative mg/dL [facility] Nitrite Urine Negative Negative [facility] Leukocyte Esterase Urine Negative Negative [...] LABS Urine Bacteria None Seen None Seen [facility] Hyaline Casts, Urine 0-2 0 - 2 /LPF [facility] 03/23/2024 3:19 PM EST 03/23/2024 3:56 PM EST us Generic External Data Provider LAB URINE ORDERAB LES Final Result Performing Organization Address [facility] Co de Phone Number [facility] [address] [place] [phone] * (ABNORMAL) Cyclosporine level (03/23/2024 1:56 PM EST) Cyclosporine A Trough <25(A) 100 - 300 mcg/L [facility] Comment:No definitive therap eutic or toxic ranges have beenestablished. Optimal blood drug levels are influencedby type of transplant, patient response, time post-transplant, co-administration of other drugs, and drugformulation. The following trough ranges are suggestedguidelines:Kidney Transplantation: 100-200 mcg/LOther Organ Transplant: 200-300 mcg/LThis test was developed and its analytical performancecharacteristics have been determined by [employer] [place], [place]. It hasnot been cleared or approved by the U.S. Food and DrugAdministration. This assay has been validated pursuantto the CLIA regulations and is used for clinicalpurposes.THIS TEST WAS PERFORMED AT:[employer] [place] [address]RWGZMLRSIMON CRAMER MD,PHD 03/23/2024 1:56 PM EST 03/23/2024 3:58 PM EST us Generic External Data Provider LAB BLOOD ORDERAB LES Final Result [facility] [address] [place] [phone] documented in this encounter Visit Diagnoses Not on filedocumented in this encounter Additional Health Concerns Assessment Noted Time PHQ-9 Depression Total Score: 4 07/02/19 10:41 AM EDT documented as of this encounter Care Teams Mowing Machine Operator Relationship Specialty Start Date End Date Kourtney Saxena MD [address] [place] [phone] PCP - General Internal Medicine 04/23/23 documented as of this encounter
--- OUTSIDE RECORDS SUMMARY | 2024-04-06 11:56 | XMS_ITS | Encounter Summary ---
Author Organization [employer] Address [address] [place] [address] 7 [place] [address] Care Team Providers Care E Mail System Administrator Name Role Phone Kourtney Saxena MD Primary Care Pro vider Encounter Details Date Type Department Care Team (Late st Contact Info) Description 03/28/2024 Refill [facility] [address] [place], [place] [phone] Kourtney Saxena MD [address] [place] [address] Social History Tobacco Use Types Packs/Day Years Used Date Smoking Tobacco: Every Day Cigarettes 1 24.2 Started: 2000 Smokeless Tobacco: Current Alcohol Use [...] documented as of this encounter Care Teams E Mail System Administrator Relationship Specialty Start Date End Date Kourtney Saxena MD [address] [place] [phone] PCP - General Internal Medicine 04/23/23 documented as of this encounter
--- OUTSIDE RECORDS SUMMARY | 2024-04-06 11:56 | XMS_ITS | Clinical Summary ---
Author Organization [facility] it Address [address] [place] [address] Care Team Providers Care Monorail Car Operator Name Role Phone Vero Archuleta DO Primary Care Provider [phone] Surgical History Surgery Date Site/Laterality Comments SECTION PROCEDURE: HISTORICAL DELIVERY Medical History Medical History Date Comments History of drug dependence/a buse ([facility]/HCC) 08/03/2013 DX:History of drug dependenc e/abuse ([facility]); COMMENT: Marijuana, cocaine, crack, heroin - clean since 02/28/16 (relapse 01/22) PTSD (post-traumatic stress disorder) 10/17/2013 DX:PTSD (post-traumatic stress disorder) Anxiety 10/17/2013 DX:Anxiety Alcohol abuse 08/15/2012 DX:Alcohol abuse ; COMMENT: Quit May 2012 Was hospitalized [facility] pcp , clean Dec 2015 Asthma 08/15/2012 DX:Asthma Depression 08/15/2012 DX:Depression 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
--- OUTSIDE RECORDS SUMMARY | 2024-04-06 11:56 | XMS_ITS | Encounter Summary ---
Author Organization [employer] Address [address] [place] [address] Care Team Providers Care Cutter Aluminum Sheet Name Role Phone Kourtney Saxena MD Primary Care Pro vider Reason for Visit * Reason Comments Med Refill Encounter Details Date Type Department Care Team (Late st Contact Info) Description 12/14/2022 Refill [facility] [address] [place] [address] Love Quintanilla MD [address] [place] [address] Social History Tobacco Use Types Packs/Day Years [...] on filedocumented in this encounter Care Teams Cutter Aluminum Sheet Relationship Specialty Start Date End Date Kourtney Saxena MD [address] [place], [place] [phone] PCP - General Internal Medicine 04/23/23 documented as of this encounter
--- OUTSIDE RECORDS SUMMARY | 2024-04-06 11:56 | XMS_ITS | Encounter Summary ---
Author Organization [employer] Address [address] [place] [address] 7 [place] [address] Care Team Providers Care Information Systems Auditor Name Role Phone Kourtney Saxena MD Primary Care Pro vider Encounter Details Date Type Department Care Team (Late st Contact Info) Description 03/28/2024 Orders Only GENERIC EXTERNAL DATA DEPARTMENT Provider, [...] t he electric, gas, oil or water [employer] threatened to shut off services in your [...] Procedure Name Priority Date/Time Associated Diagnosis Comments HPV DNA, LOW/HIGH RISK Routine 03/28/2024 10:12 AM EST PAP SMEAR Routine 03/28/2024 10:12 AM EST documented in this encounter Results * HPV DNA, Low/High Risk (03/28/2024 10:12 AM EST) HPV High Risk Negative Negative [facility] HPV Genotype 16 Negative Negative [facility] HPV Genotype 18 Negative Negative [facility] Comment:HPV testing performe d at [facility] (CLIA#[id number]), [address] [place] [address].Testing for HPV was performed using the [employer] 6800system. The presence of HPV in the female genital tract isassociated with a number of diseases, including cervicalcarcinoma. The HPV DNA high risk pool tests for HPV 31, 33,35, 39, 45, 51, 52, 56, 58, 59, 66 and 68. The testing forHPV 16 and 18 genotypes has also been performed. A positiveresult indicates detection of nucleic acid sequences fromone or more subtypes, whereas a negative result indicatessuch sequences were not detected. 03/28/2024 10:1 2 AM EST 03/29/2024 6:19 AM EST us Generic External Data Provider LAB BLOOD ORDERAB LES Final Result [facility] [address] [place] [address] [phone] * Pap Smear (03/28/2024 10:12 AM EST) 03/28/2024 10:1 2 AM EST 03/28/2024 2:15 PM EST Narrative [facility] - 04/03/2024 12:46 PM EST ----- ------- Name: Madison Navarro ? Age/Sex: 48/F ? : 1975 Unit#: [id number] ?? Attend Dr: Guille Summers MD ?Re03/28/24 ?Status: DEP REF ? Location: HO.LNP ?Disch: ? ----- ------- SPEC : [id number] ? RECD: 03/28/24-1414 ? STATUS: ??SOUT ? REQ NUM: [id number] ? YAMINI: 03/28/24-1012 ? SUBM DR: Guille Summers MD ? ENTERED: ??03/28/24-1420 ?SP TYPE: Pap Smr ?OTHR DR: Kourtney Saxena MD ORDERED: ??Pap Smear ? Interpretation ?? Satisfactory for evaluation. ?? Negative for intraepithelial lesion or malignancy. ?? No endocervical cells seen. ? HPV High Risk: ??Negative ? HPV Genotyping 16: ??Negative ?? HPV Genotyping 18: ??Negative ?Clinical Information LMP:UNKNOWN Previous PAP test:UNKOWN Other surgery: Other history: Copies To: ?? Kourtney Saxena MD ?? [address] ?? [place] [address] ?? [phone] ?? Guille Summers MD ?? [facility] ?? [address] [facility] [address] ?? [place] [address] ?? [phone] ----- ------- Signed (signature on file) MELITA Kwok (ASCP) 04/03/24 1246 ? ----- ------- ? END OF REPORT ? us Generic External Data Provider LAB CYTOLOGY DAVE OSWALD Final Result [facility] [address] [place] [address] [phone] documented in this encounter Visit Diagnoses Not on filedocumented in this encounter Additional Health Concerns Assessment Noted Time PHQ-9 Depression Total Score: 4 07/02/19 10:41 AM EDT documented as of this encounter Care Teams Information Systems Auditor Relationship Specialty Start Date End Date Kourtney Saxena MD [address] [place] [address] PCP - General Internal Medicine 04/23/23 documented as of this encounter
--- OUTSIDE RECORDS SUMMARY | 2024-04-06 11:56 | XMS_ITS | Encounter Summary ---
Author Organization [employer] Address [address] [place] [address] 7t [place] [address] Care Team Providers Care Inspector And Tester Name Role Phone Kourtney Saxena MD Primary Care Pro vider Reason for Visit * Reason Onset Date Comments wood recall 03/13/2024 Encounter Details Date Type Department Care Team ([facility] st Contact Info) Description 03/13/2024 Telephone [facility] MEDICINE [address] [place] [address] Alex CarmenGuymon, [place] may recall Social History Tobacco Use [...] [place] - 03/13/2024 1:47 PM EST T/C- [employer] Left Voice Mail to return call to [...] documented as of this encounter Care Teams Inspector And Tester Relationship Specialty Start Date End Date Kourtney Saxena MD [address] [place] [phone] PCP - General Internal Medicine 04/23/23 documented as of this encounter
--- OUTSIDE RECORDS SUMMARY | 2024-04-06 11:56 | XMS_ITS | Clinical Summary ---
Author Organization [employer] Address [address] [place] [address] 7 [place] [address] Care Team Providers Care Design Technician Name Role Phone Kourtney Saxena MD [...] day. 90 tablet 01/11/20 24 025 Active varenicline [...] 24 Active ergocalciferol (Vitamin D2) 1.25 MG (21450 UT) capsule TAKE 1 CAPSULE BY MOUTH ONCE WEEKLY ON WEDNESDAY MORNING 4 capsule 2 02/14/19 25 Active losartan (Cozaar) 25 MG tablet TAKE 1 TABLET BY MOUTH EVERY MORNING 90 tablet 02/28/19 25 Active cloNIDine (Catapres) 0.1 MG tablet TAKE 1 TABLET BY MOUTH EVERY DAY NEEDED FOR ANXIETY 30 tablet 2 03/20/19 25 Active levothyroxine (Synthroid, Levoxyl) 50 MCG tablet TAKE 1 TABLET BY MOUTH EVERY MORNING BEFORE MEALS 90 tablet 04/04/19 25 Active cloNIDine (Catapres) 0.1 MG tablet TAKE 1 TABLET BY MOUTH EVERY DAY NEEDED FOR ANXIETY 30 tablet 2 09/23/19 24 025 Discontinued levothyroxine (Synthroid) 50 MCG tablet Take 1 tablet (50 mcg) by mouth before breakfast. Please stop 37.5 mcg dose and start 50 mcg daily dose 90 tablet 01/11/20 24 025 Discontinued Active Problems Problem Noted [...] Encounters Date Type Department Care Team Description 04/03/2024 Refill [facility] MEDICINE [address] [place] [address] Kourtney Saxena MD 03/28/2024 Orders Only GENERIC EXTERNAL DATA DEPARTMENT Provider, Generic External Data 03/28/2024 Refill [facility] MEDICINE [address] [place] [address] Kourtney Saxena MD 03/25/2024 Telephone [facility] MEDICINE [address] [place] [phone] Kitty Jackson RN Results 03/23/2024 Orders Only GENERIC EXTERNAL DATA DEPARTMENT Provider, Generic External Data 03/18/2024 Refill [facility] MEDICINE [address] [place] [address] Kourtney Saxena MD 03/13/2024 Telephone [facility] MEDICINE [address] [place] [address] Skylar Carmen MA may02/24/2024 Refill [facility] CH[facility] MED & PEDS [address] [place] [address] Kourtney Saxena MD 02/17/2024 Orders Only [facility] External Provider, [facility] 02/15/2024 Refill [facility] MEDICINE [address] [place] [address] Kourtney Saxena MD 02/07/2024 Travel 01/28/2024 Refill [facility] MEDICINE [address] [place] [address] Kourtney Saxena MD 01/25/2024 Telephone [facility] MEDICINE [address] [place] [phone] Kitty Jackson, RN NTTS 01/24/2024 10:00 AM EST Office Visit [facility] WALK-IN CENTER [address] [place] [address] Jaylon Martin MD Postmenopausal bleeding (Primary Dx); Flank pain; Hypertension, unspecified type 01/19/2024 Refill [facility] MEDICINE [address] [place] [address] Kourtney Saxena MD 01/11/2024 Orders Only [facility] MEDICINE [address] [place] [address] Kourtney Saxena MD Hypothyroidism, unspecified type (Primary Dx); Hyperlipidemia, unspecified hyperlipidemia type 01/11/2024 Orders Only GENERIC EXTERNAL DATA DEPARTMENT Provider, Generic External Data from Last 3 Months Immunizations Name Administration [...] 1 24.2 Started: 2000 Smokeless Tobacco: Current Tobacco Cessation:Ready [...] of 3 - 19+ 3-dose series) 1992 Dental Oral Exam 08/20/2022 02/19/2022 Zoster Vaccines (2 of 2) 11/18/2023 09/23/2023 Depression Screening 07/01/2024 07/02/2023, 07/02/19 SDOH Screening 08/16/2024 08/17/2023 Dental X-Ray: Bitewings 11/15/2024 11/15/2023, 02/19 Lung Cancer Screening 12/09/2024 12/10/2023 Tobacco Screening 01/23/2025 01/24/2024 Dental X-Ray: Full Mouth 02/20/2025 02/19/2022 Mammogram 08/16/2025 08/17/2023 Pap Smear 03/28/2027 03/28/2024 Lipid Panel 01/10/2029 01/11/2024, 10/10, 07/27/2023 Cervical Cancer Screening 03/28/2029 HPV/Cotest 03/28/2029 03/28/2024 DTaP/Tdap/Td Vaccines (3 - Td or Tdap) [...] Procedure Name Priority Date/Time Associated Diagnosis Comments PAP SMEAR Routine 03/28/2024 10:12 AM EST HPV DNA, LOW/HIGH RISK Routine 03/28/2024 10:12 AM EST URINE PROTEIN, TOTAL, RANDOM (W/O [...] Recently Relevant to Health Maintenance Results * HPV DNA, Low/High Risk (03/28/2024 10:12 AM EST) HPV High Risk Negative Negative [facility] HPV Genotype 16 Negative Negative [facility] HPV Genotype 18 Negative Negative [facility] Comment:HPV testing performe d at [facility] (CLIA#[id number]), [address] [place] [address].Testing for HPV was performed using the Krys [...] Provider LAB BLOOD ORDERAB LES Final Result [facility] [address] [place] [phone] * Pap Smear (03/28/2024 10:12 AM EST) 03/28/2024 10:1 2 AM EST 03/28/2024 2:15 PM EST Narrative [facility] - 04/03/2024 12:46 PM EST ----- ------- Name: Madison Navarro ? Age/Sex: 48/F ? : 1975 Unit#: [id number] ?? Attend Dr: Guille Summers MD ?Re03/28/24 ?Status: DEP REF ? Location: HO.LNP ?Disch: ? ----- ------- SPEC : [id number] ? RECD: 03/28/24-1414 ? STATUS: ??SOUT ? REQ NUM: [id number] ? YAMINI: 03/28/24-1012 ? SUBM DR: Guille Summers MD ? ENTERED: ??03/28/24-142 ?SP TYPE: Pap Smr ?OTHR DR: Kourtney Saxena MD ORDERED: ??Pap Smear ? Interpretation ?? Satisfactory for evaluation. ?? Negative for intraepithelial lesion or malignancy. ?? No endocervical cells seen. ? HPV High Risk: ??Negative ? HPV Genotyping 16: ??Negative ?? HPV Genotyping 18: ??Negative ?Clinical Information LMP:UNKNOWN Previous PAP test:UNKOWN Other surgery: Other history: Copies To: ?? Kourtney Saxena MD ?? [address] ?? [place] [address] ?? [phone] ?? Guille Summers MD ?? [facility] ?? [address] [facility] [address] ?? [place] [address] ?? [phone] ----- ------- Signed (signature on file) MELITA Kwok (ASCP) 04/03/24 1246 ? ----- ------- ? END OF REPORT ? us Generic External Data Provider LAB CYTOLOGY ORDE RABLES Final Result Performing Organization Address [facility] de Phone Number [facility] [address] [place] [phone] * (ABNORMAL) Urine Protein, Total, Random without Creatinine (03/23/2024 3:19 PM EST) Only the most recent of2 resultswithin the time period is included. Protein, Total, Random Urine 273(H) <12 mg/dL [facility] 03/23/2024 3:19 PM EST 03/23/2024 3:56 PM EST Generic External Data Provider LAB URINE ORDERAB LES Final Result Performing Organization Address [facility] de Phone Number [facility] [address] [place] [phone] * Creatinine, Random Urine (03/23/2024 3:19 PM EST) Only the most recent of2 resultswithin the time period is included. Creatinine, Urine 37.91 mg/dL [facility] 03/23/2024 3:19 PM EST 03/23/2024 3:56 PM EST Generic External Data Provider LAB URINE ORDERAB LES Final Result Performing Organization Address [facility] de Phone Number [facility] [address] [place] [phone] * (ABNORMAL) Urinalysis Complete (03/23/2024 3:19 PM EST) Only the most recent of2 resultswithin the time period is included. Color Urine Yellow [facility] Appearance Urine Clear [facility] PH >=9.0 5.0 - 9.0 [facility] Glucose Urine UA Negative Negative mg/dL [facility] Urine Blood Negative Negative [facility] Specific [place] - Urine 1.015 1.005 - 1.025 [facility] Urine Protein 300 (3+)(A) Neg-Trace mg/dL [facility] Urine Ketones Negative Negative mg/dL [facility] Nitrite Urine Negative Negative [facility] Leukocyte Esterase Urine Negative Negative [facility] RBC Urine 0-2 0 - 2 /HPF [facility] Urine WBC 0-5 0 - 5 /HPF [facility] Urine Squamous Epithelial Cell 0-2 0 - 2 /HPF [facility] Urine Bacteria None Seen None Seen [facility] Hyaline Casts, Urine 0-2 0 - 2 /LPF [facility] 03/23/2024 3:19 PM EST 03/23/2024 3:56 PM EST us Generic External Data Provider LAB URINE ORDERAB LES Final Result Performing Organization Address City/[facility]/ZIP Co de Phone Number [facility] [address] [place] [phone] * TSH (03/23/2024 3:19 PM EST) Only the most recent of2 resultswithin the time period is included. Thyroid Stimulating Hormone 1.06 0.32 - 4.0 uIU/mL [facility] Comment:TSH 3rd Generation ( [facility]) Blood Venous blood specimen / Unknown 03/23/2024 3:19 PM EST 03/23/2024 3:58 PM EST us Kourtney Epstein MD LAB BLOOD ORDERAB LES Final Result [facility] [address] [place] [phone] * T4, Free (03/23/2024 3:19 PM EST) Free T4 (Free Thyroxine) 1.06 0.71 - 1.85 ng/dL [facility] Blood Venous blood specimen / Unknown 03/23/2024 3:19 PM EST 03/23/2024 3:58 PM EST us Kourtney Epstein MD LAB BLOOD ORDERAB LES Final Result [facility] [address] [place] [address] [phone] * (ABNORMAL) Comprehensive Metabolic Panel (03/23/2024 3:19 PM EST) Only the most recent of2 resultswithin the time period is included. Sodium 138 135 - 145 mmol/L [facility] Potassium 4.3 3.3 - 5.1 mmol/L [facility] Chloride 102 96 - 108 mmol/L [facility] Carbon Dioxide 30(H) 22 - 29 mmol/L [facility] Anion Gap 10(L) 12 - 20 [facility] Urea Nitrogen (BUN) 19(H) 9 - 16 mg/dL [facility] Creatinine, Serum 0.64 0.5 - 1.4 mg/dL [facility] Estimated Glomerular Filt Rate >60 [facility] Comment:Chronic Kidney Disea se: Estimated GFR < 60 mL/min/1.60t2Uhrntw Kidney Disease: Estimated GFR < 15 mL/min/1.73m2 Glucose 124(H) 60 - 115 mg/dL [facility] Calcium 9.2 8.4 - 10.2 mg/dL [facility] Bilirubin, Total 0.2 0.0 - 1.0 mg/dL [facility] Aspartate Amino Transferase 24 5 - 31 U/L [facility] Alanine Aminotransferase 31 0 - 31 U/L [facility] Total Protein 6.3(L) 6.5 - 8.0 g/dL [facility] Albumin Level 3.2(L) 3.5 - 5.0 g/dL [facility] Alkaline Phosphatase 54 39 - 117 U/L [facility] Blood Venous blood specimen / Unknown 03/23/2024 3:19 PM EST 03/23/2024 3:58 PM EST us Kourtney Epstein MD LAB BLOOD ORDERAB LES Final Result Performing Organization Address [facility] de Phone Number [facility] [address] [place] [phone] * (ABNORMAL) Cyclosporine level (03/23/2024 1:56 PM EST) Cyclosporine A Trough <25(A) 100 - 300 mcg/L [facility] Comment:No definitive therap eutic or toxic ranges have beenestablished. Optimal blood drug levels are influencedby type of transplant, patient response, time post-transplant, co-administration of other drugs, and drugformulation. The following trough ranges are suggestedguidelines:Kidney Transplantation: 100-200 mcg/LOther Organ Transplant: 200-300 mcg/LThis test was developed and its analytical performancecharacteristics have been determined by [employer] [place], [place]. It hasnot been cleared or approved by the U.S. Food and DrugAdministration. This assay has been validated pursuantto the CLIA regulations and is used for clinicalpurposes.THIS TEST WAS PERFORMED AT:[employer] [place] [address]FUXGZTSSIMON CRAMER MD,PHD 03/23/2024 1:56 PM EST 03/23/2024 3:58 PM EST us Generic External Data Provider LAB BLOOD ORDERAB LES Final Result Performing Organization Address [facility] Co de Phone Number [facility] [address] [place] [address] [phone] * US RENAL BI (02/17/2024 11:16 AM EST) Anatomical Region Laterality Modality Abdomen Ultrasound 02/17/2024 11:1 6 AM EST Narrative 02/17/2024 11:44 AM EST ? [facility] ?[address] ?[place] [address] ? Ultrasound Report ? Signed ? Patient: Nadeem Karch,Madison A ?MR# ?? : [id number] ? : 1975 ?Acct:[id number] ? Age/Sex: 48 / F ?ADM Date: 02/17/24 ? Loc: HO.US ? Attending Dr: Gutierrez Lozano MD ? Ordering Physician: Gutierrez Lozano MD ?? Date of Service: 02/17/24 ?? Procedure(s): US renal BI ?? Accession Number(s): [id number] ? cc: Gutierrez Lozano MD; Kourtney Saxena [...] DD/ 1116 ? TD/TT: 02/17/24 1123 ? Lunchroom Supervisor: ? Procedure Note Donotuseinterpreter, Image - 02/17/[address] [address] Ultrasound Report Signed Patient: Madison Navarro AMR# : [id number] : 1975Acct:[id number] Age/Sex: 48 / FADM Date: 02/17/24 Loc: .US Attending Dr: Gutierrez Lozano MD Ordering Physician: Gutierrez Lozano MD Date of Service: 02/17/24 Procedure(s): US renal BI Accession Number(s): [id number] cc: Gutierrez Lozano MD; Kourtney Saxena MD [...] 02/17/24 1141 DD/ 1116 TD/TT: 02/17/24 1123 Lunchroom Supervisor: us [facility] External Provider IMG US PROCEDURES Final Result * POCT , urine manually resulted (01/24/2024 10:54 AM EST) Preg Test, Ur Negative Negative, Indeterminate, None Detected, Invalid, Specimen unsatisfactory for evaluation, Weakly Positive Urine 01/24/2024 10:5 4 AM EST Result [facility] us Jaylon Martin MD POINT OF CARE [...] Detected Urine 01/24/2024 10:5 4 AM EST Result [facility] us Jaylon Martin MD POINT OF CARE TEST ENTER/EDIT OR DERABLES Final Result * Culture, Urine, Routine (01/24/2024 10:54 AM EST) Urine Urine specimen obtained by clean catch procedure / Unknown 01/24/2024 10:54 AM EST 01/24/2024 6:32 PM EST Comment:UACC Narrative [facility] - 01/26/2024 7:47 AM EST Urine Culture Report Result Urine Culture 10,000 to 50,000 cfu/ml Urine Culture Mixed bacterial summer characteristic of Urine Culture urogenital contamination. Specimen Source: Urine clean catch Result [facility] us Jaylon Martin MD LAB MICROBIOLOGY - GENERAL ORDER ANGÉLICA Final Result [facility] [address] [place] [phone] * (ABNORMAL) Urinalysis with Reflex to Microscopic (01/11/2024 9:50 AM EST) Pathologist [facility] Color Urine Yellow [facility] Appearance Urine Clear [facility] PH 6.0 5.0 - 9.0 [facility] Glucose Urine UA Negative Negative mg/dL [facility] Urine Blood Negative Negative [facility] Specific [place] - Urine >=1.030(H) 1.005 - 1.025 [facility] Urine Protein 300 (3+)(A) Neg-Trace mg/dL [facility] Urine Ketones Negative Negative mg/dL [facility] Nitrite Urine Negative Negative [facility] Leukocyte Esterase Urine Negative Negative [facility] 01/11/2024 9:50 AM EST 01/11/2024 11:03 AM EST us Generic External Data Provider LAB URINE ORDERAB LES Final Result Performing Organization Address City/State/[facility] Co de Phone Number [facility] [address] [place] [phone] * (ABNORMAL) CBC (01/11/2024 9:50 AM EST) [facility] White Blood Count 11.3(H) 4.8 - 10.8 X10*3/uL [facility] Red Blood Count 4.77 4.20 - 5.50 X10*6/uL [facility] Hemoglobin 12.6 12.0 - 16.0 g/dl [facility] Hematocrit 38.4 37.0 - 47.0 % [facility] Mean Corpuscular Volume 80.5 80.0 - 98.0 fL [facility] Mean Corpuscular Hemoglobin 26.4(L) 27.0 - 33.0 pg [facility] Mean Corpuscular HGB Conc 32.8 31.0 - 35.0 g/dl [facility] Red Cell Distribution Width 15.5 11.0 - 16.0 % [facility] Platelet Count 379 160 - 400 X10*3/uL [facility] Mean Platelet Volume 9.6 9.4 - 12.3 fL [facility] NRBC Pct Auto 0.0 0.0 - 0.2 /100WBC [facility] NRBC Abs Auto 0.000 0.0 - 0.012 X10*3/uL [facility] 01/11/2024 9:50 AM EST 01/11/2024 11:28 AM EST us Generic External Data Provider LAB BLOOD ORDERAB LES Final Result Performing Organization Address City/[facility] Co de Phone Number [facility] [address] [place] [phone] * (ABNORMAL) Lipid Panel, Standard (01/11/2024 9:50 AM EST) Triglycerides 133 <150 mg/dL [facility] Comment:Desirable Triglyceri de: less than 150 mg/dLBorderline High Triglyceride 150-199 mg/dLHigh Triglyceride: 200-499 mg/dLVery High Triglyceride: greater than or equal to 5OO mg/dL Cholesterol 246(H) <200 mg/dL [facility] Comment:Desirable Cholestero l: less than 200 mg/dLBorderline High Cholesterol: 200-239 mg/dLHigh Cholesterol: greater than 239 mg/dL LDL Cholesterol Calculated 148(H) <100 mg/dL [facility] Comment:Desirable LDL: less than 100 mg/dLNear Optimal/Above Optimal LDL: 110- 129 mg/dLBorderline High LDL: 130-159 mg/dLHigh LDL: 160-189 mg/dLVery High LDL: greater than or equal to 190 mg/dL HDL Cholesterol 72 >40 mg/dL [facility] Comment:Desirable HDL: great er than 40 mg/dL Note: This HDL assay may give artificially low results in patients with liver disease. 01/11/2024 9:50 AM EST 01/11/2024 11:31 AM EST us Generic External Data Provider LAB BLOOD ORDERAB LES Final Result [facility] [address] [place] [phone] * CT Lung Screening Low dose (12/10/2023 10:40 AM EDT) Anatomical Region Laterality Modality Lung Computed Tomogra phy 12/10/2023 10:4 0 AM EDT Narrative 01/26/2024 11:47 PM EST ? [facility] ?[address] ?[place] [address] ? CT Scan Report ? Signed ? Patient: Madiosn Navarro ?MR# ?? : [id number] ? : 1975 ?Acct:[id number] ? Age/Sex: 48 / F ?ADM Date: 12/10/23 ? Loc: HO.CT ? Attending Dr: Stacy Mays PA-C ? Ordering Physician: Stacy Mays PA-C ?? Date of Service: 12/10/23 ?? Procedure(s): CT lung screening ?? Accession Number(s): [id number] ? cc: Stacy Mays PA-C; Kourtney Saxena [...] DD/ 1040 ? TD/TT: 12/10/23 1045 ? Lunchroom Supervisor: SS ? Procedure Note Katelin Fuller - 01/26/[address] [address] [address] Scan Report Signed Patient: Madison Navarro AMR# : [id number] : 1975Acct:[id number] Age/Sex: 48 / FADM Date: 12/10/23 Loc: HO.CT Attending Dr: Stacy Mays PA-C Ordering Physician: Stacy Mays PA-C Date of Service: 12/10/23 Procedure(s): CT lung screening Accession Number(s): [id number] cc: Stacy Mays PA-C; Kourtney Saxena MD [...] by: Kuldeep Roca MD 01/26/2024 11:44 PM EST RP Dictated By: Kuldeep Roca MD Signed By: <Electronically signed by Kuldeep Roca MD in OV> 01/26/24 2344 DD/ 1040 TD/TT: 12/10/23 1045 Lunchroom Supervisor: SS [facility] External Provider IMG CT PROCEDURES Edited Result - Final * BI Mammogram Screening Tomosynthesis Bilateral (08/17/2023 9:18 AM EDT) Anatomical Region Laterality Modality Breast Bilateral Mammography 08/17/2023 9:18 AM EDT Narrative 09/12/2023 3:49 PM EDT ? [facility] ? [address] ?[place] [address] ? Mammography Report ? Signed ? Patient: Madison Navarro ?MR# ?? : [id number] ? : 1975 ?Acct:[id number] ? Age/Sex: 48 / F ?ADM Date: 08/17/23 ? Loc: HO.MAMMO ? Attending Dr: Kourtney Epstein MD ? Ordering Physician: Kourtney Saxena MD ?Re ?? sults: 2Benign Findings ? Date of Service: 08/17/23 ?Follow Up: 1 Year From Orig ?? inal Mammogram ? Procedure(s): MM tomosynthesis screening BI ?? Accession Number(s): [id number] ? cc: Kourtney Saxena MD ? EXAMINATION: [...] by Marnie Faulkner MD in OV> ? 09/12/231545 ? DD/ 7 ? TD/TT: ? Lunchroom Supervisor: ? Procedure Note Alina, Image - 09/12/2023 [facility] [address] [place] [address] [place]. [place], [place] [address] Mammography Report Signed Patient: Madison Navarro AMR# : [id number] : 1975Acct:[id number] Age/Sex: 48 / FADM Date: 08/17/23 Loc: AI Attending Dr: Kourtney Epstein MD Ordering Physician: Kourtney Saxena sults: 2Benign Findings Date of Service: 08/17/23Follow Up: 1 Year From Orig ina Mammogram Procedure(s): MM tomosynthesis screening BI Accession Number(s): [id number] cc: Kourtney Saxena MD EXAMINATION: MM SCREENING [...] Faulkner MD in OV> 09/12/23 1546 DD/ TD/TT: Lunchroom Supervisor: us Kourtney Epstein MD IMG BI PROCEDURES Final Result * Hepatitis C Antibody with Reflex to HCV, RNA, Quantitative, Real-Time PCR (07/27/2023 10:47 AM EDT) Hepatitis C Antibody Nonreactive Nonreactive [facility] Comment:Antibodies to HCV no t detected; does not exclude early acuteHCV infection. Blood Venous blood specimen / Unknown 07/27/2023 10:47 AM EDT 07/27/2023 11:28 AM EDT us Kourtney Epstein MD LAB BLOOD ORDERAB LES Final Result Performing Organization Address [facility]/ZIP Co de Phone Number [facility] [address] [place] [phone] * HIV-1/2 Antigen and Antibodies, Fourth Generation, with Reflexes (07/27/2023 10:47 AM EDT) [facility] HIV AB/AG Nonreactive Nonreactive [facility] Comment:HIV-1 p24 Ag and/or HIV-1/HIV-2 Ab not detected.A test result that is nonreactive does not exclude thepossibility of exposure to or infection with HIV-1 and/orHIV-2. Nonreactive results in this assay for individualswith prior exposure to HIV-1 and/or HIV-2 may be due toantigen and antibody levels that are below the limit ofdetection of this assay.[employer] HIV Ag/Ab Combo assay result andsupplemental assay results should be interpreted inconjunction with the patient's clinical presentation,history and other laboratory results. If the results areinconsistent with clinical evidence, additional testing issuggested to confirm the result. Blood Venous blood specimen / Unknown 07/27/2023 10:47 AM EDT 07/27/2023 11:28 AM EDT us Kourtney Epstein MD LAB BLOOD ORDERAB LES Final Result Performing Organization Address [facility]/ZIP Co de Phone Number [facility] [address] [place] [phone] from Last 3 Months or Most Recently Relevant to Health Maintenance Insurance [facility] , [address] [place] [address] [facility] Care Teams Design Technician Relationship Specialty Start Date End Date Kourtney Saxena MD [address] [place] [address] PCP - General Internal Medicine 04/23/23
--- OUTSIDE RECORDS SUMMARY | 2024-04-06 11:56 | XMS_ITS | Encounter Summary ---
Author Organization [employer] Address [address] [place] [address] 7 [place] [address] Care Team Providers Care Molder Bench Name Role Phone Kourtney Saxena MD Primary Care Pro vider Encounter Details Date Type Department Care Team (Late st Contact Info) Description 05/04/2023 Orders Only [facility] MEDICINE [address] [place], [place] [phone] Love Quintanilla MD [address] [place] [address] Social History Tobacco Use Types Packs/Day Years [...] Reflex to Culture (11/01/2023 11:36 AM EDT) [facility] Appearance Urine Clear [facility] PH 7.0 5.0 - 9.0 [facility] Glucose Urine UA Negative Negative mg/dL [facility] Urine Blood Negative Negative [facility] Specific [place] - Urine 1.010 1.005 - 1.025 [facility] Urine Protein 100 (2+)(A) Neg-Trace mg/dL [facility] Urine Ketones Negative Negative mg/dL [facility] Nitrite Urine Negative Negative [facility] Leukocyte Esterase Urine Negative Negative [facility] RBC Urine 0-2 0 - 2 /HPF [facility] Urine WBC 0-5 0 - 5 /HPF [facility] Urine Squamous Epithelial Cell 0-2 0 - 2 /HPF [facility] Urine Bacteria None Seen None Seen [facility] Hyaline Casts, Urine 0-2 0 - 2 /LPF [facility] 11/01/2023 11:3 6 AM EDT 11/01/2023 1:21 PM EDT Narrative [facility] - 11/01/2023 1:41 PM EDT Urine, Clean Catch us Kourtney Epstein MD LAB URINE ORDERAB LES Final Result [facility] [address] [place] [phone] * (ABNORMAL) Albumin, Random Urine W/Creatinine (08/17/2023 2:30 PM EDT) Creatinine, Urine 94.35 mg/dL [facility] Microalbumin Urine >2,000.0 mg/L H [facility] Microalbum Creatinine Ratio Ur 2,119.7(H ) <30 ug/mg cr [facility] Comment:Albumin/Creatinine R atio Reference Ranges: Normal: < 30 ug/mg creatinine Microalbuminuria: 30 - 300 ug/mg creatinineClinical Albuminuria: > 300 ug/mg creatinine 08/17/2023 2:30 PM EDT 08/17/2023 4:14 PM EDT us Kourtney Epstein MD LAB URINE ORDERAB LES Final Result [facility] [address] [place] [phone] documented in this encounter Visit Diagnoses Not on filedocumented in this encounter Care Teams Molder Bench Relationship Specialty Start Date End Date Kourtney Saxena MD [address] [place] [phone] PCP - General Internal Medicine 04/23/23 documented as of this encounter
--- OUTSIDE RECORDS SUMMARY | 2024-04-06 11:56 | XMS_ITS | Encounter Summary ---
Author Organization [employer] Address [address] [place] [address] 7 [place] [address] Care Team Providers Care Cellophaner Name Role Phone Kourtney Saxena MD Primary Care Pro vider Reason for Visit * Reason Comments Med Refill Encounter Details Date Type Department Care Team ([facility] st Contact Info) Description 12/07/2022 Refill [facility] [address] [place] [address] [phone] Jaylon Martin MD [address] [place] [phone] Social History Tobacco Use Types Packs/Day Years [...] on filedocumented in this encounter Care Teams Cellophaner Relationship Specialty Start Date End Date Kourtney Saxena MD [address] [place] [phone] PCP - General Internal Medicine 04/23/23 documented as of this encounter
--- OUTSIDE RECORDS SUMMARY | 2024-04-06 11:56 | XMS_ITS | Encounter Summary ---
Author Organization [employer] Address [address] [place] [address] [address], [place] [address] Care Team Providers Care Mophead Trimmer And Wrapper Name Role Phone Kourtney Saxena MD Primary Care Pro vider Reason for Visit * Reason Comments Med Refill Encounter Details Date Type Department Care Team (Late st Contact Info) Description 03/18/2024 Refill [facility] MED[facility] [address] [place], [place] [phone] Kourtney Saxena MD [address] [place] [address] Social History Tobacco Use Types Packs/Day Years [...] documented as of this encounter Care Teams Mophead Trimmer And Wrapper Relationship Specialty Start Date End Date Kourtney Saxena MD [address] [place] [phone] PCP - General Internal Medicine 04/23/23 documented as of this encounter
--- OUTSIDE RECORDS SUMMARY | 2024-04-06 11:56 | XMS_ITS | Encounter Summary ---
Author Organization [email or web address] Address [address] [place] [address] 7 [place] [address] Care Team Providers Care Director Of Ancillary Services Name Role Phone Kourtney Saxena MD Primary Care Pro vider Reason for Visit * Reason Comments Med Refill Encounter Details Date Type Department Care Team ([facility] st Contact Info) Description 04/03/2024 Refill [facility] MEDICINE [address] [place], [place] [phone] Kourtney Saxena MD [address] [place] [address] Social History Tobacco Use Types Packs/Day Years [...] documented as of this encounter Care Teams Director Of Ancillary Services Relationship Specialty Start Date End Date Kourtney Saxena MD [address] [place] [phone] PCP - General Internal Medicine 04/23/23 documented as of this encounter
== END 2024-04-06 11:01 | disposition home or self-care (01) ==
PROVIDERS: PCP Student in an Organized Health Care Education/Training Program; Visit Provider Internal Medicine Hypertension Specialist
DX: N04.9 Nephrotic syndrome with unspecified morphologic changes (principal)
CPT/HCPCS: 99214

== ENCOUNTER 2024-04-12 13:56 | Outpatient (REF) | payer OTHER, MEDICAID, SELFPAY ==
--- NOTE | ~2024-04-12 | US_ITS ---
EXAMINATION: US PELVIS TRANSABDOMINAL AND TRANSVAGINAL HISTORY: N95.0 - Postmenopausal bleeding COMPARISON: Comparison is made with the prior examination dated 08/25/2023. TECHNIQUE: Transabdominal and endovaginal real-time 2D eller-scale ultrasound was performed. The transabdominal examination is extremely limited. FINDINGS: Uterus: The uterus is normal in size, measuring 12.8 x 3.9 x 5.3 cm. Myometrium has a normal echotexture. There is a 3.8 x 1.9 x 3.6 cm fundal fibroid. It is uncertain if this represents the previously seen fibroid. Endometrium: The endometrial stripe is not identified. Right ovary: The right ovary measures 1.5 x 1.9 x 1.7 cm. The right ovary is normal in size and echotexture. Left ovary: The left ovary measures 1.6 x 1.0 x 1.2 cm. The left ovary is normal in size and echotexture. Pelvic fluid: none. US/US pelvic and transvaginal IMPRESSION: Limited examination. 3.8 x 1.9 x 3.6 cm fundal fibroid. It is uncertain whether this represents the same fibroid is seen previously. Electronically signed by: Kendall Wise MD 04/14/2024 10:28 AM EST
--- OUTSIDE RECORDS SUMMARY | 2024-04-12 16:44 | XMS_ITS | Encounter Summary ---
Author Organization [employer] Address [address] [facility] [address] [place] [address] Care Team Providers Care Special Police Name Role Phone Kourtney Saxena MD Primary Care Pro vider Reason for Visit * Reason Onset Date Comments Results 03/25/2024 Encounter Details Date Type Department Care Team ([facility] Contact Info) Description 03/25/2024 Telephone [facility] MEDICINE [address] [place], [place] [phone] Kitty Jackson, RN [address] [place], [place] [phone] Results Social History Tobacco Use Types Packs/Day [...] documented as of this encounter Care Teams Special Police Relationship Specialty Start Date End Date Kourtney Saxena MD [address] [place] [phone] PCP - General Internal Medicine 04/23/23 documented as of this encounter
--- OUTSIDE RECORDS SUMMARY | 2024-04-12 16:44 | XMS_ITS | Encounter Summary ---
Author Organization [employer] Address [address] [place] [address] Care Team Providers Care Air Brakes Inspector Name Role Phone Kourtney Saxena MD Primary Care Pro vider Reason for Visit * Reason Comments Med Refill Encounter Details Date Type Department Care Team (Late st Contact Info) Description 12/14/2022 Refill [facility] MEDICINE [address] [place] [address] Love Quintanilla MD [address] [place] [address] Social History Tobacco Use Types Packs/Day Years [...] on filedocumented in this encounter Care Teams Air Brakes Inspector Relationship Specialty Start Date End Date Kourtney Saxena MD [address] [place], [place] [phone] PCP - General Internal Medicine 04/23/23 documented as of this encounter
--- OUTSIDE RECORDS SUMMARY | 2024-04-12 16:44 | XMS_ITS | Encounter Summary ---
Author Organization [employer] Address [address] [facility] 7 [place] [address] Care Team Providers Care Truck Bracer Name Role Phone Kourtney Saxena MD Primary [...] t he electric, gas, oil or water [employer] threatened to shut off services in your [...] Protein, Total, Random Urine 273(H) <12 mg/dL [facility] 03/23/2024 3:19 PM EST 03/23/2024 3:56 PM EST us Generic External Data Provider LAB URINE ORDERAB LES Final Result [facility] [address] [place] [phone] * Creatinine, Random Urine (03/23/2024 3:19 PM EST) Creatinine, Urine 37.91 mg/dL [facility] 03/23/2024 3:19 PM EST 03/23/2024 3:56 PM EST Generic External Data Provider LAB URINE ORDERAB LES Final Result Performing Organization Address [facility] Co de Phone Number [facility] [address] [place] [phone] * (ABNORMAL) Urinalysis Complete (03/23/2024 3:19 PM EST) Color Urine Yellow [facility] Appearance Urine Clear [facility] PH >=9.0 5.0 - 9.0 [facility] Glucose Urine UA Negative Negative mg/dL [facility] Urine Blood Negative Negative [facility] Specific [place] - Urine 1.015 1.005 - 1.025 [facility] Urine Protein 300 (3+)(A) Neg-Trace mg/dL [facility] Urine Ketones Negative Negative mg/dL [facility] Nitrite Urine Negative Negative [facility] Leukocyte Esterase Urine Negative Negative [facility] RBC Urine 0-2 0 - 2 /HPF [facility] Urine WBC 0-5 0 - 5 /HPF [facility] Urine Squamous Epithelial Cell 0-2 0 - 2 /HPF [facility] Urine Bacteria None Seen None Seen [facility] Hyaline Casts, Urine 0-2 0 - 2 /LPF [facility] 03/23/2024 3:19 PM EST 03/23/2024 3:56 PM EST us Generic External Data Provider LAB URINE ORDERAB LES Final Result Performing Organization Address [facility] Co de Phone Number [facility] [address] [place] [phone] * (ABNORMAL) Cyclosporine level (03/23/2024 1:56 PM EST) Cyclosporine A Trough <25(A) 100 - 300 mcg/L [facility] Comment:No definitive therap eutic or toxic ranges have beenestablished. Optimal blood drug levels are influencedby type of transplant, patient response, time post-transplant, co-administration of other drugs, and drugformulation. The following trough ranges are suggestedguidelines:Kidney Transplantation: 100-200 mcg/LOther Organ Transplant: 200-300 mcg/LThis test was developed and its analytical performancecharacteristics have been determined by [facility] [place], [place]. It hasnot been cleared or approved by the U.S. Food and DrugAdministration. This assay has been validated pursuantto the CLIA regulations and is used for clinicalpurposes.THIS TEST WAS PERFORMED AT:[facility] [place] [address]OHRYXTHSIMON CRAMER MD,PHD 03/23/2024 1:56 PM EST 03/23/2024 3:58 PM EST us Generic External Data Provider LAB BLOOD ORDERAB LES Final Result [facility] [address] [place] [phone] documented in this encounter Visit Diagnoses Not on filedocumented in this encounter Additional Health Concerns Assessment Noted Time PHQ-9 Depression Total Score: 4 07/02/19 10:41 AM EDT documented as of this encounter Care Teams Truck Bracer Relationship Specialty Start Date End Date Kourtney Saxena MD [address] [place] [phone] PCP - General Internal Medicine 04/23/23 documented as of this encounter
--- OUTSIDE RECORDS SUMMARY | 2024-04-12 16:44 | XMS_ITS | Encounter Summary ---
Author Organization [employer] Address [address] [facility] 7t [place] [address] Care Team Providers Care Excel Vba Developer Name Role Phone Kourtney Saxena MD Primary Care Pro vider Reason for Visit * Reason Onset Date Comments wood recall 03/13/2024 Encounter Details Date Type Department Care Team ([facility] st Contact Info) Description 03/13/2024 Telephone [facility] MEDICINE [address] [place] [address] Alex CarmenThermal, [place] may recall Social History Tobacco Use [...] [place] - 03/13/2024 1:47 PM EST T/C- Combat Control Left Voice Mail to return call to [...] documented as of this encounter Care Teams Excel Vba Developer Relationship Specialty Start Date End Date Kourtney Saxena MD [address] [place] [phone] PCP - General Internal Medicine 04/23/23 documented as of this encounter
--- OUTSIDE RECORDS SUMMARY | 2024-04-12 16:44 | XMS_ITS | Clinical Summary ---
Author Organization [employer] Address [address] [place] [address] 7 [place] [address] Care Team Providers Care Ed Manager Name Role Phone Kourtney Saxena MD [...] 24 Active ergocalciferol (Vitamin D2) 1.25 MG (88958 UT) capsule TAKE 1 CAPSULE BY MOUTH [...] Type Department Care Team Description 04/03/2024 Refill [facility] [address] [place] [address] Kourtney Saxena MD 03/28/2024 Orders Only GENERIC EXTERNAL DATA DEPARTMENT Provider, Generic External Data 03/28/2024 Refill [facility] [address] [place] [address] Kourtney Saxena MD 03/25/2024 Telephone [facility] [address] [place] [address] Kitty Jackson RN Results 03/23/2024 Orders Only GENERIC EXTERNAL DATA DEPARTMENT Provider, Generic External Data 03/18/2024 Refill [facility] [address] [place] [address] Kourtney Saxena MD 03/13/2024 Telephone [facility] [address] [place] [address] Skylar Carmen MA may02/24/2024 Refill [facility] [address] [place] [address] Kourtney Saxena MD 02/17/2024 Orders Only [facility] External Provider, [facility] 02/15/2024 Refill [facility] [address] [place] [address] Kourtney Saxena MD 02/07/2024 Travel 01/28/2024 Refill [facility] [address] [place] [address] Kourtney Saxena MD 01/25/2024 Telephone [facility] [address] [place] [address] Kitty Jackson, VARUN NTTS 01/24/2024 10:00 AM EST Office Visit [facility] [address] [place] [address] Jaylon Martin MD Postmenopausal bleeding (Primary Dx); Flank pain; Hypertension, unspecified type 01/19/2024 Refill [facility] [address] [place] [address] Kourtney Saxena MD from Last 3 Months Immunizations Name Administration [...] 1 .2 Started: 2000 Smokeless Tobacco: Current Tobacco Cessation:Ready [...] PANEL, STANDARD Routine 01/11/2024 9:50 AM EST LDCT LUNG SCREENING Routine 12/10/2023 [...] AM EST) HPV High Risk Negative Negative [facility] HPV Genotype 16 Negative Negative [facility] HPV Genotype 18 Negative Negative [facility] Comment:HPV testing performe d at [facility] (CLIA#[id number]), [address] [place] [address].Testing for HPV was performed using the [employer]system. The presence of HPV in the female [...] Provider LAB BLOOD ORDERAB LES Final Result [facility] [address] [place] [phone] * Pap Smear (03/28/2024 10:12 AM EST) 03/28/2024 10:1 2 AM EST 03/28/2024 2:15 PM EST Narrative [facility] - 04/03/2024 12:46 PM EST ----- ------- Name: Madison Navarro ? Age/Sex: 48/F ? : 1975 Unit#: [id number] ?? Attend Dr: Guille Summers MD ?Re03/28/24 ?Status: DEP REF ? Location: HO.LNP ?Disch: ? ----- ------- SPEC : [id number] ? RECD: 03/28/24 ? STATUS: ??SOUT ? REQ NUM: [id number] ? YAMINI: 03/28/24-1012 ? SUBM DR: Guille Summers MD ? ENTERED: ??03/28/24 ?SP TYPE: Pap Smr ?OTHR DR: Kourtney Saxena MD ORDERED: ??Pap Smear ? Interpretation ?? Satisfactory for evaluation. ?? Negative for intraepithelial lesion or malignancy. ?? No endocervical cells seen. ? HPV High Risk: ??Negative ? HPV Genotyping 16: ??Negative ?? HPV Genotyping 18: ??Negative ?Clinical Information LMP:UNKNOWN Previous PAP test:UNKOWN Other surgery: Other history: Copies To: ?? Kourtney Saxena MD ?? [address] [facility] ?? [place] [address] ?? [phone] ?? Guille Summers MD ?? [facility] ?? [address] [facility] [address] ?? [place] [address] ?? [phone] ----- ------- Signed (signature on file) MELITA Kwok (ASCP) 04/03/24 1246 ? ----- ------- ? END OF REPORT ? Generic External Data Provider LAB CYTOLOGY ORDE RABLES Final Result Performing Organization Address [facility] Co de Phone Number [facility] [address] [place] [phone] * (ABNORMAL) Urine Protein, Total, Random without Creatinine (03/23/2024 3:19 PM EST) Protein, Total, Random Urine 273(H) <12 mg/dL [facility] 03/23/2024 3:19 PM EST 03/23/2024 3:56 PM EST Generic External Data Provider LAB URINE ORDERAB LES Final Result Performing Organization Address [facility] Co de Phone Number [facility] [address] [place] [address] [phone] * Creatinine, Random Urine (03/23/2024 3:19 PM EST) Creatinine, Urine 37.91 mg/dL [facility] 03/23/2024 3:19 PM EST 03/23/2024 3:56 PM EST Generic External Data Provider LAB URINE ORDERAB LES Final Result Performing Organization Address [facility] Co de Phone Number [facility] [address] [place] [phone] * (ABNORMAL) Urinalysis Complete (03/23/2024 3:19 PM EST) Color Urine Yellow [facility] Appearance Urine Clear [facility] PH >=9.0 5.0 - 9.0 [facility] Glucose Urine UA Negative Negative mg/dL [facility] Urine Blood Negative Negative [facility] Specific [place] - Urine 1.015 1.005 - 1.025 [facility] Urine Protein 300 (3+)(A) Neg-Trace mg/dL [facility] Urine Ketones Negative Negative mg/dL [facility] Nitrite Urine Negative Negative [facility] Leukocyte Esterase Urine Negative Negative [facility] RBC Urine 0-2 0 - 2 /HPF [facility] Urine WBC 0-5 0 - 5 /HPF [facility] Urine Squamous Epithelial Cell 0-2 0 - 2 /HPF [facility] Urine Bacteria None Seen None Seen [facility] Hyaline Casts, Urine 0-2 0 - 2 /LPF [facility] 03/23/2024 3:19 PM EST 03/23/2024 3:56 PM EST us Generic External Data Provider LAB URINE ORDERAB LES Final Result Performing Organization Address [facility]/ZIP Co de Phone Number [facility] [address] [place] [phone] * TSH (03/23/2024 3:19 PM EST) Thyroid Stimulating Hormone 1.06 0.32 - 4.0 uIU/mL [facility] Comment:TSH 3rd Generation ( [facility]) Blood Venous blood specimen / Unknown 03/23/2024 3:19 PM EST 03/23/2024 3:58 PM EST us Kourtney Epstein MD LAB BLOOD ORDERAB LES Final Result Performing Organization Address [facility]/ZIP Co de Phone Number [facility] [address] [place] [phone] * T4, Free (03/23/2024 3:19 PM EST) Free T4 (Free Thyroxine) 1.06 0.71 - 1.85 ng/dL [facility] Blood Venous blood specimen / Unknown 03/23/2024 3:19 PM EST 03/23/2024 3:58 PM EST us Kourtney Epstein MD LAB BLOOD ORDERAB LES Final Result Performing Organization Address [facility] Co de Phone Number [facility] [address] [place] [phone] * (ABNORMAL) Comprehensive Metabolic Panel (03/23/2024 3:19 PM EST) [facility] Sodium 138 135 - 145 mmol/L [facility] Potassium 4.3 3.3 - 5.1 mmol/L [facility] Chloride 102 96 - 108 mmol/L [facility] Carbon Dioxide 30(H) 22 - 29 mmol/L [facility] Anion Gap 10(L) 12 - 20 [facility] Urea Nitrogen (BUN) 19(H) 9 - 16 mg/dL [facility] Creatinine, Serum 0.64 0.5 - 1.4 mg/dL [facility] Estimated Glomerular Filt Rate >60 [facility] Comment:Chronic Kidney Disea se: Estimated GFR < 60 mL/min/[id number] Kidney Disease: Estimated GFR < 15 mL/min/1.73m2 Glucose 124(H) 60 - 115 mg/dL [facility] Calcium 9.2 8.4 - 10.2 mg/dL [facility] Bilirubin, Total 0.2 0.0 - 1.0 mg/dL [facility] Aspartate Amino Transferase 24 5 - 31 U/L [facility] Alanine Aminotransferase 31 0 - 31 U/L [facility] Total Protein 6.3(L) 6.5 - 8.0 g/dL [facility] Albumin Level 3.2(L) 3.5 - 5.0 g/dL [facility] Alkaline Phosphatase 54 39 - 117 U/L [facility] Blood Venous blood specimen / Unknown 03/23/2024 3:19 PM EST 03/23/2024 3:58 PM EST us Kourtney Epstein MD LAB BLOOD ORDERAB LES Final Result [facility] [address] [place] [phone] * (ABNORMAL) Cyclosporine level (03/23/2024 1:56 PM EST) Cyclosporine A Trough <25(A) 100 - 300 mcg/L [facility] Comment:No definitive therap eutic or toxic ranges have beenestablished. Optimal blood drug levels are influencedby type of transplant, patient response, time post-transplant, co-administration of other drugs, and drugformulation. The following trough ranges are suggestedguidelines:Kidney Transplantation: 100-200 mcg/LOther Organ Transplant: 200-300 mcg/LThis test was developed and its analytical performancecharacteristics have been determined by [employer] [place], [place]. It hasnot been cleared or approved by the U.S. Food and DrugAdministration. This assay has been validated pursuantto the CLIA regulations and is used for clinicalpurposes.THIS TEST WAS PERFORMED AT:[facility] [place] [address]RREDMLYSIMON CRAMER MD,PHD 03/23/2024 1:56 PM EST 03/23/2024 3:58 PM EST us Generic External Data Provider LAB BLOOD ORDERAB LES Final Result [facility] [address] [place] [phone] * US RENAL BI (02/17/2024 11:16 AM EST) Anatomical Region Laterality Modality Abdomen Ultrasound 02/17/2024 11:1 6 AM EST Narrative 02/17/2024 11:44 AM EST ? [facility] ?[address] ?[place] [address] ? Ultrasound Report ? Signed ? Patient: Madison Navarro ?MR# ?? : [id number] ? : 1975 ?Acct:[id number] ? Age/Sex: 48 / F ?ADM Date: 02/17/24 ? Loc: HO.US ? Attending Dr: Gutierrez Lozano MD ? Ordering Physician: Gutierrez Lozano MD ?? Date of Service: 02/17/24 ?? Procedure(s): US renal BI ?? Accession Number(s): [id number] ? cc: Gutierrez Lozano MD; Kourtney Saxena [...] signed by Kendall Wise MD in OV> ?02/17/241140 ? DD/ 1116 ? TD/TT: 02/17/24 1123 ? Retort Engineer: ? Procedure Note Donkaitlynnlisalaurentter, Image - 02/17/2024 [place] [address] Ultrasound Report Signed Patient: Madison Navarro AMR# : [id number] : 1975Acct:[id number] Age/Sex: 48 / FADM Date: 02/17/24 Loc: HO.US Attending Dr: Gutierrez Lozano MD Ordering Physician: Gutierrez Lozano MD Date of Service: 02/17/24 Procedure(s): US renal BI Accession Number(s): [id number] cc: Gutierrez Lozano MD; Kourtney Saxena MD [...] Kendall Wise MD 02/17/2024 11:41 AM EST RP Dictated By: Kendall Wise MD Signed By: <Electronically signed by Kendall Wise MD in OV> 02/17/24 1141 DD/ 1116 TD/TT: 02/17/24 1123 Retort Engineer: [facility] External Provider IMG US PROCEDURES Final [...] Detected Urine 01/24/2024 10:5 4 AM EST Jaylon Martin MD POINT OF CARE TEST ENTER/EDIT OR DERABLES Final Result * Culture, Urine, Routine (01/24/2024 10:54 AM EST) Urine Urine specimen obtained by clean catch procedure / Unknown 01/24/2024 10:54 AM EST 01/24/2024 6:32 PM EST Comment:UACC Narrative [facility] - 01/26/2024 7:47 AM EST Urine Culture Report Result Urine Culture 10,000 to 50,000 cfu/ml Urine Culture Mixed bacterial summer characteristic of Urine Culture urogenital contamination. Specimen Source: Urine clean catch Jaylon Martin MD LAB MICROBIOLOGY - GENERAL ORDER ANGÉLICA Final Result Performing Organization Address [facility]/ZIP Co de Phone Number [facility] [address] [place] [phone] * (ABNORMAL) Lipid Panel, Standard (01/11/2024 9:50 AM EST) Triglycerides 133 <150 mg/dL [facility] Comment:Desirable Triglyceri de: less than 150 mg/dLBorderline High Triglyceride 150-199 mg/dLHigh Triglyceride: 200-499 mg/dLVery High Triglyceride: greater than or equal to 5OO mg/dL Cholesterol 246(H) <200 mg/dL [facility] Comment:Desirable Cholestero l: less than 200 mg/dLBorderline High Cholesterol: 200-239 mg/dLHigh Cholesterol: greater than 239 mg/dL LDL Cholesterol Calculated 148(H) <100 mg/dL [facility] Comment:Desirable LDL: less than 100 mg/dLNear Optimal/Above Optimal LDL: 110- 129 mg/dLBorderline High LDL: 130-159 mg/dLHigh LDL: 160-189 mg/dLVery High LDL: greater than or equal to 190 mg/dL HDL Cholesterol 72 >40 mg/dL [facility] Comment:Desirable HDL: great er than 40 mg/dL Note: This HDL assay may give artificially low results in patients with liver disease. 01/11/2024 9:50 AM EST 01/11/2024 11:31 AM EST Generic External Data Provider LAB BLOOD ORDERAB LES Final Result Performing Organization Address [facility]/ZIP Co de Phone Number [facility] [address] [place] [phone] * CT Lung Screening Low dose (12/10/2023 10:40 AM EDT) Anatomical Region Laterality Modality Lung Computed Tomogra phy 12/10/2023 10:4 0 AM EDT Narrative 01/26/2024 11:47 PM EST ? [facility] ?[address] ?[place] [address] ? CT Scan Report ? Signed ? Patient: Madison Navarro ?MR# ?? : [id number] ? : 1975 ?Acct:[id number] ? Age/Sex: 48 / F ?ADM Date: 12/10/23 ? Loc: HO.CT ? Attending Dr: Stacy Mays PA-C ? Ordering Physician: Stacy Mays PA-C ?? Date of Service: 12/10/23 ?? Procedure(s): CT lung screening ?? Accession Number(s): [id number] ? cc: Stacy Mays PA-C; Kourtney Saxena [...] DD/ 1040 ? TD/TT: 12/10/23 1045 ? Retort Engineer: SS ? Procedure Note Alina, Image - 01/26/[address] [address] [address] Scan Report Signed Patient: Madison Navarro AMR# : [id number] : 1975Acct:[id number] Age/Sex: 48 / FADM Date: 12/10/23 Loc: HO.CT Attending Dr: Stacy Mays PA-C Ordering Physician: Stacy Mays PA-C Date of Service: 12/10/23 Procedure(s): CT lung screening Accession Number(s): [id number] cc: Stacy Mays PA-C; Kourtney Saxena MD [...] 01/26/24 2344 DD/ 1040 TD/TT: 12/10/23 1045 Retort Engineer: SS [facility] External Provider IMG CT PROCEDURES Edited Result - Final * BI Mammogram Screening Tomosynthesis Bilateral (08/17/2023 9:18 AM EDT) Anatomical Region Laterality Modality Breast Bilateral Mammography 08/17/2023 9:18 AM EDT Narrative 09/12/2023 3:49 PM EDT ? [facility] [place] ? [address] ?[place] [address] ? Mammography Report ? Signed ? Patient: Madison Navarro ?MR# ?? : [id number] ? : 1975 ?Acct:[id number] ? Age/Sex: 48 / F ?ADM Date: 08/17/23 ? Loc: HO.MAMMO ? Attending Dr: Kourtney Epstein MD ? Ordering Physician: Kourtney Saxena MD ?Re ?? sults: 2Benign Findings ? Date of Service: 08/17/23 ?Follow Up: 1 Year From Orig ?? inal Mammogram ? Procedure(s): MM tomosynthesis screening BI ?? Accession Number(s): [id number] ? cc: Kourtney Saxena MD ? EXAMINATION: [...] by Marnie Faulkner MD in OV> ? 09/12/236 ? DD/ 7 ? TD/TT: ? Retort Engineer: ? Procedure Note Katelin Fuller - 09/12/2023 [facility] [address] [place] [address] [place] [address] Mammography Report Signed Patient: Madison Navarro AMR# : [id number] : 1975Acct:[id number] Age/Sex: 48 / FADM Date: 08/17/23 Loc: HO.MAMMO Attending Dr: Kourtney Epstein MD Ordering Physician: Kourtney Saxena sults: 2Benign Findings Date of Service: 08/17/23Follow Up: 1 Year From Orig ina Mammogram Procedure(s): MM tomosynthesis screening BI Accession Number(s): [id number] cc: Kourtney Saxena MD EXAMINATION: MM SCREENING [...] in OV> 09/12/23 1546 DD/ 0918 TD/TT: Retort Engineer: us Kourtney Epstein MD IMG BI PROCEDURES Final Result * Hepatitis C Antibody with Reflex to HCV, RNA, Quantitative, Real-Time PCR (07/27/2023 10:47 AM EDT) Hepatitis C Antibody Nonreactive Nonreactive [facility] Comment:Antibodies to HCV no t detected; does not exclude early acuteHCV infection. Blood Venous blood specimen / Unknown 07/27/2023 10:47 AM EDT 07/27/2023 11:28 AM EDT us Kourtney Epstein MD LAB BLOOD ORDERAB LES Final Result Performing Organization Address [facility]/ZIP Co de Phone Number [facility] [address] [place] [phone] * HIV-1/2 Antigen and Antibodies, Fourth Generation, with Reflexes (07/27/2023 10:47 AM EDT) [facility] HIV AB/AG Nonreactive Nonreactive [facility] Comment:HIV-1 p24 Ag and/or HIV-1/HIV-2 Ab not detected.A test result that is nonreactive does not exclude thepossibility of exposure to or infection with HIV-1 and/orHIV-2. Nonreactive results in this assay for individualswith prior exposure to HIV-1 and/or HIV-2 may be due toantigen and antibody levels that are below the limit ofdetection of this assay.The [employer] HIV Ag/Ab Combo assay result andsupplemental assay results should be interpreted inconjunction with the patient's clinical presentation,history and other laboratory results. If the results areinconsistent with clinical evidence, additional testing issuggested to confirm the result. Blood Venous blood specimen / Unknown 07/27/2023 10:47 AM EDT 07/27/2023 11:28 AM EDT us Kourtney Epstein MD LAB BLOOD ORDERAB LES Final Result Performing Organization Address City/[facility]/ZIP Co de Phone Number [facility] [address] [place] [address] [phone] from Last 3 Months or Most Recently Relevant to Health Maintenance Insurance [facility] , [facility] [address] [place] [address] [facility] [address] [place] [address] [place] [address] Care Teams Ed Manager Relationship Specialty Start Date End Date Kourtney Saxena MD [address] [place] [phone] PCP - General Internal Medicine 04/23/23
--- OUTSIDE RECORDS SUMMARY | 2024-04-12 16:44 | XMS_ITS | Encounter Summary ---
Author Organization [employer] Address [address] [facility] 7 [place] [address] Care Team Providers Care Table Games Shift Manager Name Role Phone Kourtney Saxena MD Primary Care Pro vider Encounter Details Date Type Department Care Team (Late st Contact Info) Description 03/28/2024 Refill [facility] [address] [place], [place] [phone] Kourtney Saxena MD [address] [place] [address] Social History Tobacco Use Types Packs/Day Years [...] encounter Miscellaneous Notes * Telephone Encounter - TYLER Tavarez - 04/10/2024 2:44 PM EST duplicate documented in this encounter Plan of Treatment Not on file documented as of this encounter Visit Diagnoses Not on filedocumented in this encounter Additional Health Concerns Assessment Noted Time PHQ-9 Depression Total Score: 4 07/02/19 10:41 AM EDT documented as of this encounter Care Teams Table Games Shift Manager Relationship Specialty Start Date End Date Kourtney Saxena MD [address] [place] [phone] PCP - General Internal Medicine 04/23/23 documented as of this encounter
--- OUTSIDE RECORDS SUMMARY | 2024-04-12 16:44 | XMS_ITS | Encounter Summary ---
Author Organization [employer] Address [address] [place] [address] [address] [place] [address] Care Team Providers Care Bi Technical Lead Name Role Phone Kourtney Saxena MD Primary Care Pro vider Encounter Details Date Type Department Care Team (Late st Contact Info) Description 05/04/2023 Orders Only [facility] [address] [place], [place] [phone] Love Quintanilla MD [address] [place] [address] Social History Tobacco Use Types Packs/Day Years [...] to Culture (11/01/2023 11:36 AM EDT) [facility] Appearance Urine Clear [facility] PH 7.0 5.0 - 9.0 [facility] Glucose Urine UA Negative Negative mg/dL [facility] Urine Blood Negative Negative [facility] Specific [place] - Urine 1.010 1.005 - 1.025 [facility] Urine Protein 100 (2+)(A) Neg-Trace mg/dL [facility] Urine Ketones Negative Negative mg/dL [facility] Nitrite Urine Negative Negative [facility] Leukocyte Esterase Urine Negative Negative [facility] RBC Urine 0-2 0 - 2 /HPF [facility] Urine WBC 0-5 0 - 5 /HPF [facility] Urine Squamous Epithelial Cell 0-2 0 - 2 /HPF [facility] Urine Bacteria None Seen None Seen [facility] Hyaline Casts, Urine 0-2 0 - 2 /LPF [facility] 11/01/2023 11:3 6 AM EDT 11/01/2023 1:21 PM EDT Narrative [facility] - 11/01/2023 1:41 PM EDT Urine, Clean Catch us Kourtney Epstein MD LAB URINE ORDERAB LES Final Result [facility] [address] [place] [phone] [phone] * (ABNORMAL) Albumin, Random Urine W/Creatinine (08/17/2023 2:30 PM EDT) Creatinine, Urine 94.35 mg/dL [facility] Microalbumin Urine >2,000.0 mg/L [facility] Microalbum Creatinine Ratio Ur 2,119.7(H ) <30 ug/mg cr [facility] Comment:Albumin/Creatinine R atio Reference Ranges: Normal: < 30 ug/mg creatinine Microalbuminuria: 30 - 300 ug/mg creatinineClinical Albuminuria: > 300 ug/mg creatinine 08/17/2023 2:30 PM EDT 08/17/2023 4:14 PM EDT us Kourtney Epstein MD LAB URINE ORDERAB LES Final Result [facility] [address] [place] [phone] documented in this encounter Visit Diagnoses Not on filedocumented in this encounter Care Teams Bi Technical Lead Relationship Specialty Start Date End Date Kourtney Saxena MD [address] [place] [phone] PCP - General Internal Medicine 04/23/23 documented as of this encounter
--- OUTSIDE RECORDS SUMMARY | 2024-04-12 16:44 | XMS_ITS | Clinical Summary ---
Author Organization [facility] it Address [address] [place] [address] Care Team Providers Care Carousel Attendant Name Role Phone Vero Archuleta DO Primary Care Provider [phone] Surgical History Surgery Date Site/Laterality Comments SECTION PROCEDURE: HISTORICAL DELIVERY Medical History Medical History Date Comments History of drug dependence/a buse ([facility]/HCC) 08/03/2013 DX:History of drug dependenc e/abuse ([facility]); COMMENT: Marijuana, cocaine, crack, heroin - clean since 02/28/16 (relapse 01/22) PTSD (post-traumatic stress disorder) 10/17/2013 DX:PTSD (post-traumatic stress disorder) Anxiety 10/17/2013 DX:Anxiety Alcohol abuse 08/15/2012 DX:Alcohol abuse ; COMMENT: Quit May 2012 Was hospitalized [facility] previous pcp , clean Dec 2015 Asthma 08/15/2012 DX:Asthma Depression 08/15/2012 DX:Depression 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
--- OUTSIDE RECORDS SUMMARY | 2024-04-12 16:44 | XMS_ITS | Encounter Summary ---
Author Organization [employer] Address [address] [place] [address] [place], [place] [address] Care Team Providers Care Interactive Web Developer Name Role Phone Kourtney Saxena MD Primary Care Pro vider Reason for Visit * Reason Comments Med Refill Encounter Details Date Type Department Care Team (Late st Contact Info) Description 03/18/2024 Refill [facility] [address] [place], [place] [phone] Kourtney Saxena MD 230 [place] [address] Social History Tobacco Use Types Packs/Day Years [...] documented as of this encounter Care Teams Interactive Web Developer Relationship Specialty Start Date End Date Kourtney Saxena MD [address] [place] [address] PCP - General Internal Medicine 04/23/23 documented as of this encounter
--- OUTSIDE RECORDS SUMMARY | 2024-04-12 16:44 | XMS_ITS | Encounter Summary ---
Author Organization [email or web address] Address [address] [place] [address] [place] [address] Care Team Providers Care Supervisor [place] Name Role Phone Kourtney Saxena MD Primary Care Pro vider Reason for Visit * Reason Comments Med Refill Encounter Details Date Type Department Care Team ([facility] st Contact Info) Description 04/03/2024 Refill [facility] MED[facility]INE 230 [place], [place] [phone] Kourtney Saxena MD 230 [place] [address] Social History Tobacco Use Types Packs/Day Years [...] documented as of this encounter Care Teams Supervisor [place] Relationship Specialty Start Date End Date Kourtney Saxena MD [address] [place] [address] PCP - General Internal Medicine 04/23/23 documented as of this encounter
--- OUTSIDE RECORDS SUMMARY | 2024-04-12 16:44 | XMS_ITS | Encounter Summary ---
Author Organization [employer] Address [address] [place] [address] [place] [address] Care Team Providers Care Visual Coordinator Name Role Phone Kourtney Saxena MD Primary Care Pro vider Reason for Visit * Reason Comments Med Refill Encounter Details Date Type Department Care Team ([facility] st Contact Info) Description 12/07/2022 Refill [facility] [address] [place] [address] [phone] Jaylon Martin MD [address] [place] [phone] Social History Tobacco Use Types Packs/Day Years [...] on filedocumented in this encounter Care Teams Visual Coordinator Relationship Specialty Start Date End Date Kourtney Saxena MD [address] [place] [phone] PCP - General Internal Medicine 04/23/23 documented as of this encounter
--- OUTSIDE RECORDS SUMMARY | 2024-04-12 16:44 | XMS_ITS | Encounter Summary ---
Author Organization [employer] Address [address] [facility] 7 [place] [address] Care Team Providers Care Consumer Affairs Director Name Role Phone Kourtney Saxena MD [...] t he electric, gas, oil or water [employer] threatened to shut off services in your [...] AM EST) HPV High Risk Negative Negative [facility] HPV Genotype 16 Negative Negative [facility] HPV Genotype 18 Negative Negative [facility] Comment:HPV testing performe d at [facility] (CLIA#[id number]), [address] [place] [address].Testing for HPV was performed using the K[employer] [...] Provider LAB BLOOD ORDERAB LES Final Result [facility] [address] [place] [address] [phone] * Pap Smear (03/28/2024 10:12 AM EST) 03/28/2024 10:1 2 AM EST 03/28/2024 2:15 PM EST Narrative [facility] - 04/03/2024 12:46 PM EST ----- ------- Name: Madison Navarro ? Age/Sex: 48/F ? : 1975 Unit#: [id number] ?? Attend Dr: Guille Summers MD ?Re03/28/24 ?Status: DEP REF ? Location: HO.LNP ?Disch: ? ----- ------- SPEC : [id number] ? RECD: 03/28/24-1414 ? STATUS: ??SOUT ? REQ NUM: [id number] ? YAMINI: 03/28/24-1012 ? SUBM DR: Guille [...] To: ?? Kourtney Saxena MD ?? [address] ?? [place] [address] ?? [phone] ?? Guille Summers MD ?? [facility] ?? [address] [facility] [address] ?? [place] [address] ?? [phone] ----- ------- Signed (signature on file) MELITA Kwok (ASCP) 04/03/24 1246 ? ----- ------- ? END OF REPORT ? us Generic External Data Provider LAB CYTOLOGY DAVE OSWALD Final Result [facility] [address] [place] [address] [phone] documented in this encounter Visit Diagnoses Not on filedocumented in this encounter Additional Health Concerns Assessment Noted Time PHQ-9 Depression Total Score: 4 07/02/19 10:41 AM EDT documented as of this encounter Care Teams Consumer Affairs Director Relationship Specialty Start Date End Date Kourtney Saxena MD [address] [place] [address] PCP - General Internal Medicine 04/23/23 documented as of this encounter
== END 2024-04-12 13:57 | disposition home or self-care (01) ==
LOC: HO.US 13:56
PROVIDERS: PCP Student in an Organized Health Care Education/Training Program; Visit Provider Obstetrics & Gynecology
DX: N95.0 Postmenopausal bleeding (principal)
CPT/HCPCS: 76830; 76856

== ENCOUNTER → 2024-04-12 13:58 | Outpatient (BNV) | payer OTHER, MEDICAID, SELFPAY | PROVIDERS: PCP Student in an Organized Health Care Education/Training Program; Visit Provider Radiology Diagnostic Radiology | DX: N95.0 Postmenopausal bleeding (principal) | CPT/HCPCS: 76830; 76856 ==

== ENCOUNTER 2024-04-24 11:21 | Outpatient (REF) | payer OTHER, MEDICAID, SELFPAY ==
--- OUTSIDE RECORDS SUMMARY | 2024-04-24 13:30 | XMS_ITS | Clinical Summary ---
Author Organization [facility] it Address [address] [place] [address] Care Team Providers Care Molding And Trim Installer Name Role Phone Vero Archuleta DO Primary Care Provider [phone] Surgical History Surgery Date Site/Laterality Comments SECTION PROCEDURE: HISTORICAL DELIVERY Medical History Medical History Date Comments History of drug dependence/a buse ([facility]/HCC) 08/03/2013 DX:History of drug dependenc e/abuse ([facility]); COMMENT: Marijuana, cocaine, crack, heroin - clean since 02/28/16 (relapse 01/22) PTSD (post-traumatic stress disorder) 10/17/2013 DX:PTSD (post-traumatic stress disorder) Anxiety 10/17/2013 DX:Anxiety Alcohol abuse 08/15/2012 DX:Alcohol abuse ; COMMENT: Quit May 2012 Was hospitalized [facility] previous pcp , clean Dec 2015 Asthma 08/15/2012 DX:Asthma Depression 08/15/2012 DX:Depression 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
--- OUTSIDE RECORDS SUMMARY | 2024-04-24 13:30 | XMS_ITS | Encounter Summary ---
Author Organization [email or web address] Address [address] [facility] 7t [place] [address] Care Team Providers Care [address] Mechanical Engineer Name Role Phone Kourtney Saxena MD Primary Care Pro vider Encounter Details Date Type Department Care Team (Late st Contact Info) Description 04/12/2024 Orders Only [facility] External Provider, [facility] Social History Tobacco Use Types Packs/Day Years [...] Care Team (Late st Contact Info) Description 07/17/2024 1:15 PM EDT Office Visit [facility] MEDICINE [address] [place] [address] Kourtney Saxena MD 230 [place] [address] documented as of this encounter Procedures Procedure Name Priority Date/Time Associated Diagnosis Comments US PELVIS TRANSVAGINAL Routine 04/12/2024 2:09 PM EST documented in this encounter Results * US Pelvis Transvaginal (04/12/2024 2:09 PM EST) Anatomical Region Laterality Modality Pelvis Ultrasound 04/12/2024 2:09 PM EST Narrative 04/14/2024 10:32 AM EST ? [facility] ?[address] ?[place] [address] ? Ultrasound Report ? Signed ? Patient: Madison Navarro ?MR# ?? : [id number] ? : 1975 ?Acct:[id number] ? Age/Sex: 48 / F ?ADM Date: 03/05/25 ? Loc: HO.US ? Attending Dr: Guille Summers MD ? Ordering Physician: Guille Summers MD ?? Date of Service: 04/12/24 ?? Procedure(s): US pelvic and transvaginal ?? Accession Number(s): [id number] ? cc: Kourtney Saxena MD; Guille Summers MD ? EXAMINATION: ??US PELVIS TRANSABDOMINAL AND TRANSVAGINAL ? HISTORY: N95.0 - Postmenopausal bleeding ? COMPARISON: Comparison is made with the prior examination dated ?? 08/25/2023. ? TECHNIQUE: ? Transabdominal and endovaginal real-time 2D eller-scale ultrasound was ?? performed. ?? The transabdominal examination is extremely limited. ? FINDINGS: ? Uterus: ??The uterus is normal in size, measuring 12.8 x 3.9 x 5.3 cm. ? Myometrium has a normal echotexture. ??There is a 3.8 x 1.9 x 3.6 cm ?? fundal fibroid. It is uncertain if this represents the previously seen ?? fibroid. ? Endometrium: ??The endometrial stripe is not identified. ? Right ovary: ??The right ovary measures 1.5 x 1.9 x 1.7 cm. ??The right ?? ovary is normal in size and echotexture. ? Left ovary: ?? The left ovary measures 1.6 x 1.0 x 1.2 cm. ??The left ?? ovary is normal in size and echotexture. ? Pelvic fluid: none. ? US/US pelvic and transvaginal ?? IMPRESSION: ?? Limited examination. 3.8 x 1.9 x 3.6 cm fundal fibroid. It is uncertain ?? whether this represents the same fibroid is seen previously. ? Electronically signed by: ??Kendall Wise MD ??04/14/2024 10:28 AM EST ?? RP ? Dictated By: ?Kendall Wise MD ? Signed By: ?<Electronically signed by Kendall Wise MD in OV> ?04/14/24 1028 ? DD/ 1409 ? TD/TT: 04/12/24 1430 ? Food And Beverage Checker: ? Procedure Note Alina, Katelin - 04/14/[address] [address] Ultrasound Report Signed Patient: Madison Navarro AMR# : [id number] : 1975Acct:[id number] Age/Sex: 48 / FADM Date: 04/12/24 Loc: .US Attending Dr: Guille Summers MD Ordering Physician: Guille Summers MD Date of Service: 04/12/24 Procedure(s): US pelvic and transvaginal Accession Number(s): [id number] cc: Kourtney Saxena MD; Guille Summers MD EXAMINATION: US PELVIS TRANSABDOMINAL AND TRANSVAGINAL HISTORY: N95.0 - Postmenopausal bleeding COMPARISON: Comparison is made with the prior examination dated 08/25/2023. TECHNIQUE: Transabdominal and endovaginal real-time 2D eller-scale ultrasound was performed. The transabdominal examination is extremely limited. FINDINGS: Uterus: The uterus is normal in size, measuring 12.8 x 3.9 x 5.3 cm. Myometrium has a normal echotexture. There is a 3.8 x 1.9 x 3.6 cm fundal fibroid. It is uncertain if this represents the previously seen fibroid. Endometrium: The endometrial stripe is not identified. Right ovary: The right ovary measures 1.5 x 1.9 x 1.7 cm. The right ovary is normal in size and echotexture. Left ovary: The left ovary measures 1.6 x 1.0 x 1.2 cm. The left ovary is normal in size and echotexture. Pelvic fluid: none. US/US pelvic and transvaginal IMPRESSION: Limited examination. 3.8 x 1.9 x 3.6 cm fundal fibroid. It is uncertain whether this represents the same fibroid is seen previously. Electronically signed by: Kendall Wise MD 04/14/2024 10:28 AM EST Dictated By: Kendall Wise MD Signed By: <Electronically signed by Kendall Wise MD in OV> 04/14/24 1028 DD/ 1409 TD/TT: 04/12/24 1430 Food And Beverage Checker: [facility] External Provider IMG US PROCEDURES Final Result documented in this encounter Visit Diagnoses Not on filedocumented in this encounter Additional Health Concerns Assessment Noted Time PHQ-9 Depression Total Score: 4 07/02/19 10:41 AM EDT documented as of this encounter Care Teams Rd Mechanical Engineer Relationship Specialty Start Date End Date Kourtney Saxena MD [address] [place] [address] PCP - General Internal Medicine 04/23/23 documented as of this encounter
--- OUTSIDE RECORDS SUMMARY | 2024-04-24 13:30 | XMS_ITS | Encounter Summary ---
Author Organization [employer] Address [address] [place] [address] 7 [place] [address] Care Team Providers Care Audit Clerk Name Role Phone Kourtney Saxena MD Primary Care Pro vider Reason for Visit * Reason Comments Dental Pain Upper right side Encounter Details Date Type Department Care Team (Late st Contact Info) Description 04/24/2024 1:00 PM EDT Office Visit [facility] ADULT DENTAL [address] [place] [address] Dustin Walker, DDS [address] [place] [address] Arrived Social History Tobacco Use Types Packs/Day Years [...] AM EDT documented as of this encounter Last Filed Vital Signs Vital Sign Reading Time Taken Comments Blood Pressure 128/80 04/24/2024 12:58 PM EDT Pulse - - Temperature - - Respiratory Rate - - Oxygen Saturation - - Inhaled Oxygen Concentration - - Weight - - Height - - Body Mass Index - - documented in this encounter Plan of Treatment Upcoming Encounters Date Type Department Care Team (Late st Contact Info) Description 07/17/2024 1:15 PM EDT Office Visit [facility] MEDICINE [address] [place] [phone] Kourtney Saxena MD [address] [place] [phone] documented as of this encounter Visit Diagnoses Not on filedocumented in this encounter Additional Health Concerns Assessment Noted Time PHQ-9 Depression Total Score: 4 07/02/19 10:41 AM EDT documented as of this encounter Care Teams Audit Clerk Relationship Specialty Start Date End Date Kourtney Saxena MD [address] [place] [phone] PCP - General Internal Medicine 04/23/23 documented as of this encounter
--- OUTSIDE RECORDS SUMMARY | 2024-04-24 13:30 | XMS_ITS | Encounter Summary ---
Author Organization [employer] Address [address] [facility] 7 [place] [address] Care Team Providers Care Manager Web Application Name Role Phone Kourtney Saxena MD Primary Care Pro vider Reason for Visit * Reason Comments Med Refill Encounter Details Date Type Department Care Team ([facility] st Contact Info) Description 04/17/2024 Refill [facility] 230 [place], [place] [phone] Adria Mason MD 230 [place] [address] Social History Tobacco Use Types Packs/Day Years [...] Description 07/17/2024 1:15 PM EDT Office Visit [facility] [address] [place] [address] Kourtney Saxena MD [address] [place] [address] documented as of this encounter Visit Diagnoses Not on filedocumented in this encounter Additional Health Concerns Assessment Noted Time PHQ-9 Depression Total Score: 4 07/02/19 10:41 AM EDT documented as of this encounter Care Teams Manager Web Application Relationship Specialty Start Date End Date Kourtney Saxena MD [address] [place] [address] PCP - General Internal Medicine 04/23/23 documented as of this encounter
--- OUTSIDE RECORDS SUMMARY | 2024-04-24 13:30 | XMS_ITS | Encounter Summary ---
Author Organization [employer] Address [address] [place] [address] [place] [address] Care Team Providers Care Language Therapist Name Role Phone Kourtney Saxena MD Primary Care Pro vider Reason for Visit * Reason Onset Date Comments Mone Recall 04/21/2024 Encounter Details Date Type Department Care Team ([facility] st Contact Info) Description 04/21/2024 Telephone [facility] MED[facility]INE [address] [place], [place] [phone] Kourtney Saxena MD [address] [place] [address] July Recall Social History Tobacco Use Types Packs/Day Years [...] Telephone Encounter - Skylar Carmen MA - 04/21/2024 2:34 PM EDT Telephone call to patient to schedule the following recall: Visit type: Physical Appointment notes: Physical Patient agree to appointment on at 1:15 PM with Tae. documented in this encounter Plan of Treatment Upcoming Encounters Date Type Department Care Team (Late st Contact Info) Description 07/17/2024 1:15 PM EDT Office Visit [facility] MEDICINE [address] [place] [address] Kourtney Saxena MD [address] [place] [address] documented as of this encounter Visit Diagnoses Not on filedocumented in this encounter Additional Health Concerns Assessment Noted Time PHQ-9 Depression Total Score: 4 07/02/19 24 10:41 AM EDT documented as of this encounter Care Teams Language Therapist Relationship Specialty Start Date End Date Kourtney Saxena MD [address] [place] [address] PCP - General Internal Medicine 04/23/23 documented as of this encounter
--- OUTSIDE RECORDS SUMMARY | 2024-04-24 13:31 | XMS_ITS | Encounter Summary ---
Author Organization [employer] Address [address] [facility] 7 [place] [address] Care Team Providers Care Lower School Music Teacher Name Role Phone Kourtney Saxena MD Primary Care Pro vider Encounter Details Date Type Department Care Team (Late st Contact Info) Description 03/28/2024 Refill [facility] MEDICINE [address] [place], [place] [phone] Kourtney Saxena MD [address] [place] [address] Social History Tobacco Use Types Packs/Day Years [...] Description 07/17/2024 1:15 PM EDT Office Visit [facility] MEDICINE [address] [place] [phone] Kourtney Saxena MD [address] [place] [address] documented as of this encounter Visit Diagnoses Not on filedocumented in this encounter Additional Health Concerns Assessment Noted Time PHQ-9 Depression Total Score: 4 07/02/19 10:41 AM EDT documented as of this encounter Care Teams Lower School Music Teacher Relationship Specialty Start Date End Date Kourtney Saxena MD [address] [place] [phone] PCP - General Internal Medicine 04/23/23 documented as of this encounter
--- OUTSIDE RECORDS SUMMARY | 2024-04-24 13:31 | XMS_ITS | Encounter Summary ---
Author Organization [employer] Address [address] [place] [address] Care Team Providers Care Artificial Stone Setter Name Role Phone Kourtney Saxena MD Primary Care Pro vider Encounter Details Date Type Department Care Team (Late st Contact Info) Description 05/04/2023 Orders Only [facility] MEDICINE [address] [place] [address] [phone] Love Quintanilla MD [address] [place] [address] [phone] Social History Tobacco Use Types Packs/Day Years [...] Description 07/17/2024 1:15 PM EDT Office Visit [facility] MEDICINE [address] [place] [address] [phone] Kourtney Saxena MD [address] [place] [address] [phone] documented as of this encounter Procedures Procedure Name Priority Date/Time Associated Diagnosis Comments URINALYSIS, COMPLETE, WITH REFLEX TO CULTURE Routine 11/01/2023 11:36 AM EDT ALBUMIN, RANDOM URINE W/CREATININE Routine 08/17/2023 2:30 PM EDT documented in this encounter Results * (ABNORMAL) Urinalysis, Complete, with Reflex to Culture (11/01/2023 11:36 AM EDT) Color Urine Yellow [facility] Appearance Urine Clear [facility] PH 7.0 5.0 - 9.0 [facility] Glucose Urine UA Negative Negative mg/dL [facility] Urine Blood Negative Negative [facility] Specific [place] - Urine 1.010 1.005 - 1.025 [facility] Urine Protein 100 (2+)(A) Neg-Trace mg/dL [facility] Urine Ketones Negative Negative mg/dL [facility] Nitrite Urine Negative Negative [facility] Leukocyte Esterase Urine Negative Negative [facility] RBC Urine 0-2 0 - 2 /HPF [facility] Urine WBC 0-5 0 - 5 /HPF [facility] Urine Squamous Epithelial Cell 0-2 0 - 2 /HPF [facility] Urine Bacteria None Seen None Seen [facility] Hyaline Casts, Urine 0-2 0 - 2 /LPF [facility] 11/01/2023 11:3 6 AM EDT 11/01/2023 1:21 PM EDT Narrative [facility] - 11/01/2023 1:41 PM EDT Urine, Clean Catch us Kourtney Epstein MD LAB URINE ORDERAB LES Final Result [facility] [address] [place] [address] [phone] * (ABNORMAL) Albumin, Random Urine W/Creatinine (08/17/2023 2:30 PM EDT) Creatinine, Urine 94.35 mg/dL [facility] Microalbumin Urine >2,000.0 mg/L [facility] Microalbum Creatinine Ratio Ur 2,119.7(H ) <30 ug/mg cr [facility] Comment:Albumin/Creatinine R atio Reference Ranges: Normal: < 30 ug/mg creatinine Microalbuminuria: 30 - 300 ug/mg creatinineClinical Albuminuria: > 300 ug/mg creatinine 08/17/2023 2:30 PM EDT 08/17/2023 4:14 PM EDT us Kourtney Epstein MD LAB URINE ORDERAB LES Final Result [facility] [address] [place] [address] [phone] documented in this encounter Visit Diagnoses Not on filedocumented in this encounter Care Teams Artificial Stone Setter Relationship Specialty Start Date End Date Kourtney Saxena MD [address] [place] [phone] PCP - General Internal Medicine 04/23/23 documented as of this encounter
--- OUTSIDE RECORDS SUMMARY | 2024-04-24 13:31 | XMS_ITS | Encounter Summary ---
Author Organization [employer] Address [address] [place] [address] [place] [address] Care Team Providers Care Casino Floor Supervisor Name Role Phone Kourtney Saxena MD Primary Care Pro vider Reason for Visit * Reason Comments Med Refill Encounter Details Date Type Department Care Team ([facility] st Contact Info) Description 04/03/2024 Refill [facility] MEDICINE [address] [place], [place] [phone] Kourtney Saxena MD [address] [place] [address] Social History Tobacco Use Types Packs/Day Years [...] Description 07/17/2024 1:15 PM EDT Office Visit [facility] MEDICINE [address] [place] [phone] Kourtney Saxena MD [address] [place] [phone] documented as of this encounter Visit Diagnoses Not on filedocumented in this encounter Additional Health Concerns Assessment Noted Time PHQ-9 Depression Total Score: 4 07/02/19 10:41 AM EDT documented as of this encounter Care Teams Casino Floor Supervisor Relationship Specialty Start Date End Date Kourtney Saxena MD [address] [place] [phone] PCP - General Internal Medicine 04/23/23 documented as of this encounter
--- OUTSIDE RECORDS SUMMARY | 2024-04-24 13:31 | XMS_ITS | Encounter Summary ---
Author Organization [employer] Address [address] [facility] [address] [place] [address] Care Team Providers Care Customer Account Technician Name Role Phone Kourtney Saxena MD Primary Care Pro vider Reason for Visit * Reason Onset Date Comments Results 03/25/2024 Encounter Details Date Type Department Care Team ([facility] Contact Info) Description 03/25/2024 Telephone [facility] [address] [place], [place] [phone] Kitty Jackson, RN [address] [place], [place] [phone] Results Social History Tobacco Use Types Packs/Day [...] encounter Miscellaneous Notes * Telephone Encounter - iKtty Jackson RN - 03/25/2024 9:03 AM EST [...] 07/17/2024 1:15 PM EDT Office Visit [facility] [address] [place] [phone] Kourtney Saxena MD [address] [place] [phone] documented as of this encounter Visit Diagnoses Not on filedocumented in this encounter Additional Health Concerns Assessment Noted Time PHQ-9 Depression Total Score: 4 07/02/19 10:41 AM EDT documented as of this encounter Care Teams Customer Account Technician Relationship Specialty Start Date End Date Kourtney Saxena MD [address] [place] [phone] PCP - General Internal Medicine 04/23/23 documented as of this encounter
--- OUTSIDE RECORDS SUMMARY | 2024-04-24 13:31 | XMS_ITS | Encounter Summary ---
Author Organization [employer] Address [address] [place] [address] Care Team Providers Care Babbitt Spinner Name Role Phone Kourtney Saxena MD Primary Care Pro vider Reason for Visit * Reason Comments Med Refill Encounter Details Date Type Department Care Team (Late st Contact Info) Description 12/14/2022 Refill [facility] [address] [place] [address] [phone] Love Quintanilla MD [address] [place] [phone] Social History Tobacco Use Types Packs/Day Years [...] PM EDT Office Visit [facility] [address] [place] [address] [phone] Kourtney Saxena MD [address] [place] [phone] documented as of this encounter Visit Diagnoses Not on filedocumented in this encounter Care Teams Babbitt Spinner Relationship Specialty Start Date End Date Kourtney Saxena MD [address] [place] [phone] PCP - General Internal Medicine 04/23/23 documented as of this encounter
--- OUTSIDE RECORDS SUMMARY | 2024-04-24 13:31 | XMS_ITS | Clinical Summary ---
Author Organization [employer] Address [address] [place] [address] 7 [place] [address] Care Team Providers Care Oxygen Plant Operator Name Role Phone Kourtney Saxena MD Primary Care Pro vider Allergies Active Allergy Reactions Criticality Noted Date Comments Shellfish Allergy 04/24/2024 Shellfish-Derived Products Anaphylaxis High 03/24/19 23 Medications [...] DAILY 60 tablet 2 01/20/20 24 Active Additional Information Patient not taking.Reported on 04/24/2024 acetaminophen (Tylenol) 500 MG tablet Take 2 tablets (1,000 mg) by mouth every 6 (six) hours if needed for moderate pain or fever. 30 tablet 01/24/20 24 Active Aspirin Low Dose 81 MG EC tablet TAKE 1 TABLET BY MOUTH EVERY MORNING 90 tablet 01/28/20 24 Active losartan (Cozaar) 25 MG tablet TAKE 1 TABLET BY MOUTH EVERY MORNING 90 tablet 02/28/19 25 Active cloNIDine (Catapres) 0.1 MG tablet TAKE 1 TABLET BY MOUTH EVERY DAY NEEDED FOR ANXIETY 30 tablet 2 03/20/19 Active Additional Information Patient not taking.Reported on 04/24/2024 levothyroxine (Synthroid, Levoxyl) 50 MCG tablet TAKE 1 TABLET BY MOUTH EVERY MORNING BEFORE MEALS 90 tablet 04/04/19 Active ergocalciferol (Vitamin D2) 1.25 MG (62442 UT) capsule TAKE 1 CAPSULE BY MOUTH ONCE WEEKLY ON Wednesday 4 capsule 2 04/19/19 Active levothyroxine (Synthroid) 50 MCG tablet Take 1 tablet (50 mcg) by mouth before breakfast. Please stop 37.5 mcg dose and start 50 mcg daily dose 90 tablet 01/11/20 025 Discontinued ergocalciferol (Vitamin D2) 1.25 MG (43632 UT) capsule TAKE 1 CAPSULE BY MOUTH ONCE WEEKLY ON Wednesday 4 capsule 2 02/14/19 025 Discontinued Active Problems Problem Noted Date [...] Encounters Date Type Department Care Team Description 04/24/2024 1:00 PM EDT Office Visit [facility] [address] [place] [address] Dustin Walker DDS Arrived 04/21/2024 Telephone [facility] [address] [place] [address] Kourtney Saxena MD July04/17/2024 Refill [facility] [address] [place] [address] Adria Mason MD 04/12/2024 Orders Only [facility] External Provider, [facility] 04/03/2024 Refill [facility] [address] [place] [address] Kourtney Saxena MD 03/28/2024 Orders Only GENERIC EXTERNAL DATA DEPARTMENT Provider, Generic External Data 03/28/2024 Refill [facility] [address] [place] [address] Kourtney Saxena MD 03/25/2024 Telephone [facility] [address] [place] [address] Kitty Jackson, RN Results 03/23/2024 Orders Only GENERIC EXTERNAL DATA DEPARTMENT Provider, Generic External Data 03/18/2024 Refill [facility] [address] [place] [address] Kourtney Saxena MD 03/13/2024 Telephone [facility] [address] [place] [address] Skylar Carmen [place] may02/24/2024 Refill [facility] [address] [place] [address] Kourtney Saxena MD 02/17/2024 Orders Only [facility] External Provider, [facility] 02/15/2024 Refill [facility] [address] [place] [address] Kourtney Saxena MD 02/07/2024 Travel 01/28/2024 Refill [facility] [address] [place] [address] Kourtney Saxena MD 01/25/2024 Telephone [facility] [address] [place] [address] Kitty Jackson, RN NTTS from Last 3 Months Immunizations Name Administration [...] Pressure 128/80 04/24/2024 12:58 PM EDT Pulse 82 01/24/2024 10:06 AM EST Temperature [...] Description 07/17/2024 1:15 PM EDT Office Visit [facility] [address] [place], [place] [phone] Kourtney Saxena MD [address] [place], [place] [phone] Health Maintenance Due Date Last Done Comments [...] 11/18/2023 09/23/2023 Depression Screening 07/01/2024 07/02/2023, 07/02/19 24 SDOH Screening 08/16/2024 08/17/2023 Dental X-Ray: Bitewings 11/15/2024 11/15/2023, 02/19 Lung Cancer Screening 12/09/2024 12/10/2023 Dental X-Ray: Full Mouth 02/20/2025 02/19/2022 Tobacco Screening 04/24/2025 04/24/2024 Mammogram 08/16/2025 08/17/2023 Pap Smear 03/28/2027 03/28/2024 [...] PELVIS TRANSVAGINAL Routine 04/12/2024 2:09 PM EST PAP SMEAR Routine 03/28/2024 10:12 AM [...] RENAL BI Routine 02/17/2024 11:16 AM EST LIPID PANEL, STANDARD Routine 01/11/2024 9:50 AM [...] Relevant to Health Maintenance Results * US Pelvis Transvaginal (04/12/2024 2:09 PM EST) Anatomical Region Laterality Modality Pelvis Ultrasound 04/12/2024 2:09 PM EST Narrative 04/14/2024 10:32 AM EST ? [facility] [facility] ?[address] ?[place] [address] ? Ultrasound Report ? Signed ? Patient: Nadeem Barney,Madison A ?MR# ?? : [id number] ? : 1975 ?Acct:[id number] ? Age/Sex: 48 / F ?ADM Date: 04/12/24 ? Loc: HO.US ? Attending Dr: Guille Summers MD ? Ordering Physician: Guille Summers MD ?? Date of Service: 04/12/24 ?? Procedure(s): US pelvic and transvaginal ?? Accession Number(s): [id number] ? cc: Kourtney Saxena MD; Guille Summers [...] DD/ 1409 ? TD/TT: 04/12/24 1430 ? Buttonholer: ? Procedure Note Donhaoter, Image - 04/14/[address] [address] Ultrasound Report Signed Patient: Madison Navarro AMR# : [id number] : 1975Acct:[id number] Age/Sex: 48 / FADM Date: 04/12/24 Loc: HO.US Attending Dr: Guille Summers MD Ordering Physician: Guille Summers MD Date of Service: 04/12/24 Procedure(s): US pelvic and transvaginal Accession Number(s): [id number] cc: Kourtney Saxena MD; Guille Summers MD [...] Kendall Wise MD 04/14/2024 10:28 AM EST RP Dictated By: Kendall Wise MD Signed By: <Electronically signed by Kendall Wise MD in OV> 04/14/24 1028 DD/ 1409 TD/TT: 04/12/24 1430 Buttonholer: [facility] External Provider IMG US PROCEDURES Final Result * HPV DNA, Low/High Risk (03/28/2024 10:12 AM EST) HPV High Risk Negative Negative [facility] HPV Genotype 16 Negative Negative [facility] HPV Genotype 18 Negative Negative [facility] Comment:HPV testing performe d at [facility] (CLIA#[id number]), [address] [place] [address].Testing for HPV was performed using the Krys [...] 2 AM EST 03/29/2024 6:19 AM EST Generic External Data Provider LAB BLOOD ORDERAB LES Final Result [facility] [address] [place] [phone] * Pap Smear (03/28/2024 10:12 AM EST) 03/28/2024 10:1 2 AM EST 03/28/2024 2:15 PM EST Narrative [facility] - 04/03/2024 12:46 PM EST ----- ------- Name: Madison Navarro ? Age/Sex: 48/F ? : 1975 Unit#: [id number] ?? Attend Dr: Guille Summers MD ?Re03/28/24 ?Status: DEP REF ? Location: HO.LNP ?Disch: ? ----- ------- SPEC : [id number] ? RECD: 03/28/24-1414 ? STATUS: ??SOUT ? REQ NUM: [id number] ? YAMINI: 03/28/24-1012 ? SUBM DR: Guille [...] To: ?? Kourtney Saxena MD ?? [address] [facility] ?? [place] [address] ?? [phone] ?? Guille Summers MD ?? [facility] ?? [address] [facility] [address] ?? [place] [address] ?? [phone] ----- ------- Signed (signature on file) MELITA Kwok ([facility]) 04/03/24 1246 ? ----- ------- ? END OF REPORT ? Generic External Data Provider LAB CYTOLOGY ORDE RABLES Final Result Performing Organization Address [facility] de Phone Number [facility] [address] [place] [phone] * (ABNORMAL) Urine Protein, Total, Random without Creatinine (03/23/2024 3:19 PM EST) Protein, Total, Random Urine 273(H) <12 mg/dL [facility] 03/23/2024 3:19 PM EST 03/23/2024 3:56 PM EST Generic External Data Provider LAB URINE ORDERAB LES Final Result Performing Organization Address [facility] de Phone Number [facility] [address] [place] [address] [phone] * Creatinine, Random Urine (03/23/2024 3:19 PM EST) Creatinine, Urine 37.91 mg/dL [facility] 03/23/2024 3:19 PM EST 03/23/2024 3:56 PM EST Generic External Data Provider LAB URINE ORDERAB LES Final Result Performing Organization Address [facility] de Phone Number [facility] [address] [place] [address] [phone] * (ABNORMAL) Urinalysis Complete (03/23/2024 3:19 PM EST) Color Urine Yellow [facility] Appearance Urine Clear [facility] PH >=9.0 5.0 - 9.0 [facility] Glucose Urine UA Negative Negative mg/dL [facility] Urine Blood Negative Negative [facility] Specific [place] - Urine 1.015 1.005 - 1.025 [facility] Urine Protein 300 (3+)(A) Neg-Trace mg/dL [facility] Urine Ketones Negative Negative mg/dL [facility] Nitrite Urine Negative Negative [facility] Leukocyte Esterase Urine Negative Negative [facility] RBC Urine 0-2 0 - 2 /HPF [facility] Urine WBC 0-5 0 - 5 /HPF [facility] Urine Squamous Epithelial Cell 0-2 0 - 2 /HPF [facility] Urine Bacteria None Seen None Seen [facility] Hyaline Casts, Urine 0-2 0 - 2 /LPF [facility] 03/23/2024 3:19 PM EST 03/23/2024 3:56 PM EST us Generic External Data Provider LAB URINE ORDERAB LES Final Result Performing Organization Address City/[facility]/ZIP Co de Phone Number [facility] [address] [place] [phone] * TSH (03/23/2024 3:19 PM EST) Thyroid Stimulating Hormone 1.06 0.32 - 4.0 uIU/mL [facility] Comment:TSH 3rd Generation ( [facility]) Blood Venous blood specimen / Unknown 03/23/2024 3:19 PM EST 03/23/2024 3:58 PM EST us Kourtney Epstein MD LAB BLOOD ORDERAB LES Final Result Performing Organization Address City/[facility]/ZIP Co de Phone Number [facility] [address] [place] [phone] * T4, Free (03/23/2024 3:19 PM EST) Free T4 (Free Thyroxine) 1.06 0.71 - 1.85 ng/dL [facility] Blood Venous blood specimen / Unknown 03/23/2024 3:19 PM EST 03/23/2024 3:58 PM EST us Kourtney Epstein MD LAB BLOOD ORDERAB LES Final Result [facility] [address] [place] [address] [phone] * (ABNORMAL) Comprehensive Metabolic Panel (03/23/2024 3:19 PM EST) Sodium 138 135 - 145 mmol/L [facility] Potassium 4.3 3.3 - 5.1 mmol/L [facility] Chloride 102 96 - 108 mmol/L [facility] Carbon Dioxide 30(H) 22 - 29 mmol/L [facility] Anion Gap 10(L) 12 - 20 [facility] Urea Nitrogen (BUN) 19(H) 9 - 16 mg/dL [facility] Creatinine, Serum 0.64 0.5 - 1.4 mg/dL [facility] Estimated Glomerular Filt Rate >60 [facility] Comment:Chronic Kidney Disea se: Estimated GFR < 60 mL/min/1.55t8Bcyqhy Kidney Disease: Estimated GFR < 15 mL/min/1.73m2 Glucose 124(H) 60 - 115 mg/dL [facility] Calcium 9.2 8.4 - 10.2 mg/dL [facility] Bilirubin, Total 0.2 0.0 - 1.0 mg/dL [facility] Aspartate Amino Transferase 24 5 - 31 U/L [facility] Alanine Aminotransferase 31 0 - 31 U/L [facility] Total Protein 6.3(L) 6.5 - 8.0 g/dL [facility] Albumin Level 3.2(L) 3.5 - 5.0 g/dL [facility] Alkaline Phosphatase 54 39 - 117 U/L [facility] Blood Venous blood specimen / Unknown 03/23/2024 3:19 PM EST 03/23/2024 3:58 PM EST Kourtney Epstein MD LAB BLOOD ORDERAB LES Final Result Performing Organization Address [facility] Co de Phone Number [facility] [address] [place] [phone] * (ABNORMAL) Cyclosporine level (03/23/2024 1:56 PM EST) Cyclosporine A Trough <25(A) 100 - 300 mcg/L [facility] Comment:No definitive therap eutic or toxic ranges have beenestablished. Optimal blood drug levels are influencedby type of transplant, patient response, time post-transplant, co-administration of other drugs, and drugformulation. The following trough ranges are suggestedguidelines:Kidney Transplantation: 100-200 mcg/LOther Organ Transplant: 200-300 mcg/LThis test was developed and its analytical performancecharacteristics have been determined by [employer] [place], [place]. It hasnot been cleared or approved by the U.S. Food and DrugAdministration. This assay has been validated pursuantto the CLIA regulations and is used for clinicalpurposes.THIS TEST WAS PERFORMED AT:[employer] [place] [address]DOGCDPMSIMON CRAMER MD,PHD 03/23/2024 1:56 PM EST 03/23/2024 3:58 PM EST us Generic External Data Provider LAB BLOOD ORDERAB LES Final Result Performing Organization Address City/[facility]/ZIP Co de Phone Number [facility] [address] [place] [phone] [phone] * US RENAL BI (02/17/2024 11:16 AM EST) Anatomical Region Laterality Modality Abdomen Ultrasound 02/17/2024 11:1 6 AM EST Narrative 02/17/2024 11:44 AM EST ? [facility] [facility] ?[address] ?[place] [address] ? Ultrasound Report ? Signed ? Patient: Nadeem Barney,Madison A ?MR# ?? : [id number] ? : 1975 ?Acct:[id number] ? Age/Sex: 48 / F ?ADM Date: 02/17/24 ? Loc: HO.US ? Attending Dr: Gutierrez Lozano MD ? Ordering Physician: Gutierrez Lozano MD ?? Date of Service: 02/17/24 ?? Procedure(s): US renal BI ?? Accession Number(s): [id number] ? cc: Gutierrez Lozano MD; Kourtney Saxena [...] DD/ 1116 ? TD/TT: 02/17/24 1123 ? Buttonholer: ? Procedure Note Donotuseinterpreter, Image - 02/17/[address] [address] Ultrasound Report Signed Patient: Madison Navarro AMR# : [id number] : 1975Acct:[id number] Age/Sex: 48 / FADM Date: 02/17/24 Loc: HO.US Attending Dr: Gutierrez Lozano MD Ordering Physician: Gutierrez Lozano MD Date of Service: 02/17/24 Procedure(s): US renal BI Accession Number(s): [id number] cc: Gutierrez Lozano MD; Kourtney Saxena MD [...] 02/17/24 1141 DD/ 1116 TD/TT: 02/17/24 1123 Buttonholer: us [facility] External Provider IMG US PROCEDURES Final Result * (ABNORMAL) Lipid Panel, Standard (01/11/2024 9:50 AM EST) Triglycerides 133 <150 mg/dL [facility] Comment:Desirable Triglyceri de: less than 150 mg/dLBorderline High Triglyceride 150-199 mg/dLHigh Triglyceride: 200-499 mg/dLVery High Triglyceride: greater than or equal to 5OO mg/dL Cholesterol 246(H) <200 mg/dL [facility] Comment:Desirable Cholestero l: less than 200 mg/dLBorderline High Cholesterol: 200-239 mg/dLHigh Cholesterol: greater than 239 mg/dL LDL Cholesterol Calculated 148(H) <100 mg/dL [facility] Comment:Desirable LDL: less than 100 mg/dLNear Optimal/Above Optimal LDL: 110- 129 mg/dLBorderline High LDL: 130-159 mg/dLHigh LDL: 160-189 mg/dLVery High LDL: greater than or equal to 190 mg/dL HDL Cholesterol 72 >40 mg/dL [facility] Comment:Desirable HDL: great er than 40 mg/dL Note: This HDL assay may give artificially low results in patients with liver disease. 01/11/2024 9:50 AM EST 01/11/2024 11:31 AM EST us Generic External Data Provider LAB BLOOD ORDERAB LES Final Result [facility] [address] [place] [phone] * CT Lung Screening Low dose (12/10/2023 10:40 AM EDT) Anatomical Region Laterality Modality Lung Computed Tomogra phy 12/10/2023 10:4 0 AM EDT Narrative 01/26/2024 11:47 PM EST ? [facility] [facility] ?[address] ?[place] [address] ? CT Scan Report ? Signed ? Patient: Nadeem Karch,Madison A ?MR# ?? : [id number] ? : 1975 ?Acct:[id number] ? Age/Sex: 48 / F ?ADM Date: 12/10/23 ? Loc: HO.CT ? Attending Dr: Stacy Mays PA-C ? Ordering Physician: Stacy Mays PA-C ?? Date of Service: 12/10/23 ?? Procedure(s): CT lung screening ?? Accession Number(s): [id number] ? cc: Stacy Mays PA-C; Kourtney Saxena [...] DD/ 1040 ? TD/TT: 12/10/23 1045 ? Buttonholer: SS ? Procedure Note Katelin Fuller - 01/26/[address] [place] [address] [address] Scan Report Signed Patient: Madison Navarro AMR# : [id number] : 1975Acct:[id number] Age/Sex: 48 / FADM Date: 12/10/23 Loc: HO.CT Attending Dr: Stacy Mays PA-C Ordering Physician: Stacy Mays PA-C Date of Service: 12/10/23 Procedure(s): CT lung screening Accession Number(s): [id number] cc: Stacy Mays PA-C; Kourtney Saxena MD [...] by: Kuldeep Roca MD 01/26/2024 11:44 PM [facility] Dictated By: Kuldeep Roca MD Signed By: <Electronically signed by Kuldeep Roca MD in OV> 01/26/24 2344 DD/ 1040 TD/TT: 12/10/23 1045 Buttonholer: BRIAN us [facility] External Provider IMG CT PROCEDURES Edited Result - Final * BI Mammogram Screening Tomosynthesis Bilateral (08/17/2023 9:18 AM EDT) Anatomical Region Laterality Modality Breast Bilateral Mammography 08/17/2023 9:18 AM EDT Narrative 09/12/2023 3:49 PM EDT ? [facility] ? [address] ?[place] [address] ? Mammography Report ? Signed ? Patient: Madison Navarro ?MR# ?? : [id number] ? : 1975 ?Acct:[id number] ? Age/Sex: 48 / F ?ADM Date: 08/17/23 ? Loc: HO.MAMMO ? Attending Dr: Kourtney Epstein MD ? Ordering Physician: Kourtney Saxena MD ?Re ?? sults: 2Benign Findings ? Date of Service: 08/17/23 ?Follow Up: 1 Year From Orig ?? inal Mammogram ? Procedure(s): MM tomosynthesis screening BI ?? Accession Number(s): [id number] ? cc: Kourtney Saxena MD ? EXAMINATION: [...] in OV> ? 09/12/23 1546 ? DD/ ? TD/TT: ? Buttonholer: ? Procedure Note Alina, Image - 09/12/2023 [facility] [address] [place] [address] Mammography Report Signed Patient: Madison Navarro AMR# : [id number] : 1975Acct:[id number] Age/Sex: 48 / FADM Date: 08/17/23 Loc: CHELSEAO Attending Dr: Kourtney Epstein MD Ordering Physician: Kourtney Saxena sults: 2Benign Findings Date of Service: 08/17/23Follow Up: 1 Year From Orig inal Mammogram Procedure(s): MM tomosynthesis screening BI Accession Number(s): [id number] cc: Kourtney Saxena MD EXAMINATION: MM SCREENING [...] in OV> 09/12/23 1546 DD/ 0918 TD/TT: Buttonholer: us Kourtney Epstein MD IMG BI PROCEDURES Final Result * Hepatitis C Antibody with Reflex to HCV, RNA, Quantitative, Real-Time PCR (07/27/2023 10:47 AM EDT) Hepatitis C Antibody Nonreactive Nonreactive [facility] Comment:Antibodies to HCV no t detected; does not exclude early acuteHCV infection. Blood Venous blood specimen / Unknown 07/27/2023 10:47 AM EDT 07/27/2023 11:28 AM EDT Kourtney Epstein MD LAB BLOOD ORDERAB LES Final Result [facility] [address] [place] [phone] * HIV-1/2 Antigen and Antibodies, Fourth Generation, with Reflexes (07/27/2023 10:47 AM EDT) HIV AB/AG Nonreactive Nonreactive [facility] Comment:HIV-1 p24 Ag and/or HIV-1/HIV-2 Ab not detected.A test result that is nonreactive does not exclude thepossibility of exposure to or infection with HIV-1 and/orHIV-2. Nonreactive results in this assay for individualswith prior exposure to HIV-1 and/or HIV-2 may be due toantigen and antibody levels that are below the limit ofdetection of this assay.The [employer] original products HIV Ag/Ab Combo assay result andsupplemental assay results should be interpreted inconjunction with the patient's clinical presentation,history and other laboratory results. If the results areinconsistent with clinical evidence, additional testing issuggested to confirm the result. Blood Venous blood specimen / Unknown 07/27/2023 10:47 AM EDT 07/27/2023 11:28 AM EDT Kourtney Epstein MD LAB BLOOD ORDERAB LES Final Result [facility] [address] [place] [address] [phone] from Last 3 Months or Most Recently Relevant to Health Maintenance Insurance [facility] , [address] [place], [place] [phone] [place] [address] DENTAL - [facility] [address] [place] [id number] Care Teams Oxygen Plant Operator Relationship Specialty Start Date End Date Kourtney Saxena MD [address] [place] [phone] PCP - General Internal Medicine 04/23/23
--- OUTSIDE RECORDS SUMMARY | 2024-04-24 13:31 | XMS_ITS | Encounter Summary ---
Author Organization [employer] Address [address] [facility] 7 [place] [address] Care Team Providers Care Digital Product Specialist Name Role Phone Kourtney Saxena MD [...] t he electric, gas, oil or water [employer] threatened to shut off services in your [...] Description 07/17/2024 1:15 PM EDT Office Visit [facility] [address] [place] [address] [phone] Kourtney Saxena MD [address] [place], [place] [phone] documented as of this encounter Procedures Procedure Name Priority Date/Time Associated Diagnosis Comments HPV DNA, LOW/HIGH RISK Routine 03/28/2024 10:12 AM EST PAP SMEAR Routine 03/28/2024 10:12 AM EST documented in this encounter Results * HPV DNA, Low/High Risk (03/28/2024 10:12 AM EST) HPV High Risk Negative Negative [facility] HPV Genotype 16 Negative Negative [facility] HPV Genotype 18 Negative Negative [facility] Comment:HPV testing performe d at [facility] (CLIA#[id number]), [address] [place] [address].Testing for HPV was performed using the [employer] BEAU 6800system. The presence of HPV in [...] Provider LAB BLOOD ORDERAB LES Final Result [facility] [address] [place] [phone] * Pap Smear (03/28/2024 10:12 AM EST) 03/28/2024 10:1 2 AM EST 03/28/2024 2:15 PM EST Narrative [facility] - 04/03/2024 12:46 PM EST ----- ------- Name: [place] Navarro ? Age/Sex: 48/F ? : 1975 Unit#: [id number] ?? Attend Dr: Guille Summers MD ?Re03/28/24 ?Status: DEP REF ? Location: HO.LNP ?Disch: ? ----- ------- SPEC : [id number] ? RECD: 03/28/24 ? STATUS: ??SOUT ? REQ NUM: [id number] ? YAMINI: 03/28/24-1012 ? SUBM DR: Guille [...] To: ?? Kourtney Saxena MD ?? [address] ?? [place] [address] ?? [phone] ?? Guille Summers MD ?? [facility] ?? [address] [facility] [address] ?? [place] [address] ?? [phone] ----- ------- Signed (signature on file) MELITA Kwok ([facility]) 04/03/24 1246 ? ----- ------- ? END OF REPORT ? us Generic External Data Provider LAB CYTOLOGY DAVE OSWALD Final Result [facility] [address] [place] [phone] documented in this encounter Visit Diagnoses Not on filedocumented in this encounter Additional Health Concerns Assessment Noted Time PHQ-9 Depression Total Score: 4 07/02/19 24 10:41 AM EDT documented as of this encounter Care Teams Digital Product Specialist Relationship Specialty Start Date End Date Kourtney Saxena MD [address] [place] [address] PCP - General Internal Medicine 04/23/23 documented as of this encounter
--- OUTSIDE RECORDS SUMMARY | 2024-04-24 13:31 | XMS_ITS | Encounter Summary ---
Author Organization [employer] Address [address] [place] [address] 7[place] [address] Care Team Providers Care Build And Deployment Engineer Name Role Phone Kourtney Saxena MD Primary Care Pro vider Reason for Visit * Reason Comments Med Refill Encounter Details Date Type Department Care Team (Late st Contact Info) Description 12/07/2022 Refill [facility] [address] [place] [phone] Jaylon Martin MD [address] [place] [phone] Social History Tobacco Use Types Packs/Day Years [...] Description 07/17/2024 1:15 PM EDT Office Visit [facility] [address] [place] [phone] Kourtney Saxena MD [address] [place] [phone] documented as of this encounter Visit Diagnoses Not on filedocumented in this encounter Care Teams Build And Deployment Engineer Relationship Specialty Start Date End Date Kourtney Saxena MD [address] [place] [phone] PCP - General Internal Medicine 04/23/23 documented as of this encounter
[2024-04-24 13:49] LABS: Appearance Urine Clear; Color Urine Dark Yellow; Glucose Urine UA Negative (Negative); Leukocyte Esterase Urine Negative (Negative); Nitrite Urine Negative (Negative); PH 5.5 (5.0-9.0); Specific Gravity - Urine 1.025 (1.005-1.025); UMIC TRIGGER UA YES; Urine Blood Negative (Negative); Urine Ketones Trace mg/dL (Negative); Urine Protein 300 (3+) mg/dL (Neg-Trace)
[2024-04-24 13:53] LABS: Bacteria Urine Trace (None Seen); RBC Urine 0-2 /HPF (0-2); WBC Urine 0-5 /HPF (0-5)
[2024-04-24 13:57] LABS: Anion Gap 11 (12-20); Blood Urea Nitrogen 18 mg/dL (9-16); Calcium 8.5 mg/dL (8.4-10.2); Carbon Dioxide 28 mmol/L (22-29); Chloride 108 mmol/L (96-108); Estimated Glomerular Filt Rate > 60; Glucose Random 92 mg/dL (60-115); Potassium 3.6 mmol/L (3.3-5.1); Sodium 143 mmol/L (135-145)
== END 2024-04-24 11:22 | disposition home or self-care (01) ==
LOC: HO.HHCL 11:21
PROVIDERS: Visit Provider Internal Medicine Hypertension Specialist
DX: N04.9 Nephrotic syndrome with unspecified morphologic changes (principal)
CPT/HCPCS: 36415; 80048; 81001

== ENCOUNTER 2024-04-25 10:12 | Outpatient (REF) | payer OTHER, MEDICAID, SELFPAY ==
[2024-04-25 11:32] LABS: Anion Gap 9 (12-20); Blood Urea Nitrogen 12 mg/dL (9-16); Calcium 8.6 mg/dL (8.4-10.2); Carbon Dioxide 29 mmol/L (22-29); Chloride 107 mmol/L (96-108); Estimated Glomerular Filt Rate > 60; Glucose Random 107 mg/dL (60-115); Potassium 3.9 mmol/L (3.3-5.1); Sodium 141 mmol/L (135-145)
--- OUTSIDE RECORDS SUMMARY | 2024-04-25 11:46 | XMS_ITS | Encounter Summary ---
Author Organization [employer] Address [address] [place] [address] [place] [address] Care Team Providers Care Investment Recovery Technician Name Role Phone Kourtney Saxena MD Primary Care Pro vider Reason for Visit * Reason Onset Date Comments Mone Recall 04/21/2024 Encounter Details Date Type Department Care Team ([facility] st Contact Info) Description 04/21/2024 Telephone [facility] [address] [place], [place] [phone] Kourtney Saxena MD [address] [place] [address] July Recall Social History Tobacco Use Types [...] Description 07/17/2024 1:15 PM EDT Office Visit [facility] [address] [place] [address] Kourtney Saxena MD [address] [place] [phone] documented as of this encounter Visit Diagnoses Not on filedocumented in this encounter Additional Health Concerns Assessment Noted Time PHQ-9 Depression Total Score: 4 07/02/19 24 10:41 AM EDT documented as of this encounter Care Teams Investment Recovery Technician Relationship Specialty Start Date End Date Kourtney Saxena MD [address] [place] [phone] PCP - General Internal Medicine 04/23/23 documented as of this encounter
--- OUTSIDE RECORDS SUMMARY | 2024-04-25 11:46 | XMS_ITS | Clinical Summary ---
Author Organization [facility] it Address [address] [place] [address] Care Team Providers Care Mainspring Strip Gauger Name Role Phone Vero Archuleta DO Primary Care Provider [phone] Surgical History Surgery Date Site/Laterality Comments SECTION PROCEDURE: HISTORICAL DELIVERY Medical History Medical History Date Comments History of drug dependence/a buse (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
--- OUTSIDE RECORDS SUMMARY | 2024-04-25 11:46 | XMS_ITS | Encounter Summary ---
Author Organization [employer] Address [address] [facility] 7 [place] [address] Care Team Providers Care Automotive Tire Worker Name Role Phone Kourtney Saxena MD Primary Care Pro vider Reason for Visit * Reason Comments Med Refill Encounter Details Date Type Department Care Team ([facility] st Contact Info) Description 04/17/2024 Refill [facility] [address] [place], [place] [phone] Adria Mason MD [address] [place] [address] Social History Tobacco Use Types Packs/Day Years [...] your housing situation today? I have pankaj kaorn 08/17/[address] you li [...] PM EDT Office Visit [facility] [address] [place] [phone] Kourtney Saxena MD [address] [place] [phone] documented as of this encounter Visit Diagnoses Not on filedocumented in this encounter Additional Health Concerns Assessment Noted Time PHQ-9 Depression Total Score: 4 07/02/19 10:41 AM EDT documented as of this encounter Care Teams Automotive Tire Worker Relationship Specialty Start Date End Date Kourtney Saxena MD [address] [place] [phone] PCP - General Internal Medicine 04/23/23 documented as of this encounter
--- OUTSIDE RECORDS SUMMARY | 2024-04-25 11:46 | XMS_ITS | Encounter Summary ---
Author Organization [employer] Address [address] [facility] 7 [place] [address] Care Team Providers Care Electroless Plater Name Role Phone Kourtney Saxena MD Primary [...] t he electric, gas, oil or water [employer] threatened to shut off services in your [...] Description 07/17/2024 1:15 PM EDT Office Visit [facility] [address] [place] [address] [phone] Kourtney Saxena MD [address] [place], [place] [phone] documented as of this encounter Procedures Procedure Name Priority Date/Time Associated Diagnosis Comments HPV DNA, LOW/HIGH RISK Routine 03/28/2024 10:12 AM EST PAP SMEAR Routine 03/28/2024 10:12 AM EST documented in this encounter Results * HPV DNA, Low/High Risk (03/28/2024 10:12 AM EST) HPV High Risk Negative Negative [facility] HPV Genotype 16 Negative Negative [facility] HPV Genotype 18 Negative Negative [facility] Comment:HPV testing performe d at [facility] (CLIA#[id number]), [address] [place] [address].Testing for HPV was performed using the [employer] BEAU 6800system. The presence of HPV in [...] Provider LAB BLOOD ORDERAB LES Final Result [facility] [address] [place] [phone] * Pap Smear (03/28/2024 10:12 AM EST) 03/28/2024 10:1 2 AM EST 03/28/2024 2:15 PM EST Narrative [facility] - 04/03/2024 12:46 PM EST ----- ------- Name: [place] Navarro ? Age/Sex: 48/F ? : 1975 Unit#: [id number] ?? Attend Dr: Guille Summers MD ?Re03/28/24 ?Status: DEP REF ? Location: HO.LNP ?Disch: ? ----- ------- SPEC : [id number] ? RECD: 03/28/24 ? STATUS: ??SOUT ? REQ NUM: [id number] ? YAMINI: 03/28/24-1012 ? SUBM DR: Guille [...] To: ?? Kourtney Saxena MD ?? [address] ?? [place] [address] ?? [phone] ?? Guille Summers MD ?? [facility] ?? [address] [facility] [address] ?? [place] [address] ?? [phone] ----- ------- Signed (signature on file) MELITA Kwok ([facility]) 04/03/24 1246 ? ----- ------- ? END OF REPORT ? us Generic External Data Provider LAB CYTOLOGY DAVE OSWALD Final Result [facility] [address] [place] [address] [phone] documented in this encounter Visit Diagnoses Not on filedocumented in this encounter Additional Health Concerns Assessment Noted Time PHQ-9 Depression Total Score: 4 07/02/19 24 10:41 AM EDT documented as of this encounter Care Teams Electroless Plater Relationship Specialty Start Date End Date Kourtney Saxena MD [address] [place] [address] PCP - General Internal Medicine 04/23/23 documented as of this encounter
--- OUTSIDE RECORDS SUMMARY | 2024-04-25 11:46 | XMS_ITS | Encounter Summary ---
Author Organization [employer] Address [address] [facility] 7 [place] [address] Care Team Providers Care Digital Project Manager Name Role Phone Kourtney Saxena MD Primary Care Pro vider Encounter Details Date Type Department Care Team (Late st Contact Info) Description 03/28/2024 Refill [facility] [address] [place], [place] [phone] Kourtney Saxena MD [address] [place] [address] Social History Tobacco Use Types Packs/Day Years [...] Description 07/17/2024 1:15 PM EDT Office Visit [facility] [address] [place] [phone] Kourtney Saxena MD [address] [place] [phone] documented as of this encounter Visit Diagnoses Not on filedocumented in this encounter Additional Health Concerns Assessment Noted Time PHQ-9 Depression Total Score: 4 07/02/19 10:41 AM EDT documented as of this encounter Care Teams Digital Project Manager Relationship Specialty Start Date End Date Kourtney Saxena MD [address] [place] [phone] PCP - General Internal Medicine 04/23/23 documented as of this encounter
--- OUTSIDE RECORDS SUMMARY | 2024-04-25 11:46 | XMS_ITS | Encounter Summary ---
Author Organization [employer] Address [address] [place] [address] 7[place] [address] Care Team Providers Care Seismology Teacher Name Role Phone Kourtney Saxena MD Primary Care Pro vider Reason for Visit * Reason Comments Med Refill Encounter Details Date Type Department Care Team ([facility] st Contact Info) Description 04/03/2024 Refill [facility] [address] [place], [place] [phone] Kourtney Saxena MD [address] [place] [address] Social History Tobacco Use Types Packs/Day Years [...] [facility] [address] [place] [phone] Kourtney Saxena MD [address] [place] [phone] documented as of this encounter Visit Diagnoses Not on filedocumented in this encounter Additional Health Concerns Assessment Noted Time PHQ-9 Depression Total Score: 4 07/02/19 10:41 AM EDT documented as of this encounter Care Teams Seismology Teacher Relationship Specialty Start Date End Date Kourtney Saxena MD [address] [place] [phone] PCP - General Internal Medicine 04/23/23 documented as of this encounter
--- OUTSIDE RECORDS SUMMARY | 2024-04-25 11:46 | XMS_ITS | Encounter Summary ---
Author Organization [employer] Address [address] [place] [address] Care Team Providers Care Optical Instrument Inspector Name Role Phone Kourtney Saxena MD Primary Care Pro vider Reason for Visit * Reason Comments Med Refill Encounter Details Date Type Department Care Team (Late st Contact Info) Description 12/14/[address] [facility] [address] [place] [address] [phone] Love Quintanilla MD [address] [place] [phone] Social History Tobacco Use Types Packs/Day Years [...] 1:15 PM EDT Office Visit [facility] [address] [place] [address] [phone] Kourtney Saxena MD [address] [place] [phone] documented as of this encounter Visit Diagnoses Not on filedocumented in this encounter Care Teams Optical Instrument Inspector Relationship Specialty Start Date End Date Kourtney Saxena MD [address] [place] [phone] PCP - General Internal Medicine 04/23/23 documented as of this encounter
--- OUTSIDE RECORDS SUMMARY | 2024-04-25 11:46 | XMS_ITS | Clinical Summary ---
Author Organization [employer] Address [address] [place] [address] 7 [place] [address] Care Team Providers Care Medical Assisting Program Director Name Role Phone Kourtney Saxena MD [...] Additional Information Patient not taking.Reported on 04/24/2024 Aspirin Low Dose 81 MG EC tablet TAKE 1 TABLET BY MOUTH EVERY MORNING 90 tablet 01/28/20 24 Active losartan (Cozaar) 25 MG tablet TAKE 1 TABLET BY MOUTH EVERY MORNING 90 tablet 02/28/19 25 Active cloNIDine (Catapres) 0.1 MG tablet TAKE 1 TABLET BY MOUTH EVERY DAY NEEDED FOR ANXIETY 30 tablet 2 03/20/19 25 Active Additional Information Patient not taking.Reported on 04/24/2024 levothyroxine (Synthroid, Levoxyl) 50 MCG tablet TAKE 1 TABLET BY MOUTH EVERY MORNING BEFORE MEALS 90 tablet 04/04/19 25 Active ergocalciferol (Vitamin D2) 1.25 MG (66768 UT) capsule TAKE 1 CAPSULE BY MOUTH ONCE WEEKLY ON Wednesday 4 capsule 2 04/19/19 25 Active acetaminophen (Tylenol) 500 MG tablet Take 1 tablet (500 mg) by mouth every 6 (six) hours if needed for mild pain for up to 20 doses. 20 tablet 04/25/19 25 Active amoxicillin (Amoxil) 500 MG capsule Take 1 capsule (500 mg) by mouth every 8 (eight) hours for 7 days. 21 capsule 04/25/19 25 025 Active ibuprofen 600 MG tablet Take 1 tablet (600 mg) by mouth every 6 (six) hours if needed for mild pain for up to 20 doses. 20 tablet 04/25/19 25 Active levothyroxine (Synthroid) 50 MCG tablet Take 1 tablet (50 mcg) by mouth before breakfast. Please stop 37.5 mcg dose and start 50 mcg daily dose 90 tablet 01/11/20 24 025 Discontinued acetaminophen (Tylenol) 500 MG tablet Take 2 tablets (1,000 mg) by mouth every 6 (six) hours if needed for moderate pain or fever. 30 tablet 01/24/20 24 025 Discontinued ergocalciferol (Vitamin D2) 1.25 MG (85914 UT) capsule TAKE 1 CAPSULE BY MOUTH ONCE WEEKLY ON Wednesday 4 capsule 2 02/14/19 25 025 Discontinued Active Problems Problem Noted Date Diagnosed Date Non-restorable tooth 04/24/2024 Fractured 04/24/2024 History of CVA (cerebrovascular accident) 2023 Proteinuria [...] Description 04/24/2024 1:00 PM EDT Office Visit [facility] AD[facility] [address] [place] [address] Dustin Walker, ALDO Fractured (Primary Dx); Non-restorable tooth 04/21/2024 Telephone [facility] MED[facility] [address] [place] [address] Kourtney Saxena MD July Recall 04/17/2024 Refill [facility] [address] [place] [address] Adria Mason MD 04/12/2024 Orders Only [facility] External Provider, [facility] 04/03/2024 Refill [facility] [address] [place] [address] Kourtney Saxena MD 03/28/2024 Orders Only GENERIC EXTERNAL DATA DEPARTMENT Provider, Generic External Data 03/28/2024 Refill [facility] [address] [place] [address] Kourtney Saxena MD 03/25/2024 Telephone [facility] [address] [place] [address] Kitty Jackson, VARUN Results 03/23/2024 Orders Only GENERIC EXTERNAL DATA DEPARTMENT Provider, Generic External Data 03/18/2024 Refill [facility] [address] [place] [address] Kourtney Saxena MD 03/13/2024 Telephone [facility] [address] [place] [address] Skylar Carmen [place] may recall 02/24/2024 Refill [facility] & PEDS [address] [place] [address] Kourtney Saxena MD 02/17/2024 Orders Only [facility] External Provider, [facility] 02/15/2024 Refill [facility] [address] [place] [address] Kourtney Saxena MD 02/07/2024 Travel 01/28/2024 Refill [facility] [address] [place] [address] Kourtney Saxena MD from Last 3 Months [...] 1:15 PM EDT Office Visit [facility] MED[facility] [address] [place] [address] [phone] Kourtney Saxena MD [address] [place] [address] Health Maintenance Due Date Last Done Comments [...] 07/02/2023, 07/02/19 24 SDOH Screening 08/16/2024 08/17/2023 Lung Cancer Screening 12/09/2024 12/10/2023 Dental X-Ray: Full Mouth 02/20/2025 02/19/2022 Tobacco Screening 04/24/2025 04/24/2024 Dental X-Ray: Bitewings 04/25/2025 04/25/19 25, 11/15/2023, 02/19/2022 Mammogram 08/16/2025 08/17/2023 Pap Smear 03/28/2027 [...] Procedure Name Priority Date/Time Associated Diagnosis Comments 4 LIMITED ORAL EVALUATION - PROBLEM FOCUSED Routine 04/24/2024 1:00 PM EDT BITEWING - SINGLE RADIOGRAPHIC IMAGE Routine 04/24/2024 1:00 PM EDT 4 INTRAORAL - PERIAPICAL FIRST RADIOGRAPHIC IMAGE Routine 04/24/2024 1:00 PM EDT 4 EXTRACTION, ERUPTED TOOTH OR EXPOSED ROOT (ELEVATION/FORCEPS REMOVAL) Routine 04/24/2024 1:00 PM EDT US PELVIS TRANSVAGINAL Routine 04/12/2024 2:09 PM [...] SCREENING Routine 12/10/2023 1 0:40 AM EDT BI MAMMOGRAM SCREENING TOMOSYNTHESIS BILATERAL [...] EST Narrative 04/14/2024 10:32 AM EST ? [facility] ?[address] ?[place] [address] ? Ultrasound Report ? Signed ? Patient: Madison Navarro ?MR# ?? : [id number] ? : 1975 ?Acct:[id number] ? Age/Sex: 48 / F ?ADM Date: 04/12/24 ? Loc: HO.US ? Attending Dr: Guille Summers MD ? Ordering Physician: Guille Summers MD ?? Date of Service: 04/12/24 ?? Procedure(s): US pelvic and transvaginal ?? Accession Number(s): [id number] ? cc: Kourtney Saxena MD; Guille Summers [...] ??Kendall Wise MD ??04/14/2024 10:28 AM EST ? Dictated By: ?Kendall Wise MD ? Signed By: ?<Electronically signed by Kendall Wise MD in OV> ?04/14/24 1028 ? DD/ 1409 ? TD/TT: 04/12/24 1430 ? Brakeshoe Repairer: ? Procedure Note Alina, Katelin - 04/14/2024 [place] [address] Ultrasound Report Signed Patient: Madison Navarro AMR# : [id number] : 1975Acct:[id number] Age/Sex: 48 / FADM Date: 04/12/24 Loc: HO.US Attending Dr: Guille Summers MD Ordering Physician: Guille Summers MD Date of Service: 04/12/24 Procedure(s): US pelvic and transvaginal Accession Number(s): [id number] cc: Kourtney Saxena MD; Guille Summers MD [...] 04/14/24 1028 DD/ 1409 TD/TT: 04/12/24 1430 Brakeshoe Repairer: [facility] External Provider IM US PROCEDURES Final Result * HPV DNA, Low/High Risk (03/28/2024 10:12 AM EST) HPV High Risk Negative Negative [facility] HPV Genotype 16 Negative Negative [facility] HPV Genotype 18 Negative Negative [facility] Comment:HPV testing performe d at [facility] (CLIA#[id number]), [address] [place] [address].Testing for HPV was performed using the [employer] Mobileye0system. The presence of HPV in the female [...] ORDERAB LES Final Result Performing Organization Address City/State/[facility] Co de Phone Number [facility] [address] [place] [phone] * Pap Smear (03/28/2024 10:12 AM EST) 03/28/2024 10:1 2 AM EST 03/28/2024 2:15 PM EST Narrative [facility] - 04/03/2024 12:46 PM EST ----- ------- Name: Madison Navarro ? Age/Sex: 48/F ? : 1975 Unit#: [id number] ?? Attend Dr: Guille Summers MD ?Re03/28/24 ?Status: DEP REF ? Location: HO.LNP ?Disch: ? ----- ------- SPEC : [id number] ? RECD: 03/28/24 ? STATUS: ??SOUT ? REQ NUM: [id number] ? YAMINI: 03/28/24-1012 ? SUBM DR: Guille [...] To: ?? Kourtney Saxena MD ?? [address] ?? [place] [address] ?? [phone] ?? Guille Summers MD ?? [facility] [place] Women's Services ?? [address] [facility] [address] ?? [place] [address] ?? [phone] ----- ------- Signed (signature on file) MELITA Kwok (ASC) 04/03/24 1246 ? ----- ------- ? END OF REPORT ? us Generic External Data Provider LAB CYTOLOGY ORDE RABLES Final Result Performing Organization Address [facility] Co de Phone Number [facility] [address] [place] [address] [phone] * (ABNORMAL) Urine Protein, Total, Random without Creatinine (03/23/2024 3:19 PM EST) Protein, Total, Random Urine 273(H) <12 mg/dL [facility] 03/23/2024 3:19 PM EST 03/23/2024 3:56 PM EST Generic External Data Provider LAB URINE ORDERAB LES Final Result Performing Organization Address [facility]/ZIP Co de Phone Number [facility] [address] [place] [address] [phone] * Creatinine, Random Urine (03/23/2024 3:19 PM EST) Creatinine, Urine 37.91 mg/dL [facility] 03/23/2024 3:19 PM EST 03/23/2024 3:56 PM EST us Generic External Data Provider LAB URINE ORDERAB LES Final Result Performing Organization Address [facility] Co de Phone Number [facility] [address] [place] [phone] * (ABNORMAL) Urinalysis Complete (03/23/2024 3:19 PM EST) Color Urine Yellow [facility] Appearance Urine Clear [facility] PH >=9.0 5.0 - 9.0 [facility] Glucose Urine UA Negative Negative mg/dL [facility] Urine Blood Negative Negative [facility] Specific [place] - Urine 1.015 1.005 - 1.025 [facility] Urine Protein 300 (3+)(A) Neg-Trace mg/dL [facility] Urine Ketones Negative Negative mg/dL [facility] Nitrite Urine Negative Negative [facility] Leukocyte Esterase Urine Negative Negative [facility] RBC Urine 0-2 0 - 2 /HPF [facility] Urine WBC 0-5 0 - 5 /HPF [facility] Urine Squamous Epithelial Cell 0-2 0 - 2 /HPF [facility] Urine Bacteria None Seen None Seen [facility] Hyaline Casts, Urine 0-2 0 - 2 /LPF [facility] 03/23/2024 3:19 PM EST 03/23/2024 3:56 PM EST us Generic External Data Provider LAB URINE ORDERAB LES Final Result Performing Organization Address [facility]/ZIP Co de Phone Number [facility] [address] [place] [phone] * TSH (03/23/2024 3:19 PM EST) Pathologist [facility] Thyroid Stimulating Hormone 1.06 0.32 - 4.0 uIU/mL [facility] Comment:TSH 3rd Generation ( [facility]) Blood Venous blood specimen / Unknown 03/23/2024 3:19 PM EST 03/23/2024 3:58 PM EST Kourtney Epstein MD LAB BLOOD ORDERAB LES Final Result Performing Organization Address City/[facility] Co de Phone Number [facility] [address] [place] [phone] * T4, Free (03/23/2024 3:19 PM EST) [facility] Free T4 (Free Thyroxine) 1.06 0.71 - 1.85 ng/dL [facility] Blood Venous blood specimen / Unknown 03/23/2024 3:19 PM EST 03/23/2024 3:58 PM EST us Kourtney Epstein MD LAB BLOOD ORDERAB LES Final Result Performing Organization Address [facility] de Phone Number [facility] [address] [place] [phone] * (ABNORMAL) Comprehensive Metabolic Panel (03/23/2024 3:19 PM EST) Pathologist [facility] Sodium 138 135 - 145 mmol/L [facility] Potassium 4.3 3.3 - 5.1 mmol/L [facility] Chloride 102 96 - 108 mmol/L [facility] Carbon Dioxide 30(H) 22 - 29 mmol/L [facility] Anion Gap 10(L) 12 - 20 [facility] Urea Nitrogen (BUN) 19(H) 9 - 16 mg/dL [facility] Creatinine, Serum 0.64 0.5 - 1.4 mg/dL [facility] Estimated Glomerular Filt Rate >60 [facility] Comment:Chronic Kidney Disea se: Estimated GFR < 60 mL/min/1.49n5Anfkdo Kidney Disease: Estimated GFR < 15 mL/min/1.73m2 Glucose 124(H) 60 - 115 mg/dL [facility] Calcium 9.2 8.4 - 10.2 mg/dL [facility] Bilirubin, Total 0.2 0.0 - 1.0 mg/dL [facility] Aspartate Amino Transferase 24 5 - 31 U/L [facility] Alanine Aminotransferase 31 0 - 31 U/L [facility] Total Protein 6.3(L) 6.5 - 8.0 g/dL [facility] Albumin Level 3.2(L) 3.5 - 5.0 g/dL [facility] Alkaline Phosphatase 54 39 - 117 U/L [facility] Blood Venous blood specimen / Unknown 03/23/2024 3:19 PM EST 03/23/2024 3:58 PM EST Kourtney Epstein MD LAB BLOOD ORDERAB LES Final Result [facility] [address] [place] [phone] * (ABNORMAL) Cyclosporine level (03/23/2024 1:56 PM EST) Cyclosporine A Trough <25(A) 100 - 300 mcg/L [facility] Comment:No definitive therap eutic or toxic ranges have beenestablished. Optimal blood drug levels are influencedby type of transplant, patient response, time post-transplant, co-administration of other drugs, and drugformulation. The following trough ranges are suggestedguidelines:Kidney Transplantation: 100-200 mcg/LOther Organ Transplant: 200-300 mcg/LThis test was developed and its analytical performancecharacteristics have been determined by [employer] [place], [place]. It hasnot been cleared or approved by the U.S. Food and DrugAdministration. This assay has been validated pursuantto the CLIA regulations and is used for clinicalpurposes.THIS TEST WAS PERFORMED AT:[employer]/[facility] [place] [address]QUPWUXCSIMON CRAMER MD,PHD 03/23/2024 1:56 PM EST 03/23/2024 3:58 PM EST us Generic External Data Provider LAB BLOOD ORDERAB LES Final Result [facility] [address] [place] [address] [phone] * US RENAL BI (02/17/2024 11:16 AM EST) Anatomical Region Laterality Modality Abdomen Ultrasound 02/17/2024 11:1 6 AM EST Narrative 02/17/2024 11:44 AM EST ? [facility] ?[address] ?[place] [address] ? Ultrasound Report ? Signed ? Patient: Madison Navarro ?MR# ?? : [id number] ? : 1975 ?Acct:[id number] ? Age/Sex: 48 / F ?ADM Date: 02/17/24 ? Loc: HO.US ? Attending Dr: Gutierrez Lozano MD ? Ordering Physician: Gutierrez Lozano MD ?? Date of Service: 02/17/24 ?? Procedure(s): US renal BI ?? Accession Number(s): [id number] ? cc: Gutierrez Lozano MD; Kourtney Saxena [...] DD/ 1116 ? TD/TT: 02/17/24 1123 ? Brakeshoe Repairer: ? Procedure Note Alina, Image - 02/17/[address] [address] Ultrasound Report Signed Patient: Madison Navarro AMR# : [id number] : 1975Acct:[id number] Age/Sex: 48 / FADM Date: 02/17/24 Loc: HO.US Attending Dr: Gutierrez Lozano MD Ordering Physician: Gutierrez Lozano MD Date of Service: 02/17/24 Procedure(s): US renal BI Accession Number(s): [id number] cc: Gutierrez Lozano MD; Kourtney Saxena MD [...] 02/17/24 1141 DD/ 1116 TD/TT: 02/17/24 1123 Brakeshoe Repairer: us [facility] External Provider IMG US PROCEDURES Final Result * (ABNORMAL) Lipid Panel, Standard (01/11/2024 9:50 AM EST) Triglycerides 133 <150 mg/dL [facility] Comment:Desirable Triglyceri de: less than 150 mg/dLBorderline High Triglyceride 150-199 mg/dLHigh Triglyceride: 200-499 mg/dLVery High Triglyceride: greater than or equal to 5OO mg/dL Cholesterol 246(H) <200 mg/dL [facility] Comment:Desirable Cholestero l: less than 200 mg/dLBorderline High Cholesterol: 200-239 mg/dLHigh Cholesterol: greater than 239 mg/dL LDL Cholesterol Calculated 148(H) <100 mg/dL [facility] Comment:Desirable LDL: less than 100 mg/dLNear Optimal/Above Optimal LDL: 110- 129 mg/dLBorderline High LDL: 130-159 mg/dLHigh LDL: 160-189 mg/dLVery High LDL: greater than or equal to 190 mg/dL HDL Cholesterol 72 >40 mg/dL [facility] Comment:Desirable HDL: great er than 40 mg/dL Note: This HDL assay may give artificially low results in patients with liver disease. 01/11/2024 9:50 AM EST 01/11/2024 11:31 AM EST us Generic External Data Provider LAB BLOOD ORDERAB LES Final Result [facility] [address] [facility] [place] [address] [phone] * CT Lung Screening Low dose (12/10/2023 10:40 AM EDT) Anatomical Region Laterality Modality Lung Computed Tomogra phy 12/10/2023 10:4 0 AM EDT Narrative 01/26/2024 11:47 PM EST ? [facility] ?[address] ?[place] [address] ? CT Scan Report ? Signed ? Patient: Madison Navarro ?MR# ?? : [id number] ? : 1975 ?Acct:[id number] ? Age/Sex: 48 / F ?ADM Date: 12/10/23 ? Loc: HO.CT ? Attending Dr: Stacy Mays PA-C ? Ordering Physician: Stacy Mays PA-C ?? Date of Service: 12/10/23 ?? Procedure(s): CT lung screening ?? Accession Number(s): [id number] ? cc: Stacy Mays PA-C; Kourtney Saxena [...] DD/ 1040 ? TD/TT: 12/10/23 1045 ? Brakeshoe Repairer: SS ? Procedure Note Alina, Image - 01/26/[address] [address] [address] Scan Report Signed Patient: Madison Navarro [facility]# : [id number] : 1975Acct:[id number] Age/Sex: 48 / FADM Date: 12/10/23 Loc: HO.CT Attending Dr: Stacy Mays PA-C Ordering Physician: Stacy Mays PA-C Date of Service: 12/10/23 Procedure(s): CT lung screening Accession Number(s): [id number] cc: Stacy Mays PA-C; Kourtney Saxena MD [...] 01/26/24 2344 DD/ 1040 TD/TT: 12/10/23 1045 Brakeshoe Repairer: BRIAN [facility] External Provider IMG CT PROCEDURES Edited Result - Final * BI Mammogram Screening Tomosynthesis Bilateral (08/17/2023 9:18 AM EDT) Anatomical Region Laterality Modality Breast Bilateral Mammography 08/17/2023 9:18 AM EDT Narrative 09/12/2023 3:49 PM EDT ? [facility] ? [address] ?[place] [address] ? Mammography Report ? Signed ? Patient: Madison Navarro A ?MR# ?? : [id number] ? : 1975 ?Acct:[id number] ? Age/Sex: 48 / F ?ADM Date: 07//24 ? Loc: HO.MAMMO ? Attending Dr: Kourtney Epstein MD ? Ordering Physician: Kourtney Saxena MD ?Re ?? sults: 2Benign Findings ? Date of Service: 08/17/23 ?Follow Up: 1 Year From Orig ?? inal Mammogram ? Procedure(s): MM tomosynthesis screening BI ?? Accession Number(s): [id number] ? cc: Kourtney Saxena MD ? EXAMINATION: [...] by Marnie Faulkner MD in OV> ? 08/04/24 1546 ? DD/ 7 ? TD/TT: ? Brakeshoe Repairer: ? Procedure Note Donotuseinterpreter, Image - 09/12/2023 [facility] [address] [place] [address] Mammography Report Signed Patient: Madison Navarro AMR# : [id number] : 1975Acct:[id number] Age/Sex: 48 / FADM Date: 08/17/23 Loc: HO.MAMMO Attending Dr: Kourtney Epstein MD Ordering Physician: Kourtney Saxena sults: 2Benign Findings Date of Service: 08/17/23Follow Up: 1 Year From Orig inal Mammogram Procedure(s): MM tomosynthesis screening BI Accession Number(s): [id number] cc: Kourtney Saxena MD EXAMINATION: MM SCREENING [...] in OV> 09/12/23 1546 DD/ 0918 TD/TT: Brakeshoe Repairer: us Kourtney Epstein MD IMG BI PROCEDURES Final Result * Hepatitis C Antibody with Reflex to HCV, RNA, Quantitative, Real-Time PCR (07/27/2023 10:47 AM EDT) Hepatitis C Antibody Nonreactive Nonreactive [facility] Comment:Antibodies to HCV no t detected; does not exclude early acuteHCV infection. Blood Venous blood specimen / Unknown 07/27/2023 10:47 AM EDT 07/27/2023 11:28 AM EDT us Kourtney Epstein MD LAB BLOOD ORDERAB LES Final Result Performing Organization Address [facility]/ZIP Co de Phone Number [facility] [address] [place] [phone] * HIV-1/2 Antigen and Antibodies, Fourth Generation, with Reflexes (07/27/2023 10:47 AM EDT) HIV AB/AG Nonreactive Nonreactive [facility] Comment:HIV-1 p24 Ag and/or HIV-1/HIV-2 Ab not detected.A test result that is nonreactive does not exclude thepossibility of exposure to or infection with HIV-1 and/orHIV-2. Nonreactive results in this assay for individualswith prior exposure to HIV-1 and/or HIV-2 may be due toantigen and antibody levels that are below the limit ofdetection of this assay.The [employer] HIV Ag/Ab Combo assay result andsupplemental assay results should be interpreted inconjunction with the patient's clinical presentation,history and other laboratory results. If the results areinconsistent with clinical evidence, additional testing issuggested to confirm the result. Blood Venous blood specimen / Unknown 07/27/2023 10:47 AM EDT 07/27/2023 11:28 AM EDT us Kourtney Epstein MD LAB BLOOD ORDERAB LES Final Result Performing Organization Address City/[facility]/ZIP Co de Phone Number [facility] [address] [place] [phone] from Last 3 Months or Most Recently Relevant to Health Maintenance Insurance [facility] , [address] [address] [facility] [address] [place] [address] [address] [place] [phone] Care Teams Medical Assisting Program Director Relationship Specialty Start Date End Date Kourtney Saxena MD [address] [place] [phone] PCP - General Internal Medicine 04/23/23
--- OUTSIDE RECORDS SUMMARY | 2024-04-25 11:46 | XMS_ITS | Encounter Summary ---
Author Organization [employer] Address [address] [place] [address] [address] [address] Care Team Providers Care Bath Steward/Stewardess Name Role Phone Kourtney Saxena MD Primary Care Pro vider Reason for Visit * Reason Comments Med Refill Encounter Details Date Type Department Care Team (Late st Contact Info) Description 12/07/2022 Refill [facility] [address] [place] [address] [phone] Jaylon Martin MD [address] [place] [phone] Social History Tobacco Use Types Packs/Day Years [...] Description 07/17/2024 1:15 PM EDT Office Visit [facility] MEDICINE [address] [place] [phone] Kourtney Saxena MD [address] [place] [phone] documented as of this encounter Visit Diagnoses Not on filedocumented in this encounter Care Teams Bath Steward/Stewardess Relationship Specialty Start Date End Date Kourtney Saxena MD [address] [place] [phone] PCP - General Internal Medicine 04/23/23 documented as of this encounter
--- OUTSIDE RECORDS SUMMARY | 2024-04-25 11:46 | XMS_ITS | Encounter Summary ---
Author Organization [employer] Address [address] [place] [phone] Care Team Providers Care Body Shop Mechanic Name Role Phone Kourtney Saxena MD Primary Care Pro vider Encounter Details Date Type Department Care Team (Late st Contact Info) Description 05/04/2023 Orders Only [facility] MED[facility] [address] [place] [address] [phone] Love Quintanilla MD [address] [place] [address] [phone] Social History Tobacco Use Types Packs/Day Years [...] 1:15 PM EDT Office Visit [facility] [address] [place] [address] [phone] Kourtney Saxena MD [address] [place] [address] [phone] documented as of this encounter Procedures Procedure Name Priority Date/Time Associated Diagnosis Comments URINALYSIS, COMPLETE, WITH REFLEX TO CULTURE Routine 11/01/2023 11:36 AM EDT ALBUMIN, RANDOM URINE W/CREATININE Routine 08/17/2023 2:30 PM EDT documented in this encounter Results * (ABNORMAL) Urinalysis, Complete, with Reflex to Culture (11/01/2023 11:36 AM EDT) Color Urine Yellow [facility] Appearance Urine Clear [facility] PH 7.0 5.0 - 9.0 [facility] Glucose Urine UA Negative Negative mg/dL [facility] Urine Blood Negative Negative [facility] Specific [place] - Urine 1.010 1.005 - 1.025 [facility] Urine Protein 100 (2+)(A) Neg-Trace mg/dL [facility] Urine Ketones Negative Negative mg/dL [facility] Nitrite Urine Negative Negative [facility] Leukocyte Esterase Urine Negative Negative [facility] RBC Urine 0-2 0 - 2 /HPF [facility] Urine WBC 0-5 0 - 5 /HPF [facility] Urine Squamous Epithelial Cell 0-2 0 - 2 /HPF [facility] Urine Bacteria None Seen None Seen [facility] Hyaline Casts, Urine 0-2 0 - 2 /LPF [facility] 11/01/2023 11:3 6 AM EDT 11/01/2023 1:21 PM EDT Narrative [facility] - 11/01/2023 1:41 PM EDT Urine, Clean Catch us Kourtney Epstein MD LAB URINE ORDERAB LES Final Result [facility] [address] [place] [address] [phone] * (ABNORMAL) Albumin, Random Urine W/Creatinine (08/17/2023 2:30 PM EDT) Creatinine, Urine 94.35 mg/dL [facility] Microalbumin Urine >2,000.0 mg/L [facility] Microalbum Creatinine Ratio Ur 2,119.7(H ) <30 ug/mg cr [facility] Comment:Albumin/Creatinine R atio Reference Ranges: Normal: < 30 ug/mg creatinine Microalbuminuria: 30 - 300 ug/mg creatinineClinical Albuminuria: > 300 ug/mg creatinine 08/17/2023 2:30 PM EDT 08/17/2023 4:14 PM EDT us Kourtnye Epstein MD LAB URINE ORDERAB LES Final Result [facility] [address] [place] [address] [phone] documented in this encounter Visit Diagnoses Not on filedocumented in this encounter Care Teams Body Shop Mechanic Relationship Specialty Start Date End Date Kourtney Saxena MD [address] [place] [phone] PCP - General Internal Medicine 04/23/23 documented as of this encounter
--- OUTSIDE RECORDS SUMMARY | 2024-04-25 11:46 | XMS_ITS | Encounter Summary ---
Author Organization [employer] Address [address] [place] [address] 7 [place] [address] Care Team Providers Care Manager Transportation Planning Name Role Phone Kourtney Saxena MD Primary Care Pro vider Reason for Visit * Reason Comments Dental Pain Upper right side Encounter Details Date Type Department Care Team (Late st Contact Info) Description 04/24/2024 1:00 PM EDT Office Visit [facility] [address] [place] [address] Dustin Walker, DDZahira [address] [place] [address] Fractured (Primary Dx); Non-restorable tooth Social History Tobacco Use Types Packs/Day Years [...] Index - - documented in this encounter Progress Notes * Dustin Walker DDS - 04/24/2024 1:00 PM EDT Patient ID: Nakia Barney is a 48 y.o. female. Time Out: Timeout Date: 04/24/24, Timeout Time: 7 (Dental Extraction #4) Location: [facility] Tooth: Maxilla and #4 Procedure: X-rays, Extraction, and Emergency Verified the above with patient, engineer assistant, and provider. Confirmed via patient's chart, intraorally and by radiographs. Ripsaw Operator: not applicable Chief Complaint Patient presents with Dental Pain Upper right side Medical Hx: Vitals: Blood pressure 128/80. Past Medical History: Diagnosis Date High blood pressure High cholesterol Thyroid disease Medications: Outpatient Encounter Medications as of 04/24/2024 Medication Sig Dispense Refill acetaminophen (Tylenol) 500 MG tablet Take 2 tablets (1,000 mg) by mouth every 6 (six) hours if needed for moderate pain or fever. 30 tablet 0 Aspirin Low Dose 81 MG EC tablet TAKE 1 TABLET BY MOUTH EVERY MORNING 90 tablet 0 EPINEPHrine (Epipen) 0.3 MG/0.3ML injection syringe Inject 0.3 mL (0.3 mg) as directed 1 (one) timeif needed for anaphylaxis for up to 2 doses. Inject into upper leg. Call 911 after use. 1 each 1 ergocalciferol (Vitamin D2) 1.25 MG (98355 UT) capsule TAKE 1 CAPSULE BY MOUTH ONCE WEEKLY ON Wednesday 4 capsule 2 levothyroxine (Synthroid, Levoxyl) 50 MCG tablet TAKE 1 TABLET BY MOUTH EVERY MORNING BEFORE MEALS 90 tablet 0 losartan (Cozaar) 25 MG tablet TAKE 1 TABLET BY MOUTH EVERY MORNING 90 tablet 0 rosuvastatin (Crestor) 40 MG tablet Take 1 tablet (40 mg) by mouth Once per day. 90 tablet 0 cloNIDine (Catapres) 0.1 MG tablet TAKE 1 TABLET BY MOUTH EVERY DAY NEEDED FOR ANXIETY (Patient not taking: Reported on 04/24/2024) 30 tablet 2 varenicline (Chantix) 1 MG tablet TAKE 1/2 TABLET BY MOUTH EVERY DAY FOR 3 DAYS THEN INCREASE TO TWICE DAILY FOR 4 DAYS THEN TAKE 1 TABLET BY MOUTH TWICE DAILY (Patient not taking: Reported on 04/24/2024) 60 tablet 2 [DISCONTINUED] ergocalciferol (Vitamin D2) 1.25 MG (35497 UT) capsule TAKE 1 CAPSULE BY MOUTH ONCE WEEKLY ON Wednesday 4 capsule 2 No facility-administered encounter medications on file as of 04/24/2024. Consent Obtained: The risks, benefits, indications, potential complications, and alternatives were explained to the patient and informed consent was obtained with good understanding. Treatment Provided: Dental procedures in this visit D7140 - EXTRACTION, ERUPTED TOOTH OR EXPOSED ROOT (ELEVATION/FORCEPS REMOVAL) 4 (Completed) Service provider: Dustin Walker DDS Billing provider: Dustin Walker DDS [id number] - INTRAORAL - PERIAPICAL FIRST RADIOGRAPHIC IMAGE 4 (Completed) Service provider: Dustin Walker DDS Billing provider: Dustin Walker DDS D0270 - BITEWING - SINGLE RADIOGRAPHIC IMAGE (Completed) Service provider: Dustin Walker DDS Billing provider: Dustin Walker DDS D0140 - LIMITED ORAL EVALUATION - PROBLEM FOCUSED 4 (Completed) Service provider: Dustin Walker DDS Billing provider: Dustin Walker DDS Diagnosis: Fractured tooth carious lesion non restorable tooth Topical: 20% Benzocaine Anesthesia: 2% Lidocaine (Xylocaine) w/ 1:100,000 epinephrine Number of Cartridges: 2 Injection Type: Buccal infiltration, Palatal infiltration, and Intrapapillary injection Confirmed profound anesthesia. Pharyngeal curtain and bite block placed. Removed tooth with elevators and forceps. Apices intact. Surgical Extraction: Yes, #4 Socket curetted & irrigated with sterile water. Compressed alveolar bone. Sutures: None Needed All adjacent teeth intact. Hemostasis achieved. Complications: None. Pt tolerated procedure well. Prescription sent to [facility] on file . Written and verbal post-op instructions given. Patient discharged in stable condition; ambulatory, alert, and oriented. NV: F/U as needed / EXAM Scrap Wheeler: Eduar Green Dentist: Dustin Walker DDS documented in this encounter Plan of Treatment Upcoming Encounters Date Type Department Care Team (Late st Contact Info) Description 07/17/2024 1:15 PM EDT Office Visit [facility] MEDICINE [address] [place] [phone] Kourtney Saxena MD [address] [place] [phone] Scheduled Orders Name Type Priority Associated Diagnoses Orde r Schedule COMPREHENSIVE ORAL EVALUATION - NEW OR ESTABLISHED PATIENT Dental Routine 1 Occurrence s starting 04/24/2024 INTRAORAL - COMPLETE SERIES OF RADIOGRAPHIC IMAGES Dental Routine [address] arting 04/24/2024 documented as of this encounter Procedures Procedure Name Priority Date/Time Associated Diagnosis Comments 4 LIMITED ORAL EVALUATION - PROBLEM FOCUSED Routine 04/24/2024 1:00 PM EDT 4 INTRAORAL - PERIAPICAL FIRST RADIOGRAPHIC IMAGE Routine 04/24/2024 1:00 PM EDT 4 EXTRACTION, ERUPTED TOOTH OR EXPOSED ROOT (ELEVATION/FORCEPS REMOVAL) Routine 04/24/2024 1:00 PM EDT BITEWING - SINGLE RADIOGRAPHIC IMAGE Routine 04/24/2024 1:00 PM EDT documented in this encounter Visit Diagnoses Diagnosis Fractured- Primary Closed fracture of unspecified bone Non-restorable tooth documented in this encounter Additional Health Concerns Assessment Noted Time PHQ-9 Depression Total Score: 4 07/02/19 24 10:41 AM EDT documented as of this encounter Care Teams Manager Transportation Planning Relationship Specialty Start Date End Date Kourtney Saxena MD [address] [place] [phone] PCP - General Internal Medicine 04/23/23 documented as of this encounter
--- OUTSIDE RECORDS SUMMARY | 2024-04-25 11:46 | XMS_ITS | Encounter Summary ---
Author Organization [employer] Address [address] [facility] 7t [place] [address] Care Team Providers Care Taffy Candy Maker Name Role Phone Kourtney Saxena MD Primary Care Pro vider Encounter Details Date Type Department Care Team (Late st Contact Info) Description 04/12/2024 Orders Only [facility] External Provider, [facility] Social History Tobacco Use Types Packs/Day [...] EDT Office Visit [facility] MEDICINE [address] [place] [address] Kourtney Saxena MD [address] [place] [address] documented as of this encounter Procedures Procedure Name Priority Date/Time Associated Diagnosis Comments US PELVIS TRANSVAGINAL Routine 04/12/2024 2:09 PM EST documented in this encounter Results * US Pelvis Transvaginal (04/12/2024 2:09 PM EST) Anatomical Region Laterality Modality Pelvis Ultrasound 04/12/2024 2:09 PM EST Narrative 04/14/2024 10:32 AM EST ? [facility] ?[address] ?[place] [address] ? Ultrasound Report ? Signed ? Patient: Madison Navarro ?MR# ?? : [id number] ? : 1975 ?Acct:[id number] ? Age/Sex: 48 / F ?ADM Date: 03/05/25 ? Loc: HO.US ? Attending Dr: Guille Summers MD ? Ordering Physician: Guille Summers MD ?? Date of Service: 04/12/24 ?? Procedure(s): US pelvic and transvaginal ?? Accession Number(s): [id number] ? cc: Kourtney Saxena MD; Guille Summers [...] DD/ 1409 ? TD/TT: 04/12/24 1430 ? Dietary Aid: ? Procedure Note Alina, Katelin - 04/14/[address] [address] Ultrasound Report Signed Patient: Madison Navarro AMR# : [id number] : 1975Acct:[id number] Age/Sex: 48 / FADM Date: 04/12/24 Loc: .US Attending Dr: Guille Summers MD Ordering Physician: Guille Summers MD Date of Service: 04/12/24 Procedure(s): US pelvic and transvaginal Accession Number(s): [id number] cc: Kourtney Saxena MD; Guille Summers MD [...] 04/14/24 1028 DD/ 1409 TD/TT: 04/12/24 1430 Dietary Aid: [facility] External Provider IMG US PROCEDURES Final Result documented in this encounter Visit Diagnoses Not on filedocumented in this encounter Additional Health Concerns Assessment Noted Time PHQ-9 Depression Total Score: 4 07/02/19 10:41 AM EDT documented as of this encounter Care Teams Taffy Candy Maker Relationship Specialty Start Date End Date Kourtney Saxena MD [address] [place] [phone] PCP - General Internal Medicine 04/23/23 documented as of this encounter
[2024-04-27 02:33] LABS: Tacrolimus Prograf <1.0 mcg/L
== END 2024-04-25 10:13 | disposition home or self-care (01) ==
LOC: HO.HHCL 10:12
PROVIDERS: Visit Provider Internal Medicine Hypertension Specialist
DX: N04.9 Nephrotic syndrome with unspecified morphologic changes (principal); Z79.899 Other long term (current) drug therapy
CPT/HCPCS: 36415; 80048; 80197

== ENCOUNTER 2024-04-27 13:19 | Outpatient (AMB) | payer OTHER, MEDICAID, SELFPAY ==
[2024-04-27 13:22] VITALS: BP 108/68; PULSE 116; O2SAT 98; BMI 39.4
--- NOTE | 2024-04-27 13:22 | HO.NEPHOV_ITS ---
Vital Signs 04/27/24 13:22 Height 4 ft 11 in Weight 195 lb BMI 39.4 BP 108/68 Blood Pressure Location Lt brachial Position Sitting Pulse 116 H Pulse Source Pulse Oximeter Pulse Oximetry (%) 98 Oxygen Delivery Method Room Air Intake Visit Reasons: 3 weeks fu/ LVM Jet Ski Mechanic Required: No Accompanied by: Self / Same As Patient Allergies SHELL FISH Allergy (Severe, Uncoded 03/28/24 09:56) Anaphylaxis Medication List - Last Reconciled 04/27/24 by Gutierrez Lozano MD aspirin 81 mg PO QAM epinephrine 0.3 mg IM Q10M PRN ergocalciferol (vitamin D2) 1,250 mcg PO QWEEK hydrochlorothiazide 25 mg PO DAILY 90 days levothyroxine 50 mcg PO DAILY losartan 50 mg PO DAILY magnesium oxide 200 mg PO DAILY omeprazole 20 mg PO DAILY ondansetron 4 mg PO DAILY PRN peg 3350-electrolytes 236-22.74-6.74 -5.86 gram (Golytely) 240 mL PO Q10M prednisone 20 mg PO DAILY rosuvastatin 40 mg PO DAILY tacrolimus 1 mg PO Q12H HPI Comments Details: Madison is a pleasant 48-year-old woman who has been 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 She has a history of dyslipidemia and she is on statins. She also complains of leg edema. He is not on any diuretics. No history of hypertension. She is on losartan 25 mg due to the proteinuria. Madison is a history of CVA exact etiology was not known. She is on aspirin. Madison tells me that she had a kidney biopsy when she was a teenager and she was told that she had Nil disease. She did not undergo any specific treatment. 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 She has a history of chronic alcohol abuse and currently she has been sober. 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 01/03/2024. She underwent kidney biopsy. Tolerated procedure well. No complications. No specific complaints. Accompanied by . 02/01/2024. She has been on prednisone 60 mg a day for the last 4 weeks. She has gained 5 lb. Complains of mild swelling in the legs. Occasional cramping. 02/14/24 c/o right flank pain; No urinary symptoms 03/06/2024. Still has generalized body swelling. She is not on low-salt diet. No gross hematuria 04/06/2024. She was given cyclosporine but she did not tolerate. This discontinued due to side effects 04/27/2024. She was started on tacrolimus 1 mg p.o. b.i.d. however she has been forgetting the evening dose and she has been taking only 1 mg a day. With recent tacro level was less than 1. She is able to tolerate this. Minimal edema. No shortness of breath. Weight unchanged. [facility] Medical History Nephrotic syndrome History of CVA (cerebrovascular accident) Nicotine dependence, cigarettes, uncomplicated DJD (degenerative joint disease) Hypothyroidism Hyperlipidemia Hypertension Surgical History History of History of cervical discectomy Family History Mother Lung cancer, Onset Age: 67 Social History Alcohol intake: never Tobacco use type: Cigarette Years Smoked: (onset 25yo, 1ppd x 23yrs, now 1/2-3/4ppd - 20+PYH) Physical Exam Vital Signs: Last Vital Signs Pulse 116 H 04/27/24 13:22 BP 108/68 04/27/24 13:22 Pulse Ox 98 04/27/24 13:22 Oxygen Delivery Method Room Air 04/27/24 13:22 BMI result Body Mass Index 39.4 Comfortable Neck supple no JVD. Lungs entry equal no rales. Heart S1-S2 heard no gallop or rub. Abdomen soft nontender. Neuro alert awake oriented. No asterixis. Extremities trace edema. Results Reviewed Nephrology Results: Hgb 15.1 g/dl (12.0-16.0) 03/23/24 WBC 11.2 X10*3/uL (4.8-10.8) H 03/23/24 Plt Count 436 X10*3/uL (160-400) H 03/23/24 Sodium 141 mmol/L (135-145) 04/25/24 Potassium 3.9 mmol/L (3.3-5.1) 04/25/24 Chloride 107 mmol/L (96-108) 04/25/24 Carbon Dioxide 29 mmol/L (22-29) 04/25/24 BUN 12 mg/dL (9-16) 04/25/24 Creatinine 0.55 mg/dL (0.5-1.4) 04/25/24 Calcium 8.6 mg/dL (8.4-10.2) 04/25/24 Urine Protein 300 (3+) mg/dL (Neg-Trace) H 04/24/24 Urine Creatinine 37.91 mg/dL 03/23/24 Assessment & Plan Assessment & Plan (1) Nephrotic syndrome: Comment: Due to primary FSGS Code(s): N04.9 - Nephrotic syndrome with unspecified morphologic changes Category: Medical (2) FSGS (focal segmental glomerulosclerosis): Code(s): N05.1 - Unspecified nephritic syndrome with focal and segmental glomerular lesions Category: Medical Plan Based on the kidney biopsy: Started treatment with prednisone. Discussed the pros and cons of steroid therapy. She was on prednisone 60 mg daily for 8 weeks since 01/03/2024. And omeprazole 20 mg q.d.. She is currently on aspirin. urinary protein excretion still remains elevated at 7.0 Renal function stable. She did not respond to prednisone. Keep prednisone at 20 mg a day. Unable to tolerate cyclosporine. . Start with 1 mg b.i.d. and adjust dose based on levels.() Side effects of tacrolimus discussed and gave a printout Due to serious interactions rosuvastatin has been placed on hold Encouraged her to stay on a low-sodium diet. 04/27/2024. She was supposed to be on tacrolimus 1 mg p.o. b.i.d. however she has been taking only 1 mg daily and she forgets the evening dose. I will switch to long-acting tacrolimus- Envarsus. Start with 2 mg daily Check levels in 2 weeks and increase dose as needed. Orders: Orders Total Protein Urine Random Today N05.1 - Unspecified nephritic syndrome with focal and segmental glomerular lesions UA and rflx microscopic Today N05.1 - Unspecified nephritic syndrome with focal and segmental glomerular lesions Complete Blood Count Auto Diff 4 Days N05.1 - Unspecified nephritic syndrome with focal and segmental glomerular lesions Tacrolimus Prograf 2 Weeks N04.9 - Nephrotic syndrome with unspecified morphologic changes, N05.1 - Unspecified nephritic syndrome with focal and segmental glomerular lesions Basic Metabolic Panel Today N05.1 - Unspecified nephritic syndrome with focal and segmental glomerular lesions Creatinine Urine Today N05.1 - Unspecified nephritic syndrome with focal and segmental glomerular lesions Medications: New tacrolimus XR (Envarsus XR) 2 mg (2 x 1 mg) PO DAILY 60 tabs 0RF Discontinued tacrolimus Discontinued Reason: Doctor's Order 1 mg PO Q12H 60 caps 1RF Coding Level of Care Code Est Pt Level 4 (96794) Diagnoses Nephrotic syndrome N04.9 FSGS (focal segmental glomerulosclerosis) N05.1
--- OUTSIDE RECORDS SUMMARY | 2024-04-27 15:47 | XMS_ITS | Encounter Summary ---
Author Organization [employer] Address [address] [facility] 7 [place] [address] Care Team Providers Care Insole Department Worker Name Role Phone Kourtney Saxena MD [...] t he electric, gas, oil or water [employer] threatened to shut off services in your [...] Description 07/17/2024 1:15 PM EDT Office Visit [facility] MEDICINE [address] [place] [address] [phone] Kourtney Saxena MD [address] [place], [place] [phone] documented as of this encounter Procedures Procedure Name Priority Date/Time Associated Diagnosis Comments HPV DNA, LOW/HIGH RISK Routine 03/28/2024 10:12 AM EST PAP SMEAR Routine 03/28/2024 10:12 AM EST documented in this encounter Results * HPV DNA, Low/High Risk (03/28/2024 10:12 AM EST) HPV High Risk Negative Negative [facility] HPV Genotype 16 Negative Negative [facility] HPV Genotype 18 Negative Negative [facility] Comment:HPV testing performe d at [facility] (CLIA#[id number]), [address] [place] [address].Testing for HPV was performed using the [employer] 6800system. The presence of HPV in [...] Provider LAB BLOOD ORDERAB LES Final Result [facility] [address] [place] [phone] * Pap Smear (03/28/2024 10:12 AM EST) 03/28/2024 10:1 2 AM EST 03/28/2024 2:15 PM EST Narrative [facility] - 04/03/2024 12:46 PM EST ----- ------- Name: Madison Navarro ? Age/Sex: 48/F ? : 1975 Unit#: [id number] ?? Attend Dr: Guille Summers MD ?Re03/28/24 ?Status: DEP REF ? Location: HO.LNP ?Disch: ? ----- ------- SPEC : [id number] ? RECD: 03/28/24 ? STATUS: ??SOUT ? REQ NUM: [id number] ? YAMINI: 03/28/24-1012 ? SUBM DR: Guille [...] To: ?? Kourtney Saxena MD ?? [address] ?? [place] [address] ?? [phone] ?? Guille Summers MD ?? [facility] ?? [address] [facility] [address] ?? [place] [address] ?? [phone] ----- ------- Signed (signature on file) MELITA Kwok ([facility]) 04/03/24 1246 ? ----- ------- ? END OF REPORT ? us Generic External Data Provider LAB CYTOLOGY DAVE OSWALD Final Result [facility] [address] [place] [address] [phone] documented in this encounter Visit Diagnoses Not on filedocumented in this encounter Additional Health Concerns Assessment Noted Time PHQ-9 Depression Total Score: 4 07/02/19 24 10:41 AM EDT documented as of this encounter Care Teams Insole Department Worker Relationship Specialty Start Date End Date Kourtney Saxena MD [address] [place] [address] PCP - General Internal Medicine 04/23/23 documented as of this encounter
--- OUTSIDE RECORDS SUMMARY | 2024-04-27 15:47 | XMS_ITS | Encounter Summary ---
Author Organization [employer] Address [address] [facility] 7 [place] [address] Care Team Providers Care Automotive General Sales Manager Name Role Phone Kourtney Saxena MD Primary Care Pro vider Reason for Visit * Reason Comments Med Refill Encounter Details Date Type Department Care Team ([facility] st Contact Info) Description 04/17/2024 Refill [facility] [address] [place], [place] [phone] Adria Mason MD [address] [place] [address] Social History Tobacco Use Types Packs/Day Years [...] 1:15 PM EDT Office Visit [facility] MEDICINE [address] [place] [phone] Kourtney Saxena MD [address] [place] [phone] documented as of this encounter Visit Diagnoses Not on filedocumented in this encounter Additional Health Concerns Assessment Noted Time PHQ-9 Depression Total Score: 4 07/02/19 10:41 AM EDT documented as of this encounter Care Teams Automotive General Sales Manager Relationship Specialty Start Date End Date Kourtney Saxena MD [address] [place] [phone] PCP - General Internal Medicine 04/23/23 documented as of this encounter
--- OUTSIDE RECORDS SUMMARY | 2024-04-27 15:47 | XMS_ITS | Clinical Summary ---
Author Organization [facility] it Address [address] [place] [address] Care Team Providers Care Waffle Machine Operator Name Role Phone Vero Archuleta DO Primary Care Provider [phone] Surgical History Surgery Date Site/Laterality Comments SECTION PROCEDURE: HISTORICAL DELIVERY Medical History Medical History Date Comments History of drug dependence/a buse ([facility]/HCC) 08/03/2013 DX:History of drug dependenc e/abuse ([facility]); COMMENT: Marijuana, cocaine, crack, heroin - clean since 02/28/16 (relapse 01/22) PTSD (post-traumatic stress disorder) 10/17/2013 DX:PTSD (post-traumatic stress disorder) Anxiety 10/17/2013 DX:Anxiety Alcohol abuse 08/15/2012 DX:Alcohol abuse ; COMMENT: Quit May 2012 Was hospitalized [facility] previous pcp , clean Dec 2015 Asthma 08/15/2012 DX:Asthma Depression 08/15/2012 DX:Depression 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
--- OUTSIDE RECORDS SUMMARY | 2024-04-27 15:47 | XMS_ITS | Encounter Summary ---
Author Organization [employer] Address [address] [place] [phone] Care Team Providers Care Secretary To The Vice President Name Role Phone Kourtney Saxena MD Primary Care Pro vider Encounter Details Date Type Department Care Team (Late st Contact Info) Description 05/04/2023 Orders Only [facility] [address] [place] [address] [phone] Love Quintanilla MD [address] [place] [address] [phone] Social History Tobacco Use Types Packs/Day Years [...] 1:15 PM EDT Office Visit [facility] [address] [place] [address] [phone] Kourtney Saxena MD [address] [place] [address] [phone] documented as of this encounter Procedures Procedure Name Priority Date/Time Associated Diagnosis Comments URINALYSIS, COMPLETE, WITH REFLEX TO CULTURE Routine 11/01/2023 11:36 AM EDT ALBUMIN, RANDOM URINE W/CREATININE Routine 08/17/2023 2:30 PM EDT documented in this encounter Results * (ABNORMAL) Urinalysis, Complete, with Reflex to Culture (11/01/2023 11:36 AM EDT) Color Urine Yellow [facility] Appearance Urine Clear [facility] PH 7.0 5.0 - 9.0 [facility] Glucose Urine UA Negative Negative mg/dL [facility] Urine Blood Negative Negative [facility] Specific [place] - Urine 1.010 1.005 - 1.025 [facility] Urine Protein 100 (2+)(A) Neg-Trace mg/dL [facility] Urine Ketones Negative Negative mg/dL [facility] Nitrite Urine Negative Negative [facility] Leukocyte Esterase Urine Negative Negative [facility] RBC Urine 0-2 0 - 2 /HPF [facility] Urine WBC 0-5 0 - 5 /HPF [facility] Urine Squamous Epithelial Cell 0-2 0 - 2 /HPF [facility] Urine Bacteria None Seen None Seen [facility] Hyaline Casts, Urine 0-2 0 - 2 /LPF [facility] 11/01/2023 11:3 6 AM EDT 11/01/2023 1:21 PM EDT Narrative [facility] - 11/01/2023 1:41 PM EDT Urine, Clean Catch us Kourtney Epstein MD LAB URINE ORDERAB LES Final Result [facility] [address] [place] [address] [phone] * (ABNORMAL) Albumin, Random Urine W/Creatinine (08/17/2023 2:30 PM EDT) Creatinine, Urine 94.35 mg/dL [facility] Microalbumin Urine >2,000.0 mg/L [facility] Microalbum Creatinine Ratio Ur 2,119.7(H ) <30 ug/mg cr [facility] Comment:Albumin/Creatinine R atio Reference Ranges: Normal: < 30 ug/mg creatinine Microalbuminuria: 30 - 300 ug/mg creatinineClinical Albuminuria: > 300 ug/mg creatinine 08/17/2023 2:30 PM EDT 08/17/2023 4:14 PM EDT us Kourtney Epstein MD LAB URINE ORDERAB LES Final Result [facility] [address] [place] [phone] [phone] documented in this encounter Visit Diagnoses Not on filedocumented in this encounter Care Teams Secretary To The Vice President Relationship Specialty Start Date End Date Kourtney Saxena MD [address] [place] [phone] PCP - General Internal Medicine 04/23/23 documented as of this encounter
--- OUTSIDE RECORDS SUMMARY | 2024-04-27 15:47 | XMS_ITS | Clinical Summary ---
Author Organization [employer] Address [address] [place] [address] 7 [place] [address] Care Team Providers Care Service Dog Trainer Name Role Phone Kourtney Saxena MD Primary [...] 25 Active ergocalciferol (Vitamin D2) 1.25 MG (89583 UT) capsule TAKE 1 CAPSULE BY MOUTH [...] 025 Discontinued ergocalciferol (Vitamin D2) 1.25 MG (86687 UT) capsule TAKE 1 CAPSULE BY MOUTH [...] Description 04/24/2024 1:00 PM EDT Office Visit [facility] [address] [place] [address] Dustin Walker, ALDO Fractured (Primary Dx); Non-restorable tooth 04/21/[address] [facility] [address] [place] [address] Kourtney Saxena MD July Recall 04/17/[address] [facility] [address] [place] [address] Adria Mason MD 04/12/2024 Orders Only [facility] External Provider, [facility] 04/03/2024 Refill [facility] [address] [place] [address] Kourtney Saxena MD 03/28/2024 Orders Only GENERIC EXTERNAL DATA DEPARTMENT Provider, Generic External Data 03/28/[address] [facility] [address] [place] [address] Kourtney Saxena MD 03/25/[address] [facility] [address] [place] [address] Kitty Jackson, VARUN Results 03/23/2024 Orders Only GENERIC EXTERNAL DATA DEPARTMENT Provider, Generic External Data 03/18/[address] [facility] [address] [place] [address] Kourtney Saxena MD 03/13/[address] [facility] [address] [place] [address] Skylar Carmen [place] may recall 02/24/[address] [facility] [address] [place] [address] Kourtney Saxena MD 02/17/2024 Orders Only [facility] External Provider, [facility] 02/15/[address] [facility] [address] [place] [address] Kourtney Saxena MD 02/07/2024 Travel 01/28/[address] [facility] [address] [place] [address] Kourtney Saxena MD from Last 3 Months [...] Description 07/17/2024 1:15 PM EDT Office Visit [facility] [address] [place] [address] [phone] Kourtney Saxena MD [address] [place] [address] Health Maintenance Due Date Last Done Comments [...] EST Narrative 04/14/2024 10:32 AM EST ? [facility] ?[address] ?[place] [address] ? Ultrasound Report ? Signed ? Patient: Madison Navarro ?MR# ?? : [id number] ? : 1975 ?Acct:[id number] ? Age/Sex: 48 / F ?ADM Date: 04/12/24 ? Loc: HO.US ? Attending Dr: Guille Summers MD ? Ordering Physician: Guille Summers MD ?? Date of Service: 04/12/24 ?? Procedure(s): US pelvic and transvaginal ?? Accession Number(s): [id number] ? cc: Kourtney Saxena MD; Guille Summers [...] DD/ 1409 ? TD/TT: 04/12/24 1430 ? Senior Software Tester: ? Procedure Note Alina, Katelin - 04/14/2024 [place] [address] Ultrasound Report Signed Patient: Madison Navarro AMR# : [id number] : 1975Acct:[id number] Age/Sex: 48 / FADM Date: 04/12/24 Loc: HO.US Attending Dr: Guille Summers MD Ordering Physician: Guille Summers MD Date of Service: 04/12/24 Procedure(s): US pelvic and transvaginal Accession Number(s): [id number] cc: Kourtney Saxena MD; Guille Summers MD [...] 04/14/24 1028 DD/ 1409 TD/TT: 04/12/24 1430 Senior Software Tester: [facility] External Provider IM US PROCEDURES Final Result * HPV DNA, Low/High Risk (03/28/2024 10:12 AM EST) HPV High Risk Negative Negative [facility] HPV Genotype 16 Negative Negative [facility] HPV Genotype 18 Negative Negative [facility] Comment:HPV testing performe d at [facility] (CLIA#[id number]), [address] [place] [address].Testing for HPV was performed using the [employer] Quikly0system. The presence of HPV in the female [...] ORDERAB LES Final Result Performing Organization Address City/State/[facility] Co de Phone Number [facility] [address] [place] [phone] * Pap Smear (03/28/2024 10:12 AM EST) 03/28/2024 10:1 2 AM EST 03/28/2024 2:15 PM EST Narrative [facility] - 04/03/2024 12:46 PM EST ----- ------- Name: Madison Navarro ? Age/Sex: 48/F ? : 1975 Unit#: [id number] ?? Attend Dr: Guille Summers MD ?Re03/28/24 ?Status: DEP REF ? Location: HO.LNP ?Disch: ? ----- ------- SPEC : [id number] ? RECD: 03/28/24 ? STATUS: ??SOUT ? REQ NUM: [id number] ? YAMINI: 03/28/24-1012 ? SUBM DR: Guille [...] To: ?? Kourtney Saxena MD ?? [address] ?? [place] [address] ?? [phone] ?? Guille Summers MD ?? [facility] ?? [address] [facility] [address] ?? [place] [address] ?? [phone] ----- ------- Signed (signature on file) MELITA Kwok (ASC) 04/03/24 1246 ? ----- ------- ? END OF REPORT ? us Generic External Data Provider LAB CYTOLOGY ORDE RABLES Final Result Performing Organization Address [facility] Co de Phone Number [facility] [address] [place] [address] [phone] * (ABNORMAL) Urine Protein, Total, Random without Creatinine (03/23/2024 3:19 PM EST) Protein, Total, Random Urine 273(H) <12 mg/dL [facility] 03/23/2024 3:19 PM EST 03/23/2024 3:56 PM EST Generic External Data Provider LAB URINE ORDERAB LES Final Result Performing Organization Address [facility]/ZIP Co de Phone Number [facility] [address] [place] [address] [phone] * Creatinine, Random Urine (03/23/2024 3:19 PM EST) Creatinine, Urine 37.91 mg/dL [facility] 03/23/2024 3:19 PM EST 03/23/2024 3:56 PM EST us Generic External Data Provider LAB URINE ORDERAB LES Final Result Performing Organization Address [facility] Co de Phone Number [facility] [address] [place] [phone] * (ABNORMAL) Urinalysis Complete (03/23/2024 3:19 PM EST) Color Urine Yellow [facility] Appearance Urine Clear [facility] PH >=9.0 5.0 - 9.0 [facility] Glucose Urine UA Negative Negative mg/dL [facility] Urine Blood Negative Negative [facility] Specific [place] - Urine 1.015 1.005 - 1.025 [facility] Urine Protein 300 (3+)(A) Neg-Trace mg/dL [facility] Urine Ketones Negative Negative mg/dL [facility] Nitrite Urine Negative Negative [facility] Leukocyte Esterase Urine Negative Negative [facility] RBC Urine 0-2 0 - 2 /HPF [facility] Urine WBC 0-5 0 - 5 /HPF [facility] Urine Squamous Epithelial Cell 0-2 0 - 2 /HPF [facility] Urine Bacteria None Seen None Seen [facility] Hyaline Casts, Urine 0-2 0 - 2 /LPF [facility] 03/23/2024 3:19 PM EST 03/23/2024 3:56 PM EST us Generic External Data Provider LAB URINE ORDERAB LES Final Result Performing Organization Address [facility]/ZIP Co de Phone Number [facility] [address] [place] [phone] * TSH (03/23/2024 3:19 PM EST) Pathologist [facility] Thyroid Stimulating Hormone 1.06 0.32 - 4.0 uIU/mL [facility] Comment:TSH 3rd Generation ( [facility]) Blood Venous blood specimen / Unknown 03/23/2024 3:19 PM EST 03/23/2024 3:58 PM EST Kourtney Epstein MD LAB BLOOD ORDERAB LES Final Result Performing Organization Address City/[facility] Co de Phone Number [facility] [address] [place] [phone] * T4, Free (03/23/2024 3:19 PM EST) [facility] Free T4 (Free Thyroxine) 1.06 0.71 - 1.85 ng/dL [facility] Blood Venous blood specimen / Unknown 03/23/2024 3:19 PM EST 03/23/2024 3:58 PM EST us Kourtney Epstein MD LAB BLOOD ORDERAB LES Final Result Performing Organization Address [facility] de Phone Number [facility] [address] [place] [phone] * (ABNORMAL) Comprehensive Metabolic Panel (03/23/2024 3:19 PM EST) Pathologist [facility] Sodium 138 135 - 145 mmol/L [facility] Potassium 4.3 3.3 - 5.1 mmol/L [facility] Chloride 102 96 - 108 mmol/L [facility] Carbon Dioxide 30(H) 22 - 29 mmol/L [facility] Anion Gap 10(L) 12 - 20 [facility] Urea Nitrogen (BUN) 19(H) 9 - 16 mg/dL [facility] Creatinine, Serum 0.64 0.5 - 1.4 mg/dL [facility] Estimated Glomerular Filt Rate >60 [facility] Comment:Chronic Kidney Disea se: Estimated GFR < 60 mL/min/1.80s0Rudgvu Kidney Disease: Estimated GFR < 15 mL/min/1.73m2 Glucose 124(H) 60 - 115 mg/dL [facility] Calcium 9.2 8.4 - 10.2 mg/dL [facility] Bilirubin, Total 0.2 0.0 - 1.0 mg/dL [facility] Aspartate Amino Transferase 24 5 - 31 U/L [facility] Alanine Aminotransferase 31 0 - 31 U/L [facility] Total Protein 6.3(L) 6.5 - 8.0 g/dL [facility] Albumin Level 3.2(L) 3.5 - 5.0 g/dL [facility] Alkaline Phosphatase 54 39 - 117 U/L [facility] Blood Venous blood specimen / Unknown 03/23/2024 3:19 PM EST 03/23/2024 3:58 PM EST Kourtney Epstein MD LAB BLOOD ORDERAB LES Final Result [facility] [address] [place] [phone] [phone] * (ABNORMAL) Cyclosporine level (03/23/2024 1:56 PM EST) Cyclosporine A Trough <25(A) 100 - 300 mcg/L [facility] Comment:No definitive therap eutic or toxic ranges have beenestablished. Optimal blood drug levels are influencedby type of transplant, patient response, time post-transplant, co-administration of other drugs, and drugformulation. The following trough ranges are suggestedguidelines:Kidney Transplantation: 100-200 mcg/LOther Organ Transplant: 200-300 mcg/LThis test was developed and its analytical performancecharacteristics have been determined by [employer] [place], [place]. It hasnot been cleared or approved by the U.S. Food and DrugAdministration. This assay has been validated pursuantto the CLIA regulations and is used for clinicalpurposes.THIS TEST WAS PERFORMED AT:[employer]/[address] [place] [address]JMLXYJZSIMON CRAMER MD,PHD 03/23/2024 1:56 PM EST 03/23/2024 3:58 PM EST us Generic External Data Provider LAB BLOOD ORDERAB LES Final Result [facility] [address] [place] [address] [phone] * US RENAL BI (02/17/2024 11:16 AM EST) Anatomical Region Laterality Modality Abdomen Ultrasound 02/17/2024 11:1 6 AM EST Narrative 02/17/2024 11:44 AM EST ? [facility] ?[address] ?[place] [address] ? Ultrasound Report ? Signed ? Patient: Madison Navarro ?MR# ?? : [id number] ? : 1975 ?Acct:[id number] ? Age/Sex: 48 / F ?ADM Date: 02/17/24 ? Loc: HO.US ? Attending Dr: Gutierrez Lozano MD ? Ordering Physician: Gutierrez Lozano MD ?? Date of Service: 02/17/24 ?? Procedure(s): US renal BI ?? Accession Number(s): [id number] ? cc: Gutierrez Lozano MD; Kourtney Saxena [...] DD/ 1116 ? TD/TT: 02/17/24 1123 ? Senior Software Tester: ? Procedure Note Alina, Image - 02/17/[address] [address] Ultrasound Report Signed Patient: Madison Navarro AMR# : [id number] : 1975Acct:[id number] Age/Sex: 48 / FADM Date: 02/17/24 Loc: HO.US Attending Dr: Gutierrez Lozano MD Ordering Physician: Gutierrez Lozano MD Date of Service: 02/17/24 Procedure(s): US renal BI Accession Number(s): [id number] cc: Gutierrez Lozano MD; Kourtney Saxena MD [...] 02/17/24 1141 DD/ 1116 TD/TT: 02/17/24 1123 Senior Software Tester: us [facility] External Provider IMG US PROCEDURES Final Result * (ABNORMAL) Lipid Panel, Standard (01/11/2024 9:50 AM EST) Triglycerides 133 <150 mg/dL [facility] Comment:Desirable Triglyceri de: less than 150 mg/dLBorderline High Triglyceride 150-199 mg/dLHigh Triglyceride: 200-499 mg/dLVery High Triglyceride: greater than or equal to 5OO mg/dL Cholesterol 246(H) <200 mg/dL [facility] Comment:Desirable Cholestero l: less than 200 mg/dLBorderline High Cholesterol: 200-239 mg/dLHigh Cholesterol: greater than 239 mg/dL LDL Cholesterol Calculated 148(H) <100 mg/dL [facility] Comment:Desirable LDL: less than 100 mg/dLNear Optimal/Above Optimal LDL: 110- 129 mg/dLBorderline High LDL: 130-159 mg/dLHigh LDL: 160-189 mg/dLVery High LDL: greater than or equal to 190 mg/dL HDL Cholesterol 72 >40 mg/dL [facility] Comment:Desirable HDL: great er than 40 mg/dL Note: This HDL assay may give artificially low results in patients with liver disease. 01/11/2024 9:50 AM EST 01/11/2024 11:31 AM EST us Generic External Data Provider LAB BLOOD ORDERAB LES Final Result [facility] [address] [facility] [place] [address] [phone] * CT Lung Screening Low dose (12/10/2023 10:40 AM EDT) Anatomical Region Laterality Modality Lung Computed Tomogra phy 12/10/2023 10:4 0 AM EDT Narrative 01/26/2024 11:47 PM EST ? [facility] ?[address] ?[place] [address] ? CT Scan Report ? Signed ? Patient: Madison Navarro ?MR# ?? : [id number] ? : 1975 ?Acct:[id number] ? Age/Sex: 48 / F ?ADM Date: 12/10/23 ? Loc: HO.CT ? Attending Dr: Stacy Mays PA-C ? Ordering Physician: Stacy Mays PA-C ?? Date of Service: 12/10/23 ?? Procedure(s): CT lung screening ?? Accession Number(s): [id number] ? cc: Stacy Mays PA-C; Kourtney Saxena [...] DD/ 1040 ? TD/TT: 12/10/23 1045 ? Senior Software Tester: SS ? Procedure Note Alina, Image - 01/26/[address] [address] [address] Scan Report Signed Patient: Madison Navarro [facility]# : [id number] : 1975Acct:[id number] Age/Sex: 48 / FADM Date: 12/10/23 Loc: HO.CT Attending Dr: Stacy Mays PA-C Ordering Physician: Stacy Mays PA-C Date of Service: 12/10/23 Procedure(s): CT lung screening Accession Number(s): [id number] cc: Stacy Mays PA-C; Kourtney Saxena MD [...] 01/26/24 2344 DD/ 1040 TD/TT: 12/10/23 1045 Senior Software Tester: BRIAN [facility] External Provider IMG CT PROCEDURES Edited Result - Final * BI Mammogram Screening Tomosynthesis Bilateral (08/17/2023 9:18 AM EDT) Anatomical Region Laterality Modality Breast Bilateral Mammography 08/17/2023 9:18 AM EDT Narrative 09/12/2023 3:49 PM EDT ? [facility] [place] ? [address] ?[place] [address] ? Mammography Report ? Signed ? Patient: Madison Navarro A ?MR# ?? : [id number] ? : 1975 ?Acct:[id number] ? Age/Sex: 48 / F ?ADM Date: 07//24 ? Loc: HO.MAMMO ? Attending Dr: Kourtney Epstein MD ? Ordering Physician: Kourtney Saxena MD ?Re ?? sults: 2Benign Findings ? Date of Service: 08/17/23 ?Follow Up: 1 Year From Orig ?? inal Mammogram ? Procedure(s): MM tomosynthesis screening BI ?? Accession Number(s): [id number] ? cc: Kourtney Saxena MD ? EXAMINATION: [...] 1546 ? DD/ 7 ? TD/TT: ? Senior Software Tester: ? Procedure Note Donotuseinterpreter, Image - 09/12/2023 [facility] [address] [place] [address] Mammography Report Signed Patient: Madison Navarro AMR# : [id number] : 1975Acct:[id number] Age/Sex: 48 / FADM Date: 08/17/23 Loc: HO.MAMMO Attending Dr: Kourtney Epstein MD Ordering Physician: Kourtney Saxena sults: 2Benign Findings Date of Service: 08/17/23Follow Up: 1 Year From Orig inal Mammogram Procedure(s): MM tomosynthesis screening BI Accession Number(s): [id number] cc: Kourtney Saxena MD EXAMINATION: MM SCREENING [...] in OV> 09/12/23 1546 DD/ 0918 TD/TT: Senior Software Tester: us Kourtney Epstein MD IMG BI PROCEDURES Final Result * Hepatitis C Antibody with Reflex to HCV, RNA, Quantitative, Real-Time PCR (07/27/2023 10:47 AM EDT) Hepatitis C Antibody Nonreactive Nonreactive [facility] Comment:Antibodies to HCV no t detected; does not exclude early acuteHCV infection. Blood Venous blood specimen / Unknown 07/27/2023 10:47 AM EDT 07/27/2023 11:28 AM EDT us Kourtney Epstein MD LAB BLOOD ORDERAB LES Final Result Performing Organization Address [facility]/ZIP Co de Phone Number [facility] [address] [place] [phone] * HIV-1/2 Antigen and Antibodies, Fourth Generation, with Reflexes (07/27/2023 10:47 AM EDT) HIV AB/AG Nonreactive Nonreactive [facility] Comment:HIV-1 p24 Ag and/or HIV-1/HIV-2 Ab not detected.A test result that is nonreactive does not exclude thepossibility of exposure to or infection with HIV-1 and/orHIV-2. Nonreactive results in this assay for individualswith prior exposure to HIV-1 and/or HIV-2 may be due toantigen and antibody levels that are below the limit ofdetection of this assay.The [employer] HIV Ag/Ab Combo assay result andsupplemental assay results should be interpreted inconjunction with the patient's clinical presentation,history and other laboratory results. If the results areinconsistent with clinical evidence, additional testing issuggested to confirm the result. Blood Venous blood specimen / Unknown 07/27/2023 10:47 AM EDT 07/27/2023 11:28 AM EDT us Kourtney Epstein MD LAB BLOOD ORDERAB LES Final Result Performing Organization Address City/[facility]/ZIP Co de Phone Number [facility] [address] [place] [phone] from Last 3 Months or Most Recently Relevant to Health Maintenance Insurance [facility] , [address] [address] [facility] [address] [place] [address] [address] [place] [phone] Care Teams Service Dog Trainer Relationship Specialty Start Date End Date Kourtney Saxena MD [address] [place] [phone] PCP - General Internal Medicine 04/23/23
--- OUTSIDE RECORDS SUMMARY | 2024-04-27 15:47 | XMS_ITS | Encounter Summary ---
Author Organization [employer] Address 75 [facility] 7t [place] [address] Care Team Providers Care Lens Cleaner Name Role Phone Kourtney Saxena MD Primary Care Pro vider Encounter Details Date Type Department Care Team (Late st Contact Info) Description 04/12/2024 Orders Only [facility] External Provider, [facility] Social History Tobacco Use Types Packs/Day Years [...] 1:15 PM EDT Office Visit [facility] MEDICINE [address] [place] [address] Kourtney Saxena MD [address] [place] [address] documented as of this encounter Procedures Procedure Name Priority Date/Time Associated Diagnosis Comments US PELVIS TRANSVAGINAL Routine 04/12/2024 2:09 PM EST documented in this encounter Results * US Pelvis Transvaginal (04/12/2024 2:09 PM EST) Anatomical Region Laterality Modality Pelvis Ultrasound 04/12/2024 2:09 PM EST Narrative 04/14/2024 10:32 AM EST ? [facility] ?[address] ?[place] [address] ? Ultrasound Report ? Signed ? Patient: Madison Navarro ?MR# ?? : [id number] ? : 1975 ?Acct:[id number] ? Age/Sex: 48 / F ?ADM Date: 03/05/25 ? Loc: HO.US ? Attending Dr: Guille Summers MD ? Ordering Physician: Guille Summers MD ?? Date of Service: 04/12/24 ?? Procedure(s): US pelvic and transvaginal ?? Accession Number(s): [id number] ? cc: Kourtney Saxena MD; Guille Summers [...] DD/ 1409 ? TD/TT: 04/12/24 1430 ? Fourdrinier Tender: ? Procedure Note Alina, Katelin - 04/14/[address] [address] Ultrasound Report Signed Patient: Madison Navarro AMR# : [id number] : 1975Acct:[id number] Age/Sex: 48 / FADM Date: 04/12/24 Loc: .US Attending Dr: Guille Summers MD Ordering Physician: Guille Summers MD Date of Service: 04/12/24 Procedure(s): US pelvic and transvaginal Accession Number(s): [id number] cc: Kourtney Saxena MD; Guille Summers MD [...] 04/14/24 1028 DD/ 1409 TD/TT: 04/12/24 1430 Fourdrinier Tender: [facility] External Provider IMG US PROCEDURES Final Result documented in this encounter Visit Diagnoses Not on filedocumented in this encounter Additional Health Concerns Assessment Noted Time PHQ-9 Depression Total Score: 4 07/02/19 10:41 AM EDT documented as of this encounter Care Teams Lens Cleaner Relationship Specialty Start Date End Date Kourtney Saxena MD [address] [place] [phone] PCP - General Internal Medicine 04/23/23 documented as of this encounter
--- OUTSIDE RECORDS SUMMARY | 2024-04-27 15:47 | XMS_ITS | Encounter Summary ---
Author Organization [employer] Address [address] [place] [address] 7 [place] [address] Care Team Providers Care Front Of House Manager Name Role Phone Kourtney Saxena MD Primary Care Pro vider Reason for Visit * Reason Comments Dental Pain Upper right side Encounter Details Date Type Department Care Team (Late st Contact Info) Description 04/24/2024 1:00 PM EDT Office Visit [facility] ADULT DENTAL [address] [place] [address] Dustin Walker, DDZahira [address] [place] [address] Fractured (Primary Dx); Non-restorable tooth Social History [...] Timeout Time: 7 (Dental Extraction #4) Location: [facility] Tooth: Maxilla and #4 Procedure: X-rays, Extraction, and Emergency Verified the above with patient, marketing assistant manager, and provider. Confirmed via patient's chart, intraorally and by radiographs. Supervisor Alteration Workroom: not applicable Chief Complaint Patient presents with [...] each 1 ergocalciferol (Vitamin D2) 1.25 MG (76322 UT) capsule TAKE 1 CAPSULE BY MOUTH [...] 2 [DISCONTINUED] ergocalciferol (Vitamin D2) 1.25 MG (64072 UT) capsule TAKE 1 CAPSULE BY MOUTH [...] Pt tolerated procedure well. Prescription sent to [facility] on file . Written and verbal post-op instructions given. Patient discharged in stable condition; ambulatory, alert, and oriented. NV: F/U as needed / EXAM Director Of Outside Sales: Eduar Green Dentist: Dustin Wakler DDS documented in this encounter Plan of Treatment Upcoming Encounters Date Type Department Care Team (Late st Contact Info) Description 07/17/2024 1:15 PM EDT Office Visit [facility] MEDICINE [address] [place] [address] Kourtney Saxena MD [address] [place] [phone] Scheduled Orders Name Type Priority Associated Diagnoses [...] documented as of this encounter Care Teams Front Of House Manager Relationship Specialty Start Date End Date Kourtney Saxena MD [address] [place] [phone] PCP - General Internal Medicine 04/23/23 documented as of this encounter
--- OUTSIDE RECORDS SUMMARY | 2024-04-27 15:47 | XMS_ITS | Encounter Summary ---
Author Organization [employer] Address [address] [place] [address] [place], [place] [address] Care Team Providers Care Rock Worker Name Role Phone Kourtney Saxena MD Primary Care Pro vider Reason for Visit * Reason Comments Med Refill Encounter Details Date Type Department Care Team (Late st Contact Info) Description 12/07/2022 Refill [facility] [address] [place] [address] [phone] Jaylon Martin MD [address] [place] [phone] Social History Tobacco Use Types Packs/Day Years [...] Office Visit [facility] MEDICINE [address] [place] [address] Kourtney Saxena MD [address] [place] [address] documented as of this encounter Visit Diagnoses Not on filedocumented in this encounter Care Teams Rock Worker Relationship Specialty Start Date End Date Kourtney Saxena MD [address] [place] [address] PCP - General Internal Medicine 04/23/23 documented as of this encounter
--- OUTSIDE RECORDS SUMMARY | 2024-04-27 15:47 | XMS_ITS | Encounter Summary ---
Author Organization [employer] Address 75 [facility] 7 [place] [address] Care Team Providers Care Exterminator Helper Name Role Phone Kourtney Saxena MD Primary Care Pro vider Encounter Details Date Type Department Care Team (Late st Contact Info) Description 03/28/2024 Refill [facility] MEDICINE 230 [place], [place] [phone] Kourtney Saxena MD [address] [place] [address] Social History Tobacco Use Types Packs/Day Years [...] Description 07/17/2024 1:15 PM EDT Office Visit [facility] MEDICINE [address] [place] [phone] Kourtney Saxena MD [address] [place] [address] documented as of this encounter Visit Diagnoses Not on filedocumented in this encounter Additional Health Concerns Assessment Noted Time PHQ-9 Depression Total Score: 4 07/02/19 10:41 AM EDT documented as of this encounter Care Teams Exterminator Helper Relationship Specialty Start Date End Date Kourtney Saxena MD [address] [place] [phone] PCP - General Internal Medicine 04/23/23 documented as of this encounter
--- OUTSIDE RECORDS SUMMARY | 2024-04-27 15:47 | XMS_ITS | Encounter Summary ---
Author Organization [employer] Address [address] [place] [address] [place], [place] [address] Care Team Providers Care Garbage Depot Worker Name Role Phone Kourtney Saxena MD Primary Care Pro vider Reason for Visit * Reason Onset Date Comments Mone Recall 04/21/2024 Encounter Details Date Type Department Care Team ([facility] st Contact Info) Description 04/21/2024 Telephone [facility] MEDICINE [address] [place], [place] [phone] Kourtney Saxena MD [address] [place] [address] July Recall Social History Tobacco Use Types [...] Description 07/17/2024 1:15 PM EDT Office Visit [facility] MEDICINE [address] [place] [address] Kourtney Saxena MD [address] [place] [address] documented as of this encounter Visit Diagnoses Not on filedocumented in this encounter Additional Health Concerns Assessment Noted Time PHQ-9 Depression Total Score: 4 07/02/19 24 10:41 AM EDT documented as of this encounter Care Teams Garbage Depot Worker Relationship Specialty Start Date End Date Kourtney Saxena MD [address] [place] [phone] PCP - General Internal Medicine 04/23/23 documented as of this encounter
--- OUTSIDE RECORDS SUMMARY | 2024-04-27 15:47 | XMS_ITS | Encounter Summary ---
Author Organization [employer] Address [address] [place] [address] Care Team Providers Care Magazine Keeper Name Role Phone Kourtney Saxena MD Primary Care Pro vider Reason for Visit * Reason Comments Med Refill Encounter Details Date Type Department Care Team (Late st Contact Info) Description 12/14/2022 Refill [facility] MEDICINE [address] [place] [address] [phone] Love Quintanilla MD [address] [place] [phone] Social History Tobacco Use Types Packs/Day Years [...] Description 07/17/2024 1:15 PM EDT Office Visit [facility] MEDICINE [address] [place] [address] [phone] Kourtney Saxena MD [address] [place] [address] documented as of this encounter Visit Diagnoses Not on filedocumented in this encounter Care Teams Magazine Keeper Relationship Specialty Start Date End Date Kourtney Saxena MD [address] [place] [phone] PCP - General Internal Medicine 04/23/23 documented as of this encounter
--- OUTSIDE RECORDS SUMMARY | 2024-04-27 15:47 | XMS_ITS | Encounter Summary ---
Author Organization [employer] Address [address] [place] [address] [place] [address] Care Team Providers Care Vocational Psychologist Name Role Phone Kourtney Saxena MD Primary Care Pro vider Reason for Visit * Reason Comments Med Refill Encounter Details Date Type Department Care Team ([facility] st Contact Info) Description 04/03/2024 Refill [facility] MEDICINE 230 [place], [place] [phone] Kourtney Saxena MD [address] [place] [address] Social History Tobacco Use Types Packs/Day Years [...] 1:15 PM EDT Office Visit [facility] MEDICINE [address] [place] [address] Kourtney Saxena MD [address] [place] [phone] documented as of this encounter Visit Diagnoses Not on filedocumented in this encounter Additional Health Concerns Assessment Noted Time PHQ-9 Depression Total Score: 4 07/02/19 10:41 AM EDT documented as of this encounter Care Teams Vocational Psychologist Relationship Specialty Start Date End Date Kourtney Saxena MD [address] [place] [phone] PCP - General Internal Medicine 04/23/23 documented as of this encounter
== END 2024-04-27 13:38 | disposition home or self-care (01) ==
LOC: HO.HKA 13:19
PROVIDERS: PCP Student in an Organized Health Care Education/Training Program; Visit Provider Internal Medicine Hypertension Specialist
DX: N04.9 Nephrotic syndrome with unspecified morphologic changes (principal); N05.1 Unspecified nephritic syndrome with focal and segmental glomerular lesions
CPT/HCPCS: 99214

== ENCOUNTER 2024-05-02 12:25 | Outpatient (AMB) | payer OTHER, MEDICAID, SELFPAY ==
[2024-05-02 12:28] VITALS: BMI 39.4
--- NOTE | 2024-05-02 12:28 | A.OFFVIS_ITS ---
Vital Signs 05/02/24 12:28 Height 4 ft 11 in Weight 195 lb BMI 39.4 Intake Visit Reasons: Ultrasound results/? 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 Pelvic ultrasound showed the following: Uterus: The uterus is normal in size, measuring 12.8 x 3.9 x 5.3 cm. Myometrium has a normal echotexture. There is a 3.8 x 1.9 x 3.6 cm fundal fibroid. It is uncertain if this represents the previously seen fibroid. Endometrium: The endometrial stripe is not identified. Right ovary: The right ovary measures 1.5 x 1.9 x 1.7 cm. The right ovary is normal in size and echotexture. Left ovary: The left ovary measures 1.6 x 1.0 x 1.2 cm. The left ovary is normal in size and echotexture. Pelvic fluid: none. REPLACED BY [facility] Medical History Nephrotic syndrome History of CVA (cerebrovascular accident) Nicotine dependence, cigarettes, uncomplicated DJD (degenerative joint disease) Hypothyroidism Hyperlipidemia Hypertension Surgical History History of History of cervical discectomy Family History Mother Lung cancer, Onset Age: 67 Social History Alcohol intake: never Tobacco use type: Cigarette Years Smoked: (onset 25yo, 1ppd x 23yrs, now 1/2-3/4ppd - 20+PYH) Review of Systems Const All systems reviewed & are unremarkable except as noted in HPI and below Reports as per HPI and Reports no additional complaints GI Reports no additional complaints Reports no additional complaints Physical Exam Vital Signs: BMI result Body Mass Index 39.4 Assessment & Plan Assessment & Plan (1) Postmenopausal bleeding: Code(s): N95.0 - Postmenopausal bleeding Category: Medical Plan: Discussed with the patient the pelvic ultrasound findings, the endometrial stripe thickenss was not identified. The negative predictive value, positive predictive value, Sensitivity, specificity of using ultrasound measurement of endometrial stripe to detecting endometrial pathology including hyperplasia , polyp or cancer were discussed with the patient. Recommended to the patient that the next step is an endometrial sampling via hysteroscopy D&C possible polypectomy versus endometrial biopsy to r/o endometrial pathology including hyperplasia or cancer. All the pros and cons risks and benefits of each approach were discussed with the patient, endometrial biopsy being less invasive, office procedure with less sensitivity and inability diagnose a polyp and removal versus hysteroscopy done under anesthesia more invasive more sensitive to endometrial cancer and possibility of diagnosing and endometrial polyp with the possibility of polypectomy. All questions were answered pt verbalized understanding and decided to proceed with endometrial biopsy. EMB attempted but failed Multiple size Speculums inserted, could not reach the cervix, attempt to blindly feel the cervix and to grab it with single-tooth tenaculum also failed. Exp lained to the patient the importance of endometrial biopsy to rule out endometrial pathology including endometrial hyperplasia and/or malignancy, refer to [facility] for further management Instructed the patient to call our office back in case a referral appointment is not scheduled, missed or canceled so that we will assist on rescheduling another appointment, the patient verbalized understanding agreed with the plan. (2) Uterine myoma: Code(s): D25.9 - Leiomyoma of uterus, unspecified Category: Medical Plan: Discussed with the patient the findings on pelvic ultrasound & the risk of myosarcoma; in addition reviewed with the patient that malignancy and pre malignancy cannot be ruled out without hysterectomy for pathological evaluation ; furthermore, explained to the patient the limitation of pelvic ultrasound and endometrial biopsy in the setting. Discussed with the patient the options of treatment including expectant management versus hysterectomy; the pros and cons, risks benefits of each approach were discussed with the patient including the fact that in cases of myosarcoma, surgical treatment can lead to early diagnosis and positively affects the prognosis; after further discussion, the patient decided to proceed with expectant management. Will repeat pelvic ultrasound periodically. Instructions given to patient to call in case any of the following occurs: pressure symptoms, abnormal uterine bleeding, pelvic pain; and to schedule a six-months pelvic ultrasound (order placed) and a follow-up appointment . All questions answered, the patient verbalized understanding and agreed with the plan . Orders: Orders US pelvic and transvaginal Today D25.9 - Leiomyoma of uterus, unspecified Coding Level of Care Code Est Pt Level 3 (27873) Diagnoses Postmenopausal bleeding N95.0 Uterine myoma D25.9
--- OUTSIDE RECORDS SUMMARY | 2024-05-02 15:04 | XMS_ITS | Encounter Summary ---
Author Organization [employer] Address [address] [place] [address] 7[place], [place] [address] Care Team Providers Care Windows Consultant Name Role Phone Kourtney Saxena MD Primary Care Pro vider Reason for Visit * Reason Comments Med Refill Encounter Details Date Type Department Care Team (Late st Contact Info) Description 12/07/2022 Refill [facility] [address] [place] [address] [phone] Jaylon Martin MD [address] [place] [phone] Social History Tobacco Use Types Packs/Day Years [...] Description 07/17/2024 1:15 PM EDT Office Visit [facility] MEDICINE [address] [place] [address] Kourtney Saxena MD [address] [place] [phone] documented as of this encounter Visit Diagnoses Not on filedocumented in this encounter Care Teams Windows Consultant Relationship Specialty Start Date End Date Kourtney Saxena MD [address] [place] [phone] PCP - General Internal Medicine 04/23/23 documented as of this encounter
--- OUTSIDE RECORDS SUMMARY | 2024-05-02 15:04 | XMS_ITS | Encounter Summary ---
Author Organization [email or web address] Address 75 [facility] 7t [place] [address] Care Team Providers Care Economic Analysis Director Name Role Phone Kourtney Saxena MD Primary Care Pro vider Encounter Details Date Type Department Care Team (Late st Contact Info) Description 04/12/2024 Orders Only [facility] External Provider, [facility] Social History Tobacco Use Types Packs/Day [...] 1:15 PM EDT Office Visit [facility] MEDICINE 230 [place] [address] Kourtney Saxena MD 230 [place] [address] documented as of this encounter Procedures Procedure Name Priority Date/Time Associated Diagnosis Comments US PELVIS TRANSVAGINAL Routine 04/12/2024 2:09 PM EST documented in this encounter Results * US Pelvis Transvaginal (04/12/2024 2:09 PM EST) Anatomical Region Laterality Modality Pelvis Ultrasound 04/12/2024 2:09 PM EST Narrative 04/14/2024 10:32 AM EST ? [facility] ?[address] ?[place] [address] ? Ultrasound Report ? Signed ? Patient: Madison Navarro ?MR# ?? : [id number] ? : 1975 ?Acct:[id number] ? Age/Sex: 48 / F ?ADM Date: 03/05/25 ? Loc: HO.US ? Attending Dr: Guille Summers MD ? Ordering Physician: Guille Summers MD ?? Date of Service: 04/12/24 ?? Procedure(s): US pelvic and transvaginal ?? Accession Number(s): [id number] ? cc: Kourtney Saxena MD; Guille Summers [...] DD/ 1409 ? TD/TT: 04/12/24 1430 ? Tree Trimming Supervisor: ? Procedure Note Alina, Katelin - 04/14/[address] [address] Ultrasound Report Signed Patient: Madison Navarro AMR# : [id number] : 1975Acct:[id number] Age/Sex: 48 / FADM Date: 04/12/24 Loc: .US Attending Dr: Guille Summers MD Ordering Physician: Guille Summers MD Date of Service: 04/12/24 Procedure(s): US pelvic and transvaginal Accession Number(s): [id number] cc: Kourtney Saxena MD; Guille Summers MD [...] 04/14/24 1028 DD/ 1409 TD/TT: 04/12/24 1430 Tree Trimming Supervisor: [facility] External Provider IMG US PROCEDURES Final Result documented in this encounter Visit Diagnoses Not on filedocumented in this encounter Additional Health Concerns Assessment Noted Time PHQ-9 Depression Total Score: 4 07/02/19 10:41 AM EDT documented as of this encounter Care Teams Economic Analysis Director Relationship Specialty Start Date End Date Kourtney Saxena MD [address] [place] [phone] PCP - General Internal Medicine 04/23/23 documented as of this encounter
--- OUTSIDE RECORDS SUMMARY | 2024-05-02 15:04 | XMS_ITS | Encounter Summary ---
Author Organization [employer] Address 75 [facility] 7 [place] [address] Care Team Providers Care Relationship Mgr Name Role Phone Kourtney Saxena MD Primary Care Pro vider Reason for Visit * Reason Comments Med Refill Encounter Details Date Type Department Care Team ([facility] st Contact Info) Description 04/17/2024 Refill [facility] MEDICINE 230 [place], [place] [phone] Adria Mason MD [address] [place] [address] Social History Tobacco Use Types Packs/Day Years [...] Description 07/17/2024 1:15 PM EDT Office Visit [facility] MEDICINE [address] [place] [phone] Kourtney Saxena MD [address] [place] [phone] documented as of this encounter Visit Diagnoses Not on filedocumented in this encounter Additional Health Concerns Assessment Noted Time PHQ-9 Depression Total Score: 4 07/02/19 10:41 AM EDT documented as of this encounter Care Teams Relationship Mgr Relationship Specialty Start Date End Date Kourtney Saxena MD [address] [place] [phone] PCP - General Internal Medicine 04/23/23 documented as of this encounter
--- OUTSIDE RECORDS SUMMARY | 2024-05-02 15:04 | XMS_ITS | Encounter Summary ---
Author Organization [employer] Address 75 [facility] 7 [place] [address] Care Team Providers Care Guest Service Manager Name Role Phone Kourtney Saxena MD Primary Care Pro vider Encounter Details Date Type Department Care Team (Late st Contact Info) Description 03/28/2024 Refill [facility] MEDICINE 230 [place], [place] [phone] Kourtney Saxena MD [address] [place] [address] Social History Tobacco Use Types Packs/Day Years [...] Description 07/17/2024 1:15 PM EDT Office Visit [facility] MEDICINE [address] [place] [address] Kourtney Saxena MD [address] [place] [address] documented as of this encounter Visit Diagnoses Not on filedocumented in this encounter Additional Health Concerns Assessment Noted Time PHQ-9 Depression Total Score: 4 07/02/19 10:41 AM EDT documented as of this encounter Care Teams Guest Service Manager Relationship Specialty Start Date End Date Kourtney Saxena MD [address] [place] [phone] PCP - General Internal Medicine 04/23/23 documented as of this encounter
--- OUTSIDE RECORDS SUMMARY | 2024-05-02 15:04 | XMS_ITS | Encounter Summary ---
Author Organization [employer] Address 75 [facility] 7 [place] [address] Care Team Providers Care Light Cleaner Name Role Phone Kourtney Saxena MD Primary Care Pro vider Reason for Visit * Reason Comments Med Refill Encounter Details Date Type Department Care Team ([facility] st Contact Info) Description 04/28/2024 Refill [facility] MEDICINE 230 [place], [place] [phone] Ramya Sáncehz, VAZQUEZ [address] [place] [address] Social History Tobacco Use Types Packs/Day Years [...] Description 07/17/2024 1:15 PM EDT Office Visit [facility] MEDICINE [address] [place] [phone] Kourtney Saxena MD [address] [place] [address] documented as of this encounter Visit Diagnoses Not on filedocumented in this encounter Additional Health Concerns Assessment Noted Time PHQ-9 Depression Total Score: 4 07/02/19 10:41 AM EDT documented as of this encounter Care Teams Light Cleaner Relationship Specialty Start Date End Date Kourtney Saxena MD [address] [place] [phone] PCP - General Internal Medicine 04/23/23 documented as of this encounter
--- OUTSIDE RECORDS SUMMARY | 2024-05-02 15:04 | XMS_ITS | Encounter Summary ---
Author Organization [employer] Address [address] [place] [phone] Care Team Providers Care Clarifier Name Role Phone Kourtney Saxena MD Primary Care Pro vider Encounter Details Date Type Department Care Team (Late st Contact Info) Description 05/04/2023 Orders Only [facility] [address] [place] [address] [phone] Love Quintanilla MD [address] [place] [address] [phone] Social History Tobacco Use Types Packs/Day Years [...] Description 07/17/2024 1:15 PM EDT Office Visit [facility] [address] [place] [address] [phone] Kourtney Saxena MD [address] [place] [address] [phone] documented as of this encounter Procedures Procedure Name Priority Date/Time Associated Diagnosis Comments URINALYSIS, COMPLETE, WITH REFLEX TO CULTURE Routine 11/01/2023 11:36 AM EDT ALBUMIN, RANDOM URINE W/CREATININE Routine 08/17/2023 2:30 PM EDT documented in this encounter Results * (ABNORMAL) Urinalysis, Complete, with Reflex to Culture (11/01/2023 11:36 AM EDT) Color Urine Yellow [facility] Appearance Urine Clear [facility] PH 7.0 5.0 - 9.0 [facility] Glucose Urine UA Negative Negative mg/dL [facility] Urine Blood Negative Negative [facility] Specific [place] - Urine 1.010 1.005 - 1.025 [facility] Urine Protein 100 (2+)(A) Neg-Trace mg/dL [facility] Urine Ketones Negative Negative mg/dL [facility] Nitrite Urine Negative Negative [facility] Leukocyte Esterase Urine Negative Negative [facility] RBC Urine 0-2 0 - 2 /HPF [facility] Urine WBC 0-5 0 - 5 /HPF [facility] Urine Squamous Epithelial Cell 0-2 0 - 2 /HPF [facility] Urine Bacteria None Seen None Seen [facility] Hyaline Casts, Urine 0-2 0 - 2 /LPF [facility] 11/01/2023 11:3 6 AM EDT 11/01/2023 1:21 PM EDT Narrative [facility] - 11/01/2023 1:41 PM EDT Urine, Clean Catch us Kourtney Epstein MD LAB URINE ORDERAB LES Final Result [facility] [address] [place] [phone] [phone] * (ABNORMAL) Albumin, Random Urine W/Creatinine (08/17/2023 2:30 PM EDT) Creatinine, Urine 94.35 mg/dL [facility] Microalbumin Urine >2,000.0 mg/L [facility] Microalbum Creatinine Ratio Ur 2,119.7(H ) <30 ug/mg cr [facility] Comment:Albumin/Creatinine R atio Reference Ranges: Normal: < 30 ug/mg creatinine Microalbuminuria: 30 - 300 ug/mg creatinineClinical Albuminuria: > 300 ug/mg creatinine 08/17/2023 2:30 PM EDT 08/17/2023 4:14 PM EDT us Kourtney Epstein MD LAB URINE ORDERAB LES Final Result [facility] [address] [place] [address] [phone] documented in this encounter Visit Diagnoses Not on filedocumented in this encounter Care Teams Clarifier Relationship Specialty Start Date End Date Kourtney Saxena MD [address] [place] [phone] PCP - General Internal Medicine 04/23/23 documented as of this encounter
--- OUTSIDE RECORDS SUMMARY | 2024-05-02 15:04 | XMS_ITS | Clinical Summary ---
Author Organization [employer] Address [address] [place] [address] 7 [place] [address] Care Team Providers Care Mechanical Engineering Teacher Name Role Phone Kourtney Saxena MD [...] Additional Information Patient not taking.Reported on 04/24/2024 losartan (Cozaar) 25 MG tablet TAKE 1 [...] 25 Active ergocalciferol (Vitamin D2) 1.25 MG (20748 UT) capsule TAKE 1 CAPSULE BY MOUTH ONCE WEEKLY ON Wednesday 4 capsule 2 04/19/19 25 Active acetaminophen (Tylenol) 500 MG tablet Take 1 tablet (500 mg) by mouth every 6 (six) hours if needed for mild pain for up to 20 doses. 20 tablet 04/25/19 25 Active ibuprofen 600 MG tablet Take 1 tablet (600 mg) by mouth every 6 (six) hours if needed for mild pain for up to 20 doses. 20 tablet 04/25/19 25 Active Aspirin EC Adult Low Dose 81 MG EC tablet TAKE 1 TABLET BY MOUTH EVERY MORNING 90 tablet 04/29/19 25 Active levothyroxine (Synthroid) 50 MCG tablet Take 1 tablet (50 mcg) by mouth before breakfast. Please stop 37.5 mcg dose and start 50 mcg daily dose 90 tablet 01/11/20 24 025 Discontinued acetaminophen (Tylenol) 500 MG tablet Take 2 tablets (1,000 mg) by mouth every 6 (six) hours if needed for moderate pain or fever. 30 tablet 01/24/20 24 025 Discontinued Aspirin Low Dose 81 MG EC tablet TAKE 1 TABLET BY MOUTH EVERY MORNING 90 tablet 01/28/20 24 025 Discontinued ergocalciferol (Vitamin D2) 1.25 MG (50679 UT) capsule TAKE 1 CAPSULE BY MOUTH ONCE WEEKLY ON Wednesday 4 capsule 2 02/14/19 25 025 Discontinued amoxicillin (Amoxil) 500 MG capsule Take 1 capsule (500 mg) by mouth every 8 (eight) hours for 7 days. 21 capsule 04/25/19 25 025 Active Problems Problem Noted Date Diagnosed Date [...] Encounters Date Type Department Care Team Description 04/28/2024 Refill [facility] MED[facility]INE [address] [place] [address] Ramya Sánchez NP 04/24/2024 1:00 PM EDT Office Visit [facility] ADULT DENTAL [address] [place] [address] Dustin Walker, ALDO Fractured (Primary Dx); Non-restorable tooth 04/21/2024 Telephone [facility] MEDICINE [address] [place] [address] Kourtney Saxena MD July Recall 04/17/2024 Refill [facility] MEDICINE [address] [place] [address] Adria Mason MD 04/12/2024 Orders Only [facility] External Provider, [facility] 04/03/2024 Refill [facility] MEDICINE [address] [place] [address] Kourtney Saxena MD 03/28/2024 Orders Only GENERIC EXTERNAL DATA DEPARTMENT Provider, Generic External Data 03/28/2024 Refill [facility] MEDICINE [address] [place] [address] Kourtney Saxena MD 03/25/2024 Telephone [facility] MEDICINE [address] [place] [address] Kitty Jackson, RN Results 03/23/2024 Orders Only GENERIC EXTERNAL DATA DEPARTMENT Provider, Generic External Data 03/18/2024 Refill [facility] MEDICINE [address] [place] [address] Kourtney Saxena MD 03/13/2024 Telephone [facility] MEDICINE [address] [place] [address] Skylar Carmen MA may02/24/2024 Refill [facility] CHC MED & PEDS [address] [place], [place] [phone] Kourtney Saxena MD 02/17/2024 Orders Only [facility] External Provider, [facility] 02/15/2024 Refill [facility] MEDICINE [address] [place] [address] Kourtney Saxena MD 02/07/2024 Travel from Last 3 Months Immunizations Name [...] 03 03.2 Started: 2000 Smokeless Tobacco: Current Tobacco Cessation:Ready [...] Description 07/17/2024 1:15 PM EDT Office Visit [facility] MEDICINE [address] [place] [phone] Kourtney Saxena MD [address] [place] [address] Health Maintenance Due Date Last Done Comments [...] 07/01/2024 07/02/2023, 07/02/19 SDOH Screening 08/16/2024 08/17/2023 Lung Cancer Screening [...] EST Narrative 04/14/2024 10:32 AM EST ? [facility] ?[address] ?[place] [address] ? Ultrasound Report ? Signed ? Patient: Madison Navarro ?MR# ?? : [id number] ? : 1975 ?Acct:[id number] ? Age/Sex: 48 / F ?ADM Date: 04/12/24 ? Loc: HO.US ? Attending Dr: Guille Summers MD ? Ordering Physician: Guille Summers MD ?? Date of Service: 04/12/24 ?? Procedure(s): US pelvic and transvaginal ?? Accession Number(s): [id number] ? cc: Kourtney Saxena MD; Guille Summers [...] and echotexture. ? Pelvic fluid: none. ? US/ pelvic and transvaginal ?? IMPRESSION: ?? Limited [...] DD/ 1409 ? TD/TT: 04/12/24 1430 ? Popcorn Candy Maker: ? Procedure Note Dontaurus, Image - 04/14/[address] [address] Ultrasound Report Signed Patient: Madison Navarro AMR# : [id number] : 1975Acct:[id number] Age/Sex: 48 / FADM Date: 04/12/24 Loc: HO.US Attending Dr: Guille Summers MD Ordering Physician: Guille Summers MD Date of Service: 04/12/24 Procedure(s): US pelvic and transvaginal Accession Number(s): [id number] cc: Kourtney Saxena MD; Guille Summers MD [...] 04/14/24 1028 DD/ 1409 TD/TT: 04/12/24 1430 Popcorn Candy Maker: us [facility] External Provider IMG US PROCEDURES Final Result * HPV DNA, Low/High Risk (03/28/2024 10:12 AM EST) HPV High Risk Negative Negative [facility] HPV Genotype 16 Negative Negative [facility] HPV Genotype 18 Negative Negative [facility] Comment:HPV testing performe d at (CLIA#[id number]), [address] [place] [address].Testing for HPV was performed using the Krys [...] LES Final Result Performing Organization Address City/State/[facility] Co de Phone Number [facility] [address] [place] [phone] * Pap Smear (03/28/2024 10:12 AM EST) 03/28/2024 10:1 2 AM EST 03/28/2024 2:15 PM EST Narrative [facility] - 04/03/2024 12:46 PM EST ----- ------- Name: Madison Navarro ? Age/Sex: 48/F ? : 1975 Unit#: [id number] ?? Attend Dr: Guille Summers MD ?Re03/28/24 ?Status: DEP REF ? Location: HO.LNP ?Disch: ? ----- ------- SPEC : [id number] ? RECD: 03/28/245 ? STATUS: ??SOUT ? REQ NUM: [id number] ? YAMINI: 03/28/24-1012 ? SUBM DR: Guille Summers MD ? ENTERED: ??03/28/243 ?SP TYPE: Pap Smr ?OTHR DR: Kourtney Saxena MD ORDERED: ??Pap Smear ? Interpretation ?? Satisfactory for evaluation. ?? Negative for intraepithelial lesion or malignancy. ?? No endocervical cells seen. ? HPV High Risk: ??Negative ? HPV Genotyping 16: ??Negative ?? HPV Genotyping 18: ??Negative ?Clinical Information LMP:UNKNOWN Previous PAP test:UNKOWN Other surgery: Other history: Copies To: ?? Kourtney Saxena MD ?? [address] ?? [place] [address] ?? [phone] ?? Guille Summers MD ?? [facility] ?? [address] ?? [place] [address] ?? [phone] ----- ------- Signed (signature on file) MELITA Kwok (ASCP) 04/03/24 1246 ? ----- ------- ? END OF REPORT ? us Generic External Data Provider LAB CYTOLOGY ORDE RABLES Final Result Performing Organization Address [facility]/ZIP Co de Phone Number [facility] [address] [place] [address] [place] [phone] * (ABNORMAL) Urine Protein, Total, Random without Creatinine (03/23/2024 3:19 PM EST) Protein, Total, Random Urine 273(H) <12 mg/dL [facility] 03/23/2024 3:19 PM EST 03/23/2024 3:56 PM EST us Generic External Data Provider LAB URINE ORDERAB LES Final Result Performing Organization Address [facility] Co de Phone Number [facility] [address] [place] [address] [phone] * Creatinine, Random Urine (03/23/2024 3:19 PM EST) Creatinine, Urine 37.91 mg/dL [facility] 03/23/2024 3:19 PM EST 03/23/2024 3:56 PM EST us Generic External Data Provider LAB URINE ORDERAB LES Final Result Performing Organization Address City/[facility]/ZIP Co de Phone Number [facility] [address] [place] [phone] * (ABNORMAL) Urinalysis Complete (03/23/2024 3:19 PM EST) Color Urine Yellow [facility] Appearance Urine Clear [facility] PH >=9.0 5.0 - 9.0 [facility] Glucose Urine UA Negative Negative mg/dL [facility] Urine Blood Negative Negative [facility] Specific [place] - Urine 1.015 1.005 - 1.025 [facility] Urine Protein 300 (3+)(A) Neg-Trace mg/dL [facility] Urine Ketones Negative Negative mg/dL [facility] Nitrite Urine Negative Negative [facility] Leukocyte Esterase Urine Negative Negative [facility] RBC Urine 0-2 0 - 2 /HPF [facility] Urine WBC 0-5 0 - 5 /HPF [facility] Urine Squamous Epithelial Cell 0-2 0 - 2 /HPF [facility] Urine Bacteria None Seen None Seen [facility] Hyaline Casts, Urine 0-2 0 - 2 /LPF [facility] 03/23/2024 3:19 PM EST 03/23/2024 3:56 PM EST us Generic External Data Provider LAB URINE ORDERAB LES Final Result Performing Organization Address City/[facility]/ZIP Co de Phone Number [facility] [address] [place] [phone] * TSH (03/23/2024 3:19 PM EST) Pathologist [facility] Thyroid Stimulating Hormone 1.06 0.32 - 4.0 uIU/mL [facility] Comment:TSH 3rd Generation ( [facility]) Blood Venous blood specimen / Unknown 03/23/2024 3:19 PM EST 03/23/2024 3:58 PM EST Kourtney Epstein MD LAB BLOOD ORDERAB LES Final Result [facility] [address] [place] [phone] * T4, Free (03/23/2024 3:19 PM EST) [facility] Free T4 (Free Thyroxine) 1.06 0.71 - 1.85 ng/dL [facility] Blood Venous blood specimen / Unknown 03/23/2024 3:19 PM EST 03/23/2024 3:58 PM EST us Kourtney Epstein MD LAB BLOOD ORDERAB LES Final Result [facility] [address] [place] [phone] * (ABNORMAL) Comprehensive Metabolic Panel (03/23/2024 3:19 PM EST) [facility] Sodium 138 135 - 145 mmol/L [facility] Potassium 4.3 3.3 - 5.1 mmol/L [facility] Chloride 102 96 - 108 mmol/L [facility] Carbon Dioxide 30(H) 22 - 29 mmol/L [facility] Anion Gap 10(L) 12 - 20 [facility] Urea Nitrogen (BUN) 19(H) 9 - 16 mg/dL [facility] Creatinine, Serum 0.64 0.5 - 1.4 mg/dL [facility] Estimated Glomerular Filt Rate >60 [facility] Comment:Chronic Kidney Disea se: Estimated GFR < 60 mL/min/1.56y1Fpncvw Kidney Disease: Estimated GFR < 15 mL/min/1.73m2 Glucose 124(H) 60 - 115 mg/dL [facility] Calcium 9.2 8.4 - 10.2 mg/dL [facility] Bilirubin, Total 0.2 0.0 - 1.0 mg/dL [facility] Aspartate Amino Transferase 24 5 - 31 U/L [facility] Alanine Aminotransferase 31 0 - 31 U/L [facility] Total Protein 6.3(L) 6.5 - 8.0 g/dL [facility] Albumin Level 3.2(L) 3.5 - 5.0 g/dL [facility] Alkaline Phosphatase 54 39 - 117 U/L [facility] Blood Venous blood specimen / Unknown 03/23/2024 3:19 PM EST 03/23/2024 3:58 PM EST us Kourtney Epstein MD LAB BLOOD ORDERAB LES Final Result [facility] [address] [place] [phone] * (ABNORMAL) Cyclosporine level (03/23/2024 1:56 PM EST) Cyclosporine A Trough <25(A) 100 - 300 mcg/L [facility] Comment:No definitive therap eutic or toxic ranges have beenestablished. Optimal blood drug levels are influencedby type of transplant, patient response, time post-transplant, co-administration of other drugs, and drugformulation. The following trough ranges are suggestedguidelines:Kidney Transplantation: 100-200 mcg/LOther Organ Transplant: 200-300 mcg/LThis test was developed and its analytical performancecharacteristics have been determined by [facility] [place]. It hasnot been cleared or approved by the U.S. Food and DrugAdministration. This assay has been validated pursuantto the CLIA regulations and is used for clinicalpurposes.THIS TEST WAS PERFORMED AT:[employer]/[id number] [place] [address]HWFQMVWSIMON CRAMER MD,PHD 03/23/2024 1:56 PM EST 03/23/2024 3:58 PM EST us Generic External Data Provider LAB BLOOD ORDERAB LES Final Result [facility] [address] [place] [address] [phone] * US RENAL BI (02/17/2024 11:16 AM EST) Anatomical Region Laterality Modality Abdomen Ultrasound 02/17/2024 11:1 6 AM EST Narrative 02/17/2024 11:44 AM EST ? [facility] ?[address] ?[place] [address] ? Ultrasound Report ? Signed ? Patient: Madison Navarro ?MR# ?? : [id number] ? : 1975 ?Acct:[id number] ? Age/Sex: 48 / F ?ADM Date: 02/17/24 ? Loc: HO.US ? Attending Dr: Gutierrez Lozano MD ? Ordering Physician: Gutierrez Lozano MD ?? Date of Service: 02/17/24 ?? Procedure(s): US renal BI ?? Accession Number(s): [id number] ? cc: Gutierrez Lozano MD; Kourtney Saxena [...] DD/ 1116 ? TD/TT: 02/17/24 1123 ? Popcorn Candy Maker: ? Procedure Note Donkaitlynnlisalaurentter, Image - 02/17/[address] [address] Ultrasound Report Signed Patient: Madison Navarro AMR# : [id number] : 1975Acct:[id number] Age/Sex: 48 / FADM Date: 02/17/24 Loc: HO.US Attending Dr: Gutierrez Lozano MD Ordering Physician: Gutierrez Lozano MD Date of Service: 02/17/24 Procedure(s): US renal BI Accession Number(s): [id number] cc: Gutierrez Lozano MD; Kourtney Saxena MD [...] 02/17/24 1141 DD/ 1116 TD/TT: 02/17/24 1123 Popcorn Candy Maker: us [facility] External Provider IMG US PROCEDURES Final Result * (ABNORMAL) Lipid Panel, Standard (01/11/2024 9:50 AM EST) Triglycerides 133 <150 mg/dL [facility] Comment:Desirable Triglyceri de: less than 150 mg/dLBorderline High Triglyceride 150-199 mg/dLHigh Triglyceride: 200-499 mg/dLVery High Triglyceride: greater than or equal to 5OO mg/dL Cholesterol 246(H) <200 mg/dL [facility] Comment:Desirable Cholestero l: less than 200 mg/dLBorderline High Cholesterol: 200-239 mg/dLHigh Cholesterol: greater than 239 mg/dL LDL Cholesterol Calculated 148(H) <100 mg/dL [facility] Comment:Desirable LDL: less than 100 mg/dLNear Optimal/Above Optimal LDL: 110- 129 mg/dLBorderline High LDL: 130-159 mg/dLHigh LDL: 160-189 mg/dLVery High LDL: greater than or equal to 190 mg/dL HDL Cholesterol 72 >40 mg/dL [facility] Comment:Desirable HDL: great er than 40 mg/dL Note: This HDL assay may give artificially low results in patients with liver disease. 01/11/2024 9:50 AM EST 01/11/2024 11:31 AM EST us Generic External Data Provider LAB BLOOD ORDERAB LES Final Result [facility] [address] [facility] [place] [address] [phone] * CT Lung Screening Low dose (12/10/2023 10:40 AM EDT) Anatomical Region Laterality Modality Lung Computed Tomogra phy 12/10/2023 10:4 0 AM EDT Narrative 01/26/2024 11:47 PM EST ? [facility] ?[address] ?[place] [address] ? CT Scan Report ? Signed ? Patient: Madison Navarro ?MR# ?? : [id number] ? : 1975 ?Acct:[id number] ? Age/Sex: 48 / F ?ADM Date: 12/10/23 ? Loc: HO.CT ? Attending Dr: Stacy Mays PA-C ? Ordering Physician: Stacy Mays PA-C ?? Date of Service: 12/10/23 ?? Procedure(s): CT lung screening ?? Accession Number(s): [id number] ? cc: Stacy Mays PA-C; Kourtney Saxena [...] by Kuldeep Roca MD in OV> ? 01/25/24 2344 ? DD/DT: 11//24 1040 ? TD/TT: 12/10/23 1045 ? Popcorn Candy Maker: SS ? Procedure Note Donotuseinterpreter, Image - 01/26/[address] [address] [address] Scan Report Signed Patient: Madison Navarro AMR# : [id number] : 1975Acct:[id number] Age/Sex: 48 / FADM Date: 12/10/23 Loc: HO.CT Attending Dr: Stacy Mays PA-C Ordering Physician: Stacy Mays PA-C Date of Service: 12/10/23 Procedure(s): CT lung screening Accession Number(s): [id number] cc: Stacy Mays PA-C; Kourtney Saxena MD [...] 01/26/24 2344 DD/ 1040 TD/TT: 12/10/23 1045 Popcorn Candy Maker: SS [facility] External Provider IMG CT PROCEDURES Edited Result - Final * BI Mammogram Screening Tomosynthesis Bilateral (08/17/2023 9:18 AM EDT) Anatomical Region Laterality Modality Breast Bilateral Mammography 08/17/2023 9:18 AM EDT Narrative 09/12/2023 3:49 PM EDT ? [facility] ? [address] ?[place] [address] ? Mammography Report ? Signed ? Patient: Madison Navarro ?MR# ?? : [id number] ? : 1975 ?Acct:[id number] ? Age/Sex: 48 / F ?ADM Date: 07/09/24 ? Loc: HO.MAMMO ? Attending Dr: Kourtney Epstein MD ? Ordering Physician: Kourtney Saxena MD ?Re ?? sults: 2Benign Findings ? Date of Service: 08/17/23 ?Follow Up: 1 Year From Orig ?? inal Mammogram ? Procedure(s): MM tomosynthesis screening BI ?? Accession Number(s): [id number] ? cc: Kourtney Saxena MD ? EXAMINATION: [...] 1546 ? DD/ 0918 ? TD/TT: ? Popcorn Candy Maker: ? Procedure Note Donotuseinterpreter, Image - 09/12/2023 [facility] [address] [place] [address] Mammography Report Signed Patient: Madison Navarro AMR# : [id number] : 1975Acct:[id number] Age/Sex: 48 / FADM Date: 08/17/23 Loc: HO.MAMMO Attending Dr: Kourtney Epstein MD Ordering Physician: Kourtney Saxena sults: 2Benign Findings Date of Service: 08/17/23Follow Up: 1 Year From Orig inal Mammogram Procedure(s): MM tomosynthesis screening BI Accession Number(s): [id number] cc: Kourtney Saxena MD EXAMINATION: MM SCREENING [...] for their next mammogram. Dictated By: Marnie Fualkner MD Signed By: <Electronically signed by Marnie Faulkner MD in OV> 09/12/23 1546 DD/ 0918 TD/TT: Popcorn Candy Maker: Kourtney Epstein MD IMG BI PROCEDURES Final Result * Hepatitis C Antibody with Reflex to HCV, RNA, Quantitative, Real-Time PCR (07/27/2023 10:47 AM EDT) Hepatitis C Antibody Nonreactive Nonreactive [facility] Comment:Antibodies to HCV no t detected; does not exclude early acuteHCV infection. Blood Venous blood specimen / Unknown 07/27/2023 10:47 AM EDT 07/27/2023 11:28 AM EDT Kourtney Epstein MD LAB BLOOD ORDERAB LES Final Result Performing Organization Address [facility] Co de Phone Number [facility] [address] [place] [phone] * HIV-1/2 Antigen and Antibodies, Fourth Generation, with Reflexes (07/27/2023 10:47 AM EDT) Pathologist [facility] HIV AB/AG Nonreactive Nonreactive [facility] Comment:HIV-1 p24 Ag and/or HIV-1/HIV-2 Ab not detected.A test result that is nonreactive does not exclude thepossibility of exposure to or infection with HIV-1 and/orHIV-2. Nonreactive results in this assay for individualswith prior exposure to HIV-1 and/or HIV-2 may be due toantigen and antibody levels that are below the limit ofdetection of this assay.The [employer] HIV Ag/Ab Combo assay result andsupplemental assay results should be interpreted inconjunction with the patient's clinical presentation,history and other laboratory results. If the results areinconsistent with clinical evidence, additional testing issuggested to confirm the result. Blood Venous blood specimen / Unknown 07/27/2023 10:47 AM EDT 07/27/2023 11:28 AM EDT Kourtney Epstein MD LAB BLOOD ORDERAB LES Final Result Performing Organization Address City/[facility]/ZIP Co de Phone Number [facility] [address] [place] [address] [phone] from Last 3 Months or Most Recently Relevant to Health Maintenance Insurance [facility] , [facility] [address] [place] [address] [facility] [address] [place] [id number] Care Teams Mechanical Engineering Teacher Relationship Specialty Start Date End Date Kourtney Saxena MD [address] [place] [phone] PCP - General Internal Medicine 04/23/23
--- OUTSIDE RECORDS SUMMARY | 2024-05-02 15:04 | XMS_ITS | Clinical Summary ---
Author Organization [facility] it Address [address] [place] [address] Care Team Providers Care Outsole Paraffiner Name Role Phone Vero Archuleta DO Primary Care Provider [phone] Surgical History Surgery Date Site/Laterality Comments SECTION PROCEDURE: HISTORICAL DELIVERY Medical History Medical History Date Comments History of drug dependence/a buse ([facility]/HCC) 08/03/2013 DX:History of drug dependenc e/abuse ([facility]); COMMENT: Marijuana, cocaine, crack, heroin - clean since 02/28/16 (relapse 01/22) PTSD (post-traumatic stress disorder) 10/17/2013 DX:PTSD (post-traumatic stress disorder) Anxiety 10/17/2013 DX:Anxiety Alcohol abuse 08/15/2012 DX:Alcohol abuse ; COMMENT: Quit May 2012 Was hospitalized [facility] previous pcp , clean Dec 2015 Asthma 08/15/2012 DX:Asthma Depression 08/15/2012 DX:Depression 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
--- OUTSIDE RECORDS SUMMARY | 2024-05-02 15:04 | XMS_ITS | Encounter Summary ---
Author Organization [employer] Address [address] [place] [address] 7 [place] [address] Care Team Providers Care Table Saw Operator Name Role Phone Kourtney Saxena MD Primary Care Pro vider Reason for Visit * Reason Comments Dental Pain Upper right side Encounter Details Date Type Department Care Team (Late st Contact Info) Description 04/24/2024 1:00 PM EDT Office Visit [facility] ADULT DENTAL [address] [place] [address] Dustin Walker, DDZahira [address] [place] [address] Fractured (Primary Dx); Non-restorable tooth Social History [...] Timeout Time: 7 (Dental Extraction #4) Location: [facility] Tooth: Maxilla and #4 Procedure: X-rays, Extraction, and Emergency Verified the above with patient, assistant prosecuting attorney, and provider. Confirmed via patient's chart, intraorally and by radiographs. Caul Puller: not applicable Chief Complaint Patient presents with [...] each 1 ergocalciferol (Vitamin D2) 1.25 MG (29369 UT) capsule TAKE 1 CAPSULE BY MOUTH [...] 2 [DISCONTINUED] ergocalciferol (Vitamin D2) 1.25 MG (93880 UT) capsule TAKE 1 CAPSULE BY MOUTH [...] Pt tolerated procedure well. Prescription sent to [facility] on file . Written and verbal post-op instructions given. Patient discharged in stable condition; ambulatory, alert, and oriented. NV: F/U as needed / EXAM Swing Tender: Eduar Green Dentist: Dustin Walker DDS documented in this encounter Plan of Treatment Upcoming Encounters Date Type Department Care Team (Late st Contact Info) Description 07/17/2024 1:15 PM EDT Office Visit [facility] MEDICINE [address] [place] [address] Kourtney Saxena MD [address] [place] [phone] Scheduled Orders Name Type Priority Associated Diagnoses [...] as of this encounter Care Teams Table Saw Operator Relationship Specialty Start Date End Date Kourtney Saxena MD [address] [place] [phone] PCP - General Internal Medicine 04/23/23 documented as of this encounter
--- OUTSIDE RECORDS SUMMARY | 2024-05-02 15:04 | XMS_ITS | Encounter Summary ---
Author Organization [employer] Address [address] [place] [address] [address] [address] Care Team Providers Care Senior Front End Developer Name Role Phone Kourtney Saxena MD Primary Care Pro vider Reason for Visit * Reason Onset Date Comments Mone Recall 04/21/2024 Encounter Details Date Type Department Care Team ([facility] st Contact Info) Description 04/21/2024 Telephone [facility] [address] [place], [place] [phone] Kourtney Saxena MD [address] [place] [address] July Recall Social History Tobacco Use Types [...] Description 07/17/2024 1:15 PM EDT Office Visit [facility] [address] [place] [address] Kourtney Saxena MD [address] [place] [address] documented as of this encounter Visit Diagnoses Not on filedocumented in this encounter Additional Health Concerns Assessment Noted Time PHQ-9 Depression Total Score: 4 07/02/19 24 10:41 AM EDT documented as of this encounter Care Teams Senior Front End Developer Relationship Specialty Start Date End Date Kourtney Saxena MD [address] [place] [phone] PCP - General Internal Medicine 04/23/23 documented as of this encounter
--- OUTSIDE RECORDS SUMMARY | 2024-05-02 15:04 | XMS_ITS | Encounter Summary ---
Author Organization [employer] Address [address] [place] [address] [place] [address] Care Team Providers Care Manager Of Financial Planning Name Role Phone Kourtney Saxena MD Primary Care Pro vider Reason for Visit * Reason Comments Med Refill Encounter Details Date Type Department Care Team ([facility] st Contact Info) Description 04/03/2024 Refill [facility] MED[facility] [address] [place], [place] [phone] Kourtney Saxena MD [address] [place] [phone] Social History Tobacco Use Types Packs/Day Years [...] Description 07/17/2024 1:15 PM EDT Office Visit [facility] MEDICINE [address] [place] [address] Kourtney Saxena MD [address] [place] [phone] documented as of this encounter Visit Diagnoses Not on filedocumented in this encounter Additional Health Concerns Assessment Noted Time PHQ-9 Depression Total Score: 4 07/02/19 10:41 AM EDT documented as of this encounter Care Teams Manager Of Financial Planning Relationship Specialty Start Date End Date Kourtney Saxena MD [address] [place] [phone] PCP - General Internal Medicine 04/23/23 documented as of this encounter
--- OUTSIDE RECORDS SUMMARY | 2024-05-02 15:04 | XMS_ITS | Encounter Summary ---
Author Organization [employer] Address [address] [facility] 7 [place] [address] Care Team Providers Care Stone Mason Name Role Phone Kourtney Saxena MD Primary [...] t he electric, gas, oil or water goBramble threatened to shut off services in your [...] Description 07/17/2024 1:15 PM EDT Office Visit [facility] MEDICINE [address] [place] [address] [phone] Kourtney Saxena MD [address] [place], [place] [phone] documented as of this encounter Procedures Procedure Name Priority Date/Time Associated Diagnosis Comments HPV DNA, LOW/HIGH RISK Routine 03/28/2024 10:12 AM EST PAP SMEAR Routine 03/28/2024 10:12 AM EST documented in this encounter Results * HPV DNA, Low/High Risk (03/28/2024 10:12 AM EST) HPV High Risk Negative Negative [facility] HPV Genotype 16 Negative Negative [facility] HPV Genotype 18 Negative Negative [facility] Comment:HPV testing performe d at [facility] (CLIA#[id number]), [address] [place] [address].Testing for HPV was performed using the [employer] BEAU 6800system. The presence of HPV in [...] Provider LAB BLOOD ORDERAB LES Final Result [facility] [address] [place] [phone] * Pap Smear (03/28/2024 10:12 AM EST) 03/28/2024 10:1 2 AM EST 03/28/2024 2:15 PM EST Narrative [facility] - 04/03/2024 12:46 PM EST ----- ------- Name: Madison Navarro ? Age/Sex: 48/F ? : 1975 Unit#: [id number] ?? Attend Dr: Guille Summers MD ?Re03/28/24 ?Status: DEP REF ? Location: HO.LNP ?Disch: ? ----- ------- SPEC : [id number] ? RECD: 03/28/24 ? STATUS: ??SOUT ? REQ NUM: [id number] ? YAMINI: 03/28/24-1012 ? SUBM DR: Guille [...] To: ?? Kourtney Saxena MD ?? [address] ?? [place] [address] ?? [phone] ?? Guille Summers MD ?? [facility] ?? [address] [facility] [address] ?? [place] [address] ?? [phone] ----- ------- Signed (signature on file) MELITA Kwok ([facility]) 04/03/24 1246 ? ----- ------- ? END OF REPORT ? us Generic External Data Provider LAB CYTOLOGY DAVE OSWALD Final Result [facility] [address] [place] [address] [phone] documented in this encounter Visit Diagnoses Not on filedocumented in this encounter Additional Health Concerns Assessment Noted Time PHQ-9 Depression Total Score: 4 07/02/19 24 10:41 AM EDT documented as of this encounter Care Teams Stone Mason Relationship Specialty Start Date End Date Kourtney Saxena MD [address] [place] [address] PCP - General Internal Medicine 04/23/23 documented as of this encounter
--- OUTSIDE RECORDS SUMMARY | 2024-05-02 15:04 | XMS_ITS | Encounter Summary ---
Author Organization [employer] Address [address] [place] [address] Care Team Providers Care Barratte Operator Name Role Phone Kourtney Saxena MD Primary Care Pro vider Reason for Visit * Reason Comments Med Refill Encounter Details Date Type Department Care Team (Late st Contact Info) Description 12/14/2022 Refill [facility] [address] [place] [address] [phone] Love Quintanilla MD [address] [place] [phone] Social History Tobacco Use Types Packs/Day Years [...] 07/17/2024 1:15 PM EDT Office Visit [facility] [address] [place] [address] [phone] Kourtney Saxena MD [address] [place] [phone] documented as of this encounter Visit Diagnoses Not on filedocumented in this encounter Care Teams Barratte Operator Relationship Specialty Start Date End Date Kourtney Saxena MD [address] [place] [phone] PCP - General Internal Medicine 04/23/23 documented as of this encounter
== END 2024-05-02 13:35 | disposition home or self-care (01) ==
LOC: HO.HWS 12:25
PROVIDERS: PCP Student in an Organized Health Care Education/Training Program; Visit Provider Obstetrics & Gynecology
DX: N95.0 Postmenopausal bleeding (principal); D25.9 Leiomyoma of uterus, unspecified
CPT/HCPCS: 99213

== ENCOUNTER 2024-05-18 12:27 | Outpatient (REF) | payer MEDICAID, SELFPAY ==
[2024-05-18 13:30] LABS: MANUAL DIFF FLAG NO
[2024-05-18 13:48] LABS: Basophils Absolute Auto 0.1 X10*3/uL (0.0-0.2); Basophils Percent Auto 0.5 % (0-2); Eosinophils Percent Auto 0.1 % (0-4); Hematocrit 43.8 % (37.0-47.0); Hemoglobin 14.7 g/dl (12.0-16.0); Imm Gran Abs Auto 0.09 X10*3/uL (0.00-0.03); Imm Gran Pct Auto 0.9 % (0.0-0.4); Lymphocytes Absolute Auto 1.6 X10*3/uL (1.2-4.9); Lymphocytes Percent Auto 15.9 % (20-40); Mean Corpuscular HGB Conc 33.6 g/dl (31.0-35.0); Mean Corpuscular Hemoglobin 26.2 pg (27.0-33.0); Mean Corpuscular Volume 77.9 fL (80.0-98.0); Mean Platelet Volume 9.8 fL (9.4-12.3); Monocytes Absolute Auto 0.3 X10*3/uL (0.1-1.2); Monocytes Percent Auto 3.3 % (2-11); Neutrophils Absolute Auto 7.7 x10*3/uL (2.0-8.3); Neutrophils Percent Auto 79.3 % (45-73); Platelet Count 416 X10*3/uL (160-400); Red Blood Count 5.62 X10*6/uL (4.20-5.50); Red Cell Distribution Width 13.9 % (11.0-16.0); White Blood Count 9.8 X10*3/uL (4.8-10.8)
[2024-05-18 13:51] LABS: Appearance Urine Clear; Color Urine Yellow; Glucose Urine UA Negative (Negative); Leukocyte Esterase Urine Negative (Negative); Nitrite Urine Negative (Negative); PH 7.5 (5.0-9.0); UMIC TRIGGER UA YES; Urine Blood Negative (Negative); Urine Ketones Negative (Negative); Urine Protein 300 (3+) mg/dL (Neg-Trace)
[2024-05-18 13:55] LABS: Anion Gap 10 (12-20); Blood Urea Nitrogen 15 mg/dL (9-16); Calcium 8.9 mg/dL (8.4-10.2); Carbon Dioxide 27 mmol/L (22-29); Chloride 107 mmol/L (96-108); Estimated Glomerular Filt Rate > 60; Glucose Random 119 mg/dL (60-115); Potassium 4.3 mmol/L (3.3-5.1); Sodium 140 mmol/L (135-145)
[2024-05-18 14:10] LABS: Bacteria Urine Trace (None Seen); Hyaline Casts Urine 0-2 /LPF (0-2); RBC Urine 0-2 /HPF (0-2); Squamous Epithelial Cell Urine 0-2 /HPF (0-2); WBC Urine 0-5 /HPF (0-5)
[2024-05-18 14:17] LABS: Creatinine Urine 72.82 mg/dL
[2024-05-18 14:30] LABS: Total Protein Urine Random 487 mg/dL (<12)
--- OUTSIDE RECORDS SUMMARY | 2024-05-18 14:56 | XMS_ITS | Clinical Summary ---
Author Organization [facility] ity Address [address] [place] [address] Care Team Providers Care Ticketing Agent Name Role Phone Vero Archuleta DO Primary Care Provider Surgical History Surgery Date Site/Laterality Comments SECTION PROCEDURE: HISTORICAL DELIVERY Medical History Medical History Date Comments History of drug dependence/a buse ([facility] V24, [facility] V28) 08/03/2013 DX:History of drug dependen ce/abuse ([facility]); COMMENT: Marijuana, cocaine, crack, heroin - clean since 02/28/16 (relapse 01/22) PTSD (post-traumatic stress disorder) 10/17/2013 DX:PTSD (post-traumatic stress disorder) Anxiety 10/17/2013 DX:Anxiety Alcohol abuse 08/15/2012 DX:Alcohol abuse ; COMMENT: Quit May 2012 Was hospitalized [facility] pcp , clean Dec 2015 Asthma 08/15/2012 DX:Asthma Depression 08/15/2012 DX:Depression 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
--- OUTSIDE RECORDS SUMMARY | 2024-05-18 14:56 | XMS_ITS | Clinical Summary ---
Author Organization [employer] Address [address] [place] [address] 7 [place] [address] Care Team Providers Care Director Of Kids Name Role Phone Kourtney Saxena MD Primary [...] 25 Active ergocalciferol (Vitamin D2) 1.25 MG (52750 UT) capsule TAKE 1 CAPSULE BY MOUTH ONCE WEEKLY ON WEDNESDAY MORNING 4 capsule 2 04/19/19 25 Active acetaminophen [...] EVERY MORNING 90 tablet 04/29/19 25 Active acetaminophen (Tylenol) 500 MG tablet Take 2 tablets (1,000 mg) by mouth every 6 (six) hours if needed for moderate pain or fever. 30 tablet 01/24/20 24 025 Discontinued Aspirin Low Dose 81 MG EC tablet TAKE 1 TABLET BY MOUTH EVERY MORNING 90 tablet 01/28/20 24 025 Discontinued amoxicillin (Amoxil) 500 MG capsule Take 1 capsule (500 mg) by mouth every 8 (eight) hours for 7 days. 21 capsule 04/25/19 25 025 Active Problems Problem Noted Date Diagnosed Date Nephrotic syndrome 05/02/2024 Overview (05/02/2024): Follows w/ Nephrology Note 04/27/24 plan was to switch to long-acting tacrolimus- Envarsus. On prednisone 20mg daily, have reached out to renal to see if they would agree for bactrim prophylaxis given prednisone dose and duration (Alivia, 05/02/24) Non-restorable tooth 04/24/2024 Fractured 04/24/2024 History of [...] Encounters Date Type Department Care Team Description 05/03/2024 Telephone [facility] [address] [place] [address] Cecilia Majano RN [facility] Nephrology 05/02/2024 Orders Only [facility] [address] [facility] [place] [address] Alivia Washington ANP On prednisone therapy (Primary Dx); Nephrotic syndrome 04/28/2024 Refill [facility] [address] [place] [address] Ramya Sánchez NP 04/24/2024 1:00 PM EDT Office Visit [facility] [address] [place] [address] Dustin Walker, DDS Fractured (Primary Dx); Non-restorable tooth 04/21/2024 Telephone [facility] [address] [place] [address] Kourtney Saxena MD July Recall 04/17/2024 Refill [facility] [address] [place] [address] Adria Mason MD 04/12/2024 Orders Only [facility] External Provider, [facility] 04/03/2024 Refill [facility] [address] [place] [address] Kourtney Saxena MD 03/28/2024 Orders Only GENERIC EXTERNAL DATA DEPARTMENT Provider, Generic External Data 03/28/2024 Refill [facility] [address] [place] [address] Kourtney Saxena MD 03/25/2024 Telephone [facility] [address] [place], [place] [phone] Kitty Jackson, VARUN Results 03/23/2024 Orders Only GENERIC EXTERNAL DATA DEPARTMENT Provider, Generic External Data 03/18/2024 Refill [facility] [address] [place] [address] Kourtney Saxena MD 03/13/2024 Telephone [facility] [address] [place], [place] [phone] Skylar Carmen [place] may recall 02/24/2024 Refill [facility] [address] [place], [place] [phone] Kourtney Saxena MD from Last 3 Months [...] Date Smoking Tobacco: Every Day Cigarettes 1 .3 Started: 2000 Smokeless Tobacco: Current Tobacco Cessation:Ready [...] 07/17/2024 1:15 PM EDT Office Visit [facility] [address] [place] [address] [phone] Kourtney Saxena MD [address] [place], [place] [phone] Health Maintenance Due Date Last Done Comments [...] 12/10/2023 Dental X-Ray: Full Mouth 02/20/2025 02/19/2022 Dental X-Ray: Bitewings 04/25/2025 04/25/19, 11/15/2023, 02/19/2022 Tobacco Screening 05/02/2025 05/02/2024 Mammogram 08/16/2025 08/17/2023 Pap Smear 03/28/2027 03/28/2024 [...] LEVEL Routine 03/23/2024 1: 56 PM EST LIPID PANEL, STANDARD Routine 01/11/2024 9:50 [...] EST Narrative 04/14/2024 10:32 AM EST ? [facility] ?[address] ?[place] [address] ? Ultrasound Report ? Signed ? Patient: Nadeem Karch,Madison A ?MR# ?? : [id number] ? : 1975 ?Acct:[id number] ? Age/Sex: 48 / F ?ADM Date: 04/12/24 ? Loc: HO.US ? Attending Dr: Guille Summers MD ? Ordering Physician: Guille Summers MD ?? Date of Service: 04/12/24 ?? Procedure(s): US pelvic and transvaginal ?? Accession Number(s): [id number] ? cc: Kourtney Saxena MD; Guille Summers [...] DD/ 1409 ? TD/TT: 04/12/24 1430 ? Veterinary Practitioner: ? Procedure Note Dominictali, Image - 04/14/2024 [place] [address] Ultrasound Report Signed Patient: Madison Navarro AMR# : [id number] : 1975Acct:[id number] Age/Sex: 48 / FADM Date: 04/12/24 Loc: HO.US Attending Dr: Guille Summers MD Ordering Physician: Guille Summers MD Date of Service: 04/12/24 Procedure(s): US pelvic and transvaginal Accession Number(s): [id number] cc: Kourtney Saxena MD; Guille Summers MD [...] 04/14/24 1028 DD/ 1409 TD/TT: 04/12/24 1430 Veterinary Practitioner: [facility] External Provider IMG US PROCEDURES Final Result * HPV DNA, Low/High Risk (03/28/2024 10:12 AM EST) HPV High Risk Negative Negative [facility] HPV Genotype 16 Negative Negative [facility] HPV Genotype 18 Negative Negative [facility] Comment:HPV testing performe d at [facility] (CLIA#[id number]), [address] [place] [address].Testing for HPV was performed using the [employer] 6800system. The presence of HPV in [...] ORDERAB LES Final Result Performing Organization Address City/State/[facility] Co de Phone Number [facility] [address] [place] [phone] * Pap Smear (03/28/2024 10:12 AM EST) 03/28/2024 10:1 2 AM EST 03/28/2024 2:15 PM EST Narrative [facility] - 04/03/2024 12:46 PM EST ----- ------- Name: Madison Navarro ? Age/Sex: 48/F ? : 1975 Unit#: [id number] ?? Attend Dr: Guille Summers MD ?Re03/28/24 ?Status: DEP REF ? Location: HO.LNP ?Disch: ? ----- ------- SPEC : [id number] ? RECD: 03/28/24 ? STATUS: ??SOUT ? REQ NUM: [id number] ? YAMINI: 03/28/24-1012 ? SUBM DR: Guille [...] To: ?? Kourtney Saxena MD ?? [address] ?? [place] [address] ?? [phone] ?? Guille Smumers MD ?? [facility] Women's Services ?? [address] [address] ?? [place] [address] ?? [phone] ----- ------- Signed (signature on file) MELITA Kwok (ASCP) 04/03/24 1246 ? ----- ------- ? END OF REPORT ? us Generic External Data Provider LAB CYTOLOGY ORDE RABLES Final Result Performing Organization Address [facility]/ZIP Co de Phone Number [facility] [address] [place] [address] [phone] * (ABNORMAL) Urine Protein, Total, Random without Creatinine (03/23/2024 3:19 PM EST) Protein, Total, Random Urine 273(H) <12 mg/dL [facility] 03/23/2024 3:19 PM EST 03/23/2024 3:56 PM EST Generic External Data Provider LAB URINE ORDERAB LES Final Result Performing Organization Address [facility]/ZIP Co de Phone Number [facility] [address] [place] [address] [phone] * Creatinine, Random Urine (03/23/2024 3:19 PM EST) Creatinine, Urine 37.91 mg/dL [facility] 03/23/2024 3:19 PM EST 03/23/2024 3:56 PM EST us Generic External Data Provider LAB URINE ORDERAB LES Final Result Performing Organization Address [facility] de Phone Number [facility] [address] [place] [phone] * (ABNORMAL) Urinalysis Complete (03/23/2024 3:19 PM EST) Color Urine Yellow [facility] Appearance Urine Clear [facility] PH >=9.0 5.0 - 9.0 [facility] Glucose Urine UA Negative Negative mg/dL [facility] Urine Blood Negative Negative [facility] Specific [place] - Urine 1.015 1.005 - 1.025 [facility] Urine Protein 300 (3+)(A) Neg-Trace mg/dL [facility] Urine Ketones Negative Negative mg/dL [facility] Nitrite Urine Negative Negative [facility] Leukocyte Esterase Urine Negative Negative [facility] RBC Urine 0-2 0 - 2 /HPF [facility] Urine WBC 0-5 0 - 5 /HPF [facility] Urine Squamous Epithelial Cell 0-2 0 - 2 /HPF [facility] Urine Bacteria None Seen None Seen [facility] Hyaline Casts, Urine 0-2 0 - 2 /LPF [facility] 03/23/2024 3:19 PM EST 03/23/2024 3:56 PM EST us Generic External Data Provider LAB URINE ORDERAB LES Final Result Performing Organization Address [facility]/ZIP Co de Phone Number [facility] [address] [place] [address] [phone] * TSH (03/23/2024 3:19 PM EST) Pathologist [facility] Thyroid Stimulating Hormone 1.06 0.32 - 4.0 uIU/mL [facility] Comment:TSH 3rd Generation ( [facility]) Blood Venous blood specimen / Unknown 03/23/2024 3:19 PM EST 03/23/2024 3:58 PM EST Kourtney Epstein MD LAB BLOOD ORDERAB LES Final Result Performing Organization Address City/[facility]/ZIP Co de Phone Number [facility] [address] [place] [phone] * T4, Free (03/23/2024 3:19 PM EST) Pathologist [facility] Free T4 (Free Thyroxine) 1.06 0.71 - 1.85 ng/dL [facility] Blood Venous blood specimen / Unknown 03/23/2024 3:19 PM EST 03/23/2024 3:58 PM EST Kourtney Epstein MD LAB BLOOD ORDERAB LES Final Result Performing Organization Address [facility]/ZIP Co de Phone Number [facility] [address] [place] [phone] * (ABNORMAL) Comprehensive Metabolic Panel (03/23/2024 3:19 PM EST) Pathologist [facility] Sodium 138 135 - 145 mmol/L [facility] Potassium 4.3 3.3 - 5.1 mmol/L [facility] Chloride 102 96 - 108 mmol/L [facility] Carbon Dioxide 30(H) 22 - 29 mmol/L [facility] Anion Gap 10(L) 12 - 20 [facility] Urea Nitrogen (BUN) 19(H) 9 - 16 mg/dL [facility] Creatinine, Serum 0.64 0.5 - 1.4 mg/dL [facility] Estimated Glomerular Filt Rate >60 [facility] Comment:Chronic Kidney Disea se: Estimated GFR < 60 mL/min/1.53p2Hmkqfu Kidney Disease: Estimated GFR < 15 mL/min/1.73m2 Glucose 124(H) 60 - 115 mg/dL [facility] Calcium 9.2 8.4 - 10.2 mg/dL [facility] Bilirubin, Total 0.2 0.0 - 1.0 mg/dL [facility] Aspartate Amino Transferase 24 5 - 31 U/L [facility] Alanine Aminotransferase 31 0 - 31 U/L [facility] Total Protein 6.3(L) 6.5 - 8.0 g/dL [facility] Albumin Level 3.2(L) 3.5 - 5.0 g/dL [facility] Alkaline Phosphatase 54 39 - 117 U/L [facility] Blood Venous blood specimen / Unknown 03/23/2024 3:19 PM EST 03/23/2024 3:58 PM EST Kourtney Epstein MD LAB BLOOD ORDERAB LES Final Result [facility] [address] [place] [phone] * (ABNORMAL) Cyclosporine level (03/23/2024 1:56 [...] its analytical performancecharacteristics have been determined by [employer] [place], [place]. It hasnot been cleared or approved by the U.S. Food and DrugAdministration. This assay has been validated pursuantto the CLIA regulations and is used for clinicalpurposes.THIS TEST WAS PERFORMED AT:[employer] [id number] [place] [address]ERDOGXGSIMON CRAMER MD,PHD 03/23/2024 1:56 PM EST 03/23/2024 3:58 PM EST us Generic External Data Provider LAB BLOOD ORDERAB LES Final Result Performing Organization Address [facility] Co de Phone Number [facility] [address] [place] [phone] * (ABNORMAL) Lipid Panel, Standard (01/11/2024 9:50 AM EST) Triglycerides 133 <150 mg/dL [facility] Comment:Desirable Triglyceri de: less than 150 mg/dLBorderline High Triglyceride 150-199 mg/dLHigh Triglyceride: 200-499 mg/dLVery High Triglyceride: greater than or equal to 5OO mg/dL Cholesterol 246(H) <200 mg/dL [facility] Comment:Desirable Cholestero l: less than 200 mg/dLBorderline High Cholesterol: 200-239 mg/dLHigh Cholesterol: greater than 239 mg/dL LDL Cholesterol Calculated 148(H) <100 mg/dL [facility] Comment:Desirable LDL: less than 100 mg/dLNear Optimal/Above Optimal LDL: 110- 129 mg/dLBorderline High LDL: 130-159 mg/dLHigh LDL: 160-189 mg/dLVery High LDL: greater than or equal to 190 mg/dL HDL Cholesterol 72 >40 mg/dL [facility] Comment:Desirable HDL: great er than 40 mg/dL Note: This HDL assay may give artificially low results in patients with liver disease. 01/11/2024 9:50 AM EST 01/11/2024 11:31 AM EST us Generic External Data Provider LAB BLOOD ORDERAB LES Final Result Performing Organization Address [facility]/ZIP Co de Phone Number [facility] [address] [place] [phone] * CT Lung Screening Low dose (12/10/2023 10:40 AM EDT) Anatomical Region Laterality Modality Lung Computed Tomogra phy 12/10/2023 10:4 0 AM EDT Narrative 01/26/2024 11:47 PM EST ? [facility] ?[address] ?[place] [address] ? CT Scan Report ? Signed ? Patient: Madison Navarro ?MR# ?? : [id number] ? : 1975 ?Acct:[id number] ? Age/Sex: 48 / F ?ADM Date: 12/10/23 ? Loc: HO.CT ? Attending Dr: Stacy Mays PA-C ? Ordering Physician: Stacy Mays PA-C ?? Date of Service: 12/10/23 ?? Procedure(s): CT lung screening ?? Accession Number(s): [id number] ? cc: Stacy Mays PA-C; Kourtney Saxena [...] ? RECOMMENDATION: ? Electronically signed by: ??Kuldeep Roac MD ??01/26/2024 11:44 PM EST ?? RP ? Dictated By: ?Kuldeep Roca MD ? Signed By: ?<Electronically signed by Kuldeep Roca MD in OV> ? 01/26/24 2344 ? DD/ 1040 ? TD/TT: 12/10/23 1045 ? Veterinary Practitioner: SS ? Procedure Note Alina, Image - 01/26/[address] [address] [address] Scan Report Signed Patient: Madison Navarro [facility]# : [id number] : 1975Acct:[id number] Age/Sex: 48 / FADM Date: 12/10/23 Loc: HO.CT Attending Dr: Stacy Mays PA-C Ordering Physician: Stacy Mays PA-C Date of Service: 12/10/23 Procedure(s): CT lung screening Accession Number(s): [id number] cc: Stacy Mays PA-C; Kourtney Saxena MD [...] 01/26/24 2344 DD/ 1040 TD/TT: 12/10/23 1045 Veterinary Practitioner: SS [facility] External Provider IMG CT PROCEDURES Edited Result - Final * BI Mammogram Screening Tomosynthesis Bilateral (08/17/2023 9:18 AM EDT) Anatomical Region Laterality Modality Breast Bilateral Mammography 08/17/2023 9:18 AM EDT Narrative 09/12/2023 3:49 PM EDT ? [facility] [place] ? [address] ?[place] [address] ? Mammography Report ? Signed ? Patient: Madison Navarro ?MR# ?? : [id number] ? : 1975 ?Acct:[id number] ? Age/Sex: 48 / F ?ADM Date: 08/17/23 ? Loc: HO.MAMMO ? Attending Dr: Kourtney Epstein MD ? Ordering Physician: Kourtney Saxena MD ?Re ?? sults: 2Benign Findings ? Date of Service: 08/17/23 ?Follow Up: 1 Year From Orig ?? inal Mammogram ? Procedure(s): MM tomosynthesis screening BI ?? Accession Number(s): [id number] ? cc: Kourtney Saxena MD ? EXAMINATION: [...] 1546 ? DD/ 7 ? TD/TT: ? Veterinary Practitioner: ? Procedure Note Katelin Fuller - 09/12/2023 [facility] [address] [place] [address] Dr. [place], [place] [address] Mammography Report Signed Patient: Madison Navarro AMR# : [id number] : 1975Acct:[id number] Age/Sex: 48 / FADM Date: 08/17/23 Loc: HO.MAMMO Attending Dr: Kourtney Epstein MD Ordering Physician: Kourtney Saxena sults: 2Benign Findings Date of Service: 08/17/23Follow Up: 1 Year From Orig inal Mammogram Procedure(s): MM tomosynthesis screening BI Accession Number(s): [id number] cc: Kourtney Saxena MD EXAMINATION: MM SCREENING [...] in OV> 09/12/23 1546 DD/ 0918 TD/TT: Veterinary Practitioner: us Kourtney Epstein MD IMG BI PROCEDURES Final Result * Hepatitis C Antibody with Reflex to HCV, RNA, Quantitative, Real-Time PCR (07/27/2023 10:47 AM EDT) Hepatitis C Antibody Nonreactive Nonreactive [facility] Comment:Antibodies to HCV no t detected; does not exclude early acuteHCV infection. Blood Venous blood specimen / Unknown 07/27/2023 10:47 AM EDT 07/27/2023 11:28 AM EDT us Kourtney Epstein MD LAB BLOOD ORDERAB LES Final Result Performing Organization Address [facility] Co de Phone Number [facility] [address] [place] [address] [phone] * HIV-1/2 Antigen and Antibodies, Fourth Generation, with Reflexes (07/27/2023 10:47 AM EDT) [facility] HIV AB/AG Nonreactive Nonreactive [facility] Comment:HIV-1 p24 Ag and/or HIV-1/HIV-2 Ab not detected.A test result that is nonreactive does not exclude thepossibility of exposure to or infection with HIV-1 and/orHIV-2. Nonreactive results in this assay for individualswith prior exposure to HIV-1 and/or HIV-2 may be due toantigen and antibody levels that are below the limit ofdetection of this assay.The [email or web address] HIV Ag/Ab Combo assay result andsupplemental assay results should be interpreted inconjunction with the patient's clinical presentation,history and other laboratory results. If the results areinconsistent with clinical evidence, additional testing issuggested to confirm the result. Blood Venous blood specimen / Unknown 07/27/2023 10:47 AM EDT 07/27/2023 11:28 AM EDT us Kourtney Epstein MD LAB BLOOD ORDERAB LES Final Result Performing Organization Address City/[facility]/ZIP Co de Phone Number [facility] [address] [place] [address] [phone] from Last 3 Months or Most Recently Relevant to Health Maintenance Insurance [facility] , [address] [place] [address] [facility] [address] [place] [phone] Care Teams Director Of Kids Relationship Specialty Start Date End Date Kourtney Saxena MD [address] [place] [phone] PCP - General Internal Medicine 04/23/23
--- OUTSIDE RECORDS SUMMARY | 2024-05-18 14:56 | XMS_ITS | Encounter Summary ---
Author Organization [employer] Address [address] [place] [phone] Care Team Providers Care [employer] Coordinator Name Role Phone Kourtney Saxena MD Primary Care Pro vider Encounter Details Date Type Department Care Team (Late st Contact Info) Description 05/04/2023 Orders Only [facility] [address] [place] [address] [phone] Love Quintanilla MD [address] [place] [address] [phone] Social History Tobacco Use Types Packs/Day Years [...] Description 07/17/2024 1:15 PM EDT Office Visit [facility] [address] [place] [address] [phone] Kourtney Saxena MD [address] [place] [address] [phone] documented as of this encounter Procedures Procedure Name Priority Date/Time Associated Diagnosis Comments URINALYSIS, COMPLETE, WITH REFLEX TO CULTURE Routine 11/01/2023 11:36 AM EDT ALBUMIN, RANDOM URINE W/CREATININE Routine 08/17/2023 2:30 PM EDT documented in this encounter Results * (ABNORMAL) Urinalysis, Complete, with Reflex to Culture (11/01/2023 11:36 AM EDT) Color Urine Yellow [facility] Appearance Urine Clear [facility] PH 7.0 5.0 - 9.0 [facility] Glucose Urine UA Negative Negative mg/dL [facility] Urine Blood Negative Negative [facility] Specific [place] - Urine 1.010 1.005 - 1.025 [facility] Urine Protein 100 (2+)(A) Neg-Trace mg/dL [facility] Urine Ketones Negative Negative mg/dL [facility] Nitrite Urine Negative Negative [facility] Leukocyte Esterase Urine Negative Negative [facility] RBC Urine 0-2 0 - 2 /HPF [facility] Urine WBC 0-5 0 - 5 /HPF [facility] Urine Squamous Epithelial Cell 0-2 0 - 2 /HPF [facility] Urine Bacteria None Seen None Seen [facility] Hyaline Casts, Urine 0-2 0 - 2 /LPF [facility] 11/01/2023 11:3 6 AM EDT 11/01/2023 1:21 PM EDT Narrative [facility] - 11/01/2023 1:41 PM EDT Urine, Clean Catch us Kourtney Epstein MD LAB URINE ORDERAB LES Final Result [facility] [address] [place] [address] [phone] * (ABNORMAL) Albumin, Random Urine W/Creatinine (08/17/2023 2:30 PM EDT) Creatinine, Urine 94.35 mg/dL [facility] Microalbumin Urine >2,000.0 mg/L [facility] Microalbum Creatinine Ratio Ur 2,119.7(H ) <30 ug/mg cr [facility] Comment:Albumin/Creatinine R atio Reference Ranges: Normal: < 30 ug/mg creatinine Microalbuminuria: 30 - 300 ug/mg creatinineClinical Albuminuria: > 300 ug/mg creatinine 08/17/2023 2:30 PM EDT 08/17/2023 4:14 PM EDT us Kourtney Epstein MD LAB URINE ORDERAB LES Final Result [facility] [address] [place] [address] [phone] documented in this encounter Visit Diagnoses Not on filedocumented in this encounter Care Teams International Logistics Coordinator Relationship Specialty Start Date End Date Kourtney Saxena MD [address] [place] [phone] PCP - General Internal Medicine 04/23/23 documented as of this encounter
--- OUTSIDE RECORDS SUMMARY | 2024-05-18 14:57 | XMS_ITS | Encounter Summary ---
Author Organization [employer] Address [address] [place] [address] [place], [place] [address] Care Team Providers Care Camp Attendant Name Role Phone Kourtney Saxena MD Primary Care Pro vider Reason for Visit * Reason Comments Med Refill Encounter Details Date Type Department Care Team (Late st Contact Info) Description 12/07/2022 Refill [facility] [address] [place] [phone] Jaylon Martin MD [address] [place] [phone] Social History Tobacco Use Types Packs/Day Years [...] 07/17/2024 1:15 PM EDT Office Visit [facility] [address] [place] [phone] Kourtney Saxena MD [address] [place] [phone] documented as of this encounter Visit Diagnoses Not on filedocumented in this encounter Care Teams Camp Attendant Relationship Specialty Start Date End Date Kourtney Saxena MD [address] [place] [phone] PCP - General Internal Medicine 04/23/23 documented as of this encounter
--- OUTSIDE RECORDS SUMMARY | 2024-05-18 14:57 | XMS_ITS | Encounter Summary ---
Author Organization [employer] Address [address] [place] [address] Care Team Providers Care Hog Ribber Name Role Phone Kourtney Saxena MD Primary Care Pro vider Reason for Visit * Reason Comments Med Refill Encounter Details Date Type Department Care Team (Late st Contact Info) Description 12/14/2022 Refill [facility] [address] [place] [address] [phone] Love Quintanilla MD [address] [place] [phone] Social History Tobacco Use Types Packs/Day Years [...] 1:15 PM EDT Office Visit [facility] [address] [place] [address] [phone] Kourtney Saxena MD [address] [place] [phone] documented as of this encounter Visit Diagnoses Not on filedocumented in this encounter Care Teams Hog Ribber Relationship Specialty Start Date End Date Kourtney Saxena MD [address] [place] [phone] PCP - General Internal Medicine 04/23/23 documented as of this encounter
[2024-05-19 13:43] LABS: Tacrolimus Prograf <1.0 mcg/L
== END 2024-05-18 12:28 | disposition home or self-care (01) ==
LOC: HO.HHCL 12:27
PROVIDERS: Visit Provider Internal Medicine Hypertension Specialist
DX: N05.1 Unspecified nephritic syndrome with focal and segmental glomerular lesions (principal); N04.9 Nephrotic syndrome with unspecified morphologic changes
CPT/HCPCS: 36415; 80048; 80197; 81001; 82570; 84156; 85025

== ENCOUNTER 2024-06-01 14:02 | Outpatient (AMB) | payer OTHER, SELFPAY ==
[2024-06-01 14:03] VITALS: BP 110/74; PULSE 100; O2SAT 98; BMI 40.2
--- NOTE | 2024-06-01 14:03 | HO.NEPHOV_ITS ---
Vital Signs 06/01/24 14:03 Height 4 ft 11 in Weight 199 lb BMI 40.2 BP 110/74 Blood Pressure Location Rt brachial Position Sitting Pulse 100 Pulse Source Pulse Oximeter Pulse Oximetry (%) 98 Oxygen Delivery Method Room Air Intake Visit Reasons: 1 MO FU/ Conf Allergies SHELL FISH Allergy (Severe, Uncoded 06/01/24 14:04) Anaphylaxis Medication List - Last Reconciled 06/01/24 by Gutierrez Lozano MD aspirin 81 mg PO QAM epinephrine 0.3 mg IM Q10M PRN ergocalciferol (vitamin D2) 1,250 mcg PO QWEEK hydrochlorothiazide 25 mg PO DAILY 90 days levothyroxine 50 mcg PO DAILY losartan 50 mg PO DAILY magnesium oxide 200 mg PO DAILY omeprazole 20 mg PO DAILY ondansetron 4 mg PO DAILY PRN peg 3350-electrolytes 236-22.74-6.74 -5.86 gram (Golytely) 240 mL PO Q10M prednisone 20 mg PO DAILY rosuvastatin 40 mg PO DAILY tacrolimus XR (Envarsus XR) 2 mg (2 x 1 mg) PO DAILY HPI Comments Details: Madison is a pleasant 48-year-old woman who has been 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 She has a history of dyslipidemia and she is on statins. She also complains of leg edema. He is not on any diuretics. No history of hypertension. She is on losartan 25 mg due to the proteinuria. Madison is a history of CVA exact etiology was not known. She is on aspirin. Madison tells me that she had a kidney biopsy when she was a teenager and she was told that she had Nil disease. She did not undergo any specific treatment. 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 She has a history of chronic alcohol abuse and currently she has been sober. 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 01/03/2024. She underwent kidney biopsy. Tolerated procedure well. No complications. No specific complaints. Accompanied by . 02/01/2024. She has been on prednisone 60 mg a day for the last 4 weeks. She has gained 5 lb. Complains of mild swelling in the legs. Occasional cramping. 02/14/24 c/o right flank pain; No urinary symptoms 03/06/2024. Still has generalized body swelling. She is not on low-salt diet. No gross hematuria 04/06/2024. She was given cyclosporine but she did not tolerate. This discontinued due to side effects 04/27/2024. She was started on tacrolimus 1 mg p.o. b.i.d. however she has been forgetting the evening dose and she has been taking only 1 mg a day. With recent tacro level was less than 1. She is able to tolerate this. Minimal edema. No shortness of breath. Weight unchanged. 06/01/24: Weight is up to 200lbs. She stopped Prednisone 2 weeks ago. On Envarsus 2mg PFSH Medical History Nephrotic syndrome History of CVA (cerebrovascular accident) Nicotine dependence, cigarettes, uncomplicated DJD (degenerative joint disease) Hypothyroidism Hyperlipidemia Hypertension Surgical History History of History of cervical discectomy Family History Mother Lung cancer, Onset Age: 67 Social History Alcohol intake: never Tobacco use type: Cigarette Years Smoked: (onset 25yo, 1ppd x 23yrs, now 1/2-3/4ppd - 20+PYH) Physical Exam Vital Signs: Last Vital Signs Pulse 100 06/01/24 14:03 BP 110/74 06/01/24 14:03 Pulse Ox 98 06/01/24 14:03 Oxygen Delivery Method Room Air 06/01/24 14:03 BMI result Body Mass Index 40.2 Comfortable Neck supple no JVD. Lungs entry equal no rales. Heart S1-S2 heard no gallop or rub. Abdomen soft nontender. Neuro alert awake oriented. No asterixis. Extremities trace edema. Results Reviewed Results Reviewed: Feb Right kidney: The right kidney measures 13.3 x 5.6 x 5.5 cm. There is a probable hypertrophied column of Pradeep as well as a junctional parenchymal defect at the upper pole. Renal cortical thickness is otherwise normal. There are no masses. There is no hydronephrosis or renal calculi. Left Kidney: The left kidney measures 13.1 x 5.6 x 4.6 cm. Renal parenchymal echotexture and thickness are normal. There is a 1.2 x 1.8 x 1.1 cm cyst in the interpolar region. There is no hydronephrosis or renal calculi. US/US renal BI IMPRESSION: 1.2 x 1.8 x 1.1 cm left renal cyst. No hydronephrosis. Nephrology Results: Hgb 14.7 g/dl (12.0-16.0) 05/18/24 WBC 9.8 X10*3/uL (4.8-10.8) 05/18/24 Plt Count 416 X10*3/uL (160-400) H 05/18/24 Sodium 140 mmol/L (135-145) 05/18/24 Potassium 4.3 mmol/L (3.3-5.1) 05/18/24 Chloride 107 mmol/L (96-108) 05/18/24 Carbon Dioxide 27 mmol/L (22-29) 05/18/24 BUN 15 mg/dL (9-16) 05/18/24 Creatinine 0.56 mg/dL (0.5-1.4) 05/18/24 Calcium 8.9 mg/dL (8.4-10.2) 05/18/24 Urine Protein 300 (3+) mg/dL (Neg-Trace) H 05/18/24 Urine Creatinine 72.82 mg/dL 05/18/24 Assessment & Plan Assessment & Plan (1) Nephrotic syndrome: Comment: Due to primary FSGS Code(s): N04.9 - Nephrotic syndrome with unspecified morphologic changes Category: Medical (2) FSGS (focal segmental glomerulosclerosis): Code(s): N05.1 - Unspecified nephritic syndrome with focal and segmental glomerular lesions Category: Medical Plan Based on the kidney biopsy: Started treatment with prednisone. Discussed the pros and cons of steroid therapy. She was on prednisone 60 mg daily for 8 weeks since 01/03/2024. And omeprazole 20 mg q.d.. She is currently on aspirin. urinary protein excretion still remains elevated at 7.0 Renal function stable. She did not respond to prednisone. Unable to tolerate cyclosporine. . Start with 1 mg b.i.d. and adjust dose based on levels.() Side effects of tacrolimus discussed and gave a printout Due to serious interactions rosuvastatin has been placed on hold Encouraged her to stay on a low-sodium diet. 04/27/2024. She was supposed to be on tacrolimus 1 mg p.o. b.i.d. however she has been taking only 1 mg daily and she forgets the evening dose. I will switch to long-acting tacrolimus- Envarsus. Start with 2 mg daily Check levels in 2 weeks and increase dose as needed. 06/01/24 Renal fx stable UrienPro: cr is 6.0 Unable to take PRednisone Increase Envarsus to 4 mg Orders: Orders Basic Metabolic Panel 7 Weeks N04.9 - Nephrotic syndrome with unspecified morphologic changes, N05.1 - Unspecified nephritic syndrome with focal and segmental glomerular lesions Tacrolimus Prograf 7 Weeks N04.9 - Nephrotic syndrome with unspecified morpho logic changes, N05.1 - Unspecified nephritic syndrome with focal and segmental glomerular lesions Total Protein Urine Random 7 Weeks N04.9 - Nephrotic syndrome with unspecified morphologic changes, N05.1 - Unspecified nephritic syndrome with focal and segmental glomerular lesions UA and rflx microscopic 7 Weeks N04.9 - Nephrotic syndrome with unspecified morphologic changes, N05.1 - Unspecified nephritic syndrome with focal and segmental glomerular lesions Hemoglobin A1c 7 Weeks N04.9 - Nephrotic syndrome with unspecified morphologic changes, N05.1 - Unspecified nephritic syndrome with focal and segmental glomerular lesions Creatinine Urine 7 Weeks N04.9 - Nephrotic syndrome with unspecified morphologic changes, N05.1 - Unspecified nephritic syndrome with focal and segmental glomerular lesions Complete Blood Count no Diff 7 Weeks N04.9 - Nephrotic syndrome with unspecified morphologic changes, N05.1 - Unspecified nephritic syndrome with focal and segmental glomerular lesions Lipid Panel 7 Weeks N04.9 - Nephrotic syndrome with unspecified morphologic changes, N05.1 - Unspecified nephritic syndrome with focal and segmental glomerular lesions Medications: New rosuvastatin 40 mg PO DAILY 30 tabs 3RF Changed From tacrolimus XR (Envarsus XR) 2 mg (2 x 1 mg) PO DAILY 60 tabs 0RF To tacrolimus XR 4 mg PO DAILY 30 tabs 2RF Discontinued omeprazole Discontinued Reason: Doctor's Order 20 mg PO DAILY 90 caps 1RF Coding Level of Care Code Est Pt Level 4 (36587) Diagnoses Nephrotic syndrome N04.9 FSGS (focal segmental glomerulosclerosis) N05.1
--- OUTSIDE RECORDS SUMMARY | 2024-06-01 16:29 | XMS_ITS | Clinical Summary ---
Author Organization [employer] Address [address] [place] [address] 7 [place] [address] Care Team Providers Care Foot Setter Name Role Phone Kourtney Saxena MD [...] use. 1 each 1 07/02/19 24 Active varenicline (Chantix) 1 MG tablet TAKE [...] BEFORE MEALS 90 tablet 04/04/19 25 Active ergocalcifero l (Vitamin D2) 1.25 MG (75493 UT) capsule TAKE 1 CAPSULE BY MOUTH [...] EVERY MORNING 90 tablet 04/29/19 25 Active rosuvastatin (Crestor) 40 MG tablet Take 1 tablet (40 mg) by mouth Once per day. 90 tablet 05/20/19 25 026 Active rosuvastatin (Crestor) 40 MG tablet Take 1 tablet (40 mg) by mouth Once per day. 90 tablet 01/11/20 24 025 Discontinued(Re order (will not trigger notification to Pharmacy)) Active Problems Problem Noted Date Diagnosed Date [...] Encounters Date Type Department Care Team Description 05/19/2024 Orders Only [facility] [address] [place] [address] Kourtney Saxena MD 05/19/2024 Refill [facility] [address] [place] [address] Kourtney Saxena MD 05/03/2024 Telephone [facility] [address] [place] [address] Cecilia Majano RN [facility] Nephrology 05/02/2024 Orders Only [facility] [address] [place] [address] Alivia Washington ANP On prednisone therapy (Primary Dx); Nephrotic syndrome 04/28/2024 Refill [facility] [address] [place] [address] Ramya Sánchez NP 04/24/2024 1:00 PM EDT Office Visit [facility] [address] [place] [address] Dustin Walker, DIOS Fractured (Primary Dx); Non-restorable tooth 04/21/2024 Telephone [facility] [address] [place] [address] Kourtney Saxena MD July Recall 04/17/2024 Refill [facility] [address] [place] [address] Adria Mason MD 04/12/2024 Orders Only [facility] External Provider, [facility] 04/03/2024 Refill [facility] [address] [place] [address] Kourtney Saxena MD 03/28/2024 Orders Only GENER[facility] EXTERNAL DATA DEPARTMENT Provider, Generic External Data 03/28/2024 Refill [facility] [address] [place] [address] Kourtney Saxena MD 03/25/[address] [address] Kitty Jackson, VARUN Results 03/23/2024 Orders Only GENERIC EXTERNAL DATA DEPARTMENT Provider, Generic External Data 03/18/2024 Refill [facility] [address] [place] [address] Kourtney Saxena MD 03/13/[address] [address] Skylar Carmen [place] may recall from Last 3 Months Immunizations Name Administration [...] Date Smoking Tobacco: Every Day Cigarettes 1 24.3 Started: 2000 Smokeless Tobacco: Current Tobacco Cessation:Ready [...] Description 07/17/2024 1:15 PM EDT Office Visit [facility] [address] [place] [address] Kourtney Saxena MD [address] [place] [address] Health Maintenance Due Date Last Done Comments [...] EST Narrative 04/14/2024 10:32 AM EST ? [facility] ?[address] ?[place] [address] ? Ultrasound Report ? Signed ? Patient: Madison Navarro ?MR# ?? : [id number] ? : 1975 ?Acct:[id number] ? Age/Sex: 48 / F ?ADM Date: 04/12/24 ? Loc: HO.US ? Attending Dr: Guille Summers MD ? Ordering Physician: Guille Summers MD ?? Date of Service: 04/12/24 ?? Procedure(s): US pelvic and transvaginal ?? Accession Number(s): [id number] ? cc: Kourtney Saxena MD; Guille Summers [...] DD/ 1409 ? TD/TT: 04/12/24 1430 ? Fish Agent: ? Procedure Note Katelin Fuller - 04/14/2024 [place] [address] Ultrasound Report Signed Patient: Madison Navarro AMR# : [id number] : 1975Acct:[id number] Age/Sex: 48 / FADM Date: 04/12/24 Loc: HO.US Attending Dr: Guille Summers MD Ordering Physician: Guille Summers MD Date of Service: 04/12/24 Procedure(s): US pelvic and transvaginal Accession Number(s): [id number] cc: Kourtney Saxena MD; Guille Summers MD [...] 04/14/24 1028 DD/ 1409 TD/TT: 04/12/24 1430 Fish Agent: us [facility] External Provider IMG US PROCEDURES Final Result * HPV DNA, Low/High Risk (03/28/2024 10:12 AM EST) HPV High Risk Negative Negative [facility] HPV Genotype 16 Negative Negative [facility] HPV Genotype 18 Negative Negative [facility] Comment:HPV testing performe d at [facility] (CLIA#[id number]), [address] [place] [phone].Testing for HPV was performed using the [employer]system. The presence of HPV in the female [...] ORDERAB LES Final Result Performing Organization Address City/State/[facility] Co de Phone Number [facility] [address] [place] [phone] * Pap Smear (03/28/2024 10:12 AM EST) 03/28/2024 10:1 2 AM EST 03/28/2024 2:15 PM EST Narrative [facility] - 04/03/2024 12:46 PM EST ----- ------- Name: Madison Navarro ? Age/Sex: 48/F ? : 1975 Unit#: [id number] ?? Attend Dr: Guille Summers MD ?Re03/28/24 ?Status: DEP REF ? Location: HO.LNP ?Disch: ? ----- ------- SPEC : [id number] ? RECD: 03/28/245 ? STATUS: ??SOUT ? REQ NUM: [id number] ? YAMINI: 03/28/24-1012 ? SUBM DR: Guille Summers MD ? ENTERED: ??03/28/240 ?SP TYPE: Pap Smr ?OTHR DR: Kourtney Saxena MD ORDERED: ??Pap Smear ? Interpretation ?? Satisfactory for evaluation. ?? Negative for intraepithelial lesion or malignancy. ?? No endocervical cells seen. ? HPV High Risk: ??Negative ? HPV Genotyping 16: ??Negative ?? HPV Genotyping 18: ??Negative ?Clinical Information LMP:UNKNOWN Previous PAP test:UNKOWN Other surgery: Other history: Copies To: ?? Kourtney Saxena MD ?? [address] ?? [place] [address] ?? [phone] ?? Guille Summers MD ?? [facility] Women's Services ?? [address] ?? [place] [address] ?? [phone] ----- ------- Signed (signature on file) MELITA Kwok (ASCP) 04/03/24 1246 ? ----- ------- ? END OF REPORT ? Generic External Data Provider LAB CYTOLOGY ORDE RABLES Final Result Performing Organization Address [facility]/ZIP Co de Phone Number [facility] [address] [place] [phone] * (ABNORMAL) Urine Protein, Total, Random without Creatinine (03/23/2024 3:19 PM EST) Protein, Total, Random Urine 273(H) <12 mg/dL [facility] 03/23/2024 3:19 PM EST 03/23/2024 3:56 PM EST Generic External Data Provider LAB URINE ORDERAB LES Final Result Performing Organization Address [facility]/ZIP Co de Phone Number [facility] [address] [place] [address] [phone] * Creatinine, Random Urine (03/23/2024 3:19 PM EST) Creatinine, Urine 37.91 mg/dL [facility] 03/23/2024 3:19 PM EST 03/23/2024 3:56 PM EST us Generic External Data Provider LAB URINE ORDERAB LES Final Result Performing Organization Address [facility] Co de Phone Number [facility] [address] [place] [phone] * (ABNORMAL) Urinalysis Complete (03/23/2024 3:19 PM EST) Color Urine Yellow [facility] Appearance Urine Clear [facility] PH >=9.0 5.0 - 9.0 [facility] Glucose Urine UA Negative Negative mg/dL [facility] Urine Blood Negative Negative [facility] Specific [place] - Urine 1.015 1.005 - 1.025 [facility] Urine Protein 300 (3+)(A) Neg-Trace mg/dL [facility] Urine Ketones Negative Negative mg/dL [facility] Nitrite Urine Negative Negative [facility] Leukocyte Esterase Urine Negative Negative [facility] RBC Urine 0-2 0 - 2 /HPF [facility] Urine WBC 0-5 0 - 5 /HPF [facility] Urine Squamous Epithelial Cell 0-2 0 - 2 /HPF [facility] Urine Bacteria None Seen None Seen [facility] Hyaline Casts, Urine 0-2 0 - 2 /LPF [facility] 03/23/2024 3:19 PM EST 03/23/2024 3:56 PM EST us Generic External Data Provider LAB URINE ORDERAB LES Final Result Performing Organization Address [facility] Co de Phone Number [facility] [address] [place] [phone] * TSH (03/23/2024 3:19 PM EST) Thyroid Stimulating Hormone 1.06 0.32 - 4.0 uIU/mL [facility] Comment:TSH 3rd Generation ( [facility]) Blood Venous blood specimen / Unknown 03/23/2024 3:19 PM EST 03/23/2024 3:58 PM EST Kourtney Epstein MD LAB BLOOD ORDERAB LES Final Result Performing Organization Address City/[facility]/ZIP Co de Phone Number [facility] [address] [place] [phone] * T4, Free (03/23/2024 3:19 PM EST) Free T4 (Free Thyroxine) 1.06 0.71 - 1.85 ng/dL [facility] Blood Venous blood specimen / Unknown 03/23/2024 3:19 PM EST 03/23/2024 3:58 PM EST Kourtney Epstein MD LAB BLOOD ORDERAB LES Final Result Performing Organization Address [facility]/ZIP Co de Phone Number [facility] [address] [place] [phone] * (ABNORMAL) Comprehensive Metabolic Panel (03/23/2024 3:19 PM EST) Sodium 138 135 - 145 mmol/L [facility] Potassium 4.3 3.3 - 5.1 mmol/L [facility] Chloride 102 96 - 108 mmol/L [facility] Carbon Dioxide 30(H) 22 - 29 mmol/L [facility] Anion Gap 10(L) 12 - 20 [facility] Urea Nitrogen (BUN) 19(H) 9 - 16 mg/dL [facility] Creatinine, Serum 0.64 0.5 - 1.4 mg/dL [facility] Estimated Glomerular Filt Rate >60 [facility] Comment:Chronic Kidney Disea se: Estimated GFR < 60 mL/min/1.59b8Yucnoq Kidney Disease: Estimated GFR < 15 mL/min/1.73m2 Glucose 124(H) 60 - 115 mg/dL [facility] Calcium 9.2 8.4 - 10.2 mg/dL [facility] Bilirubin, Total 0.2 0.0 - 1.0 mg/dL [facility] Aspartate Amino Transferase 24 5 - 31 U/L [facility] Alanine Aminotransferase 31 0 - 31 U/L [facility] Total Protein 6.3(L) 6.5 - 8.0 g/dL [facility] Albumin Level 3.2(L) 3.5 - 5.0 g/dL [facility] Alkaline Phosphatase 54 39 - 117 U/L [facility] Blood Venous blood specimen / Unknown 03/23/2024 3:19 PM EST 03/23/2024 3:58 PM EST Kourtney Epstein MD LAB BLOOD ORDERAB LES Final Result [facility] [address] [place] [phone] * (ABNORMAL) Cyclosporine level (03/23/2024 1:56 PM EST) Cyclosporine A Trough <25(A) 100 - 300 mcg/L [facility] Comment:No definitive therap eutic or toxic ranges have beenestablished. Optimal blood drug levels are influencedby type of transplant, patient response, time post-transplant, co-administration of other drugs, and drugformulation. The following trough ranges are suggestedguidelines:Kidney Transplantation: 100-200 mcg/LOther Organ Transplant: 200-300 mcg/LThis test was developed and its analytical performancecharacteristics have been determined by [employer] [place], [place]. It hasnot been cleared or approved by the U.S. Food and DrugAdministration. This assay has been validated pursuantto the CLIA regulations and is used for clinicalpurposes.THIS TEST WAS PERFORMED AT:[employer]/[facility] [place] [address]BEOKMQYSIOMN CRAMER MD,PHD 03/23/2024 1:56 PM EST 03/23/2024 3:58 PM EST Generic External Data Provider LAB BLOOD ORDERAB LES Final Result Performing Organization Address [facility]/ZIP Co de Phone Number [facility] [address] [place] [phone] * (ABNORMAL) Lipid Panel, Standard (01/11/2024 9:50 AM EST) Triglycerides 133 <150 mg/dL [facility] Comment:Desirable Triglyceri de: less than 150 mg/dLBorderline High Triglyceride 150-199 mg/dLHigh Triglyceride: 200-499 mg/dLVery High Triglyceride: greater than or equal to 5OO mg/dL Cholesterol 246(H) <200 mg/dL [facility] Comment:Desirable Cholestero l: less than 200 mg/dLBorderline High Cholesterol: 200-239 mg/dLHigh Cholesterol: greater than 239 mg/dL LDL Cholesterol Calculated 148(H) <100 mg/dL [facility] Comment:Desirable LDL: less than 100 mg/dLNear Optimal/Above Optimal LDL: 110- 129 mg/dLBorderline High LDL: 130-159 mg/dLHigh LDL: 160-189 mg/dLVery High LDL: greater than or equal to 190 mg/dL HDL Cholesterol 72 >40 mg/dL [facility] Comment:Desirable HDL: great er than 40 mg/dL Note: This HDL assay may give artificially low results in patients with liver disease. 01/11/2024 9:50 AM EST 01/11/2024 11:31 AM EST us Generic External Data Provider LAB BLOOD ORDERAB LES Final Result Performing Organization Address City/[facility]/ZIP Co de Phone Number [facility] [address] [place] [phone] * CT Lung Screening Low dose (12/10/2023 10:40 AM EDT) Anatomical Region Laterality Modality Lung Computed Tomogra phy 12/10/2023 10:4 0 AM EDT Narrative 01/26/2024 11:47 PM EST ? [facility] ?[address] ?[place] [address] ? CT Scan Report ? Signed ? Patient: Nadeem Karch,Madison A ?MR# ?? : [id number] ? : 1975 ?Acct:[id number] ? Age/Sex: 48 / F ?ADM Date: 12/10/23 ? Loc: HO.CT ? Attending Dr: Stacy Mays PA-C ? Ordering Physician: Stacy Mays PA-C ?? Date of Service: 12/10/23 ?? Procedure(s): CT lung screening ?? Accession Number(s): [id number] ? cc: Stacy Mays PA-C; Kourtnye Saxena MD ? EXAMINATION: ?? CT LOW-DOSE [...] DD/ 1040 ? TD/TT: 12/10/23 1045 ? Fish Agent: SS ? Procedure Note Katelin Fuller - 01/26/[address] [address] [address] Scan Report Signed Patient: Madison Navarro [facility]# : [id number] : 1975Acct:[id number] Age/Sex: 48 / FADM Date: 12/10/23 Loc: HO.CT Attending Dr: Stacy Mays PA-C Ordering Physician: Stayc Mays PA-C Date of Service: 12/10/23 Procedure(s): CT lung screening Accession Number(s): [id number] cc: Stacy Mays PA-C; Kourtney Saxena MD [...] by: Kuldeep Roca MD 01/26/2024 11:44 PM [facility] Dictated By: Kuldeep Roca MD Signed By: <Electronically signed by Kuldeep Roca MD in OV> 01/26/24 2344 DD/ 1040 TD/TT: 12/10/23 1045 Fish Agent: [facility] External Provider IMG CT PROCEDURES Edited Result - Final * BI Mammogram Screening Tomosynthesis Bilateral (08/17/2023 9:18 AM EDT) Anatomical Region Laterality Modality Breast Bilateral Mammography 08/17/2023 9:18 AM EDT Narrative 09/12/2023 3:49 PM EDT ? [facility] ? [address] ?[place] [address] ? Mammography Report ? Signed ? Patient: Nadeem BarneyMadison Marlene ?MR# ?? : [id number] ? : 1975 ?Acct:[id number] ? Age/Sex: 48 / F ?ADM Date: 08/17/23 ? Loc: HO.MAMMO ? Attending Dr: Kourtney Epstein MD ? Ordering Physician: Kourtney Saxena MD ?Re ?? sults: 2Benign Findings ? Date of Service: 08/17/23 ?Follow Up: 1 Year From Orig ?? inal Mammogram ? Procedure(s): MM tomosynthesis screening BI ?? Accession Number(s): [id number] ? cc: Kourtney Saxena MD ? EXAMINATION: [...] 1546 ? DD/ 0918 ? TD/TT: ? Fish Agent: ? Procedure Note Alina, Image - 09/12/2023 [facility] [address] [place] [address] Dr. [place], [place] [address] Mammography Report Signed Patient: Madison Navarro AMR# : [id number] : 1975Acct:[id number] Age/Sex: 48 / FADM Date: 08/17/23 Loc: AI Attending Dr: Kourtney Epstein MD Ordering Physician: Kourtney Saxena sults: 2Benign Findings Date of Service: 08/17/23Follow Up: 1 Year From Orig ina Mammogram Procedure(s): MM tomosynthesis screening BI Accession Number(s): [id number] cc: Kourtney Saxena MD EXAMINATION: MM SCREENING [...] in OV> 09/12/23 1546 DD/ 0918 TD/TT: Fish Agent: Kourtney Epstein MD IMG BI PROCEDURES Final Result * Hepatitis C Antibody with Reflex to HCV, RNA, Quantitative, Real-Time PCR (07/27/2023 10:47 AM EDT) Hepatitis C Antibody Nonreactive Nonreactive [facility] Comment:Antibodies to HCV no t detected; does not exclude early acuteHCV infection. Blood Venous blood specimen / Unknown 07/27/2023 10:47 AM EDT 07/27/2023 11:28 AM EDT Kourtney Epstein MD LAB BLOOD ORDERAB LES Final Result Performing Organization Address City/[facility]/ZIP Co de Phone Number [facility] [address] [place] [phone] [phone] * HIV-1/2 Antigen and Antibodies, Fourth Generation, with Reflexes (07/27/2023 10:47 AM EDT) [facility] HIV AB/AG Nonreactive Nonreactive [facility] Comment:HIV-1 p24 Ag and/or HIV-1/HIV-2 Ab not detected.A test result that is nonreactive does not exclude thepossibility of exposure to or infection with HIV-1 and/orHIV-2. Nonreactive results in this assay for individualswith prior exposure to HIV-1 and/or HIV-2 may be due toantigen and antibody levels that are below the limit ofdetection of this assay.The Fi.tt HIV Ag/Ab Combo assay result andsupplemental assay results should be interpreted inconjunction with the patient's clinical presentation,history and other laboratory results. If the results areinconsistent with clinical evidence, additional testing issuggested to confirm the result. Blood Venous blood specimen / Unknown 07/27/2023 10:47 AM EDT 07/27/2023 11:28 AM EDT us Kourtney Epstein MD LAB BLOOD ORDERAB LES Final Result Performing Organization Address [facility] Co de Phone Number [facility] [address] [place] [address] [phone] from Last 3 Months or Most Recently Relevant to Health Maintenance Insurance #[address] [place] [address] [facility] [address] [place] [phone] Care Teams Foot Setter Relationship Specialty Start Date End Date Kourtney Saxena MD [address] [place] [phone] PCP - General Internal Medicine 04/23/23
--- OUTSIDE RECORDS SUMMARY | 2024-06-01 16:29 | XMS_ITS | Encounter Summary ---
Author Organization [employer] Address [address] [place] [address] Care Team Providers Care Engraving Patternmaker Name Role Phone Kourtney Saxena MD Primary Care Pro vider Encounter Details Date Type Department Care Team (Late st Contact Info) Description 05/04/2023 Orders Only [facility] [address] [place] [address] [phone] Love Quintanilla MD [address] [place] [address] [phone] Social History Tobacco Use Types Packs/Day Years [...] Description 07/17/2024 1:15 PM EDT Office Visit [facility] [address] [place] [address] [phone] Kourtney Saxena MD [address] [place] [address] [phone] documented as of this encounter Procedures Procedure Name Priority Date/Time Associated Diagnosis Comments URINALYSIS, COMPLETE, WITH REFLEX TO CULTURE Routine 11/01/2023 11:36 AM EDT ALBUMIN, RANDOM URINE W/CREATININE Routine 08/17/2023 2:30 PM EDT documented in this encounter Results * (ABNORMAL) Urinalysis, Complete, with Reflex to Culture (11/01/2023 11:36 AM EDT) Color Urine Yellow LABS Appearance Urine Clear LABS PH 7.0 5.0 - 9.0 LABS Glucose Urine UA Negative Negative mg/dL LABS Urine Blood Negative Negative LABS Specific [place] - Urine 1.010 1.005 - 1.025 LABS Urine Protein 100 (2+)(A) Neg-Trace mg/dL LABS Urine Ketones Negative Negative mg/dL LABS Nitrite Urine Negative Negative [facility] Leukocyte Esterase Urine Negative Negative LABS RBC Urine 0-2 0 - 2 /HPF LABS Urine WBC 0-5 0 - 5 /HPF LABS Urine Squamous Epithelial Cell 0-2 0 - 2 /HPF LABS Urine Bacteria None Seen None Seen [facility] Hyaline Casts, Urine 0-2 0 - 2 /LPF LABS 11/01/2023 11:3 6 AM EDT 11/01/2023 1:21 PM EDT Narrative LABS - 11/01/2023 1:41 PM EDT Urine, Clean Catch us Kourtney Epstein MD LAB URINE ORDERAB LES Final Result LABS [address] [place] [phone] * (ABNORMAL) Albumin, Random Urine W/Creatinine (08/17/2023 2:30 PM EDT) Creatinine, Urine 94.35 mg/dL [facility] Microalbumin Urine >2,000.0 mg/L [facility] Microalbum Creatinine Ratio Ur 2,119.7(H ) <30 ug/mg cr LABS Comment:Albumin/Creatinine R atio Reference Ranges: Normal: < 30 ug/mg creatinine Microalbuminuria: 30 - 300 ug/mg creatinineClinical Albuminuria: > 300 ug/mg creatinine 08/17/2023 2:30 PM EDT 08/17/2023 4:14 PM EDT us Kourtney Epstein MD LAB URINE ORDERAB LES Final Result LABS [address] [place] [address] [phone] documented in this encounter Visit Diagnoses Not on filedocumented in this encounter Care Teams Engraving Patternmaker Relationship Specialty Start Date End Date Kourtney Saxena MD [address] [place] [phone] PCP - General Internal Medicine 04/23/23 documented as of this encounter
--- OUTSIDE RECORDS SUMMARY | 2024-06-01 16:29 | XMS_ITS | Encounter Summary ---
Author Organization [employer] Address [address] [place] [address] [address] [address] Care Team Providers Care Manager Of Compensation Name Role Phone Kourtney Saxena MD Primary Care Pro vider Reason for Visit * Reason Comments Med Refill Encounter Details Date Type Department Care Team (Late st Contact Info) Description 12/07/2022 Refill [facility] [address] [place] [address] [phone] Jaylon [place] MD [address] [place] [phone] Social History Tobacco Use Types Packs/Day Years [...] 1:15 PM EDT Office Visit [facility] [address] [place] [phone] Kourtney Saxena MD [address] [place] [phone] documented as of this encounter Visit Diagnoses Not on filedocumented in this encounter Care Teams Manager Of Compensation Relationship Specialty Start Date End Date Kourtney Saxena MD [address] [place] [phone] PCP - General Internal Medicine 04/23/23 documented as of this encounter
--- OUTSIDE RECORDS SUMMARY | 2024-06-01 16:29 | XMS_ITS | Encounter Summary ---
Author Organization [employer] Address [address] [place] [phone] Care Team Providers Care Cryptologic Technician Technical Name Role Phone Kourtney Saxena MD Primary Care Pro vider Reason for Visit * Reason Comments Med Refill Encounter Details Date Type Department Care Team (Late st Contact Info) Description 12/14/2022 Refill [facility] [address] [place] [address] [phone] Love Quintanilla MD [address] [place] [phone] Social History Tobacco Use Types Packs/Day Years [...] Description 07/17/2024 1:15 PM EDT Office Visit [facility] [address] [place] [address] [phone] Kourtney Saxena MD [address] [place] [phone] documented as of this encounter Visit Diagnoses Not on filedocumented in this encounter Care Teams Cryptologic Technician Technical Relationship Specialty Start Date End Date Kourtney Saxena MD [address] [place] [phone] PCP - General Internal Medicine 04/23/23 documented as of this encounter
--- OUTSIDE RECORDS SUMMARY | 2024-06-01 16:29 | XMS_ITS | Encounter Summary ---
Author Organization [employer] Address [address] [place] [address], [place] [address] Care Team Providers Care Batch Operator Name Role Phone Kourtney Saxena MD Primary Care Pro vider Reason for Visit * Reason Comments Med Refill Encounter Details Date Type Department Care Team (Late st Contact Info) Description 05/19/2024 Refill [facility] [address] [place], [place] [phone] Kourtney Saxena MD [address] [place] [address] Social History Tobacco Use Types Packs/Day Years Used Date Smoking Tobacco: Every Day Cigarettes 1 .3 Started: 2000 Smokeless Tobacco: Current Alcohol Use [...] encounter Miscellaneous Notes * Telephone Encounter - Kourtney Epstein MD - 05/19/2024 3:37 PM EDT Sent already 40 mg dose documented in this encounter Plan of Treatment Upcoming Encounters Date Type Department Care Team (Late st Contact Info) Description 07/17/2024 1:15 PM EDT Office Visit [facility] [address] [place] [phone] Kourtney Saxena MD [address] [place] [phone] documented as of this encounter Visit Diagnoses Not on filedocumented in this encounter Additional Health Concerns Assessment Noted Time PHQ-9 Depression Total Score: 4 07/02/19 10:41 AM EDT documented as of this encounter Care Teams Batch Operator Relationship Specialty Start Date End Date Kourtney Saxena MD [address] [place] [phone] PCP - General Internal Medicine 04/23/23 documented as of this encounter
--- OUTSIDE RECORDS SUMMARY | 2024-06-01 16:29 | XMS_ITS | Clinical Summary ---
Author Organization [facility] it Address [address] [place] [address] Care Team Providers Care Soap Chipper Name Role Phone Vero Archuleta DO Primary Care Provider [phone] Surgical History Surgery Date Site/Laterality Comments SECTION PROCEDURE: HISTORICAL DELIVERY Medical History Medical History Date Comments History of drug dependence/a buse ([facility] V24, [facility] V28) 08/03/2013 DX:History of drug dependen ce/abuse ([facility]); COMMENT: Marijuana, cocaine, crack, heroin - clean since 02/28/16 (relapse 01/22) PTSD (post-traumatic stress disorder) 10/17/2013 DX:PTSD (post-traumatic stress disorder) Anxiety 10/17/2013 DX:Anxiety Alcohol abuse 08/15/2012 DX:Alcohol abuse ; COMMENT: Quit May 2012 Was hospitalized [facility] previous pcp , clean Dec 2015 Asthma 08/15/2012 DX:Asthma Depression 08/15/2012 DX:Depression 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
== END 2024-06-01 14:31 | disposition home or self-care (01) ==
LOC: HO.HKA 14:02
PROVIDERS: PCP Student in an Organized Health Care Education/Training Program; Visit Provider Internal Medicine Hypertension Specialist
DX: N04.9 Nephrotic syndrome with unspecified morphologic changes (principal); N05.1 Unspecified nephritic syndrome with focal and segmental glomerular lesions
CPT/HCPCS: 99214

== ENCOUNTER 2024-08-03 09:39 | Outpatient (REF) | payer OTHER, SELFPAY ==
--- OUTSIDE RECORDS SUMMARY | 2024-08-03 10:47 | XMS_ITS | Clinical Summary ---
Author Organization [facility] ity Address [address] [place] [address] Care Team Providers Care Paint Brush Maker Name Role Phone Vero Archuleta DO Primary Care Provider [phone] Surgical History Surgery Date Site/Laterality Comments SECTION PROCEDURE: HISTORICAL DELIVERY Medical History Medical History Date Comments History of drug dependence/a buse ([facility] V24, [facility] V28) 08/03/2013 DX:History of drug dependen ce/abuse ([facility]); COMMENT: Marijuana, cocaine, crack, heroin - clean since 02/28/16 (relapse 01/22) PTSD (post-traumatic stress disorder) 10/17/2013 DX:PTSD (post-traumatic stress disorder) Anxiety 10/17/2013 DX:Anxiety Alcohol abuse 08/15/2012 DX:Alcohol abuse ; COMMENT: Quit May 2012 Was hospitalized [facility] previous pcp , clean Dec 2015 Asthma 08/15/2012 DX:Asthma Depression 08/15/2012 DX:Depression 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 No current breast complaints. Comparison: Multiple priors dating back to 09/15/2016 Technique: Bilateral full-field digital 2D and 3D mammography was performed using standard CC and MLO projections, right breast CC, MLO and ML magnification views CAD was used to evaluate this mammogram. Findings: Density: There are scattered areas of fibroglandular density-B RIGHT: No suspicious masses, groups of microcalcification or areas of architectural distortion identified. Morphologically stable right upper outer calcifications. LEFT: No suspicious masses, groups of microcalcifications or areas of architectural distortion identified. Stable typically benign parenchymal asymmetries IMPRESSION: : 1. No mammographic evidence of [...] Recently Relevant to Health Maintenance Care Teams Paint Brush Maker Relationship Specialty Start Date End Date Vero Archuleta DO PCP - General Internal Medicine 10/07/21
[2024-08-03 17:52] LABS: Appearance Urine Clear; Color Urine Yellow; Glucose Urine UA Negative (Negative); Leukocyte Esterase Urine Negative (Negative); Nitrite Urine Negative (Negative); PH 5.5 (5.0-9.0); UMIC TRIGGER UA YES; Urine Blood Negative (Negative); Urine Ketones Negative (Negative); Urine Protein 300 (3+) mg/dL (Neg-Trace)
[2024-08-03 17:57] LABS: Bacteria Urine None Seen (None Seen); Hyaline Casts Urine 0-2 /LPF (0-2); RBC Urine 0-2 /HPF (0-2); WBC Urine 0-5 /HPF (0-5)
[2024-08-03 18:01] LABS: Hematocrit 42.2 % (37.0-47.0); Hemoglobin 13.8 g/dl (12.0-16.0); Mean Corpuscular HGB Conc 32.7 g/dl (31.0-35.0); Mean Corpuscular Hemoglobin 25.7 pg (27.0-33.0); Mean Corpuscular Volume 78.7 fL (80.0-98.0); Mean Platelet Volume 10.1 fL (9.4-12.3); Platelet Count 373 X10*3/uL (160-400); Red Blood Count 5.36 X10*6/uL (4.20-5.50); Red Cell Distribution Width 14.3 % (11.0-16.0); White Blood Count 6.5 X10*3/uL (4.8-10.8)
[2024-08-03 18:03] LABS: Estimated Average Glucose 120 mg/dL; Hemoglobin A1c % 5.8 % (<6.0); Total Hemoglobin (HGBA1C) 3608.8907 umol/L
[2024-08-03 18:19] LABS: Anion Gap 11 (12-20); Blood Urea Nitrogen 24 mg/dL (9-16); Calcium 8.9 mg/dL (8.4-10.2); Carbon Dioxide 26 mmol/L (22-29); Chloride 109 mmol/L (96-108); Cholesterol 198 mg/dL (<200); Estimated Glomerular Filt Rate > 60; Glucose Random 83 mg/dL (60-115); HDL Cholesterol 48 mg/dL (>40); LDL Cholesterol Calculated 123 mg/dL (<100); Potassium 4.4 mmol/L (3.3-5.1); Sodium 142 mmol/L (135-145); Triglycerides 135 mg/dL (<150)
[2024-08-03 18:20] LABS: Creatinine Urine 81.83 mg/dL
[2024-08-03 18:28] LABS: Total Protein Urine Random 225 mg/dL (<12)
[2024-08-04 10:58] LABS: Tacrolimus Prograf 5.1 mcg/L
== END 2024-08-03 09:40 | disposition home or self-care (01) ==
LOC: HO.HKASLDS 09:39
PROVIDERS: Visit Provider Internal Medicine Hypertension Specialist
DX: N04.1 Nephrotic syndrome with focal and segmental glomerular lesions (principal); N04.9 Nephrotic syndrome with unspecified morphologic changes; Z79.899 Other long term (current) drug therapy
CPT/HCPCS: 36415; 80048; 80061; 80197; 81001; 82570; 83036; 84156; 85027

== ENCOUNTER 2024-08-07 14:35 | Outpatient (AMB) | payer OTHER, SELFPAY ==
[2024-08-07 14:41] VITALS: BP 114/70; PULSE 103; O2SAT 98; BMI 39.2
--- NOTE | 2024-08-07 14:41 | HO.NEPHOV ---
Vital Signs 08/07/24 14:41 Height 4 ft 11 in Weight 194 lb BMI 39.2 BP 114/70 Blood Pressure Location Lt brachial Position Sitting Pulse 103 H Pulse Source Pulse Oximeter Pulse Oximetry (%) 98 Oxygen Delivery Method Room Air Intake Visit Reasons: FU/ Conf Analyst Sales Required: No Accompanied by: Self / Same As Patient Allergies SHELL FISH Allergy (Severe, Uncoded 06/01/24 14:04) Anaphylaxis Medication List - Last Reconciled 08/07/24 by Gutierrez Lozano MD aspirin 81 mg PO QAM epinephrine 0.3 mg IM Q10M PRN ergocalciferol (vitamin D2) 1,250 mcg PO QWEEK hydrochlorothiazide 25 mg PO DAILY 90 days levothyroxine 50 mcg PO DAILY losartan 50 mg PO DAILY magnesium oxide 200 mg PO DAILY ondansetron 4 mg PO DAILY PRN peg 3350-electrolytes 236-22.74-6.74 -5.86 gram (Golytely) 240 mL PO Q10M rosuvastatin 40 mg PO DAILY tacrolimus XR 4 mg PO DAILY HPI Comments Details: Madison is a pleasant 48-year-old woman who has been 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 She has a history of dyslipidemia and she is on statins. She also complains of leg edema. He is not on any diuretics. No history of hypertension. She is on losartan 25 mg due to the proteinuria. Madison is a history of CVA exact etiology was not known. She is on aspirin. Madison tells me that she had a kidney biopsy when she was a teenager and she was told that she had Nil disease. She did not undergo any specific treatment. 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 She has a history of chronic alcohol abuse and currently she has been sober. 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 01/03/2024. She underwent kidney biopsy. Tolerated procedure well. No complications. No specific complaints. Accompanied by . 02/01/2024. She has been on prednisone 60 mg a day for the last 4 weeks. She has gained 5 lb. Complains of mild swelling in the legs. Occasional cramping. 02/14/24 c/o right flank pain; No urinary symptoms 03/06/2024. Still has generalized body swelling. She is not on low-salt diet. No gross hematuria 04/06/2024. She was given cyclosporine but she did not tolerate. This discontinued due to side effects 04/27/2024. She was started on tacrolimus 1 mg p.o. b.i.d. however she has been forgetting the evening dose and she has been taking only 1 mg a day. With recent tacro level was less than 1. She is able to tolerate this. Minimal edema. No shortness of breath. Weight unchanged. 06/01/24: Weight is up to 200lbs. She stopped Prednisone 2 weeks ago. 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 The pain has been severe for the past two weeks, exacerbated by activities such as climbing stairs and walking, but alleviated when sitting or lying down. No new medications have been started recently, and the patient is not currently taking prednisone. The patient also has a history of proteinuria, which has shown significant improvement. The urine protein level has decreased from 7.3 grams in March to 2.7 grams currently, indicating a positive response to treatment with tacrolimus. The patient's kidney function is stable with a creatinine level of 0.67 mg/dL. The patient is on hydrochlorothiazide and losartan for hypertension management. There is a noted improvement in edema, attributed to dietary modifications such as reduced salt intake. [facility] Medical History Nephrotic syndrome History of CVA (cerebrovascular accident) Nicotine dependence, cigarettes, uncomplicated DJD (degenerative joint disease) Hypothyroidism Hyperlipidemia Hypertension Surgical History History of History of cervical discectomy Family History Mother Lung cancer, Onset Age: 67 Social History Alcohol intake: never Tobacco use type: Cigarette Years Smoked: (onset 25yo, 1ppd x 23yrs, now 1/2-3/4ppd - 20+PYH) Physical Exam Vital Signs: Last Vital Signs Pulse 103 H 08/07/24 14:41 BP 114/70 08/07/24 14:41 Pulse Ox 98 08/07/24 14:41 Oxygen Delivery Method Room Air 08/07/24 14:41 BMI result Body Mass Index 39.2 Comfortable Neck supple no JVD. Lungs entry equal no rales. Heart S1-S2 heard no gallop or rub. Abdomen soft nontender. Neuro alert awake oriented. No asterixis. Extremities trace edema. Results Reviewed Results Reviewed: Feb Right kidney: The right kidney measures 13.3 x 5.6 x 5.5 cm. There is a probable hypertrophied column of Pradeep as well as a junctional parenchymal defect at the upper pole. Renal cortical thickness is otherwise normal. There are no masses. There is no hydronephrosis or renal calculi. Left Kidney: The left kidney measures 13.1 x 5.6 x 4.6 cm. Renal parenchymal echotexture and thickness are normal. There is a 1.2 x 1.8 x 1.1 cm cyst in the interpolar region. There is no hydronephrosis or renal calculi. 1.2 x 1.8 x 1.1 cm left renal cyst. No hydronephrosis. 05/18/24 : Urine Pro: Cr 6.76 08/03/24 Urine Pro: Cr = 2.77 Tacro: 5.1 Nephrology Results: Hgb, (12.0-16.0) 13.8 g/dl 08/03/24 WBC, (4.8-10.8) 6.5 X10*3/uL 08/03/24 Plt Count, (160-400) 373 X10*3/uL 08/03/24 Sodium, (135-145) 142 mmol/L 08/03/24 Potassium, (3.3-5.1) 4.4 mmol/L 08/03/24 Chloride, (96-108) 109 mmol/L H 08/03/24 Carbon Dioxide, (22-29) 26 mmol/L 08/03/24 BUN, (9-16) 24 mg/dL H 08/03/24 Creatinine, (0.5-1.4) 0.67 mg/dL 08/03/24 Calcium, (8.4-10.2) 8.9 mg/dL 08/03/24 Urine Protein, (Neg-Trace) 300 (3+) mg/dL H 08/03/24 Urine Creatinine 81.83 mg/dL 08/03/24 Renal US 02/17/24 Assessment & Plan Assessment & Plan (1) Nephrotic syndrome: Comment: Due to primary FSGS Code(s): N04.9 - Nephrotic syndrome with unspecified morphologic changes Category: Medical (2) FSGS (focal segmental glomerulosclerosis): Code(s): N05.1 - Unspecified nephritic syndrome with focal and segmental glomerular lesions Category: Medical Plan Based on the kidney biopsy: Started treatment with prednisone. Discussed the pros and cons of steroid therapy. She was on prednisone 60 mg daily for 8 weeks since 01/03/2024. And omeprazole 20 mg q.d.. She is currently on aspirin. urinary protein excretion still remains elevated at 7.0 Renal function stable. She did not respond to prednisone. Unable to tolerate cyclosporine. . Start with 1 mg b.i.d. and adjust dose based on levels.() Side effects of tacrolimus discussed and gave a printout Due to serious interactions rosuvastatin has been placed on hold Encouraged her to stay on a low-sodium diet. 04/27/2024. She was supposed to be on tacrolimus 1 mg p.o. b.i.d. however she has been taking only 1 mg daily and she forgets the evening dose. I will switch to long-acting tacrolimus- Envarsus. Start with 2 mg daily Check levels in 2 weeks and increase dose as needed. 06/01/24 Renal fx stable UrienPro: cr is 6.0 Unable to take PRednisone Increase Envarsus to 4 mg 08/07/24 Responding to Tacrolimus Urine Pro: cr has decreased from 7 gm to 2.7 gm However, arthalgia is significant. Will DC Tacrolimus Try Mycophenalate 50 mg BID Gave instructions Orders: Orders Creatinine Urine 4 Weeks N04.9 - Nephrotic syndrome with unspecified morphologic changes UA and rflx microscopic 4 Weeks N04.9 - Nephrotic syndrome with unspecified morphologic changes Total Protein Urine Random 4 Weeks N04.9 - Nephrotic syndrome with unspecified morphologic changes Basic Metabolic Panel 4 Weeks N04.9 - Nephrotic syndrome with unspecified morphologic changes Medications: New mycophenolate mofetil 500 mg (2 x 250 mg) PO BID 60 caps 1RF Discontinued tacrolimus XR Discontinued Reason: Doctor's Order 4 mg PO DAILY 30 tabs 2RF Coding Level of Care Code Est Pt Level 4 (31204) Diagnoses Nephrotic syndrome N04.9 FSGS (focal segmental glomerulosclerosis) N05.1
--- OUTSIDE RECORDS SUMMARY | 2024-08-07 15:05 | XMS_ITS | Encounter Summary ---
Author Organization [employer] Address [address] [place] [address], [place] [address] Care Team Providers Care Oil Heat Technician Name Role Phone Kourtney Saxena MD Primary Care Pro vider Reason for Visit * Reason Comments Med Refill Encounter Details Date Type Department Care Team ([facility] st Contact Info) Description 05/19/2024 Refill [facility] [address] [place] [address] Kourtney Saxena MD [address] [place] [address] Social History Tobacco Use Types Packs/Day Years Used Date Smoking Tobacco: Every Day Cigarettes 1 24.5 Started: 2000 Smokeless Tobacco: Current Alcohol Use [...] Care Team (Late st Contact Info) Description 09/20/2024 2:00 PM EDT Office Visit [facility] [address] [place] [phone] Kourtney Saxena MD [address] [place] [address] 10/05/2024 9:00 AM EDT Office Visit [facility] [address] [place] [address] [phone] Hattie Gomez 10/12/2024 9:00 AM EDT Office Visit [facility] [address] [place] [phone] Hattie Gomez documented as of this encounter Visit Diagnoses Not on filedocumented in this encounter Additional Health Concerns Assessment Noted Time PHQ-9 Depression Total Score: 4 07/02/19 10:41 AM EDT documented as of this encounter Care Teams Oil Heat Technician Relationship Specialty Start Date End Date Kourtney Saxena MD [address] [place] [phone] PCP - General Internal Medicine 04/23/23 documented as of this encounter
--- OUTSIDE RECORDS SUMMARY | 2024-08-07 15:05 | XMS_ITS | Clinical Summary ---
Author Organization [facility] Address [address] [place] [address] Care Team Providers Care Hot Strip Mill Inspector Name Role Phone Vero Archuleta DO Primary Care Provider [phone] Surgical History Surgery Date Site/Laterality Comments SECTION PROCEDURE: HISTORICAL DELIVERY Medical History Medical History Date Comments History of drug dependence/a buse ([facility] V24, [facility] V28) 08/03/2013 DX:History of drug dependen ce/abuse ([facility]); COMMENT: Marijuana, cocaine, crack, heroin - clean since 02/28/16 (relapse 01/22) PTSD (post-traumatic stress disorder) 10/17/2013 DX:PTSD (post-traumatic stress disorder) Anxiety 10/17/2013 DX:Anxiety Alcohol abuse 08/15/2012 DX:Alcohol abuse ; COMMENT: Quit May 2012 Was hospitalized [facility] previous pcp , clean Dec 2015 Asthma 08/15/2012 DX:Asthma Depression 08/15/2012 DX:Depression 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
== END 2024-08-07 15:03 | disposition home or self-care (01) ==
LOC: HO.HKA 14:35
PROVIDERS: PCP Student in an Organized Health Care Education/Training Program; Visit Provider Internal Medicine Hypertension Specialist
DX: N04.9 Nephrotic syndrome with unspecified morphologic changes (principal); N05.1 Unspecified nephritic syndrome with focal and segmental glomerular lesions
CPT/HCPCS: 99214

== ENCOUNTER 2024-10-19 10:27 | Day surgery (SDC) | payer OTHER, SELFPAY ==
[2024-10-17 12:56] VITALS: BMI 39.4
--- OUTSIDE RECORDS SUMMARY | 2024-10-17 15:11 | XMS_ITS | Encounter Summary ---
Author Organization [employer] Address [address] [place] [address] 7 [place] [address] Care Team Providers Care Financial Operations Analyst Name Role Phone Kourtney Saxena MD Primary Care Pro vider Reason for Referral * Consultation (Routine) - Authorized Specialty Diagnoses / Procedures Referred By Contac t Referred To Contact Pharmacy Diagnoses Hypertension Melvi Yan MD [address] [place] [address] Phone: tel: fax: Referral ID Status Reason Start Date Expiration Date Visits Requested Visits Authorized [id number] Authorized Continuity of Care 09/19/2024 09/19/2025 6 6 Encounter Details Date Type Department Care Team ([facility] st Contact Info) Description 09/19/2024 Orders Only [facility] [address] [place], [place] [phone] Kourtney Saxena MD [address] [place], [place] [phone] Hypertension (Primary Dx) Social History Tobacco Use Types Packs/Day Years Used Date Smoking Tobacco: Every Day Cigarettes 1 24.7 Started: 2000 Smokeless Tobacco: Current Comments:Started 25 y of age currently smoking-10 <---15<---10 cig a day ,smoked for 22 years , smoked 20 cigarettes a day --PQT a day 22 calc 22 Alcohol Use Standard Drinks/Week Comments Not Currently 0 (1 standard drink = 0.6 oz pur e alcohol) heavy ETOH drinking 02/2016 Depression Answer Date Recorded Patient Health Questionnaire-9 Score 0 07/17/2024 Patient Health Questionnaire-9 Score 0 07/17/2024 Last PHQ-9: Questionnaire Data Not on file 0 07/17/2024 Housing Stability Answer Date Recorded What is [...] Date Recorded Patient Health Questionnaire-2 Score 0 07/17/2024 Internet Access Answer Date Recorded Internet Access [...] Care Team (Late st Contact Info) Description 11/16/2024 1:15 PM EDT Office Visit [facility] [address] [place] [address] [phone] Kourtney Saxena MD [address] [place] [address] Scheduled Referrals Name Type Priority Associated Diagnoses Orde r Schedule Referral to Pharmacy MTM Outpatient Referral Routine Hypertension Ordered: 09/19/2024 documented as of this encounter Visit Diagnoses Diagnosis Hypertension- Primary Unspecified essential hypertension documented in this encounter Additional Health Concerns Assessment Noted Time PHQ-9 Depression Total Score: 0 07/18/19 25 1:35 PM EDT documented as of this encounter Care Teams Financial Operations Analyst Relationship Specialty Start Date End Date oKurtney Saxena MD [address] [place] [phone] PCP - General Internal Medicine 04/23/23 documented as of this encounter
--- OUTSIDE RECORDS SUMMARY | 2024-10-17 15:11 | XMS_ITS | Encounter Summary ---
Author Organization [employer] Address [address] [facility] 7 [place] [address] Care Team Providers Care Unemployment Benefits Claims Taker Name Role Phone Kourtney Saxena MD Primary Care Pro vider Reason for Visit * Reason Comments Med Refill Encounter Details Date Type Department Care Team ([facility] st Contact Info) Description 05/19/2024 Refill [facility] [address] [place], [place] [phone] Kourtney Saxena MD [address] [place], [place] [phone] Social History Tobacco Use Types Packs/Day Years Used Date Smoking Tobacco: Every Day Cigarettes 1 24.7 Started: 2000 Smokeless Tobacco: Current Alcohol Use [...] Description 11/16/2024 1:15 PM EDT Office Visit [facility] [address] [place] [phone] Kourtney Saxena MD [address] [place] [phone] documented as of this encounter Visit Diagnoses Not on filedocumented in this encounter Additional Health Concerns Assessment Noted Time PHQ-9 Depression Total Score: 4 07/02/19 10:41 AM EDT documented as of this encounter Care Teams Unemployment Benefits Claims Taker Relationship Specialty Start Date End Date Kourtney Saxena MD [address] [place] [phone] PCP - General Internal Medicine 04/23/23 documented as of this encounter
--- OUTSIDE RECORDS SUMMARY | 2024-10-17 15:11 | XMS_ITS | Encounter Summary ---
Author Organization [employer] Address [address] [facility] 7t [place] [address] Care Team Providers Care Research And Development Technician Name Role Phone Kourtney Saxena MD Primary Care Pro vider Reason for Visit * Reason Comments Med Refill Encounter Details Date Type Department Care Team ([facility] Contact Info) Description 09/10/2024 Refill [facility] [address] [place], [place] [phone] Love Quintanilla MD [address] [place], [place] [phone] Social History Tobacco Use Types Packs/Day Years [...] Description 11/16/2024 1:15 PM EDT Office Visit [facility] [address] [place] [address] [phone] Kourtney Saxena MD [address] [place] [phone] documented as of this encounter Visit Diagnoses Not on filedocumented in this encounter Additional Health Concerns Assessment Noted Time PHQ-9 Depression Total Score: 0 07/18/19 25 1:35 PM EDT documented as of this encounter Care Teams Research And Development Technician Relationship Specialty Start Date End Date Kourtney Saxena MD [address] [place] [address] [phone] PCP - General Internal Medicine 04/23/23 documented as of this encounter
--- OUTSIDE RECORDS SUMMARY | 2024-10-17 15:11 | XMS_ITS | Clinical Summary ---
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 [...] (2 of 2) 11/18/2023 09/23/2023 Depression Screening 02/09/2024 Influenza Vaccine (#1) 2024 , 12/08/2018, 11/16/2013 Lung Cancer Screening (Low Dose CT) 12/09/2024 12/10/2023 Hypertension/CHF/CAD Annual BMP Blood Test 01/10/2025 01/11/2024 Cholesterol Screening (Lipid Panel) 01/10/2029 01/11/2024 DTaP,Tdap,and Td Vaccines (3 - Td or Tdap) 11/24/2032 11/24/2022, 09/20/2012 Pneumococcal Vaccine: 50+ Years Completed 07/02/2023, 04/27/2014 HIV Screening Completed 07/27/2023 Hepatitis C Screening Completed 07/27/2023 COVID-19 Vaccine Completed 11/01/2023, , 01/26/2022, Additional [...] Recently Relevant to Health Maintenance Care Teams Seat Scooper Machine Relationship Specialty Start Date End Date Vero Archuleta DO PCP - General Internal Medicine 10/07/21
--- OUTSIDE RECORDS SUMMARY | 2024-10-17 15:11 | XMS_ITS | Clinical Summary ---
Author Organization [employer] Address [address] [facility] 7t [place] [address] Care Team Providers Care Industrial Workers Name Role Phone Kourtney Saxena MD Primary Care Pro vider Allergies Active Allergy Reactions Criticality Noted Date Comments Shellfish Allergy 04/24/2024 Shellfish-Derived Products Anaphylaxis High 03/24/19 23 Medications * This document contains information received from the source organization and may not represent a complete record from that organization. EPINEPHrine (Epipen) 0.3 MG/0.3ML injection syringe Inject 0.3 mL (0.3 mg) as directed 1 (one) time if needed for anaphylaxis for up to 2 doses. Inject into upper leg. Call 911 after use. 1 each 1 07/02/19 24 Active acetaminophen (Tylenol) 500 MG tablet Take 1 tablet (500 mg) by mouth every 6 (six) hours if needed for mild pain for up to 20 doses. 20 tablet 04/25/19 25 Active rosuvastatin (Crestor) 40 MG tablet Take 1 tablet (40 mg) by mouth Once per day. 90 tablet 05/20/19 25 026 Active levothyroxine (Synthroid, Levoxyl) 50 MCG tablet TAKE 1 TABLET BY MOUTH EVERY MORNING BEFORE MEALS 90 tablet 07/14/19 25 Active hydroCHLOROth iazide (HYDRODiuril) 25 MG tablet 07/13/19 25 Active Envarsus XR 4 MG tablet ER 07/13/19 25 Active varenicline (Chantix) 0.5 MG tablet Take 0.5 mg PO once daily on Days 1 through 3, then 0.5 mg PO twice daily CAN NOT TOLERATE HIGHER DOSE 60 tablet 3 07/18/19 25 Active Aspirin Low Dose 81 MG EC tablet TAKE 1 TABLET BY MOUTH EVERY MORNING 90 tablet 07/21/19 25 Active ergocalcifero l (Vitamin D2) 1.25 MG (05769 UT) capsule TAKE 1 CAPSULE BY MOUTH ONCE WEEKLY ON WEDNESDAY MORNING 4 capsule 1 09/05/19 25 Active Diclofenac Sodium 1 % gel APPLY 2 GRAMS TOPICALLY TO AFFECTED AREA(S) DAILY NEEDED FOR PAIN 100 g 09/20/19 25 Active losartan (Cozaar) 25 MG tablet TAKE 1 TABLET BY MOUTH EVERY MORNING 90 tablet 1 09/20/19 25 Active losartan (Cozaar) 25 MG tablet TAKE 1 TABLET BY MOUTH EVERY MORNING 90 tablet 06/10/19 25 025 Discontinued(Re order (will not trigger notification to Pharmacy)) Diclofenac Sodium 1 % gel Apply 1 Application topically if needed each day (pain). 50 g 07/18/19 25 025 Discontinued Active Problems Problem Noted Date Diagnosed Date Moderate anxiety 07/20/2024 Chest discomfort 07/18/2024 Nephrotic syndrome 05/02/2024 Overview (05/02/2024): Follows w/ Nephrology Note 04/27/24 plan was to switch to long-acting tacrolimus- Envarsus. On prednisone 20mg daily, have reached out to renal to see if they would agree for bactrim prophylaxis given prednisone dose and duration (Alivia, 05/02/24) Non-restorable tooth 04/24/2024 Fractured 04/24/2024 FSGS (focal segmental glomerulosclerosis) 2023 History of CVA (cerebrovascular accident) 2023 Proteinuria [...] to hold chiantix. Hypertension 07/02/2023 07/03/2023 Encounters * This document contains information received from the source organization and may not represent a complete record from that organization. Date Type Department Care Team Description 09/20/[address] [facility] [address] [place] [address] Kourtney Saxena MD 09/19/[address] [facility] [address] [place] [address] Kourtney Saxena MD Hypertension (Primary Dx) 09/19/[address] [facility] [address] [place] [address] Kourtney Saxena MD 09/19/[address] [facility] [address] [place] [address] Kourtney Saxena MD 09/19/[address] [facility] [address] [place] [address] [facility] 09/10/[address] [facility] [address] [place] [address] Love Quintanilla MD 09/03/[address] [facility] [address] [place] [address] Kourtney Saxena MD 07/20/[address] [facility] [address] [place] [address] Lawrence Dobbs MD 07/17/2024 1:15 PM EDT Office Visit [facility] [address] [place] [address] Kourtney Saxena MD Hypertension, unspecified type (Primary Dx); Annual physical exam; Chest discomfort 07/17/2024 Travel from Last 3 Months Immunizations Immunization Administration Dates Next Due Influenza Injectable Quadriv [...] 1 24.7 Started: 2000 Smokeless Tobacco: Current Tobacco Cessation:Ready to Q uit: Not Asked; Counseling Given: Not Answered Comments:Started 25 y of age currently smoking-10 [...] Sign Reading Time Taken Comments Blood Pressure 120/82 07/17/2024 1:32 PM EDT Pulse 96 07/17/2024 1:32 PM EDT Temperature 36.2 C (97.2 F) 07/17/2024 1:32 PM EDT Respiratory Rate 20 07/17/2024 1:32 PM EDT Oxygen Saturation 96% 07/17/2024 1:32 PM EDT Inhaled Oxygen Concentration - - Weight 87.3 kg (192 lb 6.4 oz) 07/17/2024 1:32 P M EDT Height 150.1 cm (4' 11.11 ) 07/17/2024 1:32 PM E DT Body Mass Index 38.72 07/17/2024 1:32 PM EDT Plan of Treatment Upcoming Encounters Date Type Department Care Team (Late st Contact Info) Description 11/16/2024 1:15 PM EDT Office Visit [facility] [address] [place] [address] [phone] Kourtney Saxena MD [address] [place], [place] [phone] Health Maintenance Due Date Last Done Comments CT Colonography 1973 Colonoscopy 1973 Colorectal Cancer Screening 1973 Dental Prophylaxis 1973 FIT DNA/Cologuard 1975 FIT 1973 FOBT 1973 Sigmoidoscopy 1975 Family Planning (PISQ) 1988 Hepatitis B Vaccines (1 of 3 - 19+ 3-dose series) 1992 Dental Oral Exam 08/20/2022 02/19/2022 Zoster Vaccines (2 of 2) 11/18/2023 09/23/2023 COVID-19 Vaccine (7 - Moderna risk 2023- season) 2024 11/01/2023, 07/02/2023, 01/26/2022, Additional history exists Influenza Vaccine (#1) 2024 , 12/08/2018, 11/16/2013 Lung Cancer Screening 12/09/2024 12/10/2023 Dental X-Ray: Full Mouth 02/20/2025 02/19/2022 Dental X-Ray: Bitewings 04/25/2025 04/25/19 25, 11/15/2023, 02/19/2022 SDOH Screening 07/10/2025 07/10/2024 Alcohol/Substance Use Screening 07/17/2025 07/17/2024 Depression Screening 07/17/2025 07/17/2024, 07/18/19 25 Disability Screening 07/17/2025 07/17/2024 Tobacco Screening 07/17/2025 07/17/2024 Mammogram 08/16/2025 08/17/2023 Pap Smear 03/28/2027 03/28/2024 Lipid Panel 01/10/2029 01/11/2024, 10/10, 07/27/2023 Cervical Cancer Screening 03/28/2029 HPV/Cotest 03/28/2029 03/28/2024 DTaP/Tdap/Td Vaccines (3 - Td or Tdap) 11/24/2032 11/24/2022, 09/20/2012 RSV Patients and Patients Aged 60 years or older (1 - 1-dose 75+ series) 2048 Pneumococcal Vaccine: 50+ Years Completed 07/02/2023, 04/27/2014 HIV Screening Completed 07/27/2023 Hepatitis C Screening Completed 07/27/2023 HIB Vaccines Aged Out No longer eligi [...] Procedure Name Priority Date/Time Associated Diagnosis Comments ECG 12-LEAD Routine 07/17/2024 2:10 PM EDT Hypertension, unspecified type BITEWING - SINGLE RADIOGRAPHIC IMAGE Routine 04/24/2024 1:00 PM EDT HPV DNA, LOW/HIGH RISK Routine 10:12 AM EST PAP SMEAR Routine 03/28/2024 10:12 AM EST LIPID PANEL, STANDARD Routine 01/11/2024 [...] Recently Relevant to Health Maintenance Results * ECG 12 lead (07/17/2024 2:10 PM EDT) Narrative Kourtney Saxena MD - 07/17/2024 2:10 PM EDT EKG today 07/2024 HR 81x' , Qtc 420,no ischemic findings us Kourtney Epstein MD ECG ORDERABLES F inal Result * HPV DNA, Low/High Risk (03/28/2024 10:12 AM EST) HPV High Risk Negative Negative [facility] HPV Genotype 16 Negative Negative [facility] HPV Genotype 18 Negative Negative [facility] Comment:HPV testing performe d at [facility] (CLIA#[id number]), [address] [place] [phone].Testing for HPV was performed using the [employer] directworx0system. The presence of HPV in the female [...] ORDERAB LES Final Result Performing Organization Address City/State/[facility] Co de Phone Number [facility] [address] [place] [phone] * Pap Smear (03/28/2024 10:12 AM EST) 03/28/2024 10:1 2 AM EST 03/28/2024 2:15 PM EST Narrative [facility] - 04/03/2024 12:46 PM EST ----- ------- Name: Madison Navarro Age/Sex: 48/F : 1975 Unit#: [id number] Attend Dr: Guille Summers MD Re03/28/24 Status: DEP REF Location: HO.LNP Disch: ----- ------- SPEC : [id number] RECD: 03/28/24 STATUS: SMITHA ORTIZ NUM: [id number] YAMINI: 03/28/24-[address] [facility] [address]: Guille Summers MD ENTERED: 03/28/24 SP TYPE: Pap Smr OTHR DR: Kourtney Saxena MD ORDERED: Pap Smear Interpretation Satisfactory for evaluation. Negative for intraepithelial lesion or malignancy. No endocervical cells seen. HPV High Risk: Negative HPV Genotyping 16: Negative HPV Genotyping 18: Negative Clinical Information LMP:UNKNOWN Previous PAP test:UNKOWN Other surgery: Other history: Copies To: Kourtney Saxena MD [address] [place], [place] [phone] Guille Summers MD [facility] [address] [place] [address] ----- ------- Signed (signature on file) MELITA Kwok (ASCP) 04/03/24 1246 ----- ------- END OF REPORT Generic External Data Provider LAB CYTOLOGY DAVE OSWALD Final Result [facility] [address] [place] [phone] * (ABNORMAL) Lipid Panel, Standard (01/11/2024 9:50 AM EST) Triglycerides 133 <150 mg/dL [facility] Comment:Desirable Triglyceri de: less than 150 mg/dLBorderline High Triglyceride 150-199 mg/dLHigh Triglyceride: 200-499 mg/dLVery High Triglyceride: greater than or equal to 5OO mg/dL Cholesterol 246(H) <200 mg/dL [facility] Comment:Desirable Cholestero l: less than 200 mg/dLBorderline High Cholesterol: 200-239 mg/dLHigh Cholesterol: greater than 239 mg/dL LDL Cholesterol Calculated 148(H) <100 mg/dL [facility] Comment:Desirable LDL: less than 100 mg/dLNear Optimal/Above Optimal LDL: 110- 129 mg/dLBorderline High LDL: 130-159 mg/dLHigh LDL: 160-189 mg/dLVery High LDL: greater than or equal to 190 mg/dL HDL Cholesterol 72 >40 mg/dL [facility] Comment:Desirable HDL: great er than 40 mg/dL Note: This HDL assay may give artificially low results in patients with liver disease. 01/11/2024 9:50 AM EST 01/11/2024 11:31 AM EST us Generic External Data Provider LAB BLOOD ORDERAB LES Final Result [facility] [address] [place] [phone] * CT Lung Screening Low dose (12/10/2023 10:40 AM EDT) Anatomical Region Laterality Modality Lung Computed Tomogra phy 12/10/2023 10:4 0 AM EDT Narrative 01/26/2024 11:47 PM EST [address] [address] [address] Scan Report Signed Patient: Madison Navarro MR# : [id number] : 1975 Acct:[id number] Age/Sex: 48 / F ADM Date: 12/10/23 Loc: HO.CT Attending Dr: Stacy Mays PA-C Ordering Physician: Stacy Mays PA-C Date of Service: 12/10/23 Procedure(s): CT lung screening Accession Number(s): [id number] cc: Stacy Mays PA-C; Kourtney Saxena MD [...] 11:44 PM [facility] Dictated By: Kuldeep Roca MD Signed By: <Electronically signed by Kuldeep Roca MD in OV> 01/26/24 2344 DD/ 1040 TD/TT: 12/10/23 1045 Bark Peeler: SS Procedure Note Donotuseinterpreter, Image - 01/26/[address] [place] [address] [address] Scan Report Signed Patient: Madison Navarro AMR# : [id number] : 1975Acct:[id number] Age/Sex: 48 / FADM Date: 12/10/23 Loc: HO.CT Attending Dr: Stacy Mays PA-C Ordering Physician: Stacy Mays PA-C Date of Service: 12/10/23 Procedure(s): CT lung screening Accession Number(s): [id number] cc: Stacy Mays PA-C; Kourtney Saxena MD [...] 11:44 PM [facility] Dictated By: Kuldeep Roca MD Signed By: <Electronically signed by Kuldeep Roca MD in OV> 01/26/24 2344 DD/ 1040 TD/TT: 12/10/23 1045 Bark Peeler: SS [facility] External Provider IMG CT PROCEDURES Edited Result - Final * BI Mammogram Screening Tomosynthesis Bilateral (08/17/2023 9:18 AM EDT) Anatomical Region Laterality Modality Breast Bilateral Mammography 08/17/2023 9:18 AM EDT Narrative 09/12/2023 3:49 PM EDT [facility] [address] [place], [place] [address] Mammography Report Signed Patient: Madison Navarro MR# : [id number] : 1975 Acct:[id number] Age/Sex: 48 / F ADM Date: 08/17/23 Loc: HO.MAMMO Attending Dr: Kourtney Epstein MD Ordering Physician: Kourtney Saxena MD sults: 2Benign Findings Date of Service: 08/17/23 Follow Up: 1 Year From Orig ina Mammogram Procedure(s): MM tomosynthesis screening BI Accession Number(s): [id number] cc: Kourtney Saxena MD EXAMINATION: MM SCREENING [...] in OV> 09/12/23 1546 DD/ 0918 TD/TT: Bark Peeler: Procedure Note Donotuseinterpreter, Image - 09/12/2023 [facility] [address] [place] [address] Mammography Report Signed Patient: Madison Navarro AMR# : [id number] : 1975Acct:[id number] Age/Sex: 48 / FADM Date: 08/17/23 Loc: AI Attending Dr: Kourtney Epstein MD Ordering Physician: Kourtney Saxena sults: 2Benign Findings Date of Service: 08/17/23Follow Up: 1 Year From Orig ina Mammogram Procedure(s): MM tomosynthesis screening BI Accession Number(s): [id number] cc: Kourtney Saxena MD EXAMINATION: MM SCREENING [...] Faulkner MD in OV> 09/12/23 1546 DD/ 7 TD/TT: Bark Peeler: us Kourtney Epstein MD IMG BI PROCEDURES Final Result * Hepatitis C Antibody with Reflex to HCV, RNA, Quantitative, Real-Time PCR (07/27/2023 10:47 AM EDT) Hepatitis C Antibody Nonreactive Nonreactive [facility] Comment:Antibodies to HCV no t detected; does not exclude early acuteHCV infection. Blood Venous blood specimen / Unknown 07/27/2023 10:47 AM EDT 07/27/2023 11:28 AM EDT Kourtney Epstein MD LAB BLOOD ORDERAB LES Final Result [facility] [address] [place] [phone] * HIV-1/2 Antigen and Antibodies, Fourth Generation, with Reflexes (07/27/2023 10:47 AM EDT) HIV AB/AG Nonreactive Nonreactive [facility] Comment:HIV-1 p24 Ag and/or HIV-1/HIV-2 Ab not detected.A test result that is nonreactive does not exclude thepossibility of exposure to or infection with HIV-1 and/orHIV-2. Nonreactive results in this assay for individualswith prior exposure to HIV-1 and/or HIV-2 may be due toantigen and antibody levels that are below the limit ofdetection of this assay.The [employer] HIV Ag/Ab Combo assay result andsupplemental assay results should be interpreted inconjunction with the patient's clinical presentation,history and other laboratory results. If the results areinconsistent with clinical evidence, additional testing issuggested to confirm the result. Blood Venous blood specimen / Unknown 07/27/2023 10:47 AM EDT 07/27/2023 11:28 AM EDT us Kourtney Epstein MD LAB BLOOD ORDERAB LES Final Result Performing Organization Address [facility] Co de Phone Number [facility] [address] [place] [phone] [phone] from Last 3 Months or Most Recently Relevant to Health Maintenance Insurance MEDICARE [facility] , [address] [place] [address] [facility] [place], [place] [address] Care Teams Industrial Workers Relationship Specialty Start Date End Date Kourtney Saxena MD [address] [place] [phone] PCP - General Internal Medicine 04/23/23
--- OUTSIDE RECORDS SUMMARY | 2024-10-17 15:11 | XMS_ITS | Clinical Summary ---
Author Organization [facility] Address [address] [address] Phone Care Team Providers Care Suede Cleaner Name Role Phone Pcp, Unknown Primary Care Provider Unavailabl e Allergies Active Allergy Reactions Criticality Noted Date Comments Shellfish Containing Products Anaphylaxis High 12/24 Medications rosuvastatin (CRESTOR) 10 MG tablet Take 20 mg by mouth daily. 10/30/2021 Active levothyroxine (SYNTHROID,LEVO THROID) 25 MCG tablet Take 25 mcg by mouth daily. 02/03/2022 Active cloNIDine HCL (CATAPRES) 0.1 MG tablet Take 0.1 mg by mouth 2 (two) times a day as needed. 01/12/2022 Active amLODIPine (NORVASC) 10 MG tablet Take 10 mg by mouth daily. 01/26/2022 Active albuterol 90 mcg/actuation inhaler Inhale 2 puffs into the lungs every 4 (four) hours as needed. Active ibuprofen (ADVIL,MOTRIN) 600 MG tablet Take 600 mg by mouth every 6 (six) hours as needed. Active nitroglycerin (NITROSTAT) 0.[address] 0.4 mg under the tongue every 5 (five) minutes as needed. Active VITAMIN A ORAL Take by mouth. Active docusate sodium (COLACE ORAL) Take 100 mg by mouth as needed. Active DULoxetine (CYMBALTA) 30 MG capsuleIndicati ons:Generalized pain Take in the evening with food as follows: 1 capsule x1 wk, then increase to 2 capsules together 60 capsule 12/24/2022 Active Active Problems Problem Noted Date Diagnosed Date Primary osteoarthritis of right knee 12/24/2022 Assessment & Plan (12/24/2022 12:47 PM EST): intra-articular steroid injection today as detailed in procedure note Generalized pain 12/24/2022 Overview (12/24/2022): Predominantly fingers / knees / ankles bl No psoriasis, dactylitis, uveitis, or Raynaud's; AM stiffness 15-30 minutes Assessment & Plan (12/24/2022 12:50 PM EST): No specific objective e/o underlying inflammatory arthritis but will obtain baseline RF and inflammatory markers given pattern of more severe pain with inactivity. Likely due to both mechanical and neuropathic causes though ddx includes endocrinopathy and fibromyalgia. Baseline labs; trial empiric duloxetine starting at 30 mg nightly to be increased to 60 mg nightly if tolerated. Plain films hands and feet / ankles pending both lab findings and response to duloxetine. Vitamin D deficiency, unspecified 12/24/2022 Family History Medical History Relation Comments Osteoporosis Maternal Grandmother Lung cancer Mother Osteoporosis Mother Rheumatoid arthritis Mother Relation Status Comments Maternal Grandmother Mother Social History Tobacco Use Types Packs/Day Years Used Date Smoking Tobacco: Former Cigarettes Smokeless Tobacco: Never Alcohol Use Standard Drinks/Week Comments Not Currently 0 (1 standard drink = 0.6 oz pur e alcohol) Education Answer Date Recorded Are you interested in more education? Not on khushi e 08/03/2022 Are you concerned about learning? Not on file 08/03/2022 No 08/03/2022 No 08/03/2022 Digital Access Answer Date Recorded No 08/03/2022 No 08/03/2022 Reliable internet access at home? Not on file 08/03/2022 Device with a working camera? Not on file Comments Unknown Sex and Gender Information Value Date Recorded Sex Assigned at Not on file Legal Sex Female 10:06 AM EDT Gender Identity Not on file Sexual Orientation Not on file Last Filed Vital Signs Vital Sign Reading Time Taken Comments Blood Pressure 124/82 12/24/2022 11:33 AM EST Pulse 71 12/24/2022 11:33 AM EST Temperature - - Respiratory Rate 16 12/24/2022 11:3 3 AM EST Oxygen Saturation 98% 12/24/2022 11: 33 AM EST Inhaled Oxygen Concentration - - Weight 81.6 kg (180 lb) 12/24/2022 11:3 3 AM EST with shoes Height 149.9 cm (4' 11 ) 12/24/2022 11: 33 AM EST patient reported Body Mass Index 36.36 12/24/2022 11:33 AM EST Plan of Treatment Health Maintenance Due Date Last Done Comments LIPID PANEL 1975 TSH LEVEL 1975 DEPRESSION SCREENING 1985 SMOKING Hx and SMOKELESS TOBACCO SCREENING 1986 HEPATITIS C SCREENING 07/20/1991 HIV ONE-TIME SCREENING (18-6 5 YEARS) 07/20/1991 PAP SMEAR 1994 SCREENING FOR DIABETES 2008 MAMMOGRAM 2013 COLOGUARD 2018 COLONOSCOPY 2018 COLORECTAL CANCER SCREENING 2018 FIT TEST 2018 FOBT 2018 SIGMOIDOSCOPY 2018 VIRTUAL COLONOSCOPY 2018 PNEUMOCOCCAL VACCINES (50+ years) (2 of 2 - PCV) 07/20/2023 04/27/2014 ZOSTER VACCINES (1 of 2) 07/20/2023 INFLUENZA VACCINE (#1) 2024 COVID-19 VACCINE (1 - 2023-2 5 season) 2024 Adult Td,Tdap Booster 11/24/2032 11/24/2022 , 09/20/2012 HEPATITIS A VACCINES Aged Out No long er eligible based on patient's age to complete this topic HIB VACCINES Aged Out No longer eligi ble based on patient's age to complete this topic MENINGOCOCCAL VACCINES (ACWY) Aged Out No longer eligible based on patient's age to complete this topic MENINGOCOCCAL VACCINES (B) Aged Out N o longer eligible based on patient's age to complete this topic Medical Devices Not on file Insurance HMO [facility] Address: [address] [place] [address] MEDICARE PART [facility] & [facility] Address: [address] [place] [address] MEDICARE PART A & B O MEDICARE PART A & B O MEDICARE PART A & B O [facility] Address: [address] [place] [address] MEDICARE PART A & B O [facility] Address: [place] [address] MEDICARE PART A & B Care Teams Suede Cleaner Relationship Specialty Start Date End Date Pcp, Unknown PCP - General 07/20/22 Additional Source Comments The information contained in this document represents components of the legal health record. It is not the complete legal health record.[facility]
--- OUTSIDE RECORDS SUMMARY | 2024-10-17 15:11 | XMS_ITS | Encounter Summary ---
Author Organization [employer] [facility] Address [address] [place] [address] 7 [place] [address] Care Team Providers Care Advertising Assistant Name Role Phone Kourtney Saxena MD Primary Care Pro vider Reason for Visit * Reason Comments Med Refill Encounter Details Date Type Department Care Team ([facility] Contact Info) Description 12/07/2022 Refill [facility] [address] [place] [phone] Jaylon Martin MD [address] [place] [phone] Social History Tobacco Use Types Packs/Day Years [...] Encounters Date Type Department Care Team (Late Contact Info) Description 11/16/2024 1:15 PM EDT Office Visit [facility] [address] [place] [phone] Kourtney Saxena MD [address] [place] [phone] documented as of this encounter Visit Diagnoses Not on filedocumented in this encounter Care Teams Advertising Assistant Relationship Specialty Start Date End Date Kourtney Saxena MD [address] [place] [address] [place] [phone] PCP - General Internal Medicine 04/23/23 documented as of this encounter
--- OUTSIDE RECORDS SUMMARY | 2024-10-17 15:11 | XMS_ITS | Encounter Summary ---
Author Organization [employer] [facility] Address [address] [place] [address] 7 [place] [address] Care Team Providers Care Sow Farm Barn Technician Name Role Phone Kourtney Saxena MD Primary Care Pro vider Reason for Visit * Reason Comments Med Refill Encounter Details Date Type Department Care Team ([facility] Contact Info) Description 12/14/2022 Refill [facility] [address] [place] [address] [phone] Love Quintanilla MD [address] [place] [phone] Social History Tobacco Use Types Packs/Day Years [...] Description 11/16/2024 1:15 PM EDT Office Visit [facility] [address] [place] [phone] Kourtney Saxena MD [address] [place] [phone] documented as of this encounter Visit Diagnoses Not on filedocumented in this encounter Care Teams Sow Farm Barn Technician Relationship Specialty Start Date End Date Kourtney Saxena MD [address] [place] [address] [place] [phone] PCP - General Internal Medicine 04/23/23 documented as of this encounter
--- OUTSIDE RECORDS SUMMARY | 2024-10-17 15:11 | XMS_ITS | Encounter Summary ---
Author Organization [facility] Address [address] [place] [phone] Care Team Providers Care Die Setter Name Role Phone Kourtney Saxena MD Primary Care Pro vider Encounter Details Date Type Department Care Team ([facility] Contact Info) Description 05/04/2023 Orders Only [facility] [address] [place] [address] [phone] Love Quintanilla MD [address] [place] [address] [phone] Social History Tobacco Use Types Packs/Day Years [...] Office Visit [facility] [address] [place] [address] [phone] Kourtney Saxena MD [address] [place] [address] [phone] documented as of this encounter Procedures Procedure Name Priority Date/Time Associated Diagnosis Comments URINALYSIS, COMPLETE, WITH REFLEX TO CULTURE Routine 11/01/2023 11:36 AM EDT ALBUMIN, RANDOM URINE W/CREATININE Routine 08/17/2023 2:30 PM EDT documented in this encounter Results * (ABNORMAL) Urinalysis, Complete, with Reflex to Culture (11/01/2023 11:36 AM EDT) Color Urine Yellow [facility] Appearance Urine Clear [facility] PH 7.0 5.0 - 9.0 [facility] Glucose Urine UA Negative Negative mg/dL [facility] Urine Blood Negative Negative [facility] Specific [place] - Urine 1.010 1.005 - 1.025 [facility] Urine Protein 100 (2+)(A) Neg-Trace mg/dL [facility] Urine Ketones Negative Negative mg/dL [facility] Nitrite Urine Negative Negative [facility] Leukocyte Esterase Urine Negative Negative [facility] RBC Urine 0-2 0 - 2 /HPF [facility] Urine WBC 0-5 0 - 5 /HPF [facility] Urine Squamous Epithelial Cell 0-2 0 - 2 /HPF [facility] Urine Bacteria None Seen None Seen [facility] Hyaline Casts, Urine 0-2 0 - 2 /LPF [facility] 11/01/2023 11:3 6 AM EDT 11/01/2023 1:21 PM EDT Narrative [facility] - 11/01/2023 1:41 PM EDT Urine, Clean Catch us Kourtney Epstein MD LAB URINE ORDERAB LES Final Result [facility] [address] [place] [place], [place] [phone] * (ABNORMAL) Albumin, Random Urine W/Creatinine (08/17/2023 2:30 PM EDT) Creatinine, Urine 94.35 mg/dL [facility] Microalbumin Urine >2,000.0 mg/L [facility] Microalbum Creatinine Ratio Ur 2,119.7(H ) <30 ug/mg cr [facility] Comment:Albumin/Creatinine R atio Reference Ranges: Normal: < 30 ug/mg creatinine Microalbuminuria: 30 - 300 ug/mg creatinineClinical Albuminuria: > 300 ug/mg creatinine 08/17/2023 2:30 PM EDT 08/17/2023 4:14 PM EDT us Kourtney Epstein MD LAB URINE ORDERAB LES Final Result Performing Organization Address City/State/[facility] Co de Phone Number [facility] [address] [place] [address] [phone] documented in this encounter Visit Diagnoses Not on filedocumented in this encounter Care Teams Die Setter Relationship Specialty Start Date End Date Kourtney Saxena MD [address] [place] [phone] PCP - General Internal Medicine 04/23/23 documented as of this encounter
[2024-10-19 11:53] VITALS: BMI 38.5
[2024-10-19] MEDS: Lactated Ringers 1,000 ML 100 ML IVCONT (11:54)
--- NOTE | 2024-10-19 12:25 | HO.ANESPROP2 ---
Documented by User: Jeanette Yepez NP 10/18/24 09:59 HPI - Anesthesia Eval Consult details Narrative: 49 yr old female for Upper Endoscopy and Colonoscopy Nephrotic syndrome: She was on prednisone 60 mg daily for 8 weeks since 01/03/2024; started on tacrolimus at 07/2024 visit H/O CVA: saw [facility] neuro 06/2024 to review brain MRI showing left frontal chronic infarction, chronic right sided numbness/tingling. Carotid duplex done 08/14/24 neg for significant stenosis Saw [facility] cardiology 08/2024 for 2 yrs of chest pain: myocardial perfusion study ordered, done 09/04/24, essentially normal (*see below) H/O polysubstance use disorder, ETOH use disorder: currently in remission since 2016 [facility] Active Problems Active Problems: All Active Problems (Updated 05/02/24 @ 12:31 by Guille Summers MD) Uterine myoma (Acute) FSGS (focal segmental glomerulosclerosis) (Acute) Postmenopausal bleeding (Acute) Change in bowel habit (Acute) History of CVA (cerebrovascular accident) (Acute) Nephrotic syndrome (Acute) Nicotine dependence, cigarettes, uncomplicated (Acute) Zinc deficiency (Acute) Vitamin A deficiency (Acute) Vitamin D deficiency (Acute) DJD (degenerative joint disease) (Acute) Hypothyroidism (Acute) Hyperlipidemia (Acute) Hypertension (Acute) Obesity (Acute) Past Medical History Medical History (Reviewed 06/01/24 @ 14:04 by Ara Balderas [facility]) Nephrotic syndrome History of CVA (cerebrovascular accident) Nicotine dependence, cigarettes, uncomplicated DJD (degenerative joint disease) Hypothyroidism Hyperlipidemia Hypertension Family History Family History Mother Lung cancer, Onset Age: 67 Surgical History Surgical History History of History of cervical discectomy Social History Social History Are you a primary child care associate teacher to a significant other at home: No Do you presently have visiting nurse or other home services: No Alcohol intake: never Patient Tobacco Use Status: Current everyday Tobacco user Tobacco use type: Cigarette Years Smoked: (onset 25yo, 1ppd x 23yrs, now 1/2-3/4ppd - 20+PYH) Smoked in Last 30 Days: Yes Patient Interested in Nicotine Replacement: No Have you been hit, kicked, punched, or otherwise hurt by someone within the past year? If so, by whom?: No Are you DNR?: No Advance Directives: No Advance Directives Information Provided: Yes FDLMP: 4 years ago Poor oral hygiene: No Meds Allergies Allergy/AdvReac Type Severity Reaction Status Date / Time SHELL FISH Allergy Severe Anaphylaxis Uncoded 10/19/24 11:50 Home Medications ?Medication ?Instructions ?Recorded ?Confirmed ?Last Taken ?Type aspirin 81 mg tablet,delayed 81 mg PO QAM 11/23/23 10/19/24 10/18/24 History release ergocalciferol (vitamin D2) 1,250 1,250 mcg PO QWEEK 11/23/23 10/19/24 Unknown History mcg (50,000 unit) capsule epinephrine 0.3 mg/0.3 mL 0.3 mg IM Q10M PRN Anaphylaxis 11/29/23 10/19/24 Unknown History injection, auto-injector levothyroxine 50 mcg tablet 50 mcg PO DAILY 02/01/24 10/19/24 Unknown History losartan 25 mg tablet 50 mg PO DAILY 02/01/24 10/19/24 Unknown History Exam Height,Weight and Vital Signs: Height 4 ft 11 in Weight 88.451 kg Narrative Narrative: EKG 08/2024 Normal sinus rhythm, no ST-T wave changes, rate 76 Myocardial perfusion 09/04/24 Normal exercise toleration, normal, exercise physiology. No EKG evidence of ischemia Breast attenuation noted. Probably normal perfusion study. No reversible defects noted. Normal overall LV systolic function with an estimate LVEF of approx >70% at rest and >70% on delayed post stress images with normal regional wall thickening. ECHO 11/2023 Conclusions: - The left ventricular systolic function is normal. The calculated ejection fraction is 59% by biplane method. - Possible basal inferior akinesis. - There is mild calcification of the aortic valve. - There is mild mitral annular calcification. - There is no evidence of interatrial shunt by agitated saline. Documented by User: Marcia Everett DO 10/19/24 12:27 [facility] Past Medical History Medical History (Reviewed 06/01/24 @ 14:04 by Ara Balderas [facility]) Nephrotic syndrome History of CVA (cerebrovascular accident) Nicotine dependence, cigarettes, uncomplicated DJD (degenerative joint disease) Hypothyroidism Hyperlipidemia Hypertension Family History Family History Mother Lung cancer, Onset Age: 67 Family history of problems with anesthesia: No Surgical History Surgical History History of History of cervical discectomy History of Problems with Anesthesia: No Social History Social History Are you a primary child care associate teacher to a significant other at home: No Do you presently have visiting nurse or other home services: No Alcohol intake: never Patient Tobacco Use Status: Current everyday Tobacco user Tobacco use type: Cigarette Years Smoked: (onset 25yo, 1ppd x 23yrs, now 1/2-3/4ppd - 20+PYH) Smoked in Last 30 Days: Yes Patient Interested in Nicotine Replacement: No Have you been hit, kicked, punched, or otherwise hurt by someone within the past year? If so, by whom?: No Are you DNR?: No Advance Directives: No Advance Directives Information Provided: Yes FDLMP: 4 years ago Poor oral hygiene: No Meds Allergies Allergy/AdvReac Type Severity Reaction Status Date / Time SHELL FISH Allergy Severe Anaphylaxis Uncoded 10/19/24 11:50 Home Medications ?Medication ?Instructions ?Recorded ?Confirmed ?Last Taken ?Type aspirin 81 mg tablet,delayed 81 mg PO QAM 11/23/23 10/19/24 10/18/24 History release ergocalciferol (vitamin D2) 1,250 1,250 mcg PO QWEEK 11/23/23 10/19/24 Unknown History mcg (50,000 unit) capsule epinephrine 0.3 mg/0.3 mL 0.3 mg IM Q10M PRN Anaphylaxis 11/29/23 10/19/24 Unknown History injection, auto-injector levothyroxine 50 mcg tablet 50 mcg PO DAILY 02/01/24 10/19/24 Unknown History losartan 25 mg tablet 50 mg PO DAILY 02/01/24 10/19/24 Unknown History Exam Exam Date and Time: 10/19/24 1225 Airway Mallampati Class: I TM Dist: >3cm Neck ROM: Full Loose/Missing/Broken Teeth: Yes (broken molar on left side) Heart: S1S2 Lungs: CTAB Assessment and Plan Assessment Anesthesia Assessment: Anesthesia Plan Discussed and Chart Reviewed Final Anesthetic Review Family History of Problems with Anesthesia: No History of Problems with Anesthesia: No NPO: Yes ASA Class: III Final Preanesthetic Review: No Changes in Pt Med Stat, Meds/Allgs Chart Reviewed, Consent Obtained/Reviewed and Anes Risks/Benef Reviewed Patient Risk: Low Procedure Risk: Low Anesthetic Plan Anesthetic Plan: MAC: and Agree w/ Assess. and Plan Disposition: Standard PACU
[2024-10-19 12:27] VITALS: BP 119/76; PULSE 79; RESP 16; TEMP 36.6; O2SAT 99
--- NOTE | 2024-10-19 12:29 | MHC.SHP ---
Pre-Procedural Eval Section A - 24 Hr Update-Section A only Date of Service: 10/19/24 Section B - Complete if H&P > 30 days Chief Complaint: dysphagia,fecal incontinence Details of Present Illness: Nephrotic syndrome History of CVA (cerebrovascular accident) Nicotine dependence, cigarettes, uncomplicated DJD (degenerative joint disease) Hypothyroidism Hyperlipidemia Hypertension Surgical History History of History of cervical discectomy Present Medications: see Short Stay Collaborative assessment Allergies: Allergies Allergy/AdvReac Type Severity Reaction Status Date / Time SHELL FISH Allergy Severe Anaphylaxis Uncoded 10/19/24 11:50 Review of Systems Review of Systems Comment: Ten point ROS negative Exam Exam Comment: Gen appear: No acute distress HEENT: no icterus Chest: No overt resp distress Abd: soft, nontender, nondistended Psych: Stable affect, answering questions appropriately Neuro: A/Ox3 noted to move all extremities spontaneously Ext: no peripheral edema Plan Diagnosis/Plan: Unchanged I have reviewed the history and physical and performed a pertinent physical examination on my patient. No changes have occurred unless specified. Time Spent With Patient Time: Total time managing care of this patient today ____ minutes.
--- NOTE | 2024-10-19 12:42 | P.OPN-COLO_ITS ---
Colonoscopy Operative Note Operative Note Date of Service: 10/19/24 Narrative: Procedure: Upper endoscopy and colonoscopy Indication: Dysphagia, diarrhea, fecal incontinence Endoscopist: Christine Barfield MD Anesthesia Provider: Stacy Chavez CRNA Anesthesia type: MAC Instrument: [id number]-[id number] and [id number]-[id number] EGD Procedure:?? The procedure, indications, preparation and potential complications were reviewed with the patient, who indicated understanding and gave written informed consent to proceed. The endoscope was introduced through the mouth, and advanced to the 2nd part of the duodenum. The mucosa was carefully examined on slow withdrawal of the endoscope. The patient tolerated the procedure well. There were no immediate complications.? EGD Findings:? * Esophagus:? Normal esophageal mucosa was noted. The Z-line was at 37 cm. There was a semi-lunar nonobstructing partial Schatzki's ring noted above the GE junction. Cold forceps biopsies were taken from lower and middle esophagus to rule out eosinophilic esophagitis. By narrowing in the upper esophagus noted. * Stomach:? Normal gastric mucosa. Retroflexion was performed in the cardia. * Duodenum:? Normal duodenal mucosa. Cold forceps biopsies were taken from the duodenal bulb and 2nd portion of the duodenum to rule out celiac sprue. Additional intervention: Soft tip Savary wire was introduced through the biopsy channel of the gastroscope and advanced to the antrum. ?The gastroscope was then backed out. ?Savary Kathy bougie was advanced over the guidewire and the esophagus was dilated to 20 mm with resistance felt. ?On relook, heme and superficial tear was noted at 17 cm confirming successful dilation. ? Colonoscopy Procedure:? The patient was then turned for the colonoscopy. A digital rectal exam was performed which was normal.? A distal attachment cap was affixed to the tip of the scope and the colonoscope was then inserted through the anus and advanced through the colon and advanced to the cecum at 80 cm and terminal ileum.? Appendiceal orifice and ileocecal valve were identified. Mucosa was carefully examined under high definition white light as the instrument was slowly withdrawn in a retrograde panoramic fashion. Retroflexion was performed in rectum. The procedure was not difficult. The quality of the prep was BBPS: 2+2+2 = adequate Withdrawal time 8 minutes Limitations: No limitations Findings: Mucosa: Normal colon and terminal ileum mucosa. Cold forceps biopsies were taken from the right and left side of the colon to rule out microscopic colitis. Protruding lesions: * Medium internal hemorrhoids without stigmata of recent bleeding. Impression: 1. Cricopharyngeal stenosis (dilation) 2. Normal esophageal mucosa (biopsy) 3. Normal stomach (biopsy) 4. Normal duodenum (biopsy) 5. Normal colon and terminal ileum mucosa (biopsy) 5. Internal hemorrhoids Recommendations:?? * Follow-up path results * Avoid NSAIDs * Upper endoscopy can be repeated as needed for recurrence of symptoms * Add fiber as a bulking agent to help with fecal incontinence * Will discuss pelvic MRI versus anorectal manometry referral with pt * Repeat colonoscopy for CRC screening in 5 years due to prep
[2024-10-19 13:12] VITALS: BP 105/70; PULSE 93; RESP 18; TEMP 36.8; O2SAT 98
[2024-10-19 13:27] VITALS: BP 116/71; PULSE 77; RESP 18; TEMP 36.6; O2SAT 98
== END 2024-10-19 14:10 | disposition home or self-care (01) ==
PROVIDERS: PCP Student in an Organized Health Care Education/Training Program; Visit Provider Internal Medicine
PROC: (CPT 45380; principal; 2024-10-19 12:40)
DX: R19.4 Change in bowel habit (principal); K64.8 Other hemorrhoids; R13.13 Dysphagia, pharyngeal phase; K22.2 Esophageal obstruction; I10 Essential (primary) hypertension; E78.5 Hyperlipidemia, unspecified; F17.210 Nicotine dependence, cigarettes, uncomplicated; Z86.73 Personal history of transient ischemic attack (TIA), and cerebral infarction without residual deficits
CPT/HCPCS: 45380; 43248; 43239; 88305; 88313; C1769; J2003; J2704

== ENCOUNTER → 2024-10-19 10:27 | Outpatient (BNV) | payer OTHER, SELFPAY | PROVIDERS: PCP Student in an Organized Health Care Education/Training Program; Visit Provider Internal Medicine | DX: R13.10 Dysphagia, unspecified (principal); K22.2 Esophageal obstruction; R19.7 Diarrhea, unspecified; K64.8 Other hemorrhoids | CPT/HCPCS: 43248; 45380 ==